=== PATIENT | female | born 1960 ===

== ENCOUNTER 2020-06-28 10:37 | Outpatient (REF) | payer MEDICARE, MEDICAID, SELFPAY | END 2020-06-28 10:38 | disposition home or self-care (01) | LOC: HO.HAP 10:37 | PROVIDERS: PCP Internal Medicine Medical Oncology; Referring Provider Internal Medicine Medical Oncology; Visit Provider Internal Medicine Medical Oncology | DX: Z46.1 Encounter for fitting and adjustment of hearing aid (principal) | CPT/HCPCS: V5266 ==

== ENCOUNTER 2020-09-15 08:00 | Outpatient (RCR) | payer MEDICARE, MEDICAID, SELFPAY ==
--- NOTE | 2020-09-17 08:46 | HO.OPPROGNO ---
Subjective Subjective Date of Service: 09/15/20 Reason For Visit: depression Interim History: Expressed much anger with the letter she received informing her of clinic closing. It is all about money . Discussed at length and explained rationale. Pt referenced her lack of trust in providers and how difficult it will be to make new alliances. Therapist at [facility] Zoha[facility] is supportive and is looking to one of his colleagues for transfer. Discussion of transfer process in attempts to ease pt's anxiety. Medication Compliance: Yes Side effects from medications: No Review of Systems Review of Systems Yes all other systems are reviewed and are negative (precautions to avoid covid) Mental Status Exam Mental Status Exam Patient Appearance: Appropriate Patient Orientation: Person, Place, Time and Situation Level of Consciousness: Alert Patient Behavior: Talkative Mood Description: Depressed and Angry Affect Description: Constricted Patient Cognition Impaired: No Ability to Follow Directions: Good Speech Pattern: Spontaneous Speech Memory Description: Intact Hallucinations: None Delusions: Not Present Thought Process: Intact Thought Content: positive for Intact Depressive Symptoms: Increased Anxiety (regarding change) Judgement: Good Discharge Plan Discharge Attending provider: Cornelia Beltran Medications: No Action fluvoxamine 100 mg tablet 100 mg PO BID Qty: 60 RF: 1 dextroamphetamine-amphetamine [Adderall] 20 mg tablet 20 mg PO BID Qty: 60 RF: 0 Assessment & Plan Assessment & Plan (1) ADHD: Status: Acute Code(s): F90.9 - Attention-deficit hyperactivity disorder, unspecified type Assessment and Plan: -Continue current regime (2) Major depressive disorder, recurrent severe without psychotic features: Status: Acute Code(s): F33.2 - Major depressive disorder, recurrent severe without psychotic features Assessment and Plan: -Continue current regime -Transfer to [facility] prescriber in process (3) PTSD (post-traumatic stress disorder): Status: Acute Code(s): F43.10 - Post-traumatic stress disorder, unspecified Assessment and Plan: Continue psychotherapy Greater than 50% of the session was spent on counseling and/or coordination of care Telehealth Telehealth Location of provider rendering services: practice address Location of patient: address on file Patient Identification confirmed using: Name, : Yes Telehealth method: voice only Patient verbally consented to treatment: Yes Patient verbally consented to billing insurance company: Yes Patient informed of any privacy concerns related to visit: Yes Time spent with patient (mins): 20
== END 2020-10-31 23:55 | disposition home or self-care (01) ==
LOC: HO.PAOS 08:00
PROVIDERS: Visit Provider Clinical Nurse Specialist Psychiatric/Mental Health, Adult
DX: F33.2 Major depressive disorder, recurrent severe without psychotic features (principal); F43.10 Post-traumatic stress disorder, unspecified; F90.9 Attention-deficit hyperactivity disorder, unspecified type
CPT/HCPCS: 99213

== ENCOUNTER 2020-09-17 11:43 | Outpatient (REF) | payer MEDICARE, MEDICAID, SELFPAY ==
[2020-09-20 08:16] LABS: SARS COV2 IgG Negative (Negative)
== END 2020-09-17 11:44 | disposition home or self-care (01) ==
LOC: HO.HMGCLDS 11:43
PROVIDERS: PCP Internal Medicine Medical Oncology; Visit Provider Internal Medicine Medical Oncology
DX: Z01.84 Encounter for antibody response examination (principal)
CPT/HCPCS: 36415; 86769

== ENCOUNTER 2020-09-17 12:27 | Outpatient (REF) | payer MEDICARE, MEDICAID, SELFPAY | END 2020-09-17 12:28 | disposition home or self-care (01) | LOC: HO.LAB 12:27 | PROVIDERS: PCP Internal Medicine Medical Oncology; Visit Provider Internal Medicine | DX: Z20.822 Contact with and (suspected) exposure to COVID-19 (principal) | CPT/HCPCS: 36415; C9803; U0003 ==

== ENCOUNTER 2021-01-03 11:53 | Outpatient (REF) | payer MEDICARE, MEDICAID, SELFPAY ==
--- NOTE | ~2021-01-03 | MM_ITS ---
EXAMINATION: MM SCREENING DIGITAL BREAST TOMOSYNTHESIS, BILATERAL CLINICAL INFORMATION: Screening. Asymptomatic. Benign left stereotactic biopsy 05/13/2014 (fibroadenoma with coarse microcalcifications). The lifetime risk of breast cancer based on the Tyrer-Cuzick Model is 3%. COMPARISON: Mammography: 04/02/2018, 03/29/2017, 01/26/2016 TECHNIQUE: Digital breast tomosynthesis is performed in both the craniocaudal and mediolateral oblique views along with computer-aided detection (CAD). Synthesized 2D images are generated from the tomosynthesis. FINDINGS: There are scattered areas of fibroglandular density (ACR BI-RADS breast composition Category b). There are no significant masses, abnormal calcifications, or other abnormalities. Parenchymal pattern is similar to prior studies. There are scattered bilateral stable asymmetries similar to prior exams. No developing density. There is a biopsy clip marker again noted mid upper outer left breast. No significant changes. MM/MM tomosynthesis screening BI IMPRESSION: No mammographic evidence of malignancy. ASSESSMENT: BI-RADS 2: Benign RECOMMENDATION: Routine annual mammography screening. This patient's information was entered into a reminder system with a target due date for their next mammogram.
[2021-01-03 13:22] LABS: Basophils Absolute Auto 0.1 X10*3/uL (0.0-0.2); Eosinophils Absolute Auto 0.1 X10*3/uL (0.0-0.4); Eosinophils Percent Auto 1.3 % (0-4); Hematocrit 40.6 % (37-47); Hemoglobin 13.2 g/dl (12.0-16.0); Imm Gran Abs Auto 0.01 X10*3/uL (0.00-0.03); Imm Gran Pct Auto 0.1 % (0.0-0.4); Lymphocytes Absolute Auto 4.2 X10*3/uL (1.2-4.9); Lymphocytes Percent Auto 51.3 % (20-40); MANUAL DIFF FLAG SCAN; Mean Corpuscular HGB Conc 32.5 g/dl (31.0-35.0); Mean Corpuscular Hemoglobin 29.2 pg (27.0-33.0); Mean Corpuscular Volume 89.8 fL (80-98); Mean Platelet Volume 9.4 fL (9.4-12.3); Monocytes Absolute Auto 0.7 X10*3/uL (0.1-1.2); Monocytes Percent Auto 8.7 % (2-11); Neutrophils Absolute Auto 3.1 X10*3/uL (2.0-8.3); Neutrophils Percent Auto 37.6 % (45-73); Platelet Count 513 X10*3/uL (160-400); Red Blood Count 4.52 X10*6/uL (4.20-5.50); Red Cell Distribution Width 14.3 % (11.0-16.0); SCAN SMEAR FLAG 1; White Blood Count 8.2 X10*3/uL (4.8-10.8)
[2021-01-03 13:56] LABS: Alanine Aminotransferase 20 U/L (0-31); Albumin Level 4.3 g/dL (3.5-5.0); Alkaline Phosphatase 88 U/L (39-117); Anion Gap 12 (12-20); Aspartate Amino Transferase 17 U/L (5-31); Bilirubin Total 0.5 mg/dL (0.0-1.0); Blood Urea Nitrogen 12 mg/dL (9-16); Carbon Dioxide 26 mmol/L (22-29); Chloride 106 mmol/L (96-108); Cholesterol 207 mg/dL; Estimated Glomerular Filt Rate > 60; Glucose Fasting 95 mg/dL (60-99); HDL Cholesterol 59 mg/dL; LDL Cholesterol Calculated 137 mg/dl; Potassium 5.2 mmol/L (3.3-5.1); Sodium 139 mmol/L (135-145); Total Protein 7.2 g/dL (6.5-8.0); Triglycerides 56 mg/dL
[2021-01-03 14:03] LABS: Calcium 11.1 mg/dL (8.4-10.2)
[2021-01-03 14:08] LABS: Vitamin D 25-OH Total 28.8 ng/mL (>30)
[2021-01-03 14:25] LABS: SLIDE REVIEW VERIFIED
== END 2021-01-03 11:54 | disposition home or self-care (01) ==
LOC: HO.MAMMO 11:53
PROVIDERS: PCP Internal Medicine Medical Oncology; Visit Provider Internal Medicine Medical Oncology
DX: E78.5 Hyperlipidemia, unspecified (principal); E83.52 Hypercalcemia; Z78.0 Asymptomatic menopausal state; Z12.31 Encounter for screening mammogram for malignant neoplasm of breast
CPT/HCPCS: 36415; 77063; 77067; 80053; 80061; 82306; 85025

== ENCOUNTER 2021-07-06 10:28 | Outpatient (REF) | payer MEDICARE, MEDICAID, SELFPAY ==
[2021-07-06 14:01] LABS: MANUAL DIFF FLAG NO
[2021-07-06 14:10] LABS: Basophils Absolute Auto 0.1 X10*3/uL (0.0-0.2); Basophils Percent Auto 0.8 % (0-2); Eosinophils Absolute Auto 0.1 X10*3/uL (0.0-0.4); Eosinophils Percent Auto 1.8 % (0-4); Hematocrit 40.1 % (37.0-47.0); Hemoglobin 13.3 g/dl (12.0-16.0); Imm Gran Abs Auto 0.02 X10*3/uL (0.00-0.03); Imm Gran Pct Auto 0.3 % (0.0-0.4); Lymphocytes Absolute Auto 2.8 X10*3/uL (1.2-4.9); Lymphocytes Percent Auto 37.5 % (20-40); Mean Corpuscular HGB Conc 33.2 g/dl (31.0-35.0); Mean Corpuscular Hemoglobin 29.7 pg (27.0-33.0); Mean Corpuscular Volume 89.5 fL (80.0-98.0); Mean Platelet Volume 10.1 fL (9.4-12.3); Monocytes Absolute Auto 0.8 X10*3/uL (0.1-1.2); Monocytes Percent Auto 10.4 % (2-11); Neutrophils Absolute Auto 3.63 x10*3/uL (2.0-8.3); Neutrophils Percent Auto 49.2 % (45-73); Platelet Count 577 X10*3/uL (160-400); Red Blood Count 4.48 X10*6/uL (4.20-5.50); Red Cell Distribution Width 14.2 % (11.0-16.0); White Blood Count 7.4 X10*3/uL (4.8-10.8)
[2021-07-06 14:39] LABS: Alanine Aminotransferase 16 U/L (0-31); Albumin Level 4.1 g/dL (3.5-5.0); Alkaline Phosphatase 90 U/L (39-117); Anion Gap 14 (12-20); Aspartate Amino Transferase 17 U/L (5-31); Bilirubin Total 0.4 mg/dL (0.0-1.0); Blood Urea Nitrogen 11 mg/dL (9-16); Calcium 10.6 mg/dL (8.4-10.2); Carbon Dioxide 24 mmol/L (22-29); Chloride 107 mmol/L (96-108); Cholesterol 175 mg/dL; Estimated Glomerular Filt Rate > 60; Glucose Fasting 89 mg/dL (60-99); HDL Cholesterol 42 mg/dL; LDL Cholesterol Calculated 119 mg/dl; Sodium 140 mmol/L (135-145); Total Protein 7.3 g/dL (6.5-8.0); Triglycerides 74 mg/dL
[2021-07-06 14:48] LABS: Erythrocyte Sedimentation Rate 28 MM/HR (0-20)
[2021-07-06 14:58] LABS: Vitamin D 25-OH Total 22.2 ng/mL (>30)
[2021-07-07 16:52] LABS: Calcium (PTHI) 10.8 mg/dL (8.6-10.4); PTHI 83 pg/mL (14-64)
== END 2021-07-06 10:29 | disposition home or self-care (01) ==
LOC: HO.HMGCLDS 10:28
PROVIDERS: Visit Provider Internal Medicine Medical Oncology
DX: E83.52 Hypercalcemia (principal); F90.9 Attention-deficit hyperactivity disorder, unspecified type; E78.5 Hyperlipidemia, unspecified; J45.909 Unspecified asthma, uncomplicated; D47.3 Essential (hemorrhagic) thrombocythemia
CPT/HCPCS: 36415; 80053; 80061; 82306; 83970; 85025; 85652

== ENCOUNTER 2021-08-02 06:39 | Outpatient (REF) | payer MEDICARE, MEDICAID, SELFPAY ==
[2021-08-02 11:19] LABS: MANUAL DIFF FLAG NO
[2021-08-02 11:26] LABS: Basophils Absolute Auto 0.1 X10*3/uL (0.0-0.2); Basophils Percent Auto 1.3 % (0-2); Eosinophils Absolute Auto 0.2 X10*3/uL (0.0-0.4); Eosinophils Percent Auto 3.3 % (0-4); Hematocrit 41.3 % (37.0-47.0); Hemoglobin 13.6 g/dl (12.0-16.0); Imm Gran Abs Auto 0.01 X10*3/uL (0.00-0.03); Imm Gran Pct Auto 0.2 % (0.0-0.4); Lymphocytes Absolute Auto 3.1 X10*3/uL (1.2-4.9); Lymphocytes Percent Auto 50.1 % (20-40); Mean Corpuscular HGB Conc 32.9 g/dl (31.0-35.0); Mean Corpuscular Hemoglobin 29.7 pg (27.0-33.0); Mean Corpuscular Volume 90.2 fL (80.0-98.0); Mean Platelet Volume 10.1 fL (9.4-12.3); Monocytes Absolute Auto 0.7 X10*3/uL (0.1-1.2); Monocytes Percent Auto 12.2 % (2-11); Neutrophils Percent Auto 32.9 % (45-73); Platelet Count 465 X10*3/uL (160-400); Red Blood Count 4.58 X10*6/uL (4.20-5.50); Red Cell Distribution Width 14.7 % (11.0-16.0); White Blood Count 6.1 X10*3/uL (4.8-10.8)
[2021-08-02 11:45] LABS: Alanine Aminotransferase 22 U/L (0-31); Alkaline Phosphatase 95 U/L (39-117); Anion Gap 12 (12-20); Aspartate Amino Transferase 22 U/L (5-31); Bilirubin Total 0.5 mg/dL (0.0-1.0); Blood Urea Nitrogen 10 mg/dL (9-16); Calcium 10.8 mg/dL (8.4-10.2); Carbon Dioxide 27 mmol/L (22-29); Chloride 108 mmol/L (96-108); Estimated Glomerular Filt Rate > 60; Glucose Random 106 mg/dL (60-115); Potassium 5.5 mmol/L (3.3-5.1); Sodium 141 mmol/L (135-145)
[2021-08-03 13:41] LABS: Calcium (PTHI) 10.3 mg/dL (8.6-10.4); PTHI 91 pg/mL (14-64)
== END 2021-08-02 06:40 | disposition home or self-care (01) ==
LOC: HO.HMGCLDS 06:39
PROVIDERS: PCP Internal Medicine Medical Oncology; Visit Provider Internal Medicine Medical Oncology
DX: E83.52 Hypercalcemia (principal); E78.5 Hyperlipidemia, unspecified
CPT/HCPCS: 36415; 80053; 83970; 85025

== ENCOUNTER 2021-12-02 11:02 | Outpatient (REF) | payer MEDICARE, MEDICAID, SELFPAY | END 2021-12-02 11:03 | disposition home or self-care (01) | LOC: HO.HAP 11:02 | PROVIDERS: Visit Provider Internal Medicine Medical Oncology | DX: Z46.1 Encounter for fitting and adjustment of hearing aid (principal); H90.6 Mixed conductive and sensorineural hearing loss, bilateral | CPT/HCPCS: V5266 ==

== ENCOUNTER 2022-01-11 12:54 | Outpatient (REF) | payer MEDICARE, MEDICAID, SELFPAY ==
--- NOTE | ~2022-01-11 | MM_ITS ---
EXAMINATION: MM SCREENING DIGITAL BREAST TOMOSYNTHESIS, BILATERAL CLINICAL INFORMATION: Screening. Asymptomatic. The lifetime risk of breast cancer based on the Tyrer-Cuzick Model is 3%. COMPARISON: Mammography: 01/03/2021, 04/02/2018, 03/29/2017 TECHNIQUE: Digital breast tomosynthesis is performed in both the craniocaudal and mediolateral oblique views along with computer-aided detection (CAD). Synthesized 2D images are generated from the tomosynthesis. FINDINGS: There are scattered areas of fibroglandular density (ACR BI-RADS breast composition Category b). There are no significant masses, abnormal calcifications, or other abnormalities. Scattered bilateral minor asymmetries are stable. No developing density. Left breast has biopsy clip marker mid upper outer quadrant. The axilla and skin contours are unremarkable. No significant changes. MM/MM tomosynthesis screening BI IMPRESSION: No mammographic evidence of malignancy. ASSESSMENT: BI-RADS 2: Benign RECOMMENDATION: Routine annual mammography screening. This patient's information was entered into a reminder system with a target due date for their next mammogram.
== END 2022-01-11 12:55 | disposition home or self-care (01) ==
LOC: HO.MAMMO 12:54
PROVIDERS: PCP Internal Medicine Medical Oncology; Visit Provider Internal Medicine Medical Oncology
DX: Z12.31 Encounter for screening mammogram for malignant neoplasm of breast (principal)
CPT/HCPCS: 77063; 77067

== ENCOUNTER 2022-04-10 06:44 | Outpatient (REF) | payer MEDICARE, MEDICAID, SELFPAY ==
[2022-04-10 11:11] LABS: MANUAL DIFF FLAG NO
[2022-04-10 11:45] LABS: Basophils Absolute Auto 0.1 X10*3/uL (0.0-0.2); Basophils Percent Auto 1.1 % (0-2); Eosinophils Absolute Auto 0.2 X10*3/uL (0.0-0.4); Eosinophils Percent Auto 2.4 % (0-4); Hematocrit 39.6 % (37.0-47.0); Imm Gran Abs Auto 0.01 X10*3/uL (0.00-0.03); Imm Gran Pct Auto 0.1 % (0.0-0.4); Lymphocytes Absolute Auto 3.1 X10*3/uL (1.2-4.9); Lymphocytes Percent Auto 39.3 % (20-40); Mean Corpuscular HGB Conc 32.8 g/dl (31.0-35.0); Mean Corpuscular Hemoglobin 29.8 pg (27.0-33.0); Mean Corpuscular Volume 90.8 fL (80.0-98.0); Mean Platelet Volume 9.2 fL (9.4-12.3); Monocytes Absolute Auto 0.9 X10*3/uL (0.1-1.2); NRBC Pct Auto 0.3 /100WBC (0.0-0.2); Neutrophils Absolute Auto 3.6 x10*3/uL (2.0-8.3); Neutrophils Percent Auto 46.1 % (45-73); Platelet Count 592 X10*3/uL (160-400); Red Blood Count 4.36 X10*6/uL (4.20-5.50); Red Cell Distribution Width 14.9 % (11.0-16.0); White Blood Count 7.9 X10*3/uL (4.8-10.8)
[2022-04-10 11:47] LABS: Alanine Aminotransferase 14 U/L (0-31); Albumin Level 3.9 g/dL (3.5-5.0); Alkaline Phosphatase 78 U/L (39-117); Anion Gap 12 (12-20); Aspartate Amino Transferase 13 U/L (5-31); Bilirubin Total 0.6 mg/dL (0.0-1.0); Blood Urea Nitrogen 12 mg/dL (9-16); Calcium 9.9 mg/dL (8.4-10.2); Carbon Dioxide 25 mmol/L (22-29); Chloride 106 mmol/L (96-108); Cholesterol 203 mg/dL; Estimated Glomerular Filt Rate > 60; Glucose Fasting 90 mg/dL (60-99); HDL Cholesterol 51 mg/dL; LDL Cholesterol Calculated 136 mg/dl; Potassium 4.3 mmol/L (3.3-5.1); Sodium 139 mmol/L (135-145); Total Protein 6.8 g/dL (6.5-8.0); Triglycerides 82 mg/dL
[2022-04-10 11:58] LABS: Vitamin D 25-OH Total 23.9 ng/mL (>30)
== END 2022-04-10 06:45 | disposition home or self-care (01) ==
LOC: HO.HMGCLDS 06:44
PROVIDERS: PCP Internal Medicine Medical Oncology; Visit Provider Internal Medicine Medical Oncology
DX: E66.3 Overweight (principal); E78.5 Hyperlipidemia, unspecified; D47.3 Essential (hemorrhagic) thrombocythemia
CPT/HCPCS: 36415; 80053; 80061; 82306; 85025

== ENCOUNTER 2022-05-24 06:57 | Outpatient (REF) | payer MEDICARE, MEDICAID, SELFPAY ==
[2022-05-24 11:13] LABS: MANUAL DIFF FLAG NO
[2022-05-24 11:25] LABS: Basophils Absolute Auto 0.1 X10*3/uL (0.0-0.2); Basophils Percent Auto 1.1 % (0-2); Eosinophils Absolute Auto 0.2 X10*3/uL (0.0-0.4); Eosinophils Percent Auto 3.1 % (0-4); Hematocrit 39.5 % (37.0-47.0); Hemoglobin 12.9 g/dl (12.0-16.0); Imm Gran Abs Auto 0.04 X10*3/uL (0.00-0.03); Imm Gran Pct Auto 0.5 % (0.0-0.4); Lymphocytes Absolute Auto 2.8 X10*3/uL (1.2-4.9); Lymphocytes Percent Auto 37.6 % (20-40); Mean Corpuscular HGB Conc 32.7 g/dl (31.0-35.0); Mean Corpuscular Hemoglobin 29.7 pg (27.0-33.0); Mean Corpuscular Volume 90.8 fL (80.0-98.0); Mean Platelet Volume 10.2 fL (9.4-12.3); Monocytes Absolute Auto 0.9 X10*3/uL (0.1-1.2); Monocytes Percent Auto 11.6 % (2-11); Neutrophils Absolute Auto 3.4 x10*3/uL (2.0-8.3); Neutrophils Percent Auto 46.1 % (45-73); Platelet Count 492 X10*3/uL (160-400); Red Blood Count 4.35 X10*6/uL (4.20-5.50); Red Cell Distribution Width 14.8 % (11.0-16.0); White Blood Count 7.4 X10*3/uL (4.8-10.8)
== END 2022-05-24 06:58 | disposition home or self-care (01) ==
LOC: HO.HMGCLDS 06:57
PROVIDERS: PCP Internal Medicine Medical Oncology; Visit Provider Internal Medicine Medical Oncology
DX: F90.9 Attention-deficit hyperactivity disorder, unspecified type (principal); D47.3 Essential (hemorrhagic) thrombocythemia; E78.5 Hyperlipidemia, unspecified
CPT/HCPCS: 36415; 85025

== ENCOUNTER 2022-08-23 08:15 | Outpatient (REF) | payer MEDICARE, MEDICAID, SELFPAY ==
[2022-08-23 11:20] LABS: MANUAL DIFF FLAG NO
[2022-08-23 11:27] LABS: Basophils Absolute Auto 0.1 X10*3/uL (0.0-0.2); Eosinophils Absolute Auto 0.2 X10*3/uL (0.0-0.4); Eosinophils Percent Auto 2.4 % (0-4); Hematocrit 42.9 % (37.0-47.0); Hemoglobin 14.1 g/dl (12.0-16.0); Imm Gran Abs Auto 0.03 X10*3/uL (0.00-0.03); Imm Gran Pct Auto 0.4 % (0.0-0.4); Lymphocytes Absolute Auto 3.3 X10*3/uL (1.2-4.9); Lymphocytes Percent Auto 40.6 % (20-40); Mean Corpuscular HGB Conc 32.9 g/dl (31.0-35.0); Mean Corpuscular Hemoglobin 29.3 pg (27.0-33.0); Mean Corpuscular Volume 89.2 fL (80.0-98.0); Mean Platelet Volume 9.7 fL (9.4-12.3); Monocytes Percent Auto 12.4 % (2-11); Neutrophils Absolute Auto 3.6 x10*3/uL (2.0-8.3); Neutrophils Percent Auto 43.2 % (45-73); Platelet Count 468 X10*3/uL (160-400); Red Blood Count 4.81 X10*6/uL (4.20-5.50); Red Cell Distribution Width 14.7 % (11.0-16.0); White Blood Count 8.2 X10*3/uL (4.8-10.8)
[2022-08-23 12:00] LABS: Alanine Aminotransferase 14 U/L (0-31); Albumin Level 4.1 g/dL (3.5-5.0); Alkaline Phosphatase 98 U/L (39-117); Anion Gap 9 (12-20); Aspartate Amino Transferase 14 U/L (5-31); Bilirubin Total 0.4 mg/dL (0.0-1.0); Blood Urea Nitrogen 17 mg/dL (9-16); Calcium 11.8 mg/dL (8.4-10.2); Carbon Dioxide 27 mmol/L (22-29); Chloride 106 mmol/L (96-108); Cholesterol 235 mg/dL; Estimated Glomerular Filt Rate 59; Glucose Fasting 95 mg/dL (60-99); HDL Cholesterol 61 mg/dL; LDL Cholesterol Calculated 158 mg/dl; Potassium 4.7 mmol/L (3.3-5.1); Sodium 137 mmol/L (135-145); Total Protein 7.1 g/dL (6.5-8.0); Triglycerides 81 mg/dL; Vitamin D 25-OH Total 31.9 ng/mL (>30)
== END 2022-08-23 08:16 | disposition home or self-care (01) ==
LOC: HO.HMGCLDS 08:15
PROVIDERS: PCP Internal Medicine Medical Oncology; Visit Provider Internal Medicine Medical Oncology
DX: E78.5 Hyperlipidemia, unspecified (principal); D47.3 Essential (hemorrhagic) thrombocythemia
CPT/HCPCS: 36415; 80053; 80061; 82306; 85025

== ENCOUNTER 2022-09-13 07:19 | Outpatient (REF) | payer MEDICARE, MEDICAID, SELFPAY ==
[2022-09-13 13:33] LABS: Alanine Aminotransferase 13 U/L (0-31); Albumin Level 4.1 g/dL (3.5-5.0); Alkaline Phosphatase 101 U/L (39-117); Anion Gap 13 (12-20); Aspartate Amino Transferase 15 U/L (5-31); Bilirubin Total 0.3 mg/dL (0.0-1.0); Blood Urea Nitrogen 22 mg/dL (9-16); Calcium 10.7 mg/dL (8.4-10.2); Carbon Dioxide 24 mmol/L (22-29); Chloride 108 mmol/L (96-108); Estimated Glomerular Filt Rate > 60; Glucose Random 113 mg/dL (60-115); Potassium 5.5 mmol/L (3.3-5.1); Sodium 139 mmol/L (135-145); Total Protein 7.4 g/dL (6.5-8.0)
[2022-09-13 13:37] LABS: Vitamin D 25-OH Total 27.6 ng/mL (>30)
== END 2022-09-13 07:20 | disposition home or self-care (01) ==
LOC: HO.HMGCLDS 07:19
PROVIDERS: PCP Internal Medicine Medical Oncology; Visit Provider Internal Medicine Medical Oncology
DX: F90.9 Attention-deficit hyperactivity disorder, unspecified type (principal); J45.909 Unspecified asthma, uncomplicated; D47.3 Essential (hemorrhagic) thrombocythemia; E83.52 Hypercalcemia; E21.3 Hyperparathyroidism, unspecified
CPT/HCPCS: 36415; 80053; 82306

== ENCOUNTER 2022-11-01 10:35 | Outpatient (REF) | payer MEDICARE, MEDICAID, SELFPAY ==
[2022-11-01 13:59] LABS: MANUAL DIFF FLAG NO
[2022-11-01 14:18] LABS: Basophils Absolute Auto 0.1 X10*3/uL (0.0-0.2); Basophils Percent Auto 1.1 % (0-2); Eosinophils Absolute Auto 0.1 X10*3/uL (0.0-0.4); Eosinophils Percent Auto 1.5 % (0-4); Hematocrit 42.8 % (37.0-47.0); Hemoglobin 13.8 g/dl (12.0-16.0); Imm Gran Abs Auto 0.02 X10*3/uL (0.00-0.03); Imm Gran Pct Auto 0.2 % (0.0-0.4); Lymphocytes Absolute Auto 3.2 X10*3/uL (1.2-4.9); Lymphocytes Percent Auto 35.5 % (20-40); Mean Corpuscular HGB Conc 32.2 g/dl (31.0-35.0); Mean Corpuscular Hemoglobin 29.2 pg (27.0-33.0); Mean Corpuscular Volume 90.7 fL (80.0-98.0); Mean Platelet Volume 9.8 fL (9.4-12.3); Monocytes Absolute Auto 0.8 X10*3/uL (0.1-1.2); Monocytes Percent Auto 9.3 % (2-11); Neutrophils Absolute Auto 4.7 x10*3/uL (2.0-8.3); Neutrophils Percent Auto 52.4 % (45-73); Platelet Count 507 X10*3/uL (160-400); Red Blood Count 4.72 X10*6/uL (4.20-5.50); Red Cell Distribution Width 14.5 % (11.0-16.0); White Blood Count 8.9 X10*3/uL (4.8-10.8)
[2022-11-01 14:51] LABS: Alanine Aminotransferase 16 U/L (0-31); Albumin Level 4.1 g/dL (3.5-5.0); Alkaline Phosphatase 96 U/L (39-117); Anion Gap 12 (12-20); Aspartate Amino Transferase 14 U/L (5-31); Bilirubin Total 0.3 mg/dL (0.0-1.0); Blood Urea Nitrogen 15 mg/dL (9-16); Calcium 10.5 mg/dL (8.4-10.2); Carbon Dioxide 27 mmol/L (22-29); Chloride 107 mmol/L (96-108); Estimated Glomerular Filt Rate > 60; Glucose Random 107 mg/dL (60-115); Potassium 5.6 mmol/L (3.3-5.1); Sodium 140 mmol/L (135-145); Total Protein 7.3 g/dL (6.5-8.0)
[2022-11-01 14:56] LABS: Vitamin D 25-OH Total 24.7 ng/mL (>30)
[2022-11-02 13:24] LABS: Calcium (PTHI) 11.2 mg/dL (8.6-10.4); PTHI 140 pg/mL (16-77)
== END 2022-11-01 10:36 | disposition home or self-care (01) ==
LOC: HO.HMGCLDS 10:35
PROVIDERS: PCP Internal Medicine Medical Oncology; Visit Provider Internal Medicine Medical Oncology
DX: E21.3 Hyperparathyroidism, unspecified (principal)
CPT/HCPCS: 36415; 80053; 82306; 83970; 85025

== ENCOUNTER 2022-11-10 06:39 | Outpatient (REF) | payer MEDICARE, MEDICAID, SELFPAY ==
--- NOTE | ~2022-11-10 | XR_ITS ---
EXAMINATION: XR CHEST CLINICAL INFORMATION: Cough COMPARISON: 05/24/2017 TECHNIQUE: 2 views of the chest were obtained. FINDINGS: The lung pattern is overall increased interstitial change. There is some increased opacities in the parahilar region on the right suprahilar region and also at the left base in the lingula. There is also some mildly increasing opacities in the anterior medial right lung which may be in the right middle lobe. There is no effusion. No failure is seen here. The cardiac silhouette is within normal limits. The hilar regions do not appear pathologically enlarged. XR/XR chest 2V IMPRESSION: Some increased markings in the left base/lingula, right medial base possibly right middle lobe and parahilar region on the right. These may be small areas of infiltrate. Follow-up films would be recommended after treatment in 4-6 weeks to assess for resolution.
--- NOTE | ~2022-11-10 | XR_ITS ---
EXAMINATION: XR HAND, RIGHT CLINICAL INFORMATION: Pain COMPARISON: None TECHNIQUE: PA, lateral, and oblique views of the right hand. FINDINGS: There is degeneration at the base of the thumb. No convincing evidence for an acute fracture or dislocation. Some scattered areas of degeneration otherwise most noted in the DIP joints. XR/XR hand RT min 3V IMPRESSION: No convincing evidence for acute bony finding. Degenerative changes most noted at the base of the thumb.
== END 2022-11-10 06:40 | disposition home or self-care (01) ==
LOC: HO.XRAY 06:39
PROVIDERS: PCP Internal Medicine Medical Oncology; Visit Provider Internal Medicine Medical Oncology
DX: M79.644 Pain in right finger(s) (principal); R05.1 Acute cough
CPT/HCPCS: 71046; 73130

== ENCOUNTER 2023-01-16 08:33 | Outpatient (REF) | payer MEDICARE, MEDICAID, SELFPAY ==
--- NOTE | ~2023-01-16 | MM_ITS ---
EXAMINATION: MM SCREENING DIGITAL BREAST TOMOSYNTHESIS, BILATERAL CLINICAL INFORMATION: Screening. Asymptomatic. The lifetime risk of breast cancer based on the Tyrer-Cuzick Model is 4%. COMPARISON: Mammography: 01/11/2022, 01/03/2021, 04/02/2018 TECHNIQUE: Digital breast tomosynthesis is performed in both the craniocaudal and mediolateral oblique views along with computer-aided detection (CAD). Synthesized 2D images are generated from the tomosynthesis. FINDINGS: There are scattered areas of fibroglandular density (ACR BI-RADS breast composition Category b). There are no significant masses, abnormal calcifications, or other abnormalities. Parenchymal pattern is similar to prior studies. There is no developing density or architectural abnormality. Biopsy clip marker again noted mid upper outer left breast. The axilla and skin contours are unremarkable. Incidental small low right axillary tail node stable. No significant changes. MM/MM tomosynthesis screening BI IMPRESSION: No mammographic evidence of malignancy. ASSESSMENT: BI-RADS 2: Benign RECOMMENDATION: Routine annual mammography screening. This patient's information was entered into a reminder system with a target due date for their next mammogram.
--- NOTE | ~2023-01-16 | MM_ITS ---
EXAMINATION: BONE DENSITOMETRY CLINICAL INDICATION: Asymptomatic menopausal state. COMPARISON: Baseline BD dated 08/30/2012, left hip; 01/16/2023, spine and left forearm radius 33%. TECHNIQUE: Using a [employer] DXA System (software version: 13.1) manufactured by [employer], dual-energy x-ray absorptiometry was performed of the lumbar spine, left hip and left forearm radius 33%. The images are of good technical quality. Summary results are attached. FINDINGS: AP SPINE L1-L4 (excluding L2 and L3): The data of L1-L4 has been changed to exclude the L2 and L3 vertebral bodies because degenerative changes at these levels may cause overestimation of the lumbar spine density. Current: BMD 1.168 g/cm2, Z-score 1.7, T-score 0.0, normal, 3.8% decrease from baseline (<5% change is not significant). Baseline: BMD 1.214 g/cm2. LEFT FEMUR, NECK: Current: BMD 0.788 g/cm2, Z-score -0.3, T-score -1.8, osteopenia. Baseline: BMD 0.922 g/cm2. LEFT FEMUR, TOTAL: Current: BMD 0.853 g/cm2, Z-score 0.0, T-score -1.2, osteopenia, 13.6% decrease from baseline (<5% change is not significant). Baseline: BMD 0.987 g/cm2. LEFT FOREARM RADIUS 33%: BMD 0.839 g/cm2, Z-score 0.8, T-score -0.4, normal. Baseline: Not previously measured. IDENTIFIED RISK FACTORS: Early menopause, secondary osteoporosis, hyperparathyroidism, low calcium intake, tobacco use (current smoker). HISTORY OF FRACTURE: None listed. MEDICATIONS: Vitamin D. MM/XR DEXA appendicular skeleton IMPRESSION: 1. DIAGNOSIS: Osteopenia based on the lowest T-score value of -1.8 in the femoral neck applying World Health Organization criteria. 2. 10-YEAR FRACTURE RISK PREDICTION, FRAX: Major osteoporotic fracture (clinical spine, forearm, hip or shoulder) 10.1%. Hip fracture 2.1%. 3. Treatment Recommendations: NOF guidelines recommend consideration for treatment in postmenopausal women and men age 50 and older presenting with the following: -A hip or vertebral (clinical or morphometric) fracture. -T-score less than or equal to -2.5 at the femoral neck or spine after appropriate evaluation to exclude secondary causes. -Low bone mass at the hip or spine and a 10-year fracture probability by FRAX of greater than or equal to 3% for hip fracture or greater than or equal to 20% for major osteoporotic fracture based on the [place] adapted WHO algorithm. 4. Other Recommendations: All treatment decisions require clinical judgment and consideration of individual patient factors, including patient preferences, comorbidities, previous drug use, risk factors not captured in the FRAX model (e.g. frailty, falls, vitamin D deficiency, increased bone turnover, interval significant decline in bone density) and possible under or overestimation of fracture risk by FRAX. Additional medical evaluation for secondary cause of low bone mineral density may be appropriate. FUTURE SCAN RECOMMENDATION: People with diagnosed cases of osteoporosis or at high risk for fracture should have regular bone mineral density tests. For patients eligible for Medicare, routine testing is allowed once every 2 years. The testing frequency can be increased to one year for patients who have rapidly progressing disease, those who are receiving or discontinuing medical therapy to restore bone mass, or have additional risk factors.
[2023-01-16 09:07] LABS: MANUAL DIFF FLAG NO
[2023-01-16 09:14] LABS: Basophils Absolute Auto 0.1 X10*3/uL (0.0-0.2); Basophils Percent Auto 1.1 % (0-2); Eosinophils Absolute Auto 0.1 X10*3/uL (0.0-0.4); Eosinophils Percent Auto 2.1 % (0-4); Hematocrit 40.1 % (37.0-47.0); Imm Gran Abs Auto 0.01 X10*3/uL (0.00-0.03); Imm Gran Pct Auto 0.2 % (0.0-0.4); Lymphocytes Absolute Auto 1.6 X10*3/uL (1.2-4.9); Lymphocytes Percent Auto 30.5 % (20-40); Mean Corpuscular HGB Conc 32.4 g/dl (31.0-35.0); Mean Corpuscular Hemoglobin 28.9 pg (27.0-33.0); Mean Corpuscular Volume 89.1 fL (80.0-98.0); Mean Platelet Volume 10.3 fL (9.4-12.3); Monocytes Absolute Auto 0.7 X10*3/uL (0.1-1.2); Neutrophils Absolute Auto 2.8 x10*3/uL (2.0-8.3); Neutrophils Percent Auto 52.1 % (45-73); Platelet Count 304 X10*3/uL (160-400); Red Cell Distribution Width 14.6 % (11.0-16.0); White Blood Count 5.3 X10*3/uL (4.8-10.8)
[2023-01-16 09:55] LABS: Alanine Aminotransferase 15 U/L (0-31); Albumin Level 3.8 g/dL (3.5-5.0); Alkaline Phosphatase 86 U/L (39-117); Anion Gap 9 (12-20); Aspartate Amino Transferase 15 U/L (5-31); Bilirubin Total 0.2 mg/dL (0.0-1.0); Blood Urea Nitrogen 19 mg/dL (9-16); Calcium 10.3 mg/dL (8.4-10.2); Carbon Dioxide 25 mmol/L (22-29); Chloride 110 mmol/L (96-108); Cholesterol 189 mg/dL; Estimated Glomerular Filt Rate 59; Glucose Fasting 111 mg/dL (60-99); HDL Cholesterol 56 mg/dL; LDL Cholesterol Calculated 120 mg/dl; Potassium 5.6 mmol/L (3.3-5.1); Sodium 138 mmol/L (135-145); Total Protein 6.7 g/dL (6.5-8.0); Triglycerides 65 mg/dL
[2023-01-24 20:38] LABS: Parathyroid Hormone Related Pr 10 pg/mL (11-20)
== END 2023-01-16 08:34 | disposition home or self-care (01) ==
LOC: HO.MAMMO 08:33
PROVIDERS: PCP Internal Medicine Medical Oncology; Visit Provider Internal Medicine Medical Oncology
DX: Z12.31 Encounter for screening mammogram for malignant neoplasm of breast (principal); Z13.820 Encounter for screening for osteoporosis; Z78.0 Asymptomatic menopausal state; E21.3 Hyperparathyroidism, unspecified; R05.1 Acute cough; E78.5 Hyperlipidemia, unspecified; J45.909 Unspecified asthma, uncomplicated; D47.3 Essential (hemorrhagic) thrombocythemia
CPT/HCPCS: 36415; 77063; 77067; 77081; 80053; 80061; 83519; 85025

== ENCOUNTER 2023-04-20 06:10 | Outpatient (REF) | payer MEDICARE, MEDICAID, SELFPAY ==
[2023-04-20 11:12] LABS: MANUAL DIFF FLAG NO
[2023-04-20 11:36] LABS: Basophils Absolute Auto 0.1 X10*3/uL (0.0-0.2); Basophils Percent Auto 1.5 % (0-2); Eosinophils Absolute Auto 0.1 X10*3/uL (0.0-0.4); Eosinophils Percent Auto 1.9 % (0-4); Hematocrit 39.2 % (37.0-47.0); Hemoglobin 12.9 g/dl (12.0-16.0); Imm Gran Abs Auto 0.01 X10*3/uL (0.00-0.03); Imm Gran Pct Auto 0.2 % (0.0-0.4); Lymphocytes Absolute Auto 2.3 X10*3/uL (1.2-4.9); Lymphocytes Percent Auto 37.6 % (20-40); Mean Corpuscular HGB Conc 32.9 g/dl (31.0-35.0); Mean Corpuscular Hemoglobin 29.3 pg (27.0-33.0); Mean Corpuscular Volume 89.1 fL (80.0-98.0); Mean Platelet Volume 10.3 fL (9.4-12.3); Monocytes Absolute Auto 0.8 X10*3/uL (0.1-1.2); Monocytes Percent Auto 13.1 % (2-11); Neutrophils Absolute Auto 2.8 x10*3/uL (2.0-8.3); Neutrophils Percent Auto 45.7 % (45-73); Platelet Count 458 X10*3/uL (160-400); Red Cell Distribution Width 15.2 % (11.0-16.0); White Blood Count 6.2 X10*3/uL (4.8-10.8)
[2023-04-20 12:02] LABS: Alanine Aminotransferase 17 U/L (0-31); Albumin Level 3.9 g/dL (3.5-5.0); Alkaline Phosphatase 76 U/L (39-117); Anion Gap 11 (12-20); Aspartate Amino Transferase 18 U/L (5-31); Bilirubin Total 0.4 mg/dL (0.0-1.0); Blood Urea Nitrogen 18 mg/dL (9-16); Calcium 10.9 mg/dL (8.4-10.2); Carbon Dioxide 24 mmol/L (22-29); Chloride 109 mmol/L (96-108); Cholesterol 206 mg/dL; Estimated Glomerular Filt Rate > 60; Glucose Fasting 100 mg/dL (60-99); HDL Cholesterol 54 mg/dL; LDL Cholesterol Calculated 135 mg/dl; Sodium 140 mmol/L (135-145); Total Protein 7.4 g/dL (6.5-8.0); Triglycerides 89 mg/dL
[2023-04-23 13:48] LABS: Calcium (PTHI) 10.6 mg/dL (8.6-10.4); PTHI 108 pg/mL (16-77)
== END 2023-04-20 06:11 | disposition home or self-care (01) ==
LOC: HO.HMGCLDS 06:10
PROVIDERS: PCP Internal Medicine Medical Oncology; Visit Provider Internal Medicine Medical Oncology
DX: Z00.00 Encounter for general adult medical examination without abnormal findings (principal); E21.3 Hyperparathyroidism, unspecified; E78.5 Hyperlipidemia, unspecified
CPT/HCPCS: 36415; 80053; 80061; 83970; 85025

== ENCOUNTER 2023-06-01 12:49 | Outpatient (AMB) | payer MEDICARE, MEDICAID, SELFPAY ==
--- NOTE | 2023-06-01 10:22 | A.OFFVIS_ITS ---
Intake Intake Visit Reasons: LDCT SD Allergies trazodone [TRAZODONE] Allergy (Unknown, Unverified 05/20/20 18:26) NIGHTMARES, FELT LIKE ELEPHANT SITTING ON CHEST, NIGHMARES HPI LDCT SD HPI Details Initial visit for this 63yo smoker with a 45PYH. Patient has been smoking since age 15 for 48 years at 1ppd. Currently down to 1/2ppd. Denies marijuana use. Denies second hand smoke exposure. Denies exposure to chemicals or substances like asbestos. . Notes family history of lung cancer. Mom at age 51 in 1990 Denies personal history of cancers. . Denies chest CT in last year. Ct chest done 09/05/16 noted centrilobular emphysema and small nodules. . Denies recent travel outside the [place]. Denies recent respiratory illness or recent hospitalization for respiratory issues. Denies testing positive for COVID. Admits receiving COVID Vaccine. x 5. . Denies fever, chills, new/worsening cough, hemoptysis, hoarseness or dysphagia. Denies significant chest pain, significant dyspnea or unintentional weight loss. Patient Lung Cancer Screening Questionnaire reviewed with patient by provider. . Shared Decision Making Completed. Patient meets criteria. Discussed in detail with patient, the risk vs benefit of LDCT screening. Patient consents to proceed with scan. Discussed smoking cessation. [facility] Medical History (Updated 06/01/23 @ 13:17 by Dianna Singh PA-C) PTSD (post-traumatic stress disorder) Major depressive disorder, recurrent severe without psychotic features ADHD Hyperparathyroidism Hyperlipidemia Nicotine dependence, cigarettes, uncomplicated Osteopenia (~2022) Postmenopausal Tubular adenoma of colon (~2018) Hearing loss, bilateral History of drug overdose Surgical History (Updated 03/20/23 @ 13:04 by Dianna Singh PA-C) History of cataract surgery History of ear surgery History of tonsillectomy History of endoscopy History of colonoscopy Social History (Updated 06/01/23 @ 13:18 by Dianna Singh PA-C) Patient Tobacco Use Status: Current everyday Tobacco user Years Smoked: onset 15yo, 1ppd x 48yrs, now 1/2ppd - 45pyh Assessment & Plan Assessment & Plan (1) Nicotine dependence, cigarettes, uncomplicated: Comment: (current smoker - onset 15yo, 1ppd x 48yrs, now 1/2ppd - 45PYH) Code(s): F17.210 - Nicotine dependence, cigarettes, uncomplicated Plan: - SDM visit completed today in office. - Patient meets criteria for LDCT for lung cancer screening purposes and is asymptomatic. - Smoking cessation counseling offered. Patients can always call [phone]. - Will arrange for a LDCT scan of the chest for screening purposes at [facility]. - Risks, benefits, and alternatives were discussed in detail and the patient agrees to proceed. - Risks discussed include but are not limited to: radiation exposure, anxiety during testing and while awaiting results, false negatives, false positives and possibility of additional intervention such as further imaging or surgical procedures for benign disease. - Benefits are obviously detection of lung cancer at an early stage which can lead to improved outcomes. - Discussed the importance of screening program compliance with adherence to yearly LDCT scan as scheduled - or sooner interval scans for personalized screening regimen. - Discussed follow up plan. Our office will send a letter discussing results and if needed set up phone call and office visit based on CT findings. - Patient educated on results categorization and the management decisions for suspicious findings potentially found on the screening LDCT scan. Any patient with a Lung RADS score of 3 or 4 will be reviewed by a multidisciplinary team at [facility] to form a plan of action in regards to scan findings. - If further work up is warranted for a suspicious lung finding this will be followed by the Lung Cancer Screening program in conjunction with the Thoracic Surgery Department at [facility]. - A copy of the office note and LDCT will be sent to the patient's PCP - as well as documentation on any associated further plans of care. - Incidental findings on LDCT are the PCP's responsibility. These findings are indicated with an S finding on the LDCT Assessment. A note discussing the findings will be sent to the PCP who is then responsible for further management. - All questions answered.? Coding Level of Care Code Lung Cancer Screening G0296 Diagnoses Nicotine dependence, cigarettes, uncomplicated F17.210
== END 2023-06-01 14:59 | disposition home or self-care (01) ==
PROVIDERS: PCP Internal Medicine Medical Oncology; Visit Provider Physician Assistant Medical
DX: F17.210 Nicotine dependence, cigarettes, uncomplicated (principal)
CPT/HCPCS: G0296

== ENCOUNTER 2023-06-01 13:28 | Outpatient (REF) | payer MEDICARE, MEDICAID, SELFPAY ==
--- NOTE | ~2023-06-01 | CT_ITS ---
EXAMINATION: CT CHEST SCREENING CLINICAL INFORMATION: Current smoker with 40 pack-year history. COMPARISON: 06/05/2017 TECHNIQUE: Multidetector volumetric CT imaging of the chest is performed without contrast using low dose technique. Additional 2D coronal and sagittal reformatted images and axial 3D maximum intensity projection (MIP) images are generated on the CT workstation. This CT examination was performed using dose optimization techniques as appropriate, variously including the following: *Automated exposure control *Adjustment of mA and/or kV according to patient size (this includes techniques or standardized protocols for targeted exams where dose is matched to indication/reason for exam; i.e. 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 Left lateral mid lung opacity likely nipple shadow. LUNGS: Trachea and bronchi are patent. Hyperinflated lungs with centrilobular emphysema. Mild mosaic attenuation. Scattered atelectasis. In the superior segment of the right lower lobe, 9 x 8 mm subpleural nodular density is seen, axial 199/445. Borders are spiculated, there is tethering to the pleura. Spiculations and possible small daughter lesions best visualized on on sagittal 73/106, coronal 69 through 71/81. 4 mm left upper lobe pulmonary nodule, 6:113. MEDIASTINUM: No thyroid nodules. Nonspecific mediastinal lymph nodes. No pathologic lymphadenopathy. Nonenlarged heart. No pericardial effusion. Atherosclerotic calcifications nonaneurysmal aorta. Nonenlarged pulmonary arteries. CORONARY ARTERY CALCIFICATION: Minimal. PLEURA: There is no pleural effusion. No pleural mass or thickening. AXILLA: No pathologic lymphadenopathy. UPPER ABDOMEN: Unremarkable OSSEOUS STRUCTURES: No suspicious osseous lesions. CT/CT lung screening IMPRESSION: Suspicious 9 mm right lower lobe pulmonary nodule. ASSESSMENT: Lung-RADS category 4X: Suspicious RECOMMENDATION: PET/CT and/or tissue sampling depending on probability of malignancy and comorbidities. For new large nodules which have developed at annual screening CT, one month LDCT may be recommended to address potentially infectious or inflammatory conditions. At the time of this dictation, PSA service being contacted to alert referring physician of findings and recommendations.
== END 2023-06-01 13:29 | disposition home or self-care (01) ==
LOC: HO.CT 13:28
PROVIDERS: Visit Provider Physician Assistant Medical
DX: Z12.2 Encounter for screening for malignant neoplasm of respiratory organs (principal); F17.210 Nicotine dependence, cigarettes, uncomplicated
CPT/HCPCS: 71271; G0296

== ENCOUNTER 2023-06-19 11:20 | Outpatient (AMB) | payer MEDICARE, MEDICAID, SELFPAY ==
[2023-06-19 11:27] VITALS: BP 183/79; PULSE 85; BMI 25.2
--- NOTE | 2023-06-19 11:27 | MHC.OFFVIS ---
Intake Vital Signs 06/19/23 11:27 Height 5 ft Weight 129 lb BMI 25.2 BP 183/79 H Blood Pressure Location Rt brachial Position Sitting Pulse 85 Intake Visit Reasons: 9mm Rt lower lobe pulmonary nodule Intake Note: Patient referred for Rt lower lobe pulmonary nodule noticed on CT scan dated 06-01-23. Denies difficulty breathing. Reports hx of chronic bronchitis since childhood. C/o constant cough. 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 I know the patient directly from her presentation at lung cancer screening conference. Patient is a longstanding smoking history starting at age 15 with a least 1+ pack a day. She denies any significant shortness of breath. She has a history of bronchitis since childhood. She patient has no symptoms of wheeze , hemoptysis or chest pain. Her weight has been stable. Her energy is good. Patient's mother from lung cancer. Chart was reviewed patient evaluated. [facility] Medical History (Updated 06/19/23 @ 11:53 by Manav Rose MD) PTSD (post-traumatic stress disorder) Major depressive disorder, recurrent severe without psychotic features ADHD Hyperparathyroidism Hyperlipidemia Nicotine dependence, cigarettes, uncomplicated Osteopenia (~2022) Postmenopausal Tubular adenoma of colon (~2019) Hearing loss, bilateral History of drug overdose Surgical History (Updated 06/19/23 @ 11:53 by Manav Rose MD) History of cataract surgery History of ear surgery History of tonsillectomy History of endoscopy History of colonoscopy Social History (Updated 06/19/23 @ 11:35 by CARLOS De Leon) Alcohol intake: current Alcohol intake frequency: holidays/special occasions only Alcohol type: beer Patient Tobacco Use Status: Current everyday Tobacco user Cigarettes Per Day: 10 Years Smoked: onset 15yo, 1ppd x 48yrs, now 1/2ppd - 45pyh Physical Exam Vital Signs: Last Vital Signs Pulse 85 06/19/23 11:27 BP 183/79 H 06/19/23 11:27 BMI result Body Mass Index 25.2 Neck Other: No cervical periclavicular or axillary adenopathy bilaterally. Chest Other: Chest breath sounds bilaterally, consistent with COPD, HS 1 in 2 GI Other: Abdomen soft, benign Extrem Other: Extremities grossly intact Assessment & Plan Assessment & Plan (1) Right lower lobe pulmonary nodule: Comment: (9x8mm spiculated subpleural nodular density in superior segment of RLL - 06/01/23 LDCT) Code(s): R91.1 - Solitary pulmonary nodule Plan: I discussed the patient the CT scan findings. Current recommendation is to arrange for complete PFTs, IR CT-guided biopsy the right lung lesion, and direct further interventions and studies based on these results. All questions were answered. Patient will see me after the above-mentioned interventions and studies. (2) Nicotine dependence, cigarettes, uncomplicated: Comment: (current smoker - onset 15yo, 1ppd x 48yrs, now 1/2ppd - 45PYH) Code(s): F17.210 - Nicotine dependence, cigarettes, uncomplicated Orders: Orders CT biopsy lung RT Today R91.1 - Solitary pulmonary nodule PFT pulmonary function test Today F17.210 - Nicotine dependence, cigarettes, uncomplicated, R91.1 - Solitary pulmonary nodule Coding Level of Care Code New Pt Level 5 (46859) Diagnoses Right lower lobe pulmonary nodule R91.1 Nicotine dependence, cigarettes, uncomplicated F17.210
== END 2023-06-19 11:51 | disposition home or self-care (01) ==
PROVIDERS: PCP Internal Medicine Medical Oncology; Referring Provider Physician Assistant Medical; Visit Provider Surgery
DX: R91.1 Solitary pulmonary nodule (principal); F17.210 Nicotine dependence, cigarettes, uncomplicated
CPT/HCPCS: 99204

== ENCOUNTER → 2023-06-19 11:20 | Outpatient (BNVA) | payer MEDICARE, MEDICAID, SELFPAY | PROVIDERS: PCP Internal Medicine Medical Oncology; Referring Provider Physician Assistant Medical; Visit Provider Surgery ==

== ENCOUNTER 2023-07-04 11:40 | Day surgery (SDC) | payer MEDICARE, MEDICAID, SELFPAY ==
[2023-07-04] VITALS (7 sets, daily range): BP systolic 152–169; BP diastolic 64–75; PULSE 71–86; RESP 12–18; TEMP 36.4–36.9; O2SAT 97–100; BMI 24.4
--- NOTE | ~2023-07-04 | XR_ITS ---
EXAMINATION: XR CHEST CLINICAL INFORMATION: Status post right lung biopsy. COMPARISON: CT of same day and 06/01/2023. TECHNIQUE: AP portable view of the chest was obtained. FINDINGS: There is a region of opacity seen in the mid right lung related to some hemorrhage at biopsy site. No pneumothorax or pleural effusion identified. Heart normal size. No evidence of pulmonary edema. XR/XR chest 1V IMPRESSION: No pneumothorax on delayed AP portable view of the chest status post right lung biopsy.
--- NOTE | ~2023-07-04 | CT_ITS ---
PROCEDURE: CT GUIDED BIOPSY, LUNG CLINICAL INFORMATION: Right lung lesion. COMPARISON: 06/01/2023 and 06/05/2017. TECHNIQUE: CT fluoroscopic-guided core biopsy right lung mass. This CT examination was performed using dose optimization techniques as appropriate, variously including the following: *Automated exposure control *Adjustment of mA and/or kV according to patient size (this includes techniques or standardized protocols for targeted exams where dose is matched to indication/reason for exam; i.e. extremities or head) *Use of iterative reconstruction technique DLP: 217 mGy-cm. FINDINGS: Informed consent was obtained from the patient prior to the procedure. During this process, the procedure and potential alternatives were explained, along with the intended outcome and benefits. The risks of the procedure, as well as the risk of not doing the procedure, were discussed. The patient was given the opportunity to ask questions regarding the procedure and appeared competent to make medical decisions. A signed consent form which documents this discussion was placed in the medical record. Preliminary scanning demonstrates a 5 mm subpleural nodule about the posterior aspect right lower lobe superior segment. Using sterile technique and CT fluoroscopic guidance a 17-gauge guiding needle was directed to the mass from a posterior approach. Three 18-gauge core biopsies were then obtained. Preliminary cytologic result was of an adequate specimen. No immediate postprocedure pneumothorax was identified with a small amount of bleeding seen at the biopsy site. The patient did not have hemoptysis. CT/CT biopsy lung RT IMPRESSION: Successful CT fluoroscopically-guided core biopsy of right lung mass. CONSCIOUS SEDATION: The patient received intravenous conscious sedation under my direct supervision. A registered nurse monitored the patient and the patient's vital signs throughout the procedure. The total sedation time was 25 minutes. A total of 0.5 mg of Versed and 50 mcg fentanyl was given for good effect.
[2023-07-04 12:38] LABS: MANUAL DIFF FLAG NO
[2023-07-04 12:40] LABS: Basophils Absolute Auto 0.1 X10*3/uL (0.0-0.2); Eosinophils Absolute Auto 0.2 X10*3/uL (0.0-0.4); Eosinophils Percent Auto 1.9 % (0-4); Hematocrit 39.4 % (37.0-47.0); Hemoglobin 13.1 g/dl (12.0-16.0); Imm Gran Abs Auto 0.02 X10*3/uL (0.00-0.03); Imm Gran Pct Auto 0.2 % (0.0-0.4); Lymphocytes Percent Auto 34.5 % (20-40); Mean Corpuscular HGB Conc 33.2 g/dl (31.0-35.0); Mean Corpuscular Hemoglobin 29.6 pg (27.0-33.0); Mean Corpuscular Volume 88.9 fL (80.0-98.0); Mean Platelet Volume 9.1 fL (9.4-12.3); Monocytes Absolute Auto 0.8 X10*3/uL (0.1-1.2); Monocytes Percent Auto 8.9 % (2-11); Neutrophils Absolute Auto 4.7 x10*3/uL (2.0-8.3); Neutrophils Percent Auto 53.5 % (45-73); Platelet Count 429 X10*3/uL (160-400); Red Blood Count 4.43 X10*6/uL (4.20-5.50); Red Cell Distribution Width 14.3 % (11.0-16.0); White Blood Count 8.7 X10*3/uL (4.8-10.8)
[2023-07-04 12:46] LABS: INTERNATIONAL NORM RATIO 0.9 (0.9-1.1); Prothrombin Time 10.5 SEC (11.1-13.3)
[2023-07-04 12:49] LABS: Partial Thromboplastin Time 29.4 SEC (26.0-36.4)
== END 2023-07-04 17:24 | disposition home or self-care (01) ==
PROVIDERS: Physician Assistant Surgical; PCP Internal Medicine Medical Oncology; Visit Provider Radiology Diagnostic Radiology
DX: D14.31 Benign neoplasm of right bronchus and lung (principal); R91.1 Solitary pulmonary nodule; E78.5 Hyperlipidemia, unspecified; E21.3 Hyperparathyroidism, unspecified; J42 Unspecified chronic bronchitis; F17.210 Nicotine dependence, cigarettes, uncomplicated; Z88.8 Allergy status to other drugs, medicaments and biological substances; Z80.1 Family history of malignant neoplasm of trachea, bronchus and lung; F43.10 Post-traumatic stress disorder, unspecified
CPT/HCPCS: 32408; 36415; 71045; 85025; 85610; 85730; 88305; 88333; 99152; J2250; J3010

== ENCOUNTER → 2023-07-04 14:12 | Outpatient (BNV) | payer MEDICARE, MEDICAID, SELFPAY | PROVIDERS: PCP Internal Medicine Medical Oncology; Visit Provider Radiology Diagnostic Radiology | DX: R91.1 Solitary pulmonary nodule (principal) | CPT/HCPCS: 32408 ==

== ENCOUNTER 2023-07-16 11:04 | Outpatient (AMB) | payer MEDICARE, MEDICAID, SELFPAY ==
[2023-07-16 11:10] VITALS: BP 177/83; PULSE 94
--- NOTE | 2023-07-16 11:10 | A.OFFVIS_ITS ---
Intake Vital Signs 07/16/23 11:10 Weight 128 lb BP 177/83 H Blood Pressure Location Rt brachial Position Sitting Pulse 94 Intake Visit Reasons: Right lower lobe pulmonary nodule, CT bx results Intake Note: Patient here to discuss CT guided bx on Rt lower lung lobe for nodule. Ct guided bx performed on 07-04-23. Nuclear Control Room Operator Required: No Accompanied by: Self / Same As Patient Allergies Sulfa (Sulfonamide Antibiotics) Allergy (Severe, Verified 07/16/23 11:11) Rash trazodone [TRAZODONE] Allergy (Unknown, Unverified 07/16/23 11:11) NIGHTMARES, FELT LIKE ELEPHANT SITTING ON CHEST, NIGHMARES HPI HPI Comments History of Present Illness Details Patient presents for follow-up. Her pathology from transthoracic needle biopsy was negative. However in reviewing the actual IR biopsy, the consensus of opinion at the lung screening cancer multi disciplinary conference is at the lesion was missed by the biopsy needle. Patient has high suspicious spiculated superior segment right lower lobe lung lesion. She has a very appreciable smoking history. She does not wish to undergo repeat biopsy of this process. Instead, she wished to have this excised. [facility] Medical History PTSD (post-traumatic stress disorder) Major depressive disorder, recurrent severe without psychotic features ADHD Hyperparathyroidism Hyperlipidemia Nicotine dependence, cigarettes, uncomplicated Osteopenia (~2022) Postmenopausal Tubular adenoma of colon (~2018) Hearing loss, bilateral History of drug overdose Surgical History History of cataract surgery History of ear surgery History of tonsillectomy History of endoscopy History of colonoscopy Social History Alcohol intake: current Alcohol intake frequency: holidays/special occasions only Alcohol type: beer Patient Tobacco Use Status: Current everyday Tobacco user Cigarettes Per Day: 10 Years Smoked: onset 15yo, 1ppd x 48yrs, now 1/2ppd - 45pyh Physical Exam Vital Signs: Last Vital Signs Pulse 94 07/16/23 11:10 BP 177/83 H 07/16/23 11:10 Neck Other: No cervical, periclavicular, or axillary adenopathy bilaterally. Chest Other: Chest breath sounds bilaterally, consistent with COPD, HS 1 in 2 GI Other: Abdomen soft, benign Assessment & Plan Assessment & Plan (1) Right lower lobe pulmonary nodule: Comment: (9x8mm spiculated subpleural nodular density in superior segment of RLL - 06/01/23 LDCT) Code(s): R91.1 - Solitary pulmonary nodule (2) Nicotine dependence, cigarettes, uncomplicated: Comment: (current smoker - onset 15yo, 1ppd x 48yrs, now 1/2ppd - 45PYH) Code(s): F17.210 - Nicotine dependence, cigarettes, uncomplicated Plan As noted above, therapeutic options include repeat biopsy, PET scan, continue surveillance but my recommendation based on the radiographic appearance of this lesion is to approach this with a VATS wedge resection, and do on-table frozen section. If this proves to be a malignant process, then proceed with a VATS right lower lobectomy. Patient would like to proceed with this course of action . Risks, benefits, alternatives of thorascopic wedge resection and possible lobectomy and possible thoracotomy were reviewed with the patient and included but not limited to bleeding, infection, recurrence, numbness, pain, scarring the patient was to proceed. All questions were answered. Patient scheduled for pulmonary function test. Arrangements will be made for the thinner procedure on the day which is convenient for her. Coding Level of Care Code Est Pt Level 5 (08444) Diagnoses Right lower lobe pulmonary nodule R91.1 Nicotine dependence, cigarettes, uncomplicated F17.210
== END 2023-07-16 11:25 | disposition home or self-care (01) ==
PROVIDERS: PCP Internal Medicine Medical Oncology; Visit Provider Surgery
DX: R91.1 Solitary pulmonary nodule (principal); F17.210 Nicotine dependence, cigarettes, uncomplicated
CPT/HCPCS: 99215

== ENCOUNTER → 2023-07-16 11:04 | Outpatient (BNVA) | payer MEDICARE, MEDICAID, SELFPAY | PROVIDERS: PCP Internal Medicine Medical Oncology; Visit Provider Surgery | DX: R91.1 Solitary pulmonary nodule (principal); F17.210 Nicotine dependence, cigarettes, uncomplicated | CPT/HCPCS: 99212 ==

== ENCOUNTER 2023-07-24 09:06 | Outpatient (REF) | payer MEDICARE, MEDICAID, SELFPAY ==
[2023-07-24 09:42] LABS: MANUAL DIFF FLAG NO
[2023-07-24 09:54] LABS: Basophils Absolute Auto 0.1 X10*3/uL (0.0-0.2); Basophils Percent Auto 0.8 % (0-2); Eosinophils Absolute Auto 0.1 X10*3/uL (0.0-0.4); Eosinophils Percent Auto 1.4 % (0-4); Hematocrit 40.7 % (37.0-47.0); Hemoglobin 13.5 g/dl (12.0-16.0); Imm Gran Abs Auto 0.01 X10*3/uL (0.00-0.03); Imm Gran Pct Auto 0.1 % (0.0-0.4); Lymphocytes Absolute Auto 3.4 X10*3/uL (1.2-4.9); Lymphocytes Percent Auto 40.7 % (20-40); Mean Corpuscular HGB Conc 33.2 g/dl (31.0-35.0); Mean Corpuscular Hemoglobin 29.6 pg (27.0-33.0); Mean Corpuscular Volume 89.3 fL (80.0-98.0); Mean Platelet Volume 9.4 fL (9.4-12.3); Monocytes Absolute Auto 0.7 X10*3/uL (0.1-1.2); Monocytes Percent Auto 8.1 % (2-11); Neutrophils Percent Auto 48.9 % (45-73); Platelet Count 457 X10*3/uL (160-400); Red Blood Count 4.56 X10*6/uL (4.20-5.50); Red Cell Distribution Width 13.8 % (11.0-16.0); White Blood Count 8.3 X10*3/uL (4.8-10.8)
[2023-07-24 10:28] LABS: Alanine Aminotransferase 21 U/L (0-31); Albumin Level 4.1 g/dL (3.5-5.0); Alkaline Phosphatase 96 U/L (39-117); Anion Gap 10 (12-20); Aspartate Amino Transferase 18 U/L (5-31); Bilirubin Total 0.3 mg/dL (0.0-1.0); Blood Urea Nitrogen 14 mg/dL (9-16); Calcium 10.9 mg/dL (8.4-10.2); Carbon Dioxide 28 mmol/L (22-29); Chloride 104 mmol/L (96-108); Cholesterol 224 mg/dL (<200); Estimated Glomerular Filt Rate > 60; Glucose Fasting 96 mg/dL (60-99); HDL Cholesterol 63 mg/dL (>40); LDL Cholesterol Calculated 147 mg/dL (<100); Potassium 4.9 mmol/L (3.3-5.1); Sodium 137 mmol/L (135-145); Total Protein 7.8 g/dL (6.5-8.0); Triglycerides 71 mg/dL (<150)
--- NOTE | 2023-07-24 11:21 | PFT_ITS ---
FLOWS: 1. FEV1 77% of predicted at 1.34 L. 2. FVC 96% of predicted at 2.53 L. 3. FEV1 to FVC ratio of 0.63. 4. No bronchodilator response. LUNG VOLUMES: 1. Total lung capacity 91% of predicted at 3.99 L. 2. Residual volume 93% of predicted at 1.56 L. 3. Slow vital capacity 89% of predicted at 2.53 L. 4. Expiratory reserve volume 71% of predicted at 0.47 L. 5. Diffusion capacity is moderately decreased, diffusion capacity just being mildly decreased after correction for alveolar ventilation. IMPRESSION: Moderate obstructive ventilatory defect. There is no bronchodilator response. Decreased diffusion capacity suggests emphysema Brendan Hyde MD AP/MODL / [id number]
[2023-08-01 16:34] LABS: Parathyroid Hormone Related Pr 14 pg/mL (11-20)
== END 2023-07-24 09:07 | disposition home or self-care (01) ==
LOC: HO.RESP 09:06
PROVIDERS: Absent Provider Physician Assistant Medical; PCP Internal Medicine Medical Oncology; Referring Provider Internal Medicine Medical Oncology; Visit Provider Surgery
DX: F17.210 Nicotine dependence, cigarettes, uncomplicated (principal); E78.5 Hyperlipidemia, unspecified; E21.3 Hyperparathyroidism, unspecified; E66.3 Overweight
CPT/HCPCS: 36415; 80053; 80061; 83519; 85025; 94010; 94727; 94729

== ENCOUNTER → 2023-07-24 11:21 | Outpatient (BNV) | payer MEDICARE, MEDICAID, SELFPAY | PROVIDERS: Absent Provider Physician Assistant Medical; PCP Internal Medicine Medical Oncology; Referring Provider Internal Medicine Medical Oncology; Visit Provider Internal Medicine Pulmonary Disease | DX: R91.1 Solitary pulmonary nodule (principal); F17.210 Nicotine dependence, cigarettes, uncomplicated | CPT/HCPCS: 94060; 94727; 94729 ==

== ENCOUNTER 2023-08-06 12:25 | Inpatient (IN) | payer MEDICARE, MEDICAID, SELFPAY ==
--- NOTE | 2023-07-31 | ECG_ITS ---
Test Reason : PREOP Blood Pressure : / mmHG Vent. Rate : 083 BPM Atrial Rate : 083 BPM P-R Int : 176 ms QRS Dur : 076 ms QT Int : 352 ms P-R-T Axes : 075 016 051 degrees QTc Int : 413 ms Normal sinus rhythm Normal ECG When compared with ECG of 25-SEP-2019 10:04, No significant change was found Referred By: Ada Palencia Electronically Signed By:NATHALIA CALERO MD
[2023-07-31 12:01] VITALS: BP 154/72; PULSE 89; RESP 16; O2SAT 98; BMI 25.8
--- NOTE | 2023-07-31 12:39 | HO.ANESPROP2 ---
Documented by User: Ada Palencia NP 08/03/23 08:54 HPI - Anesthesia Eval Consult details Narrative: 63yo F for Right Thoracoscopy w/Video Assist, wedge resection, poss lobectomy, poss thoracotomy No recent illness. Chronic cough. Productive in the morning. No CP/SOB with >4 mets GERD. Controlled with ppi Large hole in nasal septum. Hx mastoidectomy with bilat hearing aids Albuterol rare use. Less than weekly Thrombocytosis with anegralide. No hx of clots. PMFSH Active Problems Active Problems: All Active Problems (Updated 07/31/23 @ 12:20 by Kayli Lindo, CONSTANTINE) Right lower lobe pulmonary nodule (Acute) Thrombocytosis (Acute) Nicotine dependence, cigarettes, uncomplicated (Acute) Hyperparathyroidism (Acute) Hyperlipidemia (Acute) PTSD (post-traumatic stress disorder) (Acute) Major depressive disorder, recurrent severe without psychotic features (Acute) ADHD (Acute) Past Medical History Medical History Nasal deformity Hx of nausea Chronic bronchitis Hx of ectopic Nicotine dependence, cigarettes, uncomplicated Hyperparathyroidism Hyperlipidemia Postmenopausal Tubular adenoma of colon (~2018) Osteopenia (~2022) History of drug overdose Hearing loss, bilateral PTSD (post-traumatic stress disorder) Major depressive disorder, recurrent severe without psychotic features ADHD Family History Family History Mother Lupus (systemic lupus erythematosus) Family history of problems with anesthesia: No Surgical History Surgical History Hx of adenoidectomy History of cataract surgery History of ear surgery History of tonsillectomy History of endoscopy History of colonoscopy History of Problems with Anesthesia: No Social History Social History Household Members: None Housing: House Are you a primary neonatal intensive care nurse to a significant other at home: No Do you presently have visiting nurse or other home services: No (cousin to help post-op) Alcohol intake: current Alcohol intake frequency: holidays/special occasions only Alcohol type: beer Comment: aware of trip hazard Patient Tobacco Use Status: Current everyday Tobacco user Tobacco use type: Cigarette Cigarettes Per Day: 2 Years Smoked: onset 15yo, 1ppd x 48yrs, quit for 5 days, now 2/day - 45pyh Smoked in Last 30 Days: Yes Second Hand Smoke Exposure: No Use of substances other than those prescribed or required for medical reasons: No Have you been hit, kicked, punched, or otherwise hurt by someone within the past year? If so, by whom?: No Meds Allergies Allergy/AdvReac Type Severity Reaction Status Date / Time Sulfa (Sulfonamide Allergy Severe Rash Verified 08/06/23 07:19 Antibiotics) trazodone [TRAZODONE] Allergy Severe FELT LIKE Verified 08/06/23 07:19 ELEPHANT SITTING ON MY CHEST , NIGHTMARES Home Medications Medication Instructions Recorded Confirmed Last Taken Type albuterol sulfate 90 mcg/actuation 1 inh inhalation Q4-6H PRN 06/19/23 07/30/23 Unknown History breath activated powder inhaler Shortness Of Breath anagrelide 1 mg capsule 1 mg PO .DAILY@199906/19/23 07/31/23 Unknown History docusate sodium 100 mg capsule 100 mg PO .DAILY@199906/19/23 07/31/23 Unknown History multivitamin 1 tab PO .DAILY@0600 06/19/23 07/31/23 Unknown History pantoprazole 20 mg tablet,delayed 20 mg PO .DAILY@199906/19/23 07/31/23 Unknown History release simvastatin 20 mg tablet 20 mg PO .DAILY@199906/19/23 07/31/23 Unknown History dextroamphetamine-amphetamine 20 20 mg PO .@0600+1100 07/31/23 07/31/23 Unknown History mg tablet (Adderall) fluvoxamine 100 mg tablet 100 mg PO .DAILY@199907/31/23 07/31/23 Unknown History Exam Height,Weight and Vital Signs: Height 5 ft Weight 59.874 kg Last Vital Signs Pulse 89 07/31/23 12:01 Resp 16 07/31/23 12:01 BP 154/72 H 07/31/23 12:01 Pulse Ox 98 07/31/23 12:01 O2 Del Method Room Air 07/31/23 12:01 Pertinent Lab Results Pertinent Lab Results: Laboratory Tests 07/24/23 09:32 Blood Type A Positive Antibody Screen NEGATIVE Laboratory Tests 07/24/23 09:41 WBC 8.3 Hgb 13.5 Hct 40.7 Plt Count 457 H Sodium 137 Potassium 4.9 D Chloride 104 Carbon Dioxide 28 BUN 14 Creatinine 0.88 Narrative Narrative: EKG 07/2023 Vent. Rate : 083 BPM Atrial Rate : 083 BPM P-R Int : 176 ms QRS Dur : 076 ms QT Int : 352 ms P-R-T Axes : 075 016 051 degrees QTc Int : 413 ms Normal sinus rhythm Normal ECG When compared with ECG of 25-SEP-2019 10:04, No significant change was found Airway Mallampati Class: I TM Dist: >3cm Neck ROM: Full Denture: Upper Loose/Missing/Broken Teeth: Yes (Missing lower, none loose or broken) Heart: RRR Lungs: Expiratory wheeze RUL. Coarse bilat lower lobes Assessment and Plan Assessment Anesthesia Assessment: Anesthesia Plan Discussed, Smoking Cess. Discussed and PAT Visit Final Anesthetic Review Family History of Problems with Anesthesia: No History of Problems with Anesthesia: No Documented by User: Jewel Alcaraz MD 08/06/23 07:19 PMFSH Past Medical History Medical History Nasal deformity Hx of nausea Chronic bronchitis Hx of ectopic Nicotine dependence, cigarettes, uncomplicated Hyperparathyroidism Hyperlipidemia Postmenopausal Tubular adenoma of colon (~2018) Osteopenia (~2022) History of drug overdose Hearing loss, bilateral PTSD (post-traumatic stress disorder) Major depressive disorder, recurrent severe without psychotic features ADHD Family History Family History Mother Lupus (systemic lupus erythematosus) Surgical History Surgical History Hx of adenoidectomy History of cataract surgery History of ear surgery History of tonsillectomy History of endoscopy History of colonoscopy Social History Social History Household Members: None Housing: House Are you a primary neonatal intensive care nurse to a significant other at home: No Do you presently have visiting nurse or other home services: No (cousin to help post-op) Alcohol intake: current Alcohol intake frequency: holidays/special occasions only Alcohol type: beer Comment: aware of trip hazard Patient Tobacco Use Status: Current everyday Tobacco user Tobacco use type: Cigarette Cigarettes Per Day: 2 Years Smoked: onset 15yo, 1ppd x 48yrs, quit for 5 days, now 2/day - 45pyh Smoked in Last 30 Days: Yes Second Hand Smoke Exposure: No Use of substances other than those prescribed or required for medical reasons: No Have you been hit, kicked, punched, or otherwise hurt by someone within the past year? If so, by whom?: No Meds Allergies Allergy/AdvReac Type Severity Reaction Status Date / Time Sulfa (Sulfonamide Allergy Severe Rash Verified 08/06/23 07:19 Antibiotics) trazodone [TRAZODONE] Allergy Severe FELT LIKE Verified 08/06/23 07:19 ELEPHANT SITTING ON MY CHEST , NIGHTMARES Home Medications Medication Instructions Recorded Confirmed Last Taken Type albuterol sulfate 90 mcg/actuation 1 inh inhalation Q4-6H PRN 06/19/23 07/30/23 Unknown History breath activated powder inhaler Shortness Of Breath anagrelide 1 mg capsule 1 mg PO .DAILY@199906/19/23 07/31/23 Unknown History docusate sodium 100 mg capsule 100 mg PO .DAILY@199906/19/23 07/31/23 Unknown History multivitamin 1 tab PO .DAILY@0600 06/19/23 07/31/23 Unknown History pantoprazole 20 mg tablet,delayed 20 mg PO .DAILY@199906/19/23 07/31/23 Unknown History release simvastatin 20 mg tablet 20 mg PO .DAILY@199906/19/23 07/31/23 Unknown History dextroamphetamine-amphetamine 20 20 mg PO .@0600+1100 07/31/23 07/31/23 Unknown History mg tablet (Adderall) fluvoxamine 100 mg tablet 100 mg PO .DAILY@199907/31/23 07/31/23 Unknown History Assessment and Plan Final Anesthetic Review NPO: Yes ASA Class: III Final Preanesthetic Review: No Changes in Pt Med Stat, Meds/Allgs Chart Reviewed, Consent Obtained/Reviewed and Anes Risks/Benef Reviewed Patient Risk: Intermediate Procedure Risk: High Assessment/Block/Sedation in SS: Assess/Block/Sedation-SS Anesthetic Plan Anesthetic Plan: GA (double lumen) and Agree w/ Assess. and Plan Disposition: Standard PACU
--- NOTE | 2023-08-03 12:18 | MHC.SHP ---
Pre-Procedural Eval Section A Date of Service: 08/03/23 The patient is an INPATIENT: No Changes since office visit: No Cold of Flu in the past 2 weeks, No New Medical Problems, No Changes in Medication and No Patient answered all questions The History & Physical has been completed within 30 days and I have reviewed it.: Yes Section B Chief Complaint: Solitary pulmonary nodule Allergies: Allergies Allergy/AdvReac Type Severity Reaction Status Date / Time Sulfa (Sulfonamide Allergy Severe Rash Verified 07/30/23 11:23 Antibiotics) trazodone [TRAZODONE] Allergy Severe FELT LIKE Unverified 07/30/23 11:23 ELEPHANT SITTING ON MY CHEST , NIGHTMARES Plan I have reviewed the history and physical and performed a pertinent physical examination on my patient. No changes have occurred unless specified. Time Spent With Patient Time: Total time managing care of this patient today ____ minutes.
[2023-08-06] VITALS (23 sets, daily range): BP systolic 141–207; BP diastolic 72–100; PULSE 67–78; RESP 8–24; TEMP 35.9–36.8; O2SAT 91–100
--- NOTE | ~2023-08-06 | XR_ITS ---
EXAMINATION: XR CHEST CLINICAL INFORMATION: Follow-up right pneumothorax COMPARISON: None available. TECHNIQUE: Frontal view of the chest was obtained. FINDINGS: Redemonstration right apical pneumothorax and large amount of right thoracoabdominal/supraclavicular subcutaneous emphysema. Pneumothorax is slightly improved, apex now at the mid aspect of the third posterior rib. Mild tracheal deviation to the right is less pronounced. Increased markings right base with obscuration of the right costophrenic angle again identified. Heart and mediastinum are unremarkable. Other than mild left base atelectasis, left lung is clear. XR/XR chest 1V IMPRESSION: Slight improvement right pneumothorax. Stable right sided subcutaneous emphysema.
--- NOTE | ~2023-08-06 | XR_ITS ---
EXAMINATION: XR CHEST CLINICAL INFORMATION: Status post right lower lobectomy COMPARISON: None available. TECHNIQUE: Frontal view of the chest was obtained. FINDINGS: There are postsurgical changes right lung with a large bore chest catheter. The tip of the catheter is in the right lung apex there is no visible pneumothorax. There is subcutaneous emphysema from postsurgical changes. The right lung is slightly hyperexpanded. The left lung is expanded with patchy opacity left lung base question atelectasis or infiltrate. Heart size and perivascular is normal. No gross bony abnormality seen. XR/XR chest 1V IMPRESSION: 1. Postsurgical changes right lung with a large bore chest catheter in the right lung apex. There is no visible pneumothorax. There is right subcutaneous emphysema from postsurgical changes. 2. Patchy opacity left lung base question atelectasis or infiltrate.
--- NOTE | ~2023-08-06 | XR_ITS ---
EXAMINATION: XR CHEST CLINICAL INFORMATION: Status post right lower lobectomy COMPARISON: Chest x-ray August 06, 2023 TECHNIQUE: Frontal view of the chest was obtained. FINDINGS: Cardiac silhouette is normal in size. A vertically oriented right-sided chest tube is similar in orientation. Small right apical pneumothorax present. Extensive subcutaneous emphysema again noted. There is good aeration of the left lung base with less prominent patchy opacity of the left costophrenic angle, suspect atelectasis. XR/XR chest 1V IMPRESSION: Small right apical pneumothorax with chest tube in place.
--- NOTE | ~2023-08-06 | XR_ITS ---
EXAMINATION: XR CHEST CLINICAL INFORMATION: Status post right lower lobectomy, post chest tube removal evaluation COMPARISON: Portable chest x-ray on 08/07/2023 at 500 hours TECHNIQUE: AP upright portable x-ray of the chest was obtained. FINDINGS: vascularity. LUNGS: Lungs are hypoinflated. There is effacement of bilateral costophrenic angles. Asymmetric hazy alveolar density is seen in lateral right lung base. There is right lung volume loss. There is soft tissue density filling the medial border of right lung. 10% right apical pneumothorax is seen. BONES: Bony skeleton is intact. Extensive surgical emphysema is seen in right lower neck, right lateral chest and right lateral abdomen XR/XR chest 1V IMPRESSION: 1. Unchanged right lung volume loss, increased soft tissue density filling the medial border of right lung. 2. Unchanged patchy right lung base alveolar densities, interval development of lateral left lung base atelectasis or small left pleural effusion. 3. Interval removal of right thoracostomy tube. 4. Interval slight increase in size of right apical pneumothorax. 5. Persistent extensive lateral right chest and right lateral abdominal surgical emphysema.
[2023-08-06] MEDS: Lactated Ringers 1,000 ML 100 ML IVCONT (07:30)
--- NOTE | 2023-08-06 12:24 | P.OP_ITS ---
Operative Note Operative Note Date of Service: 08/06/23 Narrative: Preoperative diagnosis: [] Superior segment right lower lobe lung lesion Postop diagnosis: [] Superior segment right lower lobe lung cancer Procedure [] vats right lower lobe wedge, vats right lobectomy, mediastinal ly mph node sampling, bronchoscopy, intercostal nerve block,pneumonolysis Surgeon: [] Milton Process Automation Engineer: [] Navid Rust Type of Anesthesia: [] Double-lumen general Indication for surgery: [] Bronchoscopy demonstrated no gross endoluminal pathology. It was Also used to assist anesthesia in the placement of a double- lumen tube. Patient underwent uneventful VATS right lower lobe superior segment wedge resection which on frozen pathology was consistent with adenocarcinoma. Patient then underwent VATS right lower lobectomy. Dense adhesions of right upper lobe and middle lobe to the mediastinal surface necessitating pneumonolysis, to free the lung to allow for full atelectasis for the procedure and expansion at its completion. Seven mediastinal lymph node stations were sampled including; 7, 9R, 10R. Findings: [] Patient brought to the operating room, placed on operative table supine position, after adequate level of double-lumen general anesthesia was induced, patient underwent bronchoscopy with findings as noted above. Patient was then placed in left lateral decubitus position, and right chest was prepped and draped in usual sterile fashion. Using anterior and posterior ports in the anterior and posterior axillary line 7th intercostal space, and an access incision in the 4th intercostal space with a wound protector, intraoperative findings were as noted above. Wedge resection of superior segment right upper lobe lesion was uneventfully performed was wedged out stapler. using sequential SANJAY staplers, specimen placed in an Endo-Catch bag, and sent to pathology for frozen section which was consistent with an adenocarcinoma. Inferior pulmonary ligament was then taken down, using Bovie, and inferior pulmonary vein was transected using SANJAY vascular stapler. Next hilum was approached and the anterior and posterior fissures the middle lobe and upper lobe from the lower lobe respectively and were uneventfully transected using SANJAY staplers. Hilum had the pulmonary main arterial branch to the lower lobe encircled and transected using SANJAY vascular stapler. Next the bronchus to the right lower lobe was again encircled, and a heavy wire stapler placed across this. Remaining lung was inflated with full expansion of the right middle lobe and lower lobe. Stapler uneventfully fired. Specimen was placed in an Endo- Catch bag, a retrieved through the access incision. Mediastinal lymph node sampling was performed at the above-mentioned stations and sent as separate specimens to pathology. At completion the procedure, chest cavity was filled with saline and remaining lung re-expanded with bronchial stump pneumostatic. Through the anterior port incision, 28 chest tube was directed toward the apex and secured to the skin using 0 silk suture. Port sites were closed using deep 2-0 Vicryl and dermal 3-0 Vicryl sutures respectively. Access incision had its muscular layer closed using running 0 Vicryl suture. Interrupted inverted deep dermal 3-0 Vicryl sutures followed by running subcuticular 4-0 Vicryl suture placed. Steri-Strips and sterile dressings applied. Intercostal nerve block using 0.5 % Marcaine was performed a completion the procedure. Chest tube was connected to Pleur-evac and lung re-expanded with no air leak appreciated. Sponge, needle, instrument counts reported correct. Patient tolerated the procedure well and emerged anesthesia stable condition. EBL minimal
--- OUTSIDE RECORDS SUMMARY | 2023-08-06 12:29 | XMS_ITS | Continuity of Care Document ---
Author Name Unknown Organization [facility] [place] Address [address] [place] [address]- Care Team Providers Care Public Health Technician Name Role Phone Horace Lima MD Primary Care Physician Encounter [facility] Date(s): 04/13/22 - 05/13/22 [facility] [place] [address], [place] [address] Attending Physician: Donta London Admitting Physician: AdmtrDonta Referring Physician: Admtr, Ar8 Allergies, Adverse Reactions, Alerts Substance Reaction Severity Status trazodone-like drugs Active Medications Adderall 20 mg oral tablet 1 tablet = 20 mg, By Mouth, 2 times a day, 0 Refills, Maintenance, 10/17/21 11:03:00 EST, Tablet, Partial fill upon patient request if the prescription is for a schedule II opioid drug. Start Date: 10/17/21 Status: Ordered Albuterol (Eqv-ProAir HFA) See Instructions, Inhalation prn, 0 Refills, Maintenance, 10/17/21 11:05:00 EST, Partial fill upon patient request if the prescription is for a schedule II opioid drug. Start Date: 10/17/21 Status: Ordered docusate sodium 100 mg oral capsule 1 capsule = 100 mg, By Mouth, 2 times a day, 0 Refills, Maintenance, 10/17/21 11:04:00 EST, Partialfill upon patient request if the prescription is for a schedule II opioid drug. Start Date: 10/17/21 Status: Ordered fluvoxaMINE 100 mg oral capsule, extended release 1 capsule = 100 mg, By Mouth, Daily at bedtime, 0 Refills, Maintenance, 10/17/21 11:05:00 EST, Partial fill upon patient request if the prescription is for a schedule II opioid drug. Start Date: 10/17/21 Status: Ordered pantoprazole 20 mg oral delayed release tablet 1 tablet = 20 mg, By Mouth, Daily, # 30 tablet, 0 Refills, Maintenance, 10/17/21 11:04:00 EST, CR Tablet Start Date: 10/17/21 Status: Ordered simvastatin 20 mg oral tablet 20 mg, 1, tablet, By Mouth, Daily at bedtime, # 30 tablet, Refills 0, Maintenance, 10/17/21 11:05:00 EST, Partial fill upon patient request if the prescription is for a schedule II opioid drug. Start Date: 10/17/21 Status: Ordered Vitamin D3 1000 intl units oral tablet 1 tablet = 25 mcg, By Mouth, Daily, # 30 tablet, 0 Refills, Maintenance, 10/17/21 11:05:00 EST, Tablet, Partial fill upon patient request if the prescription is for a schedule II opioid drug. Start Date: 10/17/21 Status: Ordered Care Team Personnel Name: Horace Lima MD Address: [address] [place] [address] [address] Horace Arriaga, [place] [id number]
--- OUTSIDE RECORDS SUMMARY | 2023-08-06 12:29 | XMS_ITS | Patient Health Record ---
Author Name Unknown Organization [facility] Address [address] [place] [address] Care Team Providers Care Program Development Specialist Name Role Phone Nicole RAYA, Arnoldo Primary Care Provider Dakota Blanchard Jr Unavailable REASON FOR REFERRAL No Information MEDICATIONS Medication SIG (Take, Route, Frequency, Duration) Notes Start Date End Date Status Simvastatin 20mg 09/03/2022 09/03/2022 A ctive Colyte with Flavor Packs 227.1 GM as directed Orally According to instructions for 1 day(s) 09/26/2012 09/03/2022 Active SOCIAL HISTORY Sex Assigned At : Social History Observation Description Sex Assigned At Unknown PROBLEMS Problem Type ICD Code Onset Dates Problem Status W/U Status Risk SNOMED Code Notes Problem Colon cancer screening (V76.51) Active confirmed Colon cancer screening ([id number]) PLAN OF TREATMENT Future Test Test Name Order Date COLONOSCOPY 09/26/2012 Insurance Providers Payer Name Payer Address Payer Phone Subscriber Number Group Number Insured Name Patient Relationship to Insured Coverage Start Date Coverage End Date MEDICARE OF [place] [address] [place] [id number] UMAIR BARNARD Self - patient is the insured MEDICAID OF [employer] [address] [place] [phone] [id number] UMAIR BARNARD Self - patient is the insured MEDICAL (GENERAL) HISTORY Medical History History ICD Code Denies [place],DM,CVA,Lung disease,renal dise ase elevated cholesterol Surgical History Surgery Date(Month/Year) tubal mastoidectomy tympanostomy tubes
--- OUTSIDE RECORDS SUMMARY | 2023-08-06 12:29 | XMS_ITS | Patient Health Record ---
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 Name Role Phone Horace Lima Primary Care Provider [phone] ALLERGIES Allergen (clinical drug ingredient) Drug/Non Drug Allergy documented on EMR Reaction Allergy Type Onset Date Status Substance with sulfonamide structure and antibacterial mechanism of action (substance) Sulfa Antibiotics Unknown Drug Allergy Active trazodone Trazodone HCl Unknown Drug Allergy Act naheed RESULTS Component Value Reference Range Notes Complete Blood Count Auto Di ff Reviewed date:08/24/2022 05:18:54 AM Interpretation: Performing Lab:[facility], [address] [place] [phone] Notes/Report: White Blood Count 8.2 4.8-10.8 X10*3/uL Red Blood Count 4.81 4.20-5.50 X10*6/uL Hemoglobin 14.1 12.0-16.0 g/dl Hematocrit 42.9 37.0-47.0 % Mean Corpuscular Volume 89.2 80.0-98.0 fL Mean Corpuscular Hemoglobin 29.3 27.0-33.0 pg Mean Corpuscular HGB Conc 32.9 31.0-35.0 g/dl Red Cell Distribution Width 14.7 11.0-16.0 % Platelet Count 468 160-400 X10*3/uL Mean Platelet Volume 9.7 9.4-12.3 fL Neutrophils Percent Auto 43.2 45-73 % Imm Gran Pct Auto 0.4 0.0-0.4 % Lymphocytes Percent Auto 40.6 20-40 % Monocytes Percent Auto 12.4 2-11 % Eosinophils Percent Auto 2.4 0-4 % Basophils Percent Auto 1.0 0-2 % NRBC Pct Auto 0.0 0.0-0.2 /100WBC Neutrophils Absolute Auto 3.6 2.0-8.3 x10*3/u L Imm Gran Abs Auto 0.03 0.00-0.03 X10*3/uL Lymphocytes Absolute Auto 3.3 1.2-4.9 X10*3/u L Monocytes Absolute Auto 1.0 0.1-1.2 X10*3/uL Eosinophils Absolute Auto 0.2 0.0-0.4 X10*3/u L Basophils Absolute Auto 0.1 0.0-0.2 X10*3/uL NRBC Abs Auto 0.000 0.0-0.012 X10*3/uL Comprehensive [place]. Panel Fa st Reviewed date:08/24/2022 05:18:54 AM Interpretation: Performing Lab:[facility], [address] [place] [phone] Notes/Report: Sodium 137 135-145 mmol/L Potassium 4.7 3.3-5.1 mmol/L Chloride 106 96-108 mmol/L Carbon Dioxide 27 22-29 mmol/L Anion Gap 9 12-20 Blood Urea Nitrogen 17 9-16 mg/dL Creatinine 0.95 0.5-1.4 mg/dL Estimated Glomerular Filt Rate 59 NOTE: For -[place] individuals, multiply the result by 1.210. Chronic Kidney Disease: Estimated GFR < 60 mL/min/1.73m2 Severe Kidney Disease: Estimated GFR < 15 mL/min/1.73m2 Glucose Fasting 95 60-99 mg/dL Calcium 11.8 8.4-10.2 mg/dL Bilirubin Total 0.4 0.0-1.0 mg/dL Aspartate Amino Transferase 14 5-31 U/L Alanine Aminotransferase 14 0-31 U/L Total Protein 7.1 6.5-8.0 g/dL Albumin Level 4.1 3.5-5.0 g/dL Alkaline Phosphatase 98 39-117 U/L Lipid Panel Reviewed date:08/24/2022 05:18:54 AM Interpretation: Performing Lab:[facility], [address] [place] [phone] Notes/Report: Triglycerides 81 Desirable Triglyceride: less than 150 mg/dL Borderline High Triglyceride 150-199 mg/dL High Triglyceride: 200-499 mg/dL Very High Triglyceride: greater than or equal to 5OO mg/dL Cholesterol 235 Desirable Cholesterol: less than 200 mg/dL Borderline High Cholesterol: 200-239 mg/dL High Cholesterol: greater than 239 mg/dL LDL Cholesterol Calculated 158 Desirable LDL: less than 100 mg/dL Near Optimal/Above Optimal LDL: 110-129 mg/dL Borderline High LDL: 130-159 mg/dL High LDL: 160-189 mg/dL Very High LDL: greater than or equal to 190 mg/dL HDL Cholesterol 61 Desirable HDL: greater than 40 mg/dL Note: This HDL assay may give artificially low results in patients with liver disease. Vitamin D 25-OH Total Reviewed date:08/24/2022 05:18:54 AM Interpretation: Performing Lab:[facility], [address] [place] [phone] Notes/Report: Vitamin D 25-OH Total 31.9 >30 ng/mL Health Based Reference Values* < 20 ng/mL Deficient 20-30 ng/mL Insufficient > 30 ng/mL Sufficient *Lanie MCCRAY. N Engl J Med. 2007;357:266-280 Care must be taken in interpreting Vitamin D results from different laboratories and methodologies. Published data demonstrated that results from patients undergoing hemodialysis may show a negative bias when tested with various automated 25-OH vitamin D assays when compared to LC-MS/MS. When testing samples from patients whose predominant form of Vitamin D is Vitamin D2, such as patients receiving Vitamin D2 supplementation, results that are subtherapeutic should be confirmed with another method such as LC-MS/MS. Comprehensive Met. Panel Reviewed date:09/23/2022 06:09:55 AM Interpretation: Performing Lab:[facility], [address] [place] [phone] Notes/Report: Sodium 139 135-145 mmol/L Potassium 5.5 3.3-5.1 mmol/L Chloride 108 96-108 mmol/L Carbon Dioxide 24 22-29 mmol/L Anion Gap 13 12-20 Blood Urea Nitrogen 22 9-16 mg/dL Creatinine 0.93 0.5-1.4 mg/dL Estimated Glomerular Filt Rate > 60 NOTE: For -[place] individuals, multiply the result by 1.210. Chronic Kidney Disease: Estimated GFR < 60 mL/min/1.73m2 Severe Kidney Disease: Estimated GFR < 15 mL/min/1.73m2 Glucose Random 113 60-115 mg/dL Calcium 10.7 8.4-10.2 mg/dL Bilirubin Total 0.3 0.0-1.0 mg/dL Aspartate Amino Transferase 15 5-31 U/L Alanine Aminotransferase 13 0-31 U/L Total Protein 7.4 6.5-8.0 g/dL Albumin Level 4.1 3.5-5.0 g/dL Alkaline Phosphatase 101 39-117 U/L Vitamin D 25-OH Total Reviewed date:09/23/2022 06:09:56 AM Interpretation: Performing Lab:[facility], [address] [place] [phone] Notes/Report: Vitamin D 25-OH Total 27.6 >30 ng/mL Health Based Reference Values* < 20 ng/mL Deficient 20-30 ng/mL Insufficient > 30 ng/mL Sufficient *Lanie MCCRAY. N Engl J Med. 2007;357:266-280 Care must be taken in interpreting Vitamin D results from different laboratories and methodologies. Published data demonstrated that results from patients undergoing hemodialysis may show a negative bias when tested with various automated 25-OH vitamin D assays when compared to LC-MS/MS. When testing samples from patients whose predominant form of Vitamin D is Vitamin D2, such as patients receiving Vitamin D2 supplementation, results that are subtherapeutic should be confirmed with another method such as LC-MS/MS. Complete Blood Count Auto Di ff Reviewed date:11/07/2022 04:27:15 PM Interpretation: Performing Lab:[facility], [address] [place] [phone] Notes/Report: White Blood Count 8.9 4.8-10.8 X10*3/uL Red Blood Count 4.72 4.20-5.50 X10*6/uL Hemoglobin 13.8 12.0-16.0 g/dl Hematocrit 42.8 37.0-47.0 % Mean Corpuscular Volume 90.7 80.0-98.0 fL Mean Corpuscular Hemoglobin 29.2 27.0-33.0 pg Mean Corpuscular HGB Conc 32.2 31.0-35.0 g/dl Red Cell Distribution Width 14.5 11.0-16.0 % Platelet Count 507 160-400 X10*3/uL Mean Platelet Volume 9.8 9.4-12.3 fL Neutrophils Percent Auto 52.4 45-73 % Imm Gran Pct Auto 0.2 0.0-0.4 % Lymphocytes Percent Auto 35.5 20-40 % Monocytes Percent Auto 9.3 2-11 % Eosinophils Percent Auto 1.5 0-4 % Basophils Percent Auto 1.1 0-2 % NRBC Pct Auto 0.0 0.0-0.2 /100WBC Neutrophils Absolute Auto 4.7 2.0-8.3 x10*3/u L Imm Gran Abs Auto 0.02 0.00-0.03 X10*3/uL Lymphocytes Absolute Auto 3.2 1.2-4.9 X10*3/u L Monocytes Absolute Auto 0.8 0.1-1.2 X10*3/uL Eosinophils Absolute Auto 0.1 0.0-0.4 X10*3/u L Basophils Absolute Auto 0.1 0.0-0.2 X10*3/uL NRBC Abs Auto 0.000 0.0-0.012 X10*3/uL Comprehensive Met. Panel Reviewed date:11/07/2022 04:27:15 PM Interpretation: Performing Lab:[facility], [address] [place] [phone] Notes/Report: Sodium 140 135-145 mmol/L Potassium 5.6 3.3-5.1 mmol/L Chloride 107 96-108 mmol/L Carbon Dioxide 27 22-29 mmol/L Anion Gap 12 12-20 Blood Urea Nitrogen 15 9-16 mg/dL Creatinine 0.86 0.5-1.4 mg/dL Estimated Glomerular Filt Rate > 60 NOTE: For -[place] individuals, multiply the result by 1.210. Chronic Kidney Disease: Estimated GFR < 60 mL/min/1.73m2 Severe Kidney Disease: Estimated GFR < 15 mL/min/1.73m2 Glucose Random 107 60-115 mg/dL Calcium 10.5 8.4-10.2 mg/dL Bilirubin Total 0.3 0.0-1.0 mg/dL Aspartate Amino Transferase 14 5-31 U/L Alanine Aminotransferase 16 0-31 U/L Total Protein 7.3 6.5-8.0 g/dL Albumin Level 4.1 3.5-5.0 g/dL Alkaline Phosphatase 96 39-117 U/L Vitamin D 25-OH Total Reviewed date:11/07/2022 04:27:15 PM Interpretation: Performing Lab:[address] [phone] Notes/Report: Vitamin D 25-OH Total 24.7 >30 ng/mL Health Based Reference Values* < 20 ng/mL Deficient 20-30 ng/mL Insufficient > 30 ng/mL Sufficient *Lanie MCCRAY. N Engl J Med. 2007;357:266-280 Care must be taken in interpreting Vitamin D results from different laboratories and methodologies. Published data demonstrated that results from patients undergoing hemodialysis may show a negative bias when tested with various automated 25-OH vitamin D assays when compared to LC-MS/MS. When testing samples from patients whose predominant form of Vitamin D is Vitamin D2, such as patients receiving Vitamin D2 supplementation, results that are subtherapeutic should be confirmed with another method such as LC-MS/MS. PTHI Reviewed date:11/07/2022 04:27:15 PM Interpretation: Performing Lab:[facility], [address] [place] [phone] Notes/Report: PTHI 140 16-77 pg/mL Interpretive Guide Intact PTH Calcium ------- Normal Parathyroid Normal Normal Hypoparathyroidism Low or Low Normal Low Hyperparathyroidism Primary Normal or High High Secondary High Normal or Low Tertiary High High Non-Parathyroid Hypercalcemia Low or Low Normal High Calcium (PTHI) 11.2 8.6-10.4 mg/dL THIS TEST WAS PERFORMED AT: [facility] [address] [place] [phone] VAZQUEZ WEBER MD XR chest 2V Reviewed date:11/14/2022 03:00:43 PM Interpretation: Performing Lab: Notes/Report: [address] [address] XRay Report Signed Patient: Lily Jacques MR#: [id number] 99 : 1960 Acct:[id number] Age/Sex: 62 / F ADM Date: 11/10/22 Loc: HO.XRAY Attending Dr: Horace Lima MD Ordering Physician: Horace Lima MD Date of Service: 11/10/22 Procedure(s): XR chest 2V Accession Number(s): [id number] cc: Horace Lima MD EXAMINATION: XR CHEST CLINICAL INFORMATION: Cough COMPARISON: 05/24/2017 TECHNIQUE: 2 views of the chest were obtained. FINDINGS: The lung pattern is overall increased interstitial change. There is some increased opacities in the parahilar region on the right suprahilar region and also at the left base in the lingula. There is also some mildly increasing opacities in the anterior medial right lung which may be in the right middle lobe. There is no effusion. No failure is seen here. The cardiac silhouette is within normal limits. The hilar regions do not appear pathologically enlarged. XR/XR chest 2V IMPRESSION: Some increased markings in the left base/lingula, right medial base possibly right middle lobe and parahilar region on the right. These may be small areas of infiltrate. Follow-up films would be recommended after treatment in 4-6 weeks to assess for resolution. Dictated By: Darrell Sanford MD Signed By: <Electronically signed by Darrell Sanford MD in OV> 11/10/22 0709 DD/ 0657 TD/TT: Chief Dispatcher Service: GT XR hand RT min 3V Reviewed date:11/14/2022 03:00:43 PM Interpretation: Performing Lab: Notes/Report: [address] [address] XRay Report Signed Patient: Lily Jacques MR#: [id number] 99 : 1960 Acct:[id number] Age/Sex: 62 / F ADM Date: 11/10/22 Loc: HO.XRAY Attending Dr: Horace Lima MD Ordering Physician: Horace Lima MD Date of Service: 11/10/22 Procedure(s): XR hand RT min 3V Accession Number(s): [id number] cc: Horace Lima MD EXAMINATION: XR HAND, RIGHT CLINICAL INFORMATION: Pain COMPARISON: None TECHNIQUE: PA, lateral, and oblique views of the right hand. FINDINGS: There is degeneration at the base of the thumb. No convincing evidence for an acute fracture or dislocation. Some scattered areas of degeneration otherwise most noted in the DIP joints. XR/XR hand RT min 3V IMPRESSION: No convincing evidence for acute bony finding. Degenerative changes most noted at the base of the thumb. Dictated By: Darrell Sanford MD Signed By: <Electronically signed by Darrell Sanford MD in OV> 11/10/2210 DD/ 6 TD/TT: Chief Dispatcher Service: GT Complete Blood Count Auto Di ff Reviewed date:01/21/2023 07:55:18 AM Interpretation: Performing Lab:[facility], [address] [place] [phone] Notes/Report: White Blood Count 5.3 4.8-10.8 X10*3/uL Red Blood Count 4.50 4.20-5.50 X10*6/uL Hemoglobin 13.0 12.0-16.0 g/dl Hematocrit 40.1 37.0-47.0 % Mean Corpuscular Volume 89.1 80.0-98.0 fL Mean Corpuscular Hemoglobin 28.9 27.0-33.0 pg Mean Corpuscular HGB Conc 32.4 31.0-35.0 g/dl Red Cell Distribution Width 14.6 11.0-16.0 % Platelet Count 304 160-400 X10*3/uL Mean Platelet Volume 10.3 9.4-12.3 fL Neutrophils Percent Auto 52.1 45-73 % Imm Gran Pct Auto 0.2 0.0-0.4 % Lymphocytes Percent Auto 30.5 20-40 % Monocytes Percent Auto 14.0 2-11 % Eosinophils Percent Auto 2.1 0-4 % Basophils Percent Auto 1.1 0-2 % NRBC Pct Auto 0.0 0.0-0.2 /100WBC Neutrophils Absolute Auto 2.8 2.0-8.3 x10*3/u L Imm Gran Abs Auto 0.01 0.00-0.03 X10*3/uL Lymphocytes Absolute Auto 1.6 1.2-4.9 X10*3/u L Monocytes Absolute Auto 0.7 0.1-1.2 X10*3/uL Eosinophils Absolute Auto 0.1 0.0-0.4 X10*3/u L Basophils Absolute Auto 0.1 0.0-0.2 X10*3/uL NRBC Abs Auto 0.000 0.0-0.012 X10*3/uL Comprehensive [place]. Panel Fa st Reviewed date:01/21/2023 07:55:19 AM Interpretation: Performing Lab:[facility], [address] [place] [phone] Notes/Report: Sodium 138 135-145 mmol/L Potassium 5.6 3.3-5.1 mmol/L Chloride 110 96-108 mmol/L Carbon Dioxide 25 22-29 mmol/L Anion Gap 9 12-20 Blood Urea Nitrogen 19 9-16 mg/dL Creatinine 0.95 0.5-1.4 mg/dL Estimated Glomerular Filt Rate 59 NOTE: For -T[place] individuals, multiply the result by 1.210. Chronic Kidney Disease: Estimated GFR < 60 mL/min/1.73m2 Severe Kidney Disease: Estimated GFR < 15 mL/min/1.73m2 Glucose Fasting 111 60-99 mg/dL A fasting glucose from 100-125 mg/dl is considered impaired (pre-diabetes). Calcium 10.3 8.4-10.2 mg/dL Bilirubin Total 0.2 0.0-1.0 mg/dL Aspartate Amino Transferase 15 5-31 U/L Alanine Aminotransferase 15 0-31 U/L Total Protein 6.7 6.5-8.0 g/dL Albumin Level 3.8 3.5-5.0 g/dL Alkaline Phosphatase 86 39-117 U/L Lipid Panel Reviewed date:01/21/2023 07:55:19 AM Interpretation: Performing Lab:[facility], [address] [place] [phone] Notes/Report: Triglycerides 65 Desirable Triglyceride: less than 150 mg/dL Borderline High Triglyceride 150-199 mg/dL High Triglyceride: 200-499 mg/dL Very High Triglyceride: greater than or equal to 5OO mg/dL Cholesterol 189 Desirable Cholesterol: less than 200 mg/dL Borderline High Cholesterol: 200-239 mg/dL High Cholesterol: greater than 239 mg/dL LDL Cholesterol Calculated 120 Desirable LDL: less than 100 mg/dL Near Optimal/Above Optimal LDL: 110-129 mg/dL Borderline High LDL: 130-159 mg/dL High LDL: 160-189 mg/dL Very High LDL: greater than or equal to 190 mg/dL HDL Cholesterol 56 Desirable HDL: greater than 40 mg/dL Note: This HDL assay may give artificially low results in patients with liver disease. Parathyroid Hormone Related Pr Reviewed date:01/26/2023 05:08:23 PM Interpretation: Performing Lab:[facility], [address] [place] [phone] Notes/Report: Parathyroid Hormone Related Pr 10 11-20 pg/m L This is a C-terminal PTH-RP assay. PTH-RP is useful in the differential diagnosis of hypercalcemia and levels may be elevated in patients with tumor-associated hypercalcemia. Elevated results may also be observed in patients with renal disease. This test was developed and its analytical performance characteristics have been determined by [facility]. It has not been cleared or approved by FDA. This assay has been validated pursuant to the CLIA regulations and is used for clinical purposes. THIS TEST WAS PERFORMED AT: [facility] [address] [place] [address] EDUARDO LUGO MD,PHD,DAMEON MM tomosynthesis screening B I Reviewed date:01/21/2023 07:55:18 AM Interpretation: Performing Lab: Notes/Report: [facility] [address] [place] [address] Mammography Report Signed Patient: Lily Jacques MR#: [id number] 99 : 1960 Acct:[id number] Age/Sex: 62 / F ADM Date: 01/16/23 Loc: RICKEY Attending Dr: Horace Lima MD Ordering Physician: Horace Lima MD Results: 2Benign Findings Date of Service: 01/16/23 Follow Up: 1 Year From Orig inal Mammogram Procedure(s): MM tomosynthesis screening BI Accession Number(s): [id number] cc: Horace Lima MD EXAMINATION: MM SCREENING DIGITAL BREAST TOMOSYNTHESIS, BILATERAL CLINICAL INFORMATION: Screening. Asymptomatic. The lifetime risk of breast cancer based on the Tyrer-Cuzick Model is 4%. COMPARISON: Mammography: 01/11/2022, 01/03/2021, 04/02/2018 TECHNIQUE: Digital breast tomosynthesis is performed in both the craniocaudal and mediolateral oblique views along with computer-aided detection (CAD). Synthesized 2D images are generated from the tomosynthesis. FINDINGS: There are scattered areas of fibroglandular density (ACR BI-RADS breast composition Category b). There are no significant masses, abnormal calcifications, or other abnormalities. Parenchymal pattern is similar to prior studies. There is no developing density or architectural abnormality. Biopsy clip marker again noted mid upper outer left breast. The axilla and skin contours are unremarkable. Incidental small low right axillary tail node stable. No significant changes. MM/MM tomosynthesis screening BI IMPRESSION: No mammographic evidence of malignancy. ASSESSMENT: BI-RADS 2: Benign RECOMMENDATION: Routine annual mammography screening. This patient's information was entered into a reminder system with a target due date for their next mammogram. Dictated By: Be Wilson MD Signed By: <Electronically signed by Be Wilson MD in OV> 01/17/23 1003 DD/ 1050 TD/TT: Chief Dispatcher Service: KATERINA XR DEXA appendicular skeleto n Reviewed date:01/21/2023 07:55:18 AM Interpretation: Performing Lab: Notes/Report: [facility] [address] [place] [address] Mammography Report Signed Patient: Lily Jacques MR#: [id number] 99 : 1960 Acct:[id number] Age/Sex: 62 / F ADM Date: 01/16/23 Loc: HO.MAMMO Attending Dr: Horace Lima MD Ordering Physician: Horace Lima MD Results: Date of Service: 01/16/23 Follow Up: Procedure(s): XR DEXA appendicular skeleton Accession Number(s): [id number] cc: Horace Lima MD EXAMINATION: BONE DENSITOMETRY CLINICAL INDICATION: Asymptomatic menopausal state. COMPARISON: Baseline BD dated 08/30/2012, left hip; 01/16/2023, spine and left forearm radius 33%. TECHNIQUE: Using a [employer] DXA System (software version: 13.1) manufactured by [employer] dual-energy x-ray absorptiometry was performed of the lumbar spine, left hip and left forearm radius 33%. The images are of good technical quality. Summary results are attached. FINDINGS: AP SPINE L1-L4 (excluding L2 and L3): The data of L1-L4 has been changed to exclude the L2 and L3 vertebral bodies because degenerative changes at these levels may cause overestimation of the lumbar spine density. Current: BMD 1.168 g/cm2, Z-score 1.7, T-score 0.0, normal, 3.8% decrease from baseline (<5% change is not significant). Baseline: BMD 1.214 g/cm2. LEFT FEMUR, NECK: Current: BMD 0.788 g/cm2, Z-score -0.3, T-score -1.8, osteopenia. Baseline: BMD 0.922 g/cm2. LEFT FEMUR, TOTAL: Current: BMD 0.853 g/cm2, Z-score 0.0, T-score -1.2, osteopenia, 13.6% decrease from baseline (<5% change is not significant). Baseline: BMD 0.987 g/cm2. LEFT FOREARM RADIUS 33%: BMD 0.839 g/cm2, Z-score 0.8, T-score -0.4, normal. Baseline: Not previously measured. IDENTIFIED RISK FACTORS: Early menopause, secondary osteoporosis, hyperparathyroidism, low calcium intake, tobacco use (current smoker). HISTORY OF FRACTURE: None listed. MEDICATIONS: Vitamin D. MM/XR DEXA appendicular skeleton IMPRESSION: 1. DIAGNOSIS: Osteopenia based on the lowest T-score value of -1.8 in the femoral neck applying World Health Organization criteria. 2. 10-YEAR FRACTURE RISK PREDICTION, FRAX: Major osteoporotic fracture (clinical spine, forearm, hip or shoulder) 10.1%. Hip fracture 2.1%. 3. Treatment Recommendations: NOF guidelines recommend consideration for treatment in postmenopausal women and men age 50 and older presenting with the following: -A hip or vertebral (clinical or morphometric) fracture. -T-score less than or equal to -2.5 at the femoral neck or spine after appropriate evaluation to exclude secondary causes. -Low bone mass at the hip or spine and a 10-year fracture probability by FRAX of greater than or equal to 3% for hip fracture or greater than or equal to 20% for major osteoporotic fracture based on the [place] adapted WHO algorithm. 4. Other Recommendations: All treatment decisions require clinical judgment and consideration of individual patient factors, including patient preferences, comorbidities, previous drug use, risk factors not captured in the FRAX model (e.g. frailty, falls, vitamin D deficiency, increased bone turnover, interval significant decline in bone density) and possible under or overestimation of fracture risk by FRAX. Additional medical evaluation for secondary cause of low bone mineral density may be appropriate. FUTURE SCAN RECOMMENDATION: People with diagnosed cases of osteoporosis or at high risk for fracture should have regular bone mineral density tests. For patients eligible for Medicare, routine testing is allowed once every 2 years. The testing frequency can be increased to one year for patients who have rapidly progressing disease, those who are receiving or discontinuing medical therapy to restore bone mass, or have additional risk factors. Dictated By: Be Wilson MD Signed By: <Electronically signed by Be Wilson MD in OV> 01/18/23 1125 DD/ 1115 TD/TT: Chief Dispatcher Service: KATERINA URINE DIP STICK Reviewed date:01/23/2023 10:22:01 AM Interpretation: Performing Lab: Notes/Report: SG 1.010 1.005 - 1.025 pH 5.0 5.0 - 9.0 SHAREE Neg Negative - NIT Neg Negative - PRO 15 Negative - Trace GLU Neg Negative - KET Neg Negative - UBG 0.2 0.1 - 1.8 BOBY Neg 0.2 - 1.3 BLD Neg Negative - Menstrating N/A Complete Blood Count Auto Di ff Reviewed date:2023 09:10:20 PM Interpretation: Performing Lab:[facility], [address] [place] [phone] Notes/Report: White Blood Count 6.2 4.8-10.8 X10*3/uL Red Blood Count 4.40 4.20-5.50 X10*6/uL Hemoglobin 12.9 12.0-16.0 g/dl Hematocrit 39.2 37.0-47.0 % Mean Corpuscular Volume 89.1 80.0-98.0 fL Mean Corpuscular Hemoglobin 29.3 27.0-33.0 pg Mean Corpuscular HGB Conc 32.9 31.0-35.0 g/dl Red Cell Distribution Width 15.2 11.0-16.0 % Platelet Count 458 160-400 X10*3/uL Mean Platelet Volume 10.3 9.4-12.3 fL Neutrophils Percent Auto 45.7 45-73 % Imm Gran Pct Auto 0.2 0.0-0.4 % Lymphocytes Percent Auto 37.6 20-40 % Monocytes Percent Auto 13.1 2-11 % Eosinophils Percent Auto 1.9 0-4 % Basophils Percent Auto 1.5 0-2 % NRBC Pct Auto 0.0 0.0-0.2 /100WBC Neutrophils Absolute Auto 2.8 2.0-8.3 x10*3/u L Imm Gran Abs Auto 0.01 0.00-0.03 X10*3/uL Lymphocytes Absolute Auto 2.3 1.2-4.9 X10*3/u L Monocytes Absolute Auto 0.8 0.1-1.2 X10*3/uL Eosinophils Absolute Auto 0.1 0.0-0.4 X10*3/u L Basophils Absolute Auto 0.1 0.0-0.2 X10*3/uL NRBC Abs Auto 0.000 0.0-0.012 X10*3/uL Comprehensive [place]. Panel Fa st Reviewed date:2023 09:10:20 PM Interpretation: Performing Lab:[facility], [address] [place] [phone] Notes/Report: Sodium 140 135-145 mmol/L Potassium 4.0 3.3-5.1 mmol/L Chloride 109 96-108 mmol/L Carbon Dioxide 24 22-29 mmol/L Anion Gap 11 12-20 Blood Urea Nitrogen 18 9-16 mg/dL Creatinine 0.86 0.5-1.4 mg/dL Estimated Glomerular Filt Rate > 60 NOTE: For -[place] individuals, multiply the result by 1.210. Chronic Kidney Disease: Estimated GFR < 60 mL/min/1.73m2 Severe Kidney Disease: Estimated GFR < 15 mL/min/1.73m2 Glucose Fasting 100 60-99 mg/dL A fasting glucose from 100-125 mg/dl is considered impaired (pre-diabetes). Calcium 10.9 8.4-10.2 mg/dL Bilirubin Total 0.4 0.0-1.0 mg/dL Aspartate Amino Transferase 18 5-31 U/L Alanine Aminotransferase 17 0-31 U/L Total Protein 7.4 6.5-8.0 g/dL Albumin Level 3.9 3.5-5.0 g/dL Alkaline Phosphatase 76 39-117 U/L Lipid Panel Reviewed date:2023 09:10:20 PM Interpretation: Performing Lab:[address] [address] Notes/Report: Triglycerides 89 Desirable Triglyceride: less than 150 mg/dL Borderline High Triglyceride 150-199 mg/dL High Triglyceride: 200-499 mg/dL Very High Triglyceride: greater than or equal to 5OO mg/dL Cholesterol 206 Desirable Cholesterol: less than 200 mg/dL Borderline High Cholesterol: 200-239 mg/dL High Cholesterol: greater than 239 mg/dL LDL Cholesterol Calculated 135 Desirable LDL: less than 100 mg/dL Near Optimal/Above Optimal LDL: 110-129 mg/dL Borderline High LDL: 130-159 mg/dL High LDL: 160-189 mg/dL Very High LDL: greater than or equal to 190 mg/dL HDL Cholesterol 54 Desirable HDL: greater than 40 mg/dL Note: This HDL assay may give artificially low results in patients with liver disease. PTHI Reviewed date:04/24/2023 02:53:08 PM Interpretation: Performing Lab:[facility], [address] [place] [phone] Notes/Report: PTHI 108 16-77 pg/mL Interpretive Guide Intact PTH Calcium ------- Normal Parathyroid Normal Normal Hypoparathyroidism Low or Low Normal Low Hyperparathyroidism Primary Normal or High High Secondary High Normal or Low Tertiary High High Non-Parathyroid Hypercalcemia Low or Low Normal High Calcium (PTHI) 10.6 8.6-10.4 mg/dL THIS TEST WAS PERFORMED AT: [facility] [address] [place] [phone] VAZQUEZ WEBER MD Complete Blood Count Auto Di ff Reviewed date:07/11/2023 11:39:15 AM Interpretation: Performing Lab:[facility], [address] [place] [phone] Notes/Report: White Blood Count 8.7 4.8-10.8 X10*3/uL Red Blood Count 4.43 4.20-5.50 X10*6/uL Hemoglobin 13.1 12.0-16.0 g/dl Hematocrit 39.4 37.0-47.0 % Mean Corpuscular Volume 88.9 80.0-98.0 fL Mean Corpuscular Hemoglobin 29.6 27.0-33.0 pg Mean Corpuscular HGB Conc 33.2 31.0-35.0 g/dl Red Cell Distribution Width 14.3 11.0-16.0 % Platelet Count 429 160-400 X10*3/uL Mean Platelet Volume 9.1 9.4-12.3 fL Neutrophils Percent Auto 53.5 45-73 % Imm Gran Pct Auto 0.2 0.0-0.4 % Lymphocytes Percent Auto 34.5 20-40 % Monocytes Percent Auto 8.9 2-11 % Eosinophils Percent Auto 1.9 0-4 % Basophils Percent Auto 1.0 0-2 % NRBC Pct Auto 0.0 0.0-0.2 /100WBC Neutrophils Absolute Auto 4.7 2.0-8.3 x10*3/u L Imm Gran Abs Auto 0.02 0.00-0.03 X10*3/uL Lymphocytes Absolute Auto 3.0 1.2-4.9 X10*3/u L Monocytes Absolute Auto 0.8 0.1-1.2 X10*3/uL Eosinophils Absolute Auto 0.2 0.0-0.4 X10*3/u L Basophils Absolute Auto 0.1 0.0-0.2 X10*3/uL NRBC Abs Auto 0.000 0.0-0.012 X10*3/uL Prothrombin Time INR Reviewed date:07/11/2023 11:39:15 AM Interpretation: Performing Lab:[facility], [address] [place] [phone] Notes/Report: Prothrombin Time 10.5 11.1-13.3 SEC INTERNATIONAL NORM RATIO 0.9 0.9-1.1 INTERNATIONAL NORMALIZED RATIO (INR) REFERENCE RANGES Reference Range For patients not on anticoagulant therapy: 0.9 - 1.1 INR ranges for oral anticoagulant therapy: For prevention and treatment of venous thrombosis and pulmonary embolism: 2.0 - 3.0 For acute myocardial infarction with aspirin therapy: 2.0 - 3.0 For acute myocardial infarction without aspirin therapy: 3.0 - 4.0 For patients with mechanical prosthetic heart valves: 2.5 - 3.5 Partial Thromboplastin Time Reviewed date:07/11/2023 11:39:15 AM Interpretation: Performing Lab:[facility], [address] [place] [phone] Notes/Report: Partial Thromboplastin Time 29.4 26.0-36.4 SEC Pathology Reviewed date:07/11/2023 11:39:15 AM Interpretation: Performing Lab:[facility], [address] [place] [phone] Notes/Report: CT biopsy lung RT Reviewed date:07/11/2023 11:39:15 AM Interpretation: Performing Lab: Notes/Report: [address] [place] [address] CT Scan Report Signed Patient: Lily Jacques MR#: [id number] 99 : 1960 Acct:[id number] Age/Sex: 63 / F ADM Date: 07/04/23 Loc: [facility] Attending Dr: Diogenes Be MD Ordering Physician: Manav Rose MD Date of Service: 07/04/23 Procedure(s): CT biopsy lung RT Accession Number(s): [id number] cc: Horace Lima MD; Manav Rose MD PROCEDURE: CT GUIDED BIOPSY, LUNG CLINICAL INFORMATION: Right lung lesion. COMPARISON: 06/01/2023 and 06/05/2017. TECHNIQUE: CT fluoroscopic-guided core biopsy right lung mass. This CT examination was performed using dose optimization techniques as appropriate, variously including the following: *Automated exposure control *Adjustment of mA and/or kV according to patient size (this includes techniques or standardized protocols for targeted exams where dose is matched to indication/reason for exam; i.e. extremities or head) *Use of iterative reconstruction technique DLP: 217 mGy-cm. FINDINGS: Informed consent was obtained from the patient prior to the procedure. During this process, the procedure and potential alternatives were explained, along with the intended outcome and benefits. The risks of the procedure, as well as the risk of not doing the procedure, were discussed. The patient was given the opportunity to ask questions regarding the procedure and appeared competent to make medical decisions. A signed consent form which documents this discussion was placed in the medical record. Preliminary scanning demonstrates a 5 mm subpleural nodule about the posterior aspect right lower lobe superior segment. Using sterile technique and CT fluoroscopic guidance a 17-gauge guiding needle was directed to the mass from a posterior approach. Three 18-gauge core biopsies were then obtained. Preliminary cytologic result was of an adequate specimen. No immediate postprocedure pneumothorax was identified with a small amount of bleeding seen at the biopsy site. The patient did not have hemoptysis. CT/CT biopsy lung RT IMPRESSION: Successful CT fluoroscopically-guided core biopsy of right lung mass. CONSCIOUS SEDATION: The patient received intravenous conscious sedation under my direct supervision. A registered nurse monitored the patient and the patient's vital signs throughout the procedure. The total sedation time was 25 minutes. A total of 0.5 mg of Versed and 50 mcg fentanyl was given for good effect. Dictated By: Diogenes Be MD Signed By: <Electronically signed by Diogenes Be MD in OV> 07/04/23 1701 DD/ 1558 TD/TT: Chief Dispatcher Service: ABBI XR chest 1V Reviewed date:07/11/2023 11:39:15 AM Interpretation: Performing Lab: Notes/Report: [address] [address] XRay Report Signed Patient: Lily Jacques MR#: [id number] [birth year] : 1960 Acct:[id number] Age/Sex: 63 / F ADM Date: 07/04/23 Loc: [facility] Attending Dr: Diogenes Be MD Ordering Physician: Diogenes Be MD Date of Service: 07/04/23 Procedure(s): XR chest 1V Accession Number(s): [id number] cc: Horace Lima MD; Diogenes Be MD EXAMINATION: XR CHEST CLINICAL INFORMATION: Status post right lung biopsy. COMPARISON: CT of same day and 06/01/2023. TECHNIQUE: AP portable view of the chest was obtained. FINDINGS: There is a region of opacity seen in the mid right lung related to some hemorrhage at biopsy site. No pneumothorax or pleural effusion identified. Heart normal size. No evidence of pulmonary edema. XR/XR chest 1V IMPRESSION: No pneumothorax on delayed AP portable view of the chest status post right lung biopsy. Dictated By: Diogenes Be MD Signed By: <Electronically signed by Diogenes Be MD in OV> 07/04/231707 DD/ 56 TD/TT: Chief Dispatcher Service: ABBI Complete Blood Count Auto Di ff Reviewed date:07/27/2023 06:21:01 PM Interpretation: Performing Lab:[facility], [address] [place] [phone] Notes/Report: White Blood Count 8.3 4.8-10.8 X10*3/uL Red Blood Count 4.56 4.20-5.50 X10*6/uL Hemoglobin 13.5 12.0-16.0 g/dl Hematocrit 40.7 37.0-47.0 % Mean Corpuscular Volume 89.3 80.0-98.0 fL Mean Corpuscular Hemoglobin 29.6 27.0-33.0 pg Mean Corpuscular HGB Conc 33.2 31.0-35.0 g/dl Red Cell Distribution Width 13.8 11.0-16.0 % Platelet Count 457 160-400 X10*3/uL Mean Platelet Volume 9.4 9.4-12.3 fL Neutrophils Percent Auto 48.9 45-73 % Imm Gran Pct Auto 0.1 0.0-0.4 % Lymphocytes Percent Auto 40.7 20-40 % Monocytes Percent Auto 8.1 2-11 % Eosinophils Percent Auto 1.4 0-4 % Basophils Percent Auto 0.8 0-2 % NRBC Pct Auto 0.0 0.0-0.2 /100WBC Neutrophils Absolute Auto 4.0 2.0-8.3 x10*3/u L Imm Gran Abs Auto 0.01 0.00-0.03 X10*3/uL Lymphocytes Absolute Auto 3.4 1.2-4.9 X10*3/u L Monocytes Absolute Auto 0.7 0.1-1.2 X10*3/uL Eosinophils Absolute Auto 0.1 0.0-0.4 X10*3/u L Basophils Absolute Auto 0.1 0.0-0.2 X10*3/uL NRBC Abs Auto 0.000 0.0-0.012 X10*3/uL Comprehensive [place]. Panel Fa st Reviewed date:07/27/2023 06:21:01 PM Interpretation: Performing Lab:[facility], [address] [place] [phone] Notes/Report: Sodium 137 135-145 mmol/L Potassium 4.9 3.3-5.1 mmol/L Chloride 104 96-108 mmol/L Carbon Dioxide 28 22-29 mmol/L Anion Gap 10 12-20 Blood Urea Nitrogen 14 9-16 mg/dL Creatinine 0.88 0.5-1.4 mg/dL Estimated Glomerular Filt Rate > 60 NOTE: For -[place] individuals, multiply the result by 1.210. Chronic Kidney Disease: Estimated GFR < 60 mL/min/1.73m2 Severe Kidney Disease: Estimated GFR < 15 mL/min/1.73m2 Glucose Fasting 96 60-99 mg/dL Calcium 10.9 8.4-10.2 mg/dL Bilirubin Total 0.3 0.0-1.0 mg/dL Aspartate Amino Transferase 18 5-31 U/L Alanine Aminotransferase 21 0-31 U/L Total Protein 7.8 6.5-8.0 g/dL Albumin Level 4.1 3.5-5.0 g/dL Alkaline Phosphatase 96 39-117 U/L Lipid Panel Reviewed date:07/27/2023 06:21:01 PM Interpretation: Performing Lab:[facility], [address] [place] [phone] Notes/Report: Triglycerides 71 <150 mg/dL Desirable Triglyceride: less than 150 mg/dL Borderline High Triglyceride 150-199 mg/dL High Triglyceride: 200-499 mg/dL Very High Triglyceride: greater than or equal to 5OO mg/dL Cholesterol 224 <200 mg/dL Desirable Cholesterol: less than 200 mg/dL Borderline High Cholesterol: 200-239 mg/dL High Cholesterol: greater than 239 mg/dL LDL Cholesterol Calculated 147 <100 mg/dL Desirable LDL: less than 100 mg/dL Near Optimal/Above Optimal LDL: 110-129 mg/dL Borderline High LDL: 130-159 mg/dL High LDL: 160-189 mg/dL Very High LDL: greater than or equal to 190 mg/dL HDL Cholesterol 63 >40 mg/dL Desirable HDL: greater than 40 mg/dL Note: This HDL assay may give artificially low results in patients with liver disease. Parathyroid Hormone Related Pr Reviewed date:08/03/2023 08:23:35 PM Interpretation: Performing Lab:[facility], [address] [place] [phone] Notes/Report: Parathyroid Hormone Related Pr 14 11-20 pg/m L This is a C-terminal PTH-RP assay. PTH-RP is useful in the differential diagnosis of hypercalcemia and levels may be elevated in patients with tumor-associated hypercalcemia. Elevated results may also be observed in patients with renal disease. This test was developed and its analytical performance characteristics have been determined by [employer]. It has not been cleared or approved by FDA. This assay has been validated pursuant to the CLIA regulations and is used for clinical purposes. THIS TEST WAS PERFORMED AT: [facility] [address] [place] [address] EDUARDO LUGO MD,PHD,DAMEON Type and Screen Reviewed date:07/27/2023 06:21:01 PM Interpretation: Performing Lab:[facility], [address] [place] [phone] Notes/Report: WITNESSED BY [facility] NURSING: Call Blood Bank (ext. [phone]) to band patient on admission. Type and Screen in effect until 2300 on 08-06-2023 Spec expiration changed by KELECHI on 07/24/23 Reason: PAT SPEC Blood Type AP Antibody Screen NEGATIVE REASON FOR REFERRAL Reason right thumb pain Diagnosis 1 Pain of right thumb (M79.644) Referral Organization Horace Lima III, MD Referring Provider First Name Horace Referring Provider Last Name Janie Referring Provider Speciality Internal M edicine Referred Provider [facility], Rheumatology Referred Provider Specialty Rheumatology General Notes Linda Salinas CMA 11/01 02:15:29 PM EST > ref/demo/progress note/labs/x rays faxed to [facility] , Linda Salinas CMA 11/21/2022 03:26:36 PM EDT > Called patient to be seen on 01/15/2023 at 11:00am by Carlotta Berry [employer]GER [employer] Referral Priority Routine Referral Appointment Date 01/15/2023 Reason Lung Screening Diagnosis 1 Tobacco dependence ( F17.200) Referral Organization Horace Lima III, MD Referring Provider First Name Horace Referring Provider Last Name Janie Referring Provider Speciality Internal M edicine Referred Organization [facility] Referred Provider Denisse Paul [facility] Referred Address [address] [place] [address],[place], [id number], Referred Provider Specialty Surgery General Notes Tara Mercado 2022 04:31:31 PM EDT > faxed referral with progress note, referral and patient demographics., Tara Mercado 02/15/2023 03:07:45 PM EDT > PT is scheduled for 04/06/2023 @ 2pm. Appointment was made directly with PT Referral Priority Routine Referral Appointment Date 04/06/2023 MEDICATIONS Medication SIG (Take, Route, Frequency, Duration) Notes Start Date End Date Status Anagrelide HCl 1 MG 1 capsule Orally onc e a day 07/15/2021 Active fluvoxaMINE Maleate 100 MG TAKE 1 TABLET BY MOUTH TWICE DAILY AT BEDTIME Active Simvastatin 20 MG TAKE 1 TABLET BY LEONILA TH ONCE A DAY IN THE EVENING Active Pantoprazole Sodium 20 MG TAKE 1 TABLET BY MOUTH ONCE A DAY Active Amphetamine-Dextroamphetami ne 20 MG 1 tablet Orally Twice a day 01/11/2021 Active ProAir HFA 108 (90 Base) MCG/ACT 2 puff as needed Inhalation every 4 hrs Active IMMUNIZATIONS Vaccine Route Administration Date Status Comme nts Influenza IM Intramuscular 07/18/2013 Administered Influenza Unknown 07/01/2014 Administered Influenza IM Intramuscular 05/25/2015 Administered Pneumococcal IM Intramuscular 05/25/2015 Administered tetanus and diphtheria toxoids adsorbed IM Intramuscular 11/05/2015 Administered PCV13 Unknown 06/20/2016 Administered Influenza Unknown 06/20/2016 Administered SHINGRIX Unknown 04/30/2019 Administered COVID 19 Pfizer Unknown 05/17/2022 Administered Influenza, quad Unknown 05/15/2019 Administered COVID 19 Moderna Unknown 12/03/2021 Administered COVID 19 Moderna Unknown 11/25/2020 Administered Influenza no Preserv 3 and > Unknown 06/19/2016 Administered COVID 19 Moderna Unknown 06/28/2021 Administered PCV13 Unknown 06/19/2016 Administered Influenza, quad Unknown 06/29/2022 Administered Influenza, quad Unknown 05/21/2020 Administered Influenza, quad Unknown 05/29/2018 Administered Influenza, quad Unknown 05/28/2023 Administered COVID PFIZER Unknown 05/28/2023 Administered SHINGRIX Unknown 08/15/2019 Administered PPV 23 Unknown 06/07/2021 Administered COVID 19 Moderna Unknown 10/28/2020 Administered Influenza, quad Unknown 05/30/2021 Administered Influenza, quad Unknown 05/28/2023 Administered COMIRNATY Pfizer-BioNTech Unknown 05/28/2023 Administer ed SOCIAL HISTORY Tobacco Use: Social History Observation Description Date Details (start date - stop date) Current Smoker NA - NA Sex Assigned At : Social History Observation Description Sex Assigned At Female Tobacco Use/Smoking Question Answer Notes Patient is a current smoker How often do you smoke cigarettes? every day How many cigarettes a day do you smoke? 5 or les s How soon after you wake up d o you smoke your first cigarette? after 60 minutes Are you interested in quitting? Not ready to amanda t Additional Findings: Tobacco User Light cigarett e smoker ((1-9 cigs/day) Additional Findings: Tobacco Non-User Ex-cigaret te smoker Alcohol Screen Question Answer Notes Did you have a drink containing alcohol in the p ast year? No Points 0 Interpretation Negative PROBLEMS Problem Type ICD Code Onset Dates Problem Status W/U Status Risk SNOMED Code Notes Problem Overweight (BMI 25.0-29.9) (E66.3) Active confirmed 049098406 Her BMI is 24 and she is no longer overweight. Problem Hyperlipidemia (E78.5) Active confirmed 48830812 Her lipids are controlled and no changes were needed. Problem Asthma (J45.909) Active confirmed 842494538 Her lungs were clear today without wheezes. Problem Thrombocytosis (D47.3) Active confirmed 7825544 Her current platelet count is 457,000, which is slightly high. She was coontinued on her current dose of anagrelide. 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 I have been informed that surgery wishes to stop this medicine for 3 days prior to surgery to prevent a low platelet count. This is permittedBut it does unlikely that this will occur. Attention should be paid to her platelet count after surgery in the medication resume to prevent thrombosis. Problem Allergy to sulfa drugs (Z88.2) Active confirmed 35113316 She has developed a typical drug allergy rash. Weak after taking Bactrim. Her allergy portion of the medical record has been updated. Problem Solitary pulmonary nodule (R91.1) Active confirmed 485500237 She is eyad eduled for resection of the right lower lobe pulmonary nodule in the near future. She is medically cleared for this procedure with a average risk of a patient her age. She has been seen and examined and carefully reviewed. There is no contraindication to surgery at this time. Problem Breast calcification, left (R92.1) Active confirmed 803631332 No abnormali ties were palpated today. Problem Postmenopause (Z78.0) Active confirmed 04767526 She is no long er having periods and will have a bone density at appropriate intervals. Problem Attention deficit hyperactivity disorder (ADHD), unspecified ADHD type (F90.9) Active confirmed 847744833 She was continued on her current medication. No change was made. She has been conducting the activities of daily life and in normal fashion. Problem Bilateral hearing loss (H91.93) Active confirmed 30853510 Her hearing lo ss is quite advanced and she benefit significantly from hearing aids. There was no difficulty conversing today. The recent episode of otitis has completely resolved. Problem Tobacco dependence (F17.200) Active confirmed 90693363 I have summer camp counselor ed her about smoking cessation at length today. I have made her aware of the smoking cessation program at [facility]. She is smoking only 5 cigarettes a day now. Problem Major depression (F32.9) Active confirmed 528671726 Her depression is well-controlled and she is living her life without significant impairment. Problem Hyperparathyroi dism (E21.3) Active confirmed Hyperparathyroi di sm (54770781) Her PTH is 108 and previously was 140. The calcium is 10.6 and previously was 11.2 VITAL SIGNS Heart Rate 95 /min 07/31/2023 Temperature 98.2 degrees Fahrenheit 07/31/2023 Oximetry 97 % 07/31/2023 Blood pressure diastolic 80 mm Hg 07/31/2023 Height 60 in 07/31/2023 Blood pressure systolic 144 mm Hg 07/31/2023 Weight 130 lbs 07/31/2023 BMI 25.39 kg/m2 07/31/2023 Encounters Encounter Location Date Provider Diagnosis Horace Lima III, MD [address] [place] [address] [place] [address] 01/23/2023 Horace Lima Annual physical exam Z00.00 ; Hyperlipidemia E78.5 ; Hyperparathyroidism E21.3 ; Attention deficit hyperactivity disorder (ADHD), unspecified ADHD type F90.9 ; Bilateral hearing loss H91.93 ; Major depression F32.9 ; Asthma J45.909 ; Thrombocytosis D47.3 and Tobacco dependence F17.200 Horace Lima III, MD [address] [place] [address] [place] [address] 08/31/2022 Horace Lima Attention deficit hyperactivity disorder (ADHD), unspecified ADHD type F90.9 ; Asthma J45.909 ; Thrombocytosis D47.3 ; Hypercalcemia E83.52 ; Hyperparathyroidism E21.3 and Former smoker Z87.891 Horace Lima III, MD [address] [place] [address] [place] [address] 11/09/2022 Horace Lima Hyperparathyroidism E21.3 ; Encounter for screening mammogram for malignant neoplasm of breast Z12.31 ; Pain of right thumb M79.644 ; Hyperlipidemia E78.5 ; Asthma J45.909 ; Thrombocytosis D47.3 and Tobacco dependence F17.200 Horace Lima III, MD [address] [place] [address] [place] [address] 04/27/2023 Horace Lima Attention deficit hyperactivity disorder (ADHD), unspecified ADHD type F90.9 ; Hyperlipidemia E78.5 ; Hyperparathyroidism E21.3 ; Overweight (BMI 25.0-29.9) E66.3 ; Major depression F32.9 and Asthma J45.909 Horace Lima III, MD [address] [place] [address] [place] [address] 07/31/2023 Horace Lima Attention deficit hyperactivity disorder (ADHD), unspecified ADHD type F90.9 ; Solitary pulmonary nodule R91.1 ; Bilateral hearing loss H91.93 ; Asthma J45.909 ; Major depression F32.9 ; Hyperlipidemia E78.5 ; Former smoker Z87.891 ; Thrombocytosis D47.3 ; Tobacco dependence F17.200 and Overweight E66.3 Horace Lima III, MD [address] [place] [address] [place] [address] 09/25/2022 Horace Lima III, MD [address] [place] [address] [place] [address] 05/01/2023 Horace Lima Attention deficit hyperactivity disorder (ADHD), unspecified ADHD type F90.9 Horace Lima III, MD [address] [place] [address] [place] [address] 06/28/2023 Horace Lima III, MD [address] [place] [address] [place] [address] 07/16/2023 Horace Lima Preop testing Z01.81 8 Horace Lima III, MD [address] [place] [address] [place] [address] 09/20/2022 Horace Lima Hyperparathyroidism E21.3 ; Thrombocytosis D47.3 ; Former smoker Z87.891 ; Hypercalcemia E83.52 ; Asthma J45.909 ; Hyperlipidemia E78.5 ; Major depression F32.9 ; Bilateral hearing loss H91.93 ; Attention deficit hyperactivity disorder (ADHD), unspecified ADHD type F90.9 and Overweight E66.3 Horace Lima III, MD [address] [place] [address] [place] [address] 02/16/2023 Horace Lima Attention deficit hyperactivity disorder (ADHD), unspecified ADHD type F90.9 ; Bilateral hearing loss H91.93 ; Major depression F32.9 ; Hyperlipidemia E78.5 ; Asthma J45.909 ; Thrombocytosis D47.3 ; Tobacco dependence F17.200 ; Hyperparathyroidism E21.3 ; Overweight (BMI 25.0-29.9) E66.3 and Allergy to sulfa drugs Z88.2 Horace Lima III, MD [address] [place] [address] [place] [address] 06/10/2023 Horace Lima III, MD [address] [place] [address] [place] [address] 07/10/2023 Horace Lima ASSESSMENTS Encounter Date Diagnosis Assessment Notes Treatment Notes Treatment Clinical Notes 01/23/2023 Hyperlipidemia (ICD- 10 - E78.5) Her lipids are stable on the current fasting lipid profile. No change in her medication was made today. The profile will be obtained periodically. 01/23/2023 Annual physical exam (ICD-10 - Z00.00) She seems healthy and well and compliant with her therapies. 08/31/2022 Asthma (ICD-10 - J45.909) She was breathing normally today and no wheezing was audible. No change in her regimen was necessary. 08/31/2022 Attention deficit hyperactivity disorder (ADHD), unspecified ADHD type (ICD-10 - F90.9) She was continued on her current medication. No change was made. She has been conducting the activities of daily life and in normal fashion. 11/09/2022 Encounter for screen ing mammogram for malignant neoplasm of breast (ICD-10 - Z12.31) Her annual screening mammogram has been scheduled. 11/09/2022 Hyperparathyroidism (ICD-10 - E21.3) Her calcium level remains slightly elevated as is her PTH. I have ordered a bone density to help decide if she needs treatment. 04/27/2023 Hyperlipidemia (ICD- 10 - E78.5) Her lipids are controlled and no changes were needed. 04/27/2023 Attention deficit hyperactivity disorder (ADHD), unspecified ADHD type (ICD-10 - F90.9) She was continued on her current medication. No change was made. She has been conducting the activities of daily life and in normal fashion. 07/31/2023 Solitary pulmonary nodule (ICD-10 - R91.1) She is scheduled for resection of the right lower lobe pulmonary nodule in the near future. She is medically cleared for this procedure with a average risk of a patient her age. She has been seen and examined and carefully reviewed. There is no contraindication to surgery at this time. 07/31/2023 Attention deficit hyperactivity disorder (ADHD), unspecified ADHD type (ICD-10 - F90.9) She was continued on her current medication. No change was made. She has been conducting the activities of daily life and in normal fashion. 05/01/2023 Attention deficit hyperactivity disorder (ADHD), unspecified ADHD type (ICD-10 - F90.9) She was continued on her current medication. No change was made. She has been conducting the activities of daily life and in normal fashion. 09/20/2022 Thrombocytosis (ICD- 10 - D47.3) Her platelet count has fallen from 592 down to 492 and is now 468,000. Current therapy was continued and the value will be repeated and followed. 09/20/2022 Hyperparathyroidism (ICD-10 - E21.3) She is not taking oral calcium or vitamin D. Her calcium level has declined from 11.8-10.7. It will be followed at this time. A parathyroid hormone level is pending. 02/16/2023 Attention deficit hyperactivity disorder (ADHD), unspecified ADHD type (ICD-10 - F90.9) She was continued on her current medication. No change was made. She has been conducting the activities of daily life and in normal fashion. 02/16/2023 Bilateral hearing lo ss (ICD-10 - H91.93) Her hearing loss is quite advanced and she benefit significantly from hearing aids. There was no difficulty conversing today. The recent episode of otitis has completely resolved. 01/23/2023 Hyperparathyroidism (ICD-10 - E21.3) Her calcium level today is 10.3. She will be observed at this time on current therapy. 08/31/2022 Thrombocytosis (ICD- 10 - D47.3) Her platelet count was 468,000. She was continued on the anagrelide without a change in dose. This value will be repeated frequently. 11/09/2022 Pain of right thumb (ICD-10 - M79.644) The pain seems to come from the first MCP joint, rather than the ganglion cyst. She was referred to rheumatology for evaluation and treatment. 04/27/2023 Hyperparathyroidism (ICD-10 - E21.3) Her PTH is 108 and previously was 140. The calcium is 10.6 and previously was 11.2 07/31/2023 Bilateral hearing lo ss (ICD-10 - H91.93) Her hearing loss is quite advanced and she benefit significantly from hearing aids. There was no difficulty conversing today. The recent episode of otitis has completely resolved. 07/16/2023 Preop testing (ICD-1 0 - Z01.818) 09/20/2022 Former smoker (ICD-1 0 - Z87.891) She has recently stopped smoking and is using electronic cigarette. I congratulated her and we discussed a strategy for relapsed prevention in times of illness and stress 02/16/2023 Major depression (IC D-10 - F32.9) Her depression is well-controlled and she is living her life without significant impairment. 01/23/2023 Attention deficit hyperactivity disorder (ADHD), unspecified ADHD type (ICD-10 - F90.9) She was continued on her current medication. No change was made. She has been conducting the activities of daily life and in normal fashion. 08/31/2022 Hypercalcemia (ICD-1 0 - E83.52) Her calcium has risen from normal to 11.8. This will be repeated and treated if it remains at this level. 11/09/2022 Hyperlipidemia (ICD- 10 - E78.5) Her lipids have been well controlled. 04/27/2023 Overweight (BMI 25.0-29.9) (ICD-10 - E66.3) Her BMI is 24 and she is no longer overweight. 07/31/2023 Asthma (ICD-10 - J45.909) Her lungs were clear today without wheezes. 09/20/2022 Hypercalcemia (ICD-1 0 - E83.52) Her current calcium level is 10.7. A PTH level is pending. She is not taking oral calcium or vitamin D. 02/16/2023 Hyperlipidemia (ICD- 10 - E78.5) Her lipids are stable on the current fasting lipid profile. No change in her medication was made today. The profile will be obtained periodically. 01/23/2023 Bilateral hearing lo ss (ICD-10 - H91.93) Her hearing loss is quite advanced and she benefit significantly from hearing aids. There was no difficulty conversing today. The recent episode of otitis has completely resolved. 08/31/2022 Hyperparathyroidism (ICD-10 - E21.3) The elevated calcium suggests hyperparathyroidism. A workup is in progress. 11/09/2022 Asthma (ICD-10 - J45.909) Her lungs were clear today without wheezes. 04/27/2023 Major depression (IC D-10 - F32.9) Her depression is well-controlled and she is living her life without significant impairment. 07/31/2023 Major depression (IC D-10 - F32.9) Her depression is well-controlled and she is living her life without significant impairment. 09/20/2022 Asthma (ICD-10 - J45.909) She was breathing normally today and no wheezing was audible. No change in her regimen was necessary. 02/16/2023 Asthma (ICD-10 - J45.909) Her lungs were clear today without wheezes. 01/23/2023 Major depression (IC D-10 - F32.9) Her depression is well-controlled and she is living her life without significant impairment. 08/31/2022 Former smoker (ICD-1 0 - Z87.891) She has recently stopped smoking and is using electronic cigarette. I congratulated her and we discussed a strategy for relapsed prevention in times of illness and stress 11/09/2022 Thrombocytosis (ICD- 10 - D47.3) Her platelets are slightly elevated at 507. She says she occasionally forgets to take anagrelide. She was instructed with the medication, a place where she cannot forget it. She will take it faithfully and her platelets will be repeated. If necessary, the dose will be increased. 04/27/2023 Asthma (ICD-10 - J45.909) Her lungs were clear today without wheezes. 07/31/2023 Hyperlipidemia (ICD- 10 - E78.5) Her lipids are controlled and no changes were needed. 09/20/2022 Hyperlipidemia (ICD- 10 - E78.5) The total cholesterol level is now 235 with an LDL of 158. She reports that she was not fasting. Her current therapy was continued in a fasting profile was ordered prior to her next visit. 02/16/2023 Thrombocytosis (ICD- 10 - D47.3) Her platelet count is now in the normal range and the current dose of anagrelide was discontinued. She has had no sign of arterial or venous thromboembolism. 01/23/2023 Asthma (ICD-10 - J45.909) Her lungs were clear today without wheezes. 11/09/2022 Tobacco dependence (ICD-10 - F17.200) I have counseled her about smoking cessation at length today. I have made her aware of the smoking cessation program at [facility]. She is smoking only 5 cigarettes a day now. 07/31/2023 Former smoker (ICD-1 0 - Z87.891) She has recently stopped smoking and is using electronic cigarette. I congratulated her and we discussed a strategy for relapsed prevention in times of illness and stress 09/20/2022 Major depression ( D-10 - F32.9) Her depression is well-controlled and she is living her life without significant impairment. 02/16/2023 Tobacco dependence (ICD-10 - F17.200) I have counseled her about smoking cessation at length today. I have made her aware of the smoking cessation program at [facility]. She is smoking only 5 cigarettes a day now. 01/23/2023 Thrombocytosis (ICD- 10 - D47.3) Her platelet count is now in the normal range and the current dose of anagrelide was discontinued. She has had no sign of arterial or venous thromboembolism. 07/31/2023 Thrombocytosis (ICD- 10 - D47.3) Her current platelet count is 457,000, which is slightly high. She was coontinued on her current dose of anagrelide. 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 I have been informed that surgery wishes to stop this medicine for 3 days prior to surgery to prevent a low platelet count. This is permittedBut it does unlikely that this will occur. Attention should be paid to her platelet count after surgery in the medication resume to prevent thrombosis. 09/20/2022 Bilateral hearing lo ss (ICD-10 - H91.93) Her hearing loss is quite advanced and she benefit significantly from hearing aids. There was no difficulty conversing today. The recent episode of otitis has completely resolved. 02/16/2023 Hyperparathyroidism (ICD-10 - E21.3) Her calcium level today is 10.3. She will be observed at this time on current therapy. 01/23/2023 Tobacco dependence (ICD-10 - F17.200) I have counseled her about smoking cessation at length today. I have made her aware of the smoking cessation program at [facility]. She is smoking only 5 cigarettes a day now. 07/31/2023 Tobacco dependence (ICD-10 - F17.200) I have counseled her about smoking cessation at length today. I have made her aware of the smoking cessation program at [facility]. She is smoking only 5 cigarettes a day now. 09/20/2022 Attention deficit hyperactivity disorder (ADHD), unspecified ADHD type (ICD-10 - F90.9) She was continued on her current medication. No change was made. She has been conducting the activities of daily life and in normal fashion. 02/16/2023 Overweight (BMI 25.0-29.9) (ICD-10 - E66.3) Her body mass index is slightly over 25. I recommended weight loss at a rate of one half of a pound per week until her body mass index is in the normal range. 07/31/2023 Overweight (ICD-10 - E66.3) She is slightly overweight. I recommended stabilizing her weight at this level and gradually reducing until the body mass index is in the normal range through a diet restricted in calories, fat and sodium. 09/20/2022 Overweight (ICD-10 - E66.3) She is slightly overweight. I recommended stabilizing her weight at this level and gradually reducing until the body mass index is in the normal range through a diet restricted in calories, fat and sodium. 02/16/2023 Allergy to sulfa zahraa gs (ICD-10 - Z88.2) She has developed a typical drug allergy rash. Weak after taking Bactrim. Her allergy portion of the medical record has been updated. PLAN OF TREATMENT Pending Test Test Name Order Date PROFILE, FASTING (COMPREHENSIVE METABOLI C) 10/29/2017 PROFILE, FASTING (COMPREHENSIVE METABOLI C) 07/25/2017 PROFILE, FASTING (COMPREHENSIVE METABOLI C) 04/27/2023 PROFILE, FASTING (COMPREHENSIVE METABOLI C) 05/31/2022 PROFILE, FASTING (COMPREHENSIVE METABOLI C) 01/16/2022 PROFILE, FASTING (COMPREHENSIVE METABOLI C) 09/27/2018 PROFILE, FASTING (COMPREHENSIVE METABOLI C) 01/23/2023 PROFILE, FASTING (COMPREHENSIVE METABOLI C) 02/18/2018 PROFILE, FASTING (COMPREHENSIVE METABOLI C) 07/05/2021 PROFILE, FASTING (COMPREHENSIVE METABOLI C) 10/08/2019 PROFILE, FASTING (COMPREHENSIVE METABOLI C) 11/09/2022 PROFILE, RANDOM (COMPREHENSIVE METABOLIC ) 08/31/2022 PROFILE, RANDOM (COMPREHENSIVE METABOLIC ) 08/20/2017 PROFILE, RANDOM (COMPREHENSIVE METABOLIC ) 07/15/2021 CALCIUM 08/31/2022 LIPID PANEL 10/08/2019 LIPID PANEL 11/09/2022 LIPID PANEL 10/29/2017 LIPID PANEL 07/25/2017 LIPID PANEL 04/27/2023 LIPID PANEL 05/31/2022 LIPID PANEL 08/20/2017 LIPID PANEL 01/16/2022 LIPID PANEL 09/27/2018 LIPID PANEL 01/23/2023 LIPID PANEL 02/18/2018 LIPID PANEL 07/05/2021 FREE T4 (FT4) 07/25/2017 TSH (THYROID STIMULATING HORMONE) 2016 CBC w DIFF 07/05/2021 CBC w DIFF 04/17/2022 CBC w DIFF 10/08/2019 CBC w DIFF 11/09/2022 CBC w DIFF 08/31/2022 CBC w DIFF 10/29/2017 CBC w DIFF 04/27/2023 CBC w DIFF 05/31/2022 CBC w DIFF 08/20/2017 CBC w DIFF 01/16/2022 CBC w DIFF 09/27/2018 CBC w DIFF 01/23/2023 CBC w DIFF 07/25/2017 CBC w DIFF 02/18/2018 CBC w DIFF 07/15/2021 SED RATE (ESR) 07/25/2017 SED RATE (ESR) 07/05/2021 HEPATITIS C ANTIBODY 08/20/2017 XR CHEST 2 VIEW PA & LAT 11/09/2022 XR HAND RT 11/09/2022 BONE DENSITY DEXA 11/09/2022 MAMMOGRAM DIGITAL BILATERAL SCREEN 02/18 MAMMOGRAM DIGITAL BILATERAL SCREEN 11/09 MAMMOGRAM DIGITAL BILATERAL SCREEN 10/06 VITAMIN D 25-OH TOTAL 07/05/2021 VITAMIN D 25-OH TOTAL 08/31/2022 VITAMIN D 25-OH TOTAL 05/31/2022 VITAMIN D 25-OH TOTAL 01/16/2022 PARATHYROID HORMONE INTACT 01/23/2023 PARATHYROID HORMONE INTACT 11/09/2022 PARATHYROID HORMONE INTACT 07/05/2021 PARATHYROID HORMONE INTACT 09/20/2022 PARATHYROID HORMONE INTACT 04/27/2023 PTHI 07/15/2021 Next Appt Details Provider Name:Horace Lima, 08/21/2023 11:30:00 AM, [address] [place] [address] [place], [address], Provider Name:Horace Lima, 01/29/2024 10:00:00 AM, [address] [place] [address] [place] [place], [address], Insurance Providers Payer Name Payer Address Payer Phone Subscriber Number Group Number Insured Name Patient Relationship to Insured Coverage Start Date Coverage End Date MEDICARE NGS [address] [place] [address] [id number] Lily Jacques Self - patient is the insured MEDICAID [address] [place] [id number] [phone] [id number] Lily Jacques Self - patient is the insured MEDICAL (GENERAL) HISTORY Medical History History ICD Code ADHD, combined type ear infections left breast calcifications colonoscopy December 2012 tobacco dependence hyperlipidemia menopause age 42 alcohol abuse overweight Thrombocytosis Hearing loss July 2023. Suspicious mass right low er lobe superior segment Surgical History Surgery Date(Month/Year) Core needle biopsy right lower lobe supe rior segment mass 07/2023 left eye cataract 10/2020 right eye cataract 10/2020 biopsy left breast fibroadenoma 05/13/14 tubal age 18 T&A, adenoids left myringotomy 1985 right mastoidectomy 1985
[2023-08-06] MEDS: fentaNYL citrate/PF 100 MCG/2 ML VIAL 50 MCG IVPUSH ×2 (12:49→13:00)
--- NOTE | 2023-08-06 13:18 | PHA.MEDREC ---
Pharmacy Consult ? Medication Reconciliation Pharmacy has completed the medication reconciliation.PHARMACY HAS REVIEWED MED REC DONE BY NURSING
[2023-08-06] MEDS: HYDROmorphone HCl 0.5 MG/0.5 ML SYRINGE IVPUSH ×2 (13:58→14:03)
[2023-08-06] MEDS: Lactated Ringers 1,000 ML 80 ML IVCONT (14:33)
[2023-08-06] MEDS: Ketorolac Tromethamine 30 MG/ML VIAL IVPUSH (14:51)
--- NOTE | 2023-08-06 17:15 | HO.PM.IMCN ---
History of Present Illness Data of Consult Service Date: 08/06/23 Requesting physician: Manav Rose Primary Care Provider: Horace Lima MD HPI Reason for consult: medical management 63-year-old female with history of hyperparathyroidism, hyperlipidemia, depression anxiety, PTSD, COPD, osteopenia, history tubular adenoma of the colon, who is a current 2 cigarette per day smoker admitted to thoracic surgery for management of right lower lobe pulmonary nodule s/p VATS RLL wedge resection with frozen path consistent with adenocarcinoma followed by right lower lobectomy with consult placed hospitalist service for medical management. She reports 8/10 pain, around the site of chest tube as well as pleuritic chest pain. No sob, respiratory distress, or retrosternal chest pressure. Chest tube is hooked up to Pleur-evac with some minimal sanguinous drainage. She has no other complaints at this time. Patient has been hypertensive since arrival, currenlty 181/80, no prior diagnosis of hypertension and not on any antihypertensive agents. Review of Systems Review of Systems: General: No fevers, malaise, unintentional weight loss Cardiovascular: No chest pain, palpitations, or leg edema Respiratory: No shortness of breath, wheezing, cough GI: No abdominal pain, nausea, vomiting, diarrhea : No dysuria, hematuria MSK: No myalgia, back pain. +pleuritic cp, +right chest wall pain Neuro: No headaches, weakness, paresthesias Skin: No rashes or lesions PMFSH Medical History Nasal deformity Hx of nausea Chronic bronchitis Hx of ectopic Nicotine dependence, cigarettes, uncomplicated Hyperparathyroidism Hyperlipidemia Postmenopausal Tubular adenoma of colon (~2018) Osteopenia (~2022) History of drug overdose Hearing loss, bilateral PTSD (post-traumatic stress disorder) Major depressive disorder, recurrent severe without psychotic features ADHD Family History Mother Lupus (systemic lupus erythematosus) Surgical History Hx of adenoidectomy History of cataract surgery History of ear surgery History of tonsillectomy History of endoscopy History of colonoscopy Social History Household Members: None Housing: House Are you a primary pediatric critical care nurse to a significant other at home: No Do you presently have visiting nurse or other home services: No (cousin to help post-op) Alcohol intake: current Alcohol intake frequency: holidays/special occasions only Alcohol type: beer Comment: COUNTS CORRECT Patient Tobacco Use Status: Current everyday Tobacco user Tobacco use type: Cigarette Cigarettes Per Day: 2 Years Smoked: onset 15yo, 1ppd x 48yrs, quit for 5 days, now 2/day - 45pyh Smoked in Last 30 Days: Yes Patient Interested in Nicotine Replacement: Yes Second Hand Smoke Exposure: No Use of substances other than those prescribed or required for medical reasons: No Have you been hit, kicked, punched, or otherwise hurt by someone within the past year? If so, by whom?: No Spiritual Healthcare Practices: none Muslim Healthcare Practices: none Cultural Healthcare Practices: none Are you DNR?: No Advance Directives: No Advance Directives Information Provided: Yes Advance Directives on File: No Recently lost weight without trying: No Nutrition Risks: No Nutritional Risk Meds Allergies Allergy/AdvReac Type Severity Reaction Status Date / Time Sulfa (Sulfonamide Allergy Severe Rash Verified 08/06/23 07:19 Antibiotics) trazodone [TRAZODONE] Allergy Severe FELT LIKE Verified 08/06/23 07:19 ELEPHANT SITTING ON MY CHEST , [place]IGHTMARES Active Medications: Current Medications Al Hydroxide/Mg Hydroxide (Magnesium Hydrox/Alum Hydrox 30 Ml Oral.Susp) 30 ml PO Q4H PRN PRN Reason: Heartburn/Nausea Albuterol Sulfate (Albuterol Sulfate 90 Mcg 8 Gm Inhaler) 1 puff INHALE Q4H PRN PRN Reason: Shortness Of Breath Amphetamine/Dextroamphetamine (Amphetamine Mixed Salts 20 Mg Tablet) 20 mg PO DAILY@0600,1100 [facility] Atorvastatin Calcium (Atorvastatin Calcium 10 Mg Tablet) 20 mg PO DAILY@1999 [facility] Docusate Sodium (Docusate Sodium 100 Mg Capsule) 100 mg PO BID [facility] Fluvoxamine Maleate (Fluvoxamine Maleate 50 Mg Tablet) 100 mg PO DAILY@1999 [facility] Lactated Ringer's (Lr) 1,000 mls @ 80 mls/hr IVCONT .[id number] [facility] Last Admin: 08/06/23 14:33 Dose: 80 mls/hr Acetaminophen (Ofirmev) 1,000 mg in 100 mls @ 400 mls/hr IV Q6H [facility] Last Admin: 08/06/23 15:54 Dose: Not Given Melatonin (Melatonin 3 Mg Tablet) 6 mg PO BEDTIME PRN PRN Reason: Insomnia Morphine Sulfate (Morphine Sulfate 4 Mg/Ml Cartridge) 4 mg IVPUSH Q4H PRN; Protocol PRN Reason: Pain, Severe (Pain Scale 7-10) Omeprazole (Omeprazole 20 Mg Capsule.Dr) 20 mg PO DAILY@1999 [facility] Ondansetron HCl (Ondansetron Hcl 4 Mg/2 Ml Vial) 4 mg IVPUSH Q8H PRN PRN Reason: Nausea and Vomiting Oxycodone HCl (Oxycodone Hcl Immed Release 5 Mg Tablet) 5 mg PO Q4H PRN PRN Reason: Pain, Moderate(Pain Scale 4-6) Oxycodone HCl (Oxycodone Hcl Immed Release 5 Mg Tablet) 10 mg PO Q4H PRN PRN Reason: Pain, Severe (Pain Scale 7-10) Home Medications Medication Instructions Recorded Confirmed Last Taken Type albuterol sulfate 90 mcg/actuation 1 inh inhalation Q4-6H PRN 06/19/23 08/06/23 08/05/23 09:00 History breath activated powder inhaler Shortness Of Breath anagrelide 1 mg capsule 1 mg PO .DAILY@199906/19/23 08/06/23 08/02/23 History docusate sodium 100 mg capsule 100 mg PO .DAILY@199906/19/23 08/06/23 08/05/23 History multivitamin 1 tab PO .DAILY@59906/19/23 08/06/23 08/05/23 History pantoprazole 20 mg tablet,delayed 20 mg PO .DAILY@199906/19/23 08/06/23 08/05/23 History release simvastatin 20 mg tablet 20 mg PO .DAILY@199906/19/23 08/06/23 08/05/23 History dextroamphetamine-amphetamine 20 20 mg PO .@0600+1100 07/31/23 08/06/23 08/05/23 History mg tablet (Adderall) fluvoxamine 100 mg tablet 100 mg PO .DAILY@199907/31/23 08/06/23 08/05/23 History Physical Exam Vital Signs and Narrative: Vital Signs: Last Vital Signs Temp 98.2 F 08/06/23 16:00 Pulse 75 08/06/23 16:00 Resp 20 08/06/23 16:00 BP 181/80 H 08/06/23 16:00 Pulse Ox 100 08/06/23 16:00 O2 Del Method Nasal Cannula 08/06/23 16:00 O2 Flow Rate 3 08/06/23 16:00 BMI result Body Mass Index 25.8 Constitutional - Awake and Alert, No apparent distress Eyes - PERRLA, EOMI Cardiovascular - S1S2, RRR, No edema Respiratory - Normal lung expansion, Normal respiratory effort, No respiratory distress on 3L supplemental O2, diffuse rhonchi bilaterally, no rales or wheezing. Right sided chest tube in place connected to pleur-evac with scant sanguinous drainage Gastrointestinal - NT / ND; +BS; No rebound or guarding Extremities - no calf tenderness bilaterally, no swelling Skin - Warm/Dry Neurological - Alert & oriented x3 Psychological - Appropriate affect Results Imaging Radiologist's Impressions: Impressions Chest X-Ray 08/06/23 12:50 IMPRESSION: 1. Postsurgical changes right lung with a large bore chest catheter in the right lung apex. There is no visible pneumothorax. There is right subcutaneous emphysema from postsurgical changes. 2. Patchy opacity left lung base question atelectasis or infiltrate. Assessment and Plan (1) Right lower lobe pulmonary nodule: Status: Acute Plan 63-year-old female with history of hyperparathyroidism, hyperlipidemia, depression anxiety, PTSD, COPD, osteopenia, history tubular adenoma of the colon, who is a current 2 cigarette per day smoker admitted to thoracic surgery for management of right lower lobe pulmonary nodule s/p VATS RLL wedge resection with frozen path consistent with adenocarcinoma followed by right lower lobectomy with consult placed hospitalist service for medical management. #Adenocarcinoma Right Lung -s/p wedge resection with frozen path consistent with a dental carcinoma followed by right lower lobectomy POD 0 -plan per thoracic surgery # acute postoperative hypoxia -s/p lobectomy as above -wean oxygen as tolerated -encourage IS # hypertension -newly diagnosed. Significantly elevated blood pressures since arrival up to 207/82. Currently 181/80 -Give amlodipine 5mg now. Adjust as needed -Monitor Bp closely #COPD -no acute exacerbation -continue albuterol p.r.n. #Thrombocythemia -resume anagrelide at the discretion of surgeon #Mood disorder -continue home meds #HLD -continue statin #GERD -continue ppi DVT prophylaxis- per thoracic surgery Full code
[2023-08-06] MEDS: Morphine Sulfate 4 MG/ML CARTRIDGE IVPUSH ×2 (18:16→23:49)
[2023-08-06] MEDS: amLODIPine Besylate 5 MG TABLET PO (19:19)
[2023-08-06] MEDS: Acetaminophen 1,000 MG/100 ML PIGGYBACK 400 MG IV (19:20)
[2023-08-06] MEDS: oxyCODONE HCl Immed Release 5 MG TABLET 10 MG PO (20:17)
[2023-08-06] MEDS: Omeprazole 20 MG CAPSULE.DR PO (20:18)
[2023-08-06] MEDS: Docusate Sodium 100 MG CAPSULE PO (20:18)
[2023-08-06] MEDS: fluvoxaMINE Maleate 50 MG TABLET 100 MG PO (20:18)
[2023-08-06] MEDS: Atorvastatin Calcium 10 MG TABLET 20 MG PO (20:18)
[2023-08-07] VITALS (9 sets, daily range): BP systolic 123–160; BP diastolic 58–78; PULSE 71–83; RESP 16–20; TEMP 36.4–36.9; O2SAT 92–99
[2023-08-07] MEDS: Acetaminophen 1,000 MG/100 ML PIGGYBACK 400 MG IV ×4 (00:43→18:31)
[2023-08-07] MEDS: Lactated Ringers 1,000 ML 80 ML IVCONT ×2 (01:13→12:41)
[2023-08-07] MEDS: oxyCODONE HCl Immed Release 5 MG TABLET 10 MG PO ×5 (01:41→17:47)
[2023-08-07] MEDS: Morphine Sulfate 4 MG/ML CARTRIDGE IVPUSH ×5 (03:47→21:56)
[2023-08-07] MEDS: Amphetamine Mixed Salts 20 MG TABLET PO ×2 (06:13→11:49)
[2023-08-07 06:30] LABS: MANUAL DIFF FLAG NO
[2023-08-07 06:41] LABS: Eosinophils Percent Auto 0.1 % (0-4); Hematocrit 37.7 % (37.0-47.0); Hemoglobin 12.3 g/dl (12.0-16.0); Imm Gran Abs Auto 0.03 X10*3/uL (0.00-0.03); Imm Gran Pct Auto 0.4 % (0.0-0.4); Mean Corpuscular HGB Conc 32.6 g/dl (31.0-35.0); Mean Corpuscular Hemoglobin 29.8 pg (27.0-33.0); Mean Corpuscular Volume 91.3 fL (80.0-98.0); Mean Platelet Volume 9.4 fL (9.4-12.3); Monocytes Absolute Auto 1.4 X10*3/uL (0.1-1.2); Monocytes Percent Auto 17.3 % (2-11); Neutrophils Absolute Auto 4.6 x10*3/uL (2.0-8.3); Neutrophils Percent Auto 57.2 % (45-73); Platelet Count 478 X10*3/uL (160-400); Red Blood Count 4.13 X10*6/uL (4.20-5.50); White Blood Count 8.1 X10*3/uL (4.8-10.8)
--- NOTE | 2023-08-07 06:50 | HO.POSTANES ---
Post Anesthesia Evaluation Post Anesthesia Evaluation Date of Service: 08/07/23 Vital Signs: Vital Signs Temp Pulse Resp BP Pulse Ox O2 Del Method O2 Flow Rate 08/07/23 06:27 97.6 F 72 16 146/70 H 99 Nasal Cannula 5 08/07/23 01:17 17 160/78 H 08/06/23 23:27 97.5 F 70 17 181/81 H 100 Nasal Cannula 3 08/06/23 20:00 97.5 F 67 17 187/86 H 100 Nasal Cannula 3 Anesthesia: General Endotracheal-GETA (double lumen tube) Mental Status: Awake Pain Control: Satisfactory (difficulty controlling pain throughout the night) Nausea/Vomiting: None Hydration: Adequate Anesthesia-Related Issues: No Anes. Related Issues
[2023-08-07 07:03] LABS: Anion Gap 10 (12-20); Blood Urea Nitrogen 15 mg/dL (9-16); Calcium 9.7 mg/dL (8.4-10.2); Carbon Dioxide 24 mmol/L (22-29); Chloride 106 mmol/L (96-108); Creatinine Clr Calc Pharmacy 54.7; Estimated Glomerular Filt Rate > 60; Glucose Random 137 mg/dL (60-115); Potassium 4.7 mmol/L (3.3-5.1); Sodium 135 mmol/L (135-145)
[2023-08-07] MEDS: amLODIPine Besylate 5 MG TABLET PO (08:46)
[2023-08-07] MEDS: Docusate Sodium 100 MG CAPSULE PO ×2 (08:46→20:57)
--- NOTE | 2023-08-07 09:02 | PM.PNTS ---
Subjective Subjective Date of Service: 08/07/23 Interval history: Uneventful evening. Patient complaining of incisional pain. No respiratory issues. Minimal chest tube output. No air leak. Chest x-ray postop changes Physical Exam Vital Signs: Vital Signs: Last Vital Signs Temp 98.4 F 08/07/23 07:31 Pulse 71 08/07/23 07:31 Resp 20 08/07/23 07:31 BP 155/72 H 08/07/23 07:31 Pulse Ox 99 08/07/23 07:31 O2 Del Method Nasal Cannula 08/07/23 07:31 O2 Flow Rate 3 08/07/23 07:31 BMI result Body Mass Index 25.8 Chest: Other: Incisions clean dry and intact. Procedures Date of Service Date of Service: 08/07/23 Progress Note: A&P Assessment and plan (1) Lung cancer, lower lobe: Status: Acute Plan Out of bed/ambulate, incentive spirometry, DC S[place], diet as tolerated. Anticipate chest tube removal tomorrow. Time Spent With Patient Time: Total time managing care of this patient today ____ minutes. Quality Stroke Does the patient have a stroke diagnosis?: No VTE Prior VTE?: No VTE Risk Level:: Surgical - moderate VTE Device Contraindication: N/A - Device Ordered VTE Drug Contraindication: N/A - Med Ordered
--- NOTE | 2023-08-07 11:40 | MHC.CM.PN ---
CM met with Patient and her Sister at bedside and addressed the IMM with her (original was given to Patient and a copy has been placed on the chart). Home/self care is the goal(Patient does not want VNA)and CM has initiated and will follow for dc planning.. Patient lives in a house (second floor) and she required no services nor DME [employer]. Patient declines a HCP and her PCP is Dr. Horace Lima.
--- NOTE | 2023-08-07 14:37 | P.PNIM_ITS ---
Subjective Subjective Date of Service: 08/07/23 Interval History: No acute issues overnight. Complains of pain at chest tube site otherwise no complaints Review of Systems Admits to chest pain around chest tube site Denies shortness of breath Denies nausea vomiting diarrhea Denies fever chills Physical Exam 2 Vital Signs: Vital Signs: Last Vital Signs Temp 98.5 F 08/07/23 11:08 Pulse 78 08/07/23 11:08 Resp 18 08/07/23 11:08 BP 127/58 L 08/07/23 11:08 Pulse Ox 95 08/07/23 11:08 O2 Del Method Room Air 08/07/23 11:08 O2 Flow Rate 3 08/07/23 07:31 BMI result Body Mass Index 25.8 Const: Other: Awake alert no acute distress Resp: Other: Clear but diminished no rales rhonchi or wheezes Cardio: Other: No S4; positive S1-S2; no S3 murmurs rubs or gallops GI: Other: Soft nontender nondistended normoactive bowel sounds Extrem: Other: No edema bilat Objective Data Active Medications Al Hydroxide/Mg Hydroxide (Magnesium Hydrox/Alum Hydrox 30 Ml Oral.Susp) 30 ml PO Q4H PRN PRN Reason: Heartburn/Nausea Albuterol Sulfate (Albuterol Sulfate 90 Mcg 8 Gm Inhaler) 1 puff INHALE Q4H PRN PRN Reason: Shortness Of Breath Amlodipine Besylate (Amlodipine Besylate 5 Mg Tablet) 5 mg PO DAILY [facility]; Protocol Last Admin: 08/07/23 08:46 Dose: 5 mg Documented By: CHANTELLE Amphetamine/Dextroamphetamine (Amphetamine Mixed Salts 20 Mg Tablet) 20 mg PO DAILY@0600,1100 [facility] Last Admin: 08/07/23 11:49 Dose: 20 mg Documented By: CHANTELLE Atorvastatin Calcium (Atorvastatin Calcium 10 Mg Tablet) 20 mg PO DAILY@1999 [facility] Last Admin: 08/06/23 20:18 Dose: 20 mg Documented By: FREDDIE Docusate Sodium (Docusate Sodium 100 Mg Capsule) 100 mg PO BID [facility] Last Admin: 08/07/23 08:46 Dose: 100 mg Documented By: CHANTELLE Fluvoxamine Maleate (Fluvoxamine Maleate 50 Mg Tablet) 100 mg PO DAILY@1999 [facility] Last Admin: 08/06/23 20:18 Dose: 100 mg Documented By: FREDDIE Acetaminophen (Ofirmev) 1,000 mg in 100 mls @ 400 mls/hr IV Q6H [facility] Last Infusion: 08/07/23 12:36 Dose: Infused Documented By: CHANTELLE Melatonin (Melatonin 3 Mg Tablet) 6 mg PO BEDTIME PRN PRN Reason: Insomnia Morphine Sulfate (Morphine Sulfate 4 Mg/Ml Cartridge) 4 mg IVPUSH Q4H PRN; Protocol PRN Reason: Pain, Severe (Pain Scale 7-10) Last Admin: 08/07/23 12:37 Dose: 4 mg Documented By: CHANTELLE Omeprazole (Omeprazole 20 Mg Capsule.Dr) 20 mg PO DAILY@1999 [facility] Last Admin: 08/06/23 20:18 Dose: 20 mg Documented By: FREDDIE Ondansetron HCl (Ondansetron Hcl 4 Mg/2 Ml Vial) 4 mg IVPUSH Q8H PRN PRN Reason: Nausea and Vomiting Oxycodone HCl (Oxycodone Hcl Immed Release 5 Mg Tablet) 5 mg PO Q4H PRN PRN Reason: Pain, Moderate(Pain Scale 4-6) Oxycodone HCl (Oxycodone Hcl Immed Release 5 Mg Tablet) 10 mg PO Q4H PRN PRN Reason: Pain, Severe (Pain Scale 7-10) Last Admin: 08/07/23 12:37 Dose: 10 mg Documented By: CHANTELLE Labs 08/07/23 06:04 08/07/23 06:04 Labs: Laboratory Results - last 24 hr 08/07/23 06:04 MCV 91.3 MCH 29.8 MCHC 32.6 RDW 14.0 Plt Count 478 H MPV 9.4 Immature Gran % (Auto) 0.4 Neut % (Auto) 57.2 Lymph % (Auto) 25.0 [place] % (Auto) 17.3 H Eos % (Auto) 0.1 Baso % (Auto) 0.0 Lymph # (Auto) 2.0 [place] # (Auto) 1.4 H Eos # (Auto) 0.0 Baso # (Auto) 0.0 Abs Immat Gran (auto) 0.03 Absolute Neuts (auto) 4.6 Absolute Nucleated RBC 0.000 Nucleated RBC % (auto) 0.0 Anion Gap 10 L Estim Creat Clear Calc 54.7 Estimated GFR > 60 Random Glucose 137 H Calcium 9.7 D Assessment and Plan (1) Hypertension: Status: Acute Plan 63-year-old female with history of hyperparathyroidism, hyperlipidemia, depression anxiety, PTSD, COPD, osteopenia, history tubular adenoma of the colon, who is a current 2 cigarette per day smoker admitted to thoracic surgery for management of right lower lobe pulmonary nodule s/p VATS RLL wedge resection with frozen path consistent with adenocarcinoma followed by right lower lobectomy with consult placed hospitalist service for medical management. 1.Adenocarcinoma Right Lung ...S/P VATS -s/p wedge resection with frozen path consistent with a dental carcinoma followed by right lower lobectomy POD 1 -plan per thoracic surgery 2.Hypertension -acceptable control on current therapies -adjust as indicated 3.COPD -no acute exacerbation -continue albuterol p.r.n. 4.Thrombocythemia -resume anagrelide at the discretion of surgeon # DVT prophylaxis- per thoracic surgery Full code Quality Stroke Does the patient have a stroke diagnosis?: No VTE Prior VTE?: No VTE Risk Level:: Surgical - moderate VTE Device Contraindication: N/A - Device Ordered VTE Drug Contraindication: N/A - Med Ordered
[2023-08-07] MEDS: Atorvastatin Calcium 10 MG TABLET 20 MG PO (20:57)
[2023-08-07] MEDS: Omeprazole 20 MG CAPSULE.DR PO (20:57)
[2023-08-07] MEDS: fluvoxaMINE Maleate 50 MG TABLET 100 MG PO (20:57)
[2023-08-08] MEDS: Acetaminophen 1,000 MG/100 ML PIGGYBACK 400 MG IV ×4 (01:02→18:14)
[2023-08-08] MEDS: Melatonin 3 MG TABLET 6 MG PO (01:10)
[2023-08-08 03:17] VITALS: BP 133/60; PULSE 87; RESP 20; TEMP 36.6; O2SAT 95
[2023-08-08] MEDS: oxyCODONE HCl Immed Release 5 MG TABLET 10 MG PO ×4 (03:23→20:52)
[2023-08-08] MEDS: Amphetamine Mixed Salts 20 MG TABLET PO ×2 (06:03→12:30)
[2023-08-08 07:14] VITALS: BP 141/67; PULSE 84; RESP 17; TEMP 36.9; O2SAT 92
[2023-08-08] MEDS: Docusate Sodium 100 MG CAPSULE PO ×2 (07:52→20:47)
[2023-08-08] MEDS: amLODIPine Besylate 5 MG TABLET PO (07:52)
[2023-08-08] MEDS: oxyCODONE HCl Immed Release 5 MG TABLET PO (07:52)
[2023-08-08 10:53] VITALS: BP 130/63; PULSE 88; RESP 17; TEMP 36.7; O2SAT 92
--- NOTE | 2023-08-08 12:20 | PM.PNTS ---
Subjective Subjective Date of Service: 08/08/23 Interval history: Patient has had uneventful postoperative course. She has no respiratory issues. She is tolerating her diet. She has been Out of bed/ambulating. She is doing incentive spirometry. Physical Exam Vital Signs: Vital Signs: Last Vital Signs Temp 98.0 F 08/08/23 10:53 Pulse 88 08/08/23 10:53 Resp 17 08/08/23 10:53 BP 130/63 08/08/23 10:53 Pulse Ox 92 08/08/23 10:53 O2 Del Method Room Air 08/08/23 10:53 O2 Flow Rate 3 08/07/23 07:31 BMI result Body Mass Index 25.8 Chest: Other: chest breath sounds bilaterally, chest tube minimal output. No air leak. All wounds clean dry and intact. Procedures Date of Service Date of Service: 08/08/23 Progress Note: A&P Assessment and plan (1) Lung cancer, lower lobe: Status: Acute Plan Tentative plan is to removed chest tube tomorrow, get postprocedure x-ray, if all goes well, discharged home. VNA services. In the meantime, continue incentive spirometry, out of bed, diet as tolerated. Time Spent With Patient Time: Total time managing care of this patient today ____ minutes. Quality Stroke Does the patient have a stroke diagnosis?: No VTE Prior VTE?: No VTE Risk Level:: Surgical - moderate VTE Device Contraindication: N/A - Device Ordered VTE Drug Contraindication: N/A - Med Ordered
--- NOTE | 2023-08-08 12:37 | HO.PM.IMPN ---
Subjective Subjective Date of Service: 08/08/23 Interval History: pain at chest tube insertion site no dyspnea Review of Systems Review of Systems: Yes all other systems are reviewed and are negative Physical Exam Vital Signs: Vital Signs: .phy Last Vital Signs Temp 98.0 F 08/08/23 10:53 Pulse 88 08/08/23 10:53 Resp 17 08/08/23 10:53 BP 130/63 08/08/23 10:53 Pulse Ox 92 08/08/23 10:53 O2 Del Method Room Air 08/08/23 10:53 O2 Flow Rate 3 08/07/23 07:31 BMI result Body Mass Index 25.8 Gen: in no acute distress HEENT: sclera anicteric, moist mucus membranes Neck: supple Lungs: clear to auscultation bilaterally, R chest tube with minimal serosanguinous output Heart: regular rate and rhythm, no murmurs Abd: soft, non-tender, non-distended Ext: no edema Skin: warm/well-perfused Neuro: alert and oriented x3, no focal findings Psych: appropriate affect Objective Data Active Medications Al Hydroxide/Mg Hydroxide (Magnesium Hydrox/Alum Hydrox 30 Ml Oral.Susp) 30 ml PO Q4H PRN PRN Reason: Heartburn/Nausea Albuterol Sulfate (Albuterol Sulfate 90 Mcg 8 Gm Inhaler) 1 puff INHALE Q4H PRN PRN Reason: Shortness Of Breath Amlodipine Besylate (Amlodipine Besylate 5 Mg Tablet) 5 mg PO DAILY [facility]; Protocol Last Admin: 08/08/23 07:52 Dose: 5 mg Documented By: RAYMOND Amphetamine/Dextroamphetamine (Amphetamine Mixed Salts 20 Mg Tablet) 20 mg PO DAILY@0600,1100 [facility] Last Admin: 08/08/23 12:30 Dose: 20 mg Documented By: RAYMOND Atorvastatin Calcium (Atorvastatin Calcium 10 Mg Tablet) 20 mg PO DAILY@1999 [facility] Last Admin: 08/07/23 20:57 Dose: 20 mg Documented By: CLAUDY Docusate Sodium (Docusate Sodium 100 Mg Capsule) 100 mg PO BID [facility] Last Admin: 08/08/23 07:52 Dose: 100 mg Documented By: RAYMOND Fluvoxamine Maleate (Fluvoxamine Maleate 50 Mg Tablet) 100 mg PO DAILY@1999 [facility] Last Admin: 08/07/23 20:57 Dose: 100 mg Documented By: CLAUDY Acetaminophen (Ofirmev) 1,000 mg in 100 mls @ 400 mls/hr IV Q6H [facility] Last Admin: 08/08/23 12:31 Dose: 400 mls/hr Documented By: RAYMOND Melatonin (Melatonin 3 Mg Tablet) 6 mg PO BEDTIME PRN PRN Reason: Insomnia Last Admin: 08/08/23 01:10 Dose: 6 mg Documented By: RAJ Morphine Sulfate (Morphine Sulfate 4 Mg/Ml Cartridge) 4 mg IVPUSH Q4H PRN; Protocol PRN Reason: Pain, Severe (Pain Scale 7-10) Last Admin: 08/07/23 21:56 Dose: 4 mg Documented By: CLAUDY Omeprazole (Omeprazole 20 Mg Capsule.Dr) 20 mg PO DAILY@1999 [facility] Last Admin: 08/07/23 20:57 Dose: 20 mg Documented By: CLAUDY Ondansetron HCl (Ondansetron Hcl 4 Mg/2 Ml Vial) 4 mg IVPUSH Q8H PRN PRN Reason: Nausea and Vomiting Oxycodone HCl (Oxycodone Hcl Immed Release 5 Mg Tablet) 5 mg PO Q4H PRN PRN Reason: Pain, Moderate(Pain Scale 4-6) Last Admin: 08/08/23 07:52 Dose: 5 mg Documented By: RAYMOND Oxycodone HCl (Oxycodone Hcl Immed Release 5 Mg Tablet) 10 mg PO Q4H PRN PRN Reason: Pain, Severe (Pain Scale 7-10) Last Admin: 08/08/23 12:31 Dose: 10 mg Documented By: RAYMOND Labs 08/07/23 06:04 08/07/23 06:04 Assessment and Plan (1) Hypertension: Status: Acute Plan d3 63yo F with hyperparathyroidism, HLD, mood disorder, COPD, osteompenia, hx tubular adenoma of colon, tobacco abuse [2 cig/d], thrombocytosis admitted to Thoracic Surgery for RLL wedge resction, frozen pathology consistent witn adenoCA, RLL lobectomy done hospitalist consultation done for management of comorbid medical conditions adenoCA right lung s/p lobectomy - final pathology pending, follow up with Thoracic Surgeyr - chest tube management per Thoracic Surgery thrombocytosis - resume anagrelide on discharge HTN - amlodipine HLD - statin mood disorder ADHD - continue fluvoxamine, Adderalll COPD without acute exac - prn albuterol VTE ppx - SCDs Thank you for this consultation. We are signing off the case at this time. Please communicate with us if any new medical questions arise. Total time managing care of this patient today: 35 minutes. Quality Stroke Does the patient have a stroke diagnosis?: No VTE Prior VTE?: No VTE Risk Level:: Surgical - moderate VTE Device Contraindication: N/A - Device Ordered VTE Drug Contraindication: N/A - Med Ordered
[2023-08-08 16:00] VITALS: BP 126/61; PULSE 86; RESP 16; TEMP 36.2; O2SAT 90
[2023-08-08] MEDS: Morphine Sulfate 4 MG/ML CARTRIDGE IVPUSH (18:16)
[2023-08-08 18:46] VITALS: BP 120/61; PULSE 65; RESP 16; TEMP 36.3; O2SAT 91
[2023-08-08] MEDS: Atorvastatin Calcium 10 MG TABLET 20 MG PO (20:47)
[2023-08-08] MEDS: Omeprazole 20 MG CAPSULE.DR PO (20:47)
[2023-08-08] MEDS: fluvoxaMINE Maleate 50 MG TABLET 100 MG PO (20:47)
[2023-08-09] VITALS (7 sets, daily range): BP systolic 122–156; BP diastolic 65–72; PULSE 67–85; RESP 16–18; TEMP 36.3–36.8; O2SAT 93–98
[2023-08-09] MEDS: Morphine Sulfate 4 MG/ML CARTRIDGE IVPUSH ×2 (00:07→09:17)
[2023-08-09] MEDS: oxyCODONE HCl Immed Release 5 MG TABLET 10 MG PO ×2 (02:39→07:48)
[2023-08-09] MEDS: Amphetamine Mixed Salts 20 MG TABLET PO ×2 (06:34→14:28)
[2023-08-09] MEDS: Acetaminophen 1,000 MG/100 ML PIGGYBACK 400 MG IV ×2 (06:44→18:13)
[2023-08-09] MEDS: Docusate Sodium 100 MG CAPSULE PO ×2 (07:48→19:59)
[2023-08-09] MEDS: amLODIPine Besylate 5 MG TABLET PO (07:48)
--- NOTE | 2023-08-09 14:17 | MHC.CM.PN ---
Addendum entered by Aparna Wesley 08/09/23 14:55: [facility] does not have availability to start services tomorrow. Dr Rose has been notified. He has been asked to confirm that it is, ok to start home services Sunday. Original Note: Met with patient and her sister. Sister will stay with the patient at discharge. She will perform wound care. [facility] is pts preference, referred. Sister will provide transport home.
[2023-08-09] MEDS: oxyCODONE HCl Immed Release 5 MG TABLET PO ×2 (14:26→18:18)
--- NOTE | 2023-08-09 15:38 | MHC.CM.PN ---
PER SURGEON, OK FOR [facility] TO SEE PT SATURDAY 08/11. [facility] UPDATED.
[2023-08-09] MEDS: Atorvastatin Calcium 10 MG TABLET 20 MG PO (19:59)
[2023-08-09] MEDS: fluvoxaMINE Maleate 50 MG TABLET 100 MG PO (19:59)
[2023-08-09] MEDS: Omeprazole 20 MG CAPSULE.DR PO (19:59)
[2023-08-10] MEDS: oxyCODONE HCl Immed Release 5 MG TABLET 10 MG PO ×3 (00:01→11:50)
[2023-08-10] MEDS: Acetaminophen 1,000 MG/100 ML PIGGYBACK 400 MG IV ×2 (00:02→06:16)
[2023-08-10 04:00] VITALS: BP 136/64; PULSE 80; RESP 18; TEMP 36.2; O2SAT 94
[2023-08-10] MEDS: Amphetamine Mixed Salts 20 MG TABLET PO ×2 (06:15→11:50)
[2023-08-10 07:31] VITALS: BP 135/60; PULSE 78; RESP 16; TEMP 36.1; O2SAT 94
[2023-08-10] MEDS: amLODIPine Besylate 5 MG TABLET PO (08:56)
[2023-08-10] MEDS: Docusate Sodium 100 MG CAPSULE PO (08:56)
--- NOTE | 2023-08-10 10:22 | PM.PNTS ---
Subjective Subjective Date of Service: 08/09/23 Interval history: uneventful evening. Patient is with her sister. No respiratory issues. Minimal chest tube output. No air leak. Physical Exam Vital Signs: Vital Signs: Last Vital Signs Temp 96.9 F 08/10/23 07:31 Pulse 78 08/10/23 07:31 Resp 16 08/10/23 07:31 BP 135/60 08/10/23 07:31 Pulse Ox 94 08/10/23 07:31 O2 Del Method Room Air 08/10/23 07:31 O2 Flow Rate 3 08/07/23 07:31 BMI result Body Mass Index 25.8 Chest: Other: All wounds clean dry and intact. Procedures Date of Service Date of Service: 08/10/23 Progress Note: A&P Assessment and plan (1) Lung cancer, lower lobe: Status: Acute Plan patient underwent uneventful chest tube removal with occlusive dressing. Well tolerated. Postprocedure x-ray is pending. Consider discharge home later today or tomorrow based on x-ray findings. Addendum; small apical pneumothorax. Current plan is to keep the patient and repeat x-ray early tomorrow morning. Time Spent With Patient Time: Total time managing care of this patient today ____ minutes. Quality Stroke Does the patient have a stroke diagnosis?: No VTE Prior VTE?: No VTE Risk Level:: Surgical - moderate VTE Device Contraindication: N/A - Device Ordered VTE Drug Contraindication: N/A - Med Ordered
--- NOTE | 2023-08-10 11:40 | MHC.CM.PN ---
Addendum entered by Aparna Wesley 08/10/23 12:54: Patient discharged to home with [facility]. A face 2 Face document has been requested. NA has been notified of discharge. Sister will provide transportation home. She will assist the patient at home. Original Note: Patient did not discharge as planned yesterday. A repeat CXR this morning indicates small pneumo- thorax improved since 08/09 CXR. DP Home with [facility]. Patients sister will provide transportation. Discharge date is not determined.
--- NOTE | 2023-08-10 12:09 | PM.DS ---
DS: Providers Provider Date of Service: 08/10/23 Date of admission: 08/06/23 12:25 Primary care physician: Horace Lima MD Consults: 08/06/23 12:21 Consult to Hospitalist Routine Comment: Consulting Provider: Hospitalist Reason For Exam: s/p VATS, RLL lobectomy DS: Diagnosis Discharge Diagnosis (1) Lung cancer, lower lobe: Status: Acute DS: Summary Hospital Course Hospital Course: Patient is 63-year-old female who was admitted on 08/06/2023 for VATS lung biopsy followed by a right lower lobectomy. Patient's postoperative course has been example area. She has been afebrile with stable vital signs. She has had good analgesia control for her incisional discomfort. She is out of bed/ambulating with assistance. She has no respiratory issues. Patient had uneventful chest tube removal with small apical pneumothorax which was watched and has actually decreased in size. Current plan is discharge patient home with follow-up as directed. Please see discharge instructions for for details. Time Attestation Discharge coordination time: Less than 30 minutes Quality: Safe Use of Opioids Does Pt have an Active Cancer Diagnosis on the Problem List?: Yes Opioid Measure Date for [facility] Report: 07/11/23 Opioid Measure Time for [facility] Report: 12:11 Quality: Stroke Does the patient have a stroke diagnosis?: No Physical Exam Vital Signs: Vital Signs: Last Vital Signs Temp 96.9 F 08/10/23 07:31 Pulse 78 08/10/23 07:31 Resp 16 08/10/23 07:31 BP 135/60 08/10/23 07:31 Pulse Ox 94 08/10/23 07:31 O2 Del Method Room Air 08/10/23 07:31 O2 Flow Rate 3 08/07/23 07:31 BMI result Body Mass Index 25.8 Chest: Other: Chest breath sounds bilaterally, wound site is clean dry and intact healing uneventfully GI: Other: Abdomen soft, benign DS: Data Data Completed and Pending Pending studies at discharge: Pending at discharge 08/06/23 10:17 Surgical [PTH] Stat 08/06/23 12:18 Surgical [PTH] Routine Discharge Plan Discharge Anticipated Discharge Date/Time: 08/09/23 12:32 Patient Disposition: Home Health Service Discharge Diagnosis: RLL lung CA, s/p RLL lobectomy Referrals: Bart [facility] [Outside] - 1 Week Horace Lima MD [Primary Care Provider] - 1 Week Manav Rose MD [Physician] - 1 Week [facility] [Physician] - 1 Week Discharge Medications: New hydrocodone-acetaminophen 5-325 mg tablet 1 tab PO Q4-6H PRN (Reason: pain) Qty: 30 0RF Rx Instructions: Partial Fill upon patient request. Continued ondansetron 4 mg tablet,disintegrating 4 mg PO Q8H PRN (Reason: nausea and vomiting) Qty: 30 0RF dextroamphetamine-amphetamine [Adderall] 20 mg tablet 20 mg PO .@0600+1100 Rx Instructions: administer doses at least 4-6 hours apart fluvoxamine 100 mg tablet 100 mg PO .DAILY@1999 simvastatin 20 mg tablet 20 mg PO .DAILY@1999 anagrelide 1 mg capsule 1 mg PO .DAILY@1999 pantoprazole 20 mg tablet,delayed release (DR/EC) 20 mg PO .DAILY@1999 docusate sodium 100 mg capsule 100 mg PO .DAILY@1999 multivitamin Tablet 1 tab PO .DAILY@0600 albuterol sulfate 90 mcg/actuation aerosol powdr breath activated 1 inh inhalation Q4-6H PRN (Reason: Shortness Of Breath) Discharge Orders: Discharge Order (Routine); Ordered 08/09/23 Ordered By: Manav Rose Diet: Advance to usual diet Activity on Discharge: No heavy lifting Stand Alone Forms: Patient Portal Discharge page Activity Restrictions/Additional Instructions: Apply an ice pack for short intervals (20 minutes on, followed by at least 20 minutes off). Do not apply heat. Do not use creams, lotions, or topical antibiotics. These can cause infection or allergic reaction. Ok to shower 48 hours after your surgery. You have steri strips (small white cloth strips) covering your incision- these will fall off ~1 week. Follow up in office with Dr. Rose in 1 week. ([phone]) No heavy lifting (>10lbs) or strenuous activity! Call Your Doctor If: -Your temperature exceeds 101.5? F -You experience excessive pain or swelling -You have an unexpected reaction to medication -You have excessive bleeding -You experience continued vomiting/nausea -Your incision begins to separate -Your incision shows signs of infection such as increased redness, swelling, excessive pain, drainage (light blood or clear fluid is normal) or heat Care Plan Goals: Return to baseline health and resume normal activities following recovery period. Health Concerns: RLL lung CA Plan of Treatment: s/p VATS, RLL lobectomy Assessment: Stable
--- NOTE | 2023-08-10 12:13 | PM.PNTS ---
Subjective Subjective Date of Service: 08/10/23 Interval history: See discharge summary Physical Exam Vital Signs: Vital Signs: Last Vital Signs Temp 96.9 F 08/10/23 07:31 Pulse 78 08/10/23 07:31 Resp 16 08/10/23 07:31 BP 135/60 08/10/23 07:31 Pulse Ox 94 08/10/23 07:31 O2 Del Method Room Air 08/10/23 07:31 O2 Flow Rate 3 08/07/23 07:31 BMI result Body Mass Index 25.8 Procedures Date of Service Date of Service: 08/10/23 Progress Note: A&P Assessment and plan (1) Lung cancer, lower lobe: Status: Acute Plan See discharge summary Time Spent With Patient Time: Total time managing care of this patient today ____ minutes. Quality Stroke Does the patient have a stroke diagnosis?: No VTE Prior VTE?: No VTE Risk Level:: Surgical - moderate VTE Device Contraindication: N/A - Device Ordered VTE Drug Contraindication: N/A - Med Ordered
--- NOTE | 2023-08-10 15:40 | P.F2F_ITS ---
Service Date Service Date: 08/10/23 Encounter Date of encounter: 08/10/23 Reasons for Services Signs and symptoms assessed: Chest tube site dressing change. Vaseline gauze with 4 by 4s occlusive dressing q.o.d. Reason for penitentiary: wound care MD Overseeing Care: Manav Rose Homebound: Leaving the home is medically contraindicated at this time without the asist of a device and/or another person due th the listed conditions above and below. Reason homebound: weakness related to hospital stay Certification: Based on the above findings, I certify that this patient is confined to the home and needs intermittent penitentiary care, physical therapy and/or speech therapy, or continues to need occupational therapy. The patient is under my care, and I have initiated the establishment of the plan of care. The patient will be followed by a physician who will periodically review the plan of care. Time Spent With Patient Time: Total time managing care of this patient today ____ minutes.
== END 2023-08-10 12:30 | disposition home health service (06) | DRG 165 ==
LOC: HO.SSSA 12:32 → HO.S3 12:47 → HO.IMC 13:36 → HO.S3 08-09 01:33
PROVIDERS: Physician Assistant Surgical; Admitting Provider Surgery; PCP Internal Medicine Medical Oncology; Visit Provider Surgery
PROC: 0BBF4ZZ Excision of Right Lower Lung Lobe, Percutaneous Endoscopic Approach (ICD-10-PCS; principal; 2023-08-06 08:40)
DX: C34.31 Malignant neoplasm of lower lobe, right bronchus or lung (principal); F43.10 Post-traumatic stress disorder, unspecified; R09.02 Hypoxemia; F17.210 Nicotine dependence, cigarettes, uncomplicated; F90.9 Attention-deficit hyperactivity disorder, unspecified type; E78.5 Hyperlipidemia, unspecified; D69.6 Thrombocytopenia, unspecified; Z71.6 Tobacco abuse counseling; Z86.010 Personal history of colon polyps; Z79.899 Other long term (current) drug therapy
CPT/HCPCS: 36415; 71045; 80048; 85025; 86850; 86900; 86901; 88305; 88307; 88309; 88313; 88331; 88341; 88342; 93005; 99024; A4649; C1758; J0131; J0690; J1100; J1170; J1885; J2250; J2270; J2405; J2704; J2795; J3010; J7120

== ENCOUNTER → 2023-08-06 12:25 | Outpatient (BNV) | payer MEDICARE, MEDICAID, SELFPAY | PROVIDERS: Admitting Provider Surgery; PCP Internal Medicine Medical Oncology; Visit Provider Physician Assistant | DX: I10 Essential (primary) hypertension (principal) | CPT/HCPCS: 99222; 99232 ==

== ENCOUNTER → 2023-08-06 12:25 | Outpatient (BNV) | payer MEDICARE, MEDICAID, SELFPAY | PROVIDERS: Admitting Provider Surgery; PCP Internal Medicine Medical Oncology; Visit Provider Surgery | DX: C34.30 Malignant neoplasm of lower lobe, unspecified bronchus or lung (principal) | CPT/HCPCS: 32652; 32663; 32666; 32674; 99024; G0180 ==

== ENCOUNTER 2023-08-21 13:12 | Outpatient (AMB) | payer MEDICARE, MEDICAID, SELFPAY ==
[2023-08-21 13:18] VITALS: BP 156/71; PULSE 101
--- NOTE | 2023-08-21 13:18 | A.OFFVIS_ITS ---
Intake Vital Signs 08/21/23 13:18 Weight 126 lb BP 156/71 H Blood Pressure Location Rt brachial Position Sitting Pulse 101 H Intake Visit Reasons: S/P RLL wedge resection Intake Note: Patient here s/p RLL edge resection. VNA 3x wk. Patient reports healing well. Taking rx pain med as needed and only taking half pill as needed. State Tested Nursing Assistant Required: No Accompanied by: friend Allergies Sulfa (Sulfonamide Antibiotics) Allergy (Severe, Verified 08/21/23 13:20) Rash trazodone [TRAZODONE] Allergy (Severe, Verified 08/21/23 13:20) FELT LIKE ELEPHANT SITTING ON MY CHEST , NIGHTMARES HPI HPI Comments History of Present Illness Details Patient presents with her friend for postop visit. She is doing quite well. No respiratory issues. Minimal incisional discomfort. She is quite active. Pathology was reviewed. Immunohistochemical studies are somewhat confusing to me as well as to the patient. [facility] Medical History Nasal deformity Hx of nausea Chronic bronchitis Hx of ectopic Nicotine dependence, cigarettes, uncomplicated Hyperparathyroidism Hyperlipidemia Postmenopausal Tubular adenoma of colon (~2018) Osteopenia (~2022) History of drug overdose Hearing loss, bilateral PTSD (post-traumatic stress disorder) Major depressive disorder, recurrent severe without psychotic features ADHD Surgical History Hx of adenoidectomy History of cataract surgery History of ear surgery History of tonsillectomy History of endoscopy History of colonoscopy Family History Mother Lupus (systemic lupus erythematosus) Social History Household Members: None and Other Housing: Apartment Are you a primary home care provider to a significant other at home: No Do you presently have visiting nurse or other home services: No Alcohol intake: current Alcohol intake frequency: holidays/special occasions only Alcohol type: beer Comment: COUNTS CORRECT Patient Tobacco Use Status: Current everyday Tobacco user Tobacco use type: Cigarette Cigarette Packs Per Day: 0.1 Cigarettes Per Day: 2.0 Years Smoked: 48 yrs e-Cigarette/Vaping Use: Never Used Second Hand Smoke Exposure: No service: No Physical Exam Vital Signs: Last Vital Signs Pulse 101 H 08/21/23 13:18 BP 156/71 H 08/21/23 13:18 Chest Other: Chest breath sounds bilaterally, incisions clean dry and intact healing well. Assessment & Plan Assessment & Plan (1) Lung cancer, lower lobe: Code(s): C34.30 - Malignant neoplasm of lower lobe, unspecified bronchus or lung (2) Status post lobectomy of lung: Code(s): Z90.2 - Acquired absence of lung [part of] Plan From a surgical perspective, patient is doing quite well. She has been given local instructions and encouraged to continue her cessation of smoking as well as user incentive spirometry. Because of the addendum pathology immunohistochemical studies, the current plan is to arrange for oncology consult for further input. Patient otherwise follow-up p.r.n.. All questions answered Coding Level of Care Code Global (61878) Diagnoses Lung cancer, lower lobe C34.30 Status post lobectomy of lung Z90.2
== END 2023-08-21 13:33 | disposition home or self-care (01) ==
PROVIDERS: PCP Internal Medicine Medical Oncology; Visit Provider Surgery
DX: C34.30 Malignant neoplasm of lower lobe, unspecified bronchus or lung (principal); Z90.2 Acquired absence of lung [part of]
CPT/HCPCS: 99024

== ENCOUNTER → 2023-08-21 13:12 | Outpatient (BNVA) | payer MEDICARE, MEDICAID, SELFPAY | PROVIDERS: PCP Internal Medicine Medical Oncology; Visit Provider Surgery | DX: C34.30 Malignant neoplasm of lower lobe, unspecified bronchus or lung (principal); Z90.2 Acquired absence of lung [part of] | CPT/HCPCS: 99212 ==

== ENCOUNTER → 2023-08-31 12:53 | Outpatient (BNV) | payer MEDICARE, MEDICAID, SELFPAY | PROVIDERS: PCP Internal Medicine Medical Oncology; Visit Provider Internal Medicine | DX: C34.30 Malignant neoplasm of lower lobe, unspecified bronchus or lung (principal); D75.839 Thrombocytosis, unspecified | CPT/HCPCS: 99205; 99214; G2211 ==

== ENCOUNTER 2023-09-05 13:04 | Outpatient (REF) | payer MEDICARE, MEDICAID, SELFPAY | END 2023-09-05 13:05 | disposition home or self-care (01) | LOC: HO.MRI 13:04 | PROVIDERS: PCP Internal Medicine Medical Oncology; Visit Provider Internal Medicine | DX: C34.30 Malignant neoplasm of lower lobe, unspecified bronchus or lung (principal) | CPT/HCPCS: 70553; A9585 ==

== ENCOUNTER 2023-09-18 08:32 | Outpatient (REF) | payer MEDICARE, MEDICAID, SELFPAY ==
--- NOTE | ~2023-09-18 | PE_ITS ---
EXAMINATION: Fluorine-18 FDG PET/CT Scan CLINICAL INDICATION: Subsequent treatment management. Malignant neoplasm right lower lobe status post right lower lobectomy 08/06/2023. PROCEDURE: 60 minutes following the intravenous administration of 14.5 mCi of fluorine 18 FDG, images from the base of the skull to the mid thighs were obtained using a combined PET/CT scanner with CT scan based attenuation correction. No oral contrast was administered. No intravenous contrast was administered. Transverse, coronal, sagittal, and volume reconstruction projections were obtained. The patient's blood glucose as determined by a finger stick, was 97 mg/dl immediately prior to injection. Total CT exam dose-length product 394.24 mGy-cm * These CT images were obtained using dose optimization techniques as appropriate, variously including the following: Automated exposure control * Adjustment of mA and/or kV according to patient size (this includes techniques or standardized protocols for targeted exams where dose is matched to indication/reason for exam; i.e. extremities or head) * Use of iterative reconstruction technique COMPARISON: No previous PET/CT scan is available for comparison. CT scan of the chest dated 06/01/2023 is available for comparison. CT scan of the abdomen dated 04/11/2019 is also available for comparison. FINDINGS: (Slice numbers described in this report are numbered superiorly to inferiorly with slice #1 in the head) NECK AND VISUALIZED HEAD: No foci of abnormal FDG activity are noted. The distribution of FDG activity is physiological. There is no cervical lymphadenopathy. THORAX: There are no discrete foci of abnormal FDG activity in the chest. The patient is status post right lower lobectomy and the pulmonary nodule visualized on the diagnostic CT scan in the superior segment of the right lower lobe has been resected. No pulmonary nodules are visualized. There is no pleural or pericardial fluid, or pneumothorax. There is no mediastinal, supraclavicular, or axillary lymphadenopathy. A small amount of right-sided pleural fluid is present with weak diffuse FDG activity, SUVmax 2.3, slice 93/223.z there is also weak FDG activity in the right lateral chest wall with no corresponding CT abnormality showing SUVmax 2.1, slice 78/223. ABDOMEN AND PELVIS: There are no foci of abnormal FDG activity in the abdomen or pelvis. There is weak FDG activity throughout the gastrointestinal tract without a suspicious focal component. There is diverticulosis without evidence of diverticulitis. The hollow viscera are otherwise unremarkable. The liver, gallbladder kidneys, adrenal glands, and pancreas are unremarkable. The spleen is not visualized, and a soft tissue density measuring 1.8 x 1.0 cm under the left hemidiaphragm, slice 104/223 is not significantly changed in appearance from the 04/11/[address] scan and may represent some residual splenic tissue at this site. This does not have any associated abnormal FDG activity. The pelvic organs are unremarkable. There is no retroperitoneal, mesenteric, pelvic or inguinal lymphadenopathy. MUSCULOSKELETAL: There are no foci of abnormal FDG activity in the osseous structures. There is a subcentimeter sclerotic focus in the left posterior aspect of the inferior endplate of T11 unchanged in appearance from 04/11/2019 and likely a benign bone island. No suspicious sclerotic or lytic lesions are visualized. VASCULAR: Diffuse vascular calcifications including coronary are noted. Reference SUVmax Levels: Mediastinal Blood Pool: 1.8, Slice 75/123 Liver: 3.0, Slice 107/223 PET/PET CT fusion skull to thigh IMPRESSION: 1. There are no abnormalities present suspicious for recurrent or metastatic malignancy. The patient is status post right lower lobectomy and the right lower lobe pulmonary nodule previously present has been resected. 2. A small amount of weakly FDG avid right-sided pleural fluid is present. 3. Vascular calcifications including coronary are noted. 4. Absent or atrophic spleen.
== END 2023-09-18 08:33 | disposition home or self-care (01) ==
LOC: HO.PET 08:32
PROVIDERS: PCP Internal Medicine Medical Oncology; Visit Provider Internal Medicine
DX: Z13.89 Encounter for screening for other disorder (principal)

== ENCOUNTER 2023-10-04 11:25 | Day surgery (SDC) | payer MEDICARE, MEDICAID, SELFPAY ==
--- NOTE | ~2023-10-04 | IR_ITS ---
PROCEDURE: IR INSERTION OF SUBCUTANEOUS PORT WITH ULTRASOUND AND FLUOROSCOPIC GUIDANCE CLINICAL INFORMATION: Need for IV access for chemotherapy COMPARISON: None available. TECHNIQUE: All elements of maximal sterile barrier technique followed including use of cap, mask, sterile gown, sterile gloves, a sterile full body drape and hand hygiene. Also followed skin preparation with 2% chlorhexidine for cutaneous antisepsis, and sterile ultrasound preparation with sterile gel and probe cover when applicable. ENGINEERING TECHNOLOGY INSTRUCTOR: Courtney Rosales MD FSIR ANESTHESIA: IV moderate sedation with intravenous fentanyl and Versed was administered under my direct supervision with continuous physiologic monitoring for a total of 30 minutes. Procedure in detail: Informed and written consent was obtained. The patient was positioned supine on the angiography table. Sterile preparation of the right neck and chest was performed. Ultrasound of the right neck showed a patent internal jugular vein. 1% lidocaine was injected subcutaneously and extended to the edge of the jugular vein under ultrasound guidance. A small incision was made in the skin with a #11 blade. Through the incision and under ultrasound guidance with permanent recordings and direct visualization of needle entry into the vein, the right internal jugular vein was catheterized in an antegrade fashion. Over a wire, the tract was dilated and the peel-away sheath was left in place. At the planned location for the port located below the right clavicle, 1% lidocaine with epinephrine was administered subcutaneously and the local anesthesia was extended along the planned subcutaneous tract for the catheter. A small incision was made in the skin with a #15 blade. Blunt dissection was performed to create a pocket for the port. Next, we tunneled the port catheter from the port site to the neck incision site. The catheter was inserted into the peel-away sheath. It terminates at the right atrium. We cut the catheter to length and connected it to the port, which was inserted into the pocket. The pocket was irrigated with antibiotic solution. The pocket was closed with interrupted 2-0 Vicryl suture. Topical Dermabond was applied. An overlying sterile dressing was placed. The port was tested and flushes and aspirates appropriately. It was locked with heparin. A saved fluoroscopic image shows that the catheter terminates in the right atrium. Summary: Successful placement of a subcutaneous port via the right internal jugular vein under fluoroscopic and ultrasound guidance.
[2023-10-04 12:19] VITALS: BP 162/72; PULSE 79; RESP 16; TEMP 36.6; O2SAT 99
[2023-10-04 12:21] VITALS: BMI 25.4
[2023-10-04 14:10] VITALS: BP 173/92; PULSE 81; RESP 16; TEMP 37.4; O2SAT 99
[2023-10-04 14:25] VITALS: BP 160/68; PULSE 82; RESP 16; O2SAT 99
[2023-10-04 14:40] VITALS: BP 167/74; PULSE 85; RESP 16; O2SAT 99
[2023-10-04 14:51] VITALS: BP 164/79; PULSE 79; RESP 16; TEMP 37.2; O2SAT 99
== END 2023-10-04 14:59 | disposition home or self-care (01) ==
PROVIDERS: Student in an Organized Health Care Education/Training Program; PCP Internal Medicine Medical Oncology; Visit Provider Internal Medicine
DX: Z45.2 Encounter for adjustment and management of vascular access device (principal); C34.91 Malignant neoplasm of unspecified part of right bronchus or lung; Z79.899 Other long term (current) drug therapy; Z87.891 Personal history of nicotine dependence
CPT/HCPCS: 36561; 76937; 99152; C1769; C1788; J0690; J1642; J1644; J2250; J2310; J3010

== ENCOUNTER → 2023-10-04 12:47 | Outpatient (BNV) | payer MEDICARE, MEDICAID, SELFPAY | PROVIDERS: PCP Internal Medicine Medical Oncology; Visit Provider Radiology Vascular & Interventional Radiology | DX: C34.91 Malignant neoplasm of unspecified part of right bronchus or lung (principal) | CPT/HCPCS: 36561; 76937; 77001 ==

== ENCOUNTER 2023-10-30 12:42 | Outpatient (REF) | payer MEDICARE, MEDICAID, SELFPAY ==
--- NOTE | ~2023-10-30 | US_ITS ---
EXAMINATION: US SOFT TISSUE HEAD/NECK CLINICAL INFORMATION: Bilateral neck pain. COMPARISON: CT soft tissue neck with contrast dated 06/05/2017. TECHNIQUE: Linear transducer chan-scale and color Doppler examination of the soft tissues of the neck. FINDINGS: The cutaneous, subcutaneous, muscular and fascial planes are unremarkable. No mass or fluid collection is seen. There is no lymphadenopathy. No foreign body is noted. US/US soft tiss head and/or neck IMPRESSION: Unremarkable examination.
== END 2023-10-30 12:43 | disposition home or self-care (01) ==
LOC: HO.US 12:42
PROVIDERS: PCP Internal Medicine Medical Oncology; Visit Provider Internal Medicine Medical Oncology
DX: M54.2 Cervicalgia (principal)
CPT/HCPCS: 76536

== ENCOUNTER 2023-11-16 11:33 | Emergency (ER) | payer MEDICARE, MEDICAID, SELFPAY ==
[2023-11-16 11:44] VITALS: BP 151/82; PULSE 109; RESP 16; TEMP 37.1; O2SAT 100; BMI 25.3
--- NOTE | 2023-11-16 11:46 | ED.GENADULT ---
HPI - General Adult General Chief complaint: Recheck/Abnormal Lab/Rx Stated complaint: sent from Dr Junior Time Seen by Provider: 11/16/23 13:06 Source: patient Mode of arrival: ambulatory Limitations: no limitations History of Present Illness HPI narrative: Patient is a 63 year old female pmhx of non-small cell lung cancer with right lower lobe lobectomy and lymph node dissection who presents emergency department by advisement of Oncology, Dr. Junior due to hyperkalemia found on routine lab work. 6.3 today, compared to 5.5 4 days ago. Denies any physical complaints. Related Data Home Medications Medication Instructions Recorded Confirmed albuterol sulfate 90 mcg/actuation 1 inh inhalation Q4-6H PRN 06/19/23 10/08/23 breath activated powder inhaler Shortness Of Breath docusate sodium 100 mg capsule 100 mg PO .DAILY@199906/19/23 10/08/23 multivitamin 1 tab PO .DAILY@0606/19/23 10/08/23 simvastatin 20 mg tablet 20 mg PO .DAILY@199906/19/23 10/08/23 dextroamphetamine-amphetamine 20 20 mg PO .@0600+1100 07/31/23 10/08/23 mg tablet (Adderall) fluvoxamine 100 mg tablet 100 mg PO .DAILY@199907/31/23 10/08/23 Previous Rx's Medication Instructions Recorded ondansetron 4 mg disintegrating 4 mg PO Q8H PRN nausea and 10/20/20 tablet vomiting #30 tabs cyanocobalamin (vitamin B-12) 1,000 mcg PO DAILY #90 tabs 10/01/23 1,000 mcg tablet (Vitamin B-12) folic acid 1 mg tablet 1 mg PO DAILY #90 tabs 10/01/23 dexamethasone 4 mg tablet 4 mg PO BID #30 tabs 10/02/23 ondansetron 8 mg disintegrating 8 mg PO Q8H PRN Nausea And 10/02/23 tablet Vomiting #60 tabs azithromycin 250 mg tablet See Rx Instructions .Route 10/23/23 (Zithromax Z-Logan) .COMPLEX #6 tabs anagrelide 1 mg capsule 1 mg PO Q12H #60 caps 10/29/23 Allergies Allergy/AdvReac Type Severity Reaction Status Date / Time Sulfa (Sulfonamide Allergy Severe Rash Verified 11/16/23 11:48 Antibiotics) trazodone [TRAZODONE] Allergy Severe FELT LIKE Verified 11/16/23 11:48 ELEPHANT SITTING ON MY CHEST , [place]IGHTMARES Review of Systems Review of Systems: Yes all other systems are reviewed and are negative PMFSH Past Medical History Attestation statement: The following information was validated with the patient. Source: old records reviewed Medical History Nasal deformity Hx of nausea Chronic bronchitis Hx of ectopic Nicotine dependence, cigarettes, uncomplicated Hyperparathyroidism Hyperlipidemia Postmenopausal Tubular adenoma of colon (~2018) Osteopenia (~2022) History of drug overdose Hearing loss, bilateral PTSD (post-traumatic stress disorder) Major depressive disorder, recurrent severe without psychotic features ADHD Surgical History Hx of adenoidectomy History of cataract surgery History of ear surgery History of tonsillectomy History of endoscopy History of colonoscopy Family History Family History Mother Lupus (systemic lupus erythematosus) Lung cancer Social History Social History (Updated 10/01/23 @ 09:08 by Jessie Correia MA) Household Members: None and Other Housing: Apartment Are you a primary patient care director to a significant other at home: No Do you presently have visiting nurse or other home services: No Alcohol intake: current Alcohol intake frequency: holidays/special occasions only Alcohol type: beer Comment: COUNTS CORRECT Patient Tobacco Use Status: Former Tobacco user Quit Date: 07/2023 Tobacco use type: Cigarette Cigarette Packs Per Day: 0.1 Cigarettes Per Day: 2.0 Years Smoked: 48 yrs e-Cigarette/Vaping Use: Never Used Second Hand Smoke Exposure: No Advance Directives: No Advance Directives Information Provided: No service: No Current occupational status: retired and disabled Physical Exam ED Vital Signs: Vital Signs - 24 hr 11/16/23 11:44 Temperature 98.8 F Pulse Rate 109 H Respiratory Rate 16 Blood Pressure 151/82 H Pulse Oximetry 100 Oxygen Delivery Method Room Air BMI result Body Mass Index 25.3 Appearance: Alert.?Oriented to person, place and time. No acute distress.?Normal affect. Eyes: Pupils equal, round and reactive to light.? ENT: Pharynx normal.?? Neck: Normal inspection.? Neck supple.?? CVS: Heart sounds normal. Normal heart rate and rhythm.? Pulses normal.?? Respiratory: No respiratory distress.? Lung sounds clear to auscultation bilaterally?? Abdomen: Soft and non-tender. Normoactive bowel sounds. Skin: Skin warm and dry.? Normal skin color.? Extremities: No lower extremity edema.? Neuro: Moves all extremities spontaneously. Sensation intact bilaterally. Ambulates with normal steady gait. Medical Decision Making Medical Decision Making [facility] Narrative: Patient is a 63-year-old female presenting to emergency department for evaluation of hyperkalemia from outpatient oncology labs as per HPI. No physical complaints and her physical examination is benign. She is mildly tachycardic at the time of initial examination but she does report that she is feeling quite upset and frustrated that she had to drive all the way back here after return home. EKG is without acute hyperkalemic changes, reveals sinus tachycardia with ventricular rate of 103, QTC 419, no ST elevation, no ST depression, no T-wave inversion or peaked Ts. Repeat BMP reveals normal potassium of 4.9, did discuss this with Oncology, Dr. Junior, who came down to speak with patient directly. Suspect that this is likely a falsely elevated potassium, discussed with patient hemolysis of labs providing false elevated readings. Patient was provided reassurance and advised to have close outpatient follow-up with PCP/Oncology. On re-evaluation pulse rate was 90. At this time feel that she is stable for discharge home. Differential Diagnosis Differential Diagnoses: The differential diagnosis associated with the presentation includes (See narrative above) Admission/Observation Consideration of admission/observation: Escalation of care including admission/observation considered (See narrative above) Consult Healthcare Provider Management of the patient was discussed with: Decorating Instructor (See narrative above) Lab Data [facility] Lab Attestation statement: I reviewed the patient's lab results. (See narrative above) 11/16/23 12:37 Labs: Lab Results 11/16/23 Range/Units 12:37 Sodium 138 (135-145) mmol/L Potassium 4.9 D (3.3-5.1) mmol/L Chloride 102 (96-108) mmol/L Carbon Dioxide 26 (22-29) mmol/L Anion Gap 15 (12-20) BUN 14 (9-16) mg/dL Creatinine 0.91 (0.5-1.4) mg/dL Estim Creat Clear Calc 50.1 Estimated GFR > 60 Random Glucose 129 H (60-115) mg/dL Calcium 11.4 H (8.4-10.2) mg/dL Independent Interpretation I performed an independent interpretation of an: EKG (See narrative above) External Record Review External record reviewed: Prior outpatient labs (See narrative above) Discharge Plan Discharge Clinical Impression: Non-small cell cancer of right lung Patient Disposition: Home, Self-Care Additional Instructions: As discussed, your potassium level when repeated today was normal and your EKG was normal this is very reassuring. Please follow-up closely with your primary care provider/Oncology. Return back to emergency department any new or worsening symptoms or concerns. Prescriptions: No Action ondansetron 4 mg tablet,disintegrating 4 mg PO Q8H PRN (Reason: nausea and vomiting) Qty: 30 0RF dextroamphetamine-amphetamine [Adderall] 20 mg tablet 20 mg PO .@0600+1100 Rx Instructions: administer doses at least 4-6 hours apart fluvoxamine 100 mg tablet 100 mg PO .DAILY@1999 cyanocobalamin (vitamin B-12) [Vitamin B-12] 1,000 mcg Tablet 1,000 mcg PO DAILY Qty: 90 1RF folic acid 1 mg Tablet 1 mg PO DAILY Qty: 90 1RF ondansetron 8 mg Tablet,Disintegrating 8 mg PO Q8H PRN (Reason: Nausea And Vomiting) Qty: 60 0RF dexamethasone 4 mg Tablet 4 mg PO BID Qty: 30 1RF Rx Instructions: For 2 days after chemotherapy azithromycin [Zithromax Z-Logan] 250 mg Tablet See Rx Instructions .ROUTE .COMPLEX Qty: 6 1RF Rx Instructions: For 250 mg dose pack: take 500 mg today (day 1), then 250 mg for 4 days (days 2-5) anagrelide 1 mg Capsule 1 mg PO Q12H Qty: 60 3RF simvastatin 20 mg tablet 20 mg PO .DAILY@1999 docusate sodium 100 mg capsule 100 mg PO .DAILY@1999 multivitamin Tablet 1 tab PO .DAILY@0600 albuterol sulfate 90 mcg/actuation aerosol powdr breath activated 1 inh inhalation Q4-6H PRN (Reason: Shortness Of Breath) Referrals: Jordana Junior MD [Physician] -
--- NOTE | 2023-11-16 11:50 | ECG_ITS ---
Test Reason : HYPERKALEMIA Blood Pressure : / mmHG Vent. Rate : 103 BPM Atrial Rate : 103 BPM P-R Int : 158 ms QRS Dur : 068 ms QT Int : 320 ms P-R-T Axes : 064 000 038 degrees QTc Int : 419 ms Sinus tachycardia Otherwise normal ECG When compared with ECG of 31-JUL-2023 13:13, No significant change was found Referred By: Mone Harmon Electronically Signed By:AMEYA ALEJO MD
[2023-11-16 12:54] LABS: Anion Gap 15 (12-20); Blood Urea Nitrogen 14 mg/dL (9-16); Calcium 11.4 mg/dL (8.4-10.2); Carbon Dioxide 26 mmol/L (22-29); Chloride 102 mmol/L (96-108); Creatinine Clr Calc Pharmacy 50.1; Estimated Glomerular Filt Rate > 60; Glucose Random 129 mg/dL (60-115); Potassium 4.9 mmol/L (3.3-5.1); Sodium 138 mmol/L (135-145)
== END 2023-11-16 13:48 | disposition home or self-care (01) ==
LOC: HO.ED 13:16
PROVIDERS: Nurse Practitioner Family; Emergency Provider Emergency Medicine Emergency Medical Services; PCP Internal Medicine Medical Oncology
DX: Z03.89 Encounter for observation for other suspected diseases and conditions ruled out (principal); C34.91 Malignant neoplasm of unspecified part of right bronchus or lung; Z87.891 Personal history of nicotine dependence
CPT/HCPCS: 36415; 80048; 93005; 99283

== ENCOUNTER → 2023-11-16 11:50 | Outpatient (BNV) | payer MEDICARE, MEDICAID, SELFPAY | PROVIDERS: Emergency Provider Emergency Medicine Emergency Medical Services; PCP Internal Medicine Medical Oncology; Visit Provider Internal Medicine Cardiovascular Disease | DX: R00.0 Tachycardia, unspecified (principal) | CPT/HCPCS: 93010 ==

== ENCOUNTER 2024-01-29 12:00 | Outpatient (REF) | payer MEDICARE, MEDICAID, SELFPAY ==
--- NOTE | ~2024-01-29 | MM_ITS ---
EXAMINATION: MM SCREENING DIGITAL BREAST TOMOSYNTHESIS, BILATERAL CLINICAL INFORMATION: Screening. Asymptomatic. COMPARISON: Mammography: This study is compared with prior exams dating back to 2018. TECHNIQUE: Digital breast tomosynthesis is performed in both the craniocaudal and mediolateral oblique views along with computer-aided detection (CAD). Synthesized 2D images are generated from the tomosynthesis. FINDINGS: There are scattered areas of fibroglandular density (ACR BI-RADS breast composition Category b). There are no significant masses, abnormal calcifications, or other abnormalities. There is a central venous access port within the superiormost aspect of the right breast. There is a tissue marker present in the left breast from prior benign percutaneous biopsy. MM/MM tomosynthesis screening BI IMPRESSION: No mammographic evidence of malignancy. ASSESSMENT: BI-RADS BI-RADS 2 - Benign Findings RECOMMENDATION: Routine annual mammography screening. 1 year F/U This examination should not preclude the clinical evaluation of a suspicious palpable abnormality. This patient's information was entered into a reminder system with a target due date for their next mammogram.
== END 2024-01-29 12:01 | disposition home or self-care (01) ==
LOC: HO.MAMMO 12:00
PROVIDERS: Visit Provider Internal Medicine Medical Oncology
DX: Z12.31 Encounter for screening mammogram for malignant neoplasm of breast (principal)
CPT/HCPCS: 77063; 77067

== ENCOUNTER → 2024-01-29 12:15 | Outpatient (BNV) | payer MEDICARE, MEDICAID, SELFPAY | PROVIDERS: Visit Provider Radiology Diagnostic Radiology | DX: Z12.31 Encounter for screening mammogram for malignant neoplasm of breast (principal) | CPT/HCPCS: 77063; 77067 ==

== ENCOUNTER 2024-03-19 10:05 | Outpatient (REF) | payer MEDICARE, MEDICAID, SELFPAY ==
--- NOTE | ~2024-03-19 | CT_ITS ---
EXAMINATION: CT CHEST WITH CONTRAST CLINICAL INFORMATION: Restaging lung cancer status-post right lower lobectomy on 08/06/2023. COMPARISON: CT chest dated 06/01/2023 and 06/05/2017; CT right lung biopsy dated 07/04/2023; PET/CT dated 09/19/2023.. TECHNIQUE: Multidetector volumetric CT imaging of the chest was obtained after the administration of 50 mL of Omnipaque 350 intravenous contrast without immediate adverse reactions. Axial MIP volume rendering provided. Sagittal and coronal reformatted images were obtained. This CT examination was performed using dose optimization techniques as appropriate, variously including the following: *Automated exposure control *Adjustment of mA and/or kV according to patient size (this includes techniques or standardized protocols for targeted exams where dose is matched to indication/reason for exam; i.e. extremities or head) *Use of iterative reconstruction technique DLP: 73 mGy-cm FINDINGS: MATERIAL CHECKER: The lungs are grossly clear. There is moderate elevation of the right hemidiaphragm. A right internal jugular Port-A-Cath device is seen. LUNGS: There has been a prior right lower lobectomy. No residual or recurrent neoplasm is seen at the resection margin. Centrally within the right upper lobe (5:46), a 6 mm groundglass nodule is seen. This appears stable from 06/01/2023 (5:122), and it was not seen with certainty on 06/05/2017. There are diffuse centrilobular emphysematous changes. No mass, infiltrate or groundglass opacity is seen. Mild linear scar/subsegmental atelectasis is seen at the anterior bases, without associated focal airway obstruction. No generalized small airway thickening is seen. The central airways are patent. MEDIASTINUM: The thyroid is unremarkable. There is no thoracic aortic aneurysm or dissection. There are mild atherosclerotic calcifications of the great vessel origins and thoracic aorta. A few shotty, nonpathologically enlarged mediastinal lymph nodes are seen. No mediastinal or hilar lymphadenopathy is seen. PLEURA: There is no pleural effusion. No pleural mass or thickening. AXILLA: There are multiple shotty, nonpathologically enlarged bilateral axillary lymph nodes. There is no sizable lymphadenopathy. UPPER ABDOMEN: Unremarkable OSSEOUS STRUCTURES: There is multi-level mild thoracic spondylosis. There is an old, healed left seventh rib fracture. No acute or aggressive osseous finding is noted. CT/CT chest w IV con IMPRESSION: 1. There has been a prior right lower lobectomy. No residual or recurrent lesion is seen at the resection margin. 2. There is a stable 6 mm groundglass nodule noted centrally within the right upper lobe, stable from 06/01/2023 and new from 06/05/2017. Recommend continued attention on imaging follow-up. 3. There are diffuse centrilobular emphysematous changes. 4. No thoracic lymphadenopathy or pleural effusion is seen. 5. There are very mild degenerative changes of the spine. No acute or aggressive osseous finding is noted. Fleischner guidelines were followed.
[2024-03-19 10:55] LABS: MANUAL DIFF FLAG NO
[2024-03-19 10:58] LABS: Basophils Absolute Auto 0.1 X10*3/uL (0.0-0.2); Eosinophils Absolute Auto 0.1 X10*3/uL (0.0-0.4); Eosinophils Percent Auto 1.4 % (0-4); Hematocrit 38.8 % (37.0-47.0); Hemoglobin 12.5 g/dl (12.0-16.0); Imm Gran Abs Auto 0.04 X10*3/uL (0.00-0.03); Imm Gran Pct Auto 0.6 % (0.0-0.4); Lymphocytes Absolute Auto 2.9 X10*3/uL (1.2-4.9); Lymphocytes Percent Auto 39.3 % (20-40); Mean Corpuscular HGB Conc 32.2 g/dl (31.0-35.0); Mean Corpuscular Hemoglobin 28.3 pg (27.0-33.0); Mean Corpuscular Volume 87.8 fL (80.0-98.0); Mean Platelet Volume 9.3 fL (9.4-12.3); Monocytes Absolute Auto 0.7 X10*3/uL (0.1-1.2); Monocytes Percent Auto 10.2 % (2-11); Neutrophils Absolute Auto 3.5 x10*3/uL (2.0-8.3); Neutrophils Percent Auto 47.5 % (45-73); Platelet Count 382 X10*3/uL (160-400); Red Blood Count 4.42 X10*6/uL (4.20-5.50); Red Cell Distribution Width 14.8 % (11.0-16.0); White Blood Count 7.3 X10*3/uL (4.8-10.8)
[2024-03-19 11:21] LABS: Alanine Aminotransferase 13 U/L (0-31); Alkaline Phosphatase 106 U/L (39-117); Anion Gap 12 (12-20); Aspartate Amino Transferase 18 U/L (5-31); Bilirubin Total 0.2 mg/dL (0.0-1.0); Blood Urea Nitrogen 19 mg/dL (9-16); Calcium 10.4 mg/dL (8.4-10.2); Carbon Dioxide 24 mmol/L (22-29); Chloride 106 mmol/L (96-108); Estimated Glomerular Filt Rate > 60; Glucose Random 95 mg/dL (60-115); Potassium 4.2 mmol/L (3.3-5.1); Sodium 138 mmol/L (135-145); Total Protein 7.5 g/dL (6.5-8.0)
[2024-03-19] MEDS: iohexoL 350 MG/ML 75 ML INFUS..BTL 65 ML IV (12:37)
== END 2024-03-19 10:06 | disposition home or self-care (01) ==
LOC: HO.CT 10:05
PROVIDERS: Visit Provider Internal Medicine
DX: C34.30 Malignant neoplasm of lower lobe, unspecified bronchus or lung (principal)
CPT/HCPCS: 36415; 71260; 80053; 85025; Q9967

== ENCOUNTER 2024-06-23 09:27 | Outpatient (REF) | payer MEDICARE, MEDICAID, SELFPAY ==
[2024-06-23 09:58] LABS: MANUAL DIFF FLAG NO
[2024-06-23 10:05] LABS: Basophils Absolute Auto 0.1 X10*3/uL (0.0-0.2); Basophils Percent Auto 1.2 % (0-2); Eosinophils Absolute Auto 0.1 X10*3/uL (0.0-0.4); Eosinophils Percent Auto 1.3 % (0-4); Hematocrit 38.4 % (37.0-47.0); Hemoglobin 12.6 g/dl (12.0-16.0); Imm Gran Abs Auto 0.01 X10*3/uL (0.00-0.03); Imm Gran Pct Auto 0.1 % (0.0-0.4); Lymphocytes Absolute Auto 3.3 X10*3/uL (1.2-4.9); Lymphocytes Percent Auto 42.7 % (20-40); Mean Corpuscular HGB Conc 32.8 g/dl (31.0-35.0); Mean Corpuscular Hemoglobin 29.1 pg (27.0-33.0); Mean Corpuscular Volume 88.7 fL (80.0-98.0); Mean Platelet Volume 9.4 fL (9.4-12.3); Monocytes Absolute Auto 0.8 X10*3/uL (0.1-1.2); Monocytes Percent Auto 10.4 % (2-11); Neutrophils Absolute Auto 3.5 x10*3/uL (2.0-8.3); Neutrophils Percent Auto 44.3 % (45-73); Platelet Count 431 X10*3/uL (160-400); Red Blood Count 4.33 X10*6/uL (4.20-5.50); Red Cell Distribution Width 15.6 % (11.0-16.0); White Blood Count 7.8 X10*3/uL (4.8-10.8)
[2024-06-23 10:57] LABS: Alkaline Phosphatase 123 U/L (39-117); Anion Gap 11 (12-20); Bilirubin Total 0.3 mg/dL (0.0-1.0); Blood Urea Nitrogen 16 mg/dL (9-16); Calcium 11.8 mg/dL (8.4-10.2); Carbon Dioxide 27 mmol/L (22-29); Chloride 108 mmol/L (96-108); Cholesterol 197 mg/dL (<200); Estimated Glomerular Filt Rate 49; Glucose Fasting 102 mg/dL (60-99); HDL Cholesterol 53 mg/dL (>40); LDL Cholesterol Calculated 125 mg/dL (<100); Potassium 5.2 mmol/L (3.3-5.1); Sodium 141 mmol/L (135-145); Total Protein 7.4 g/dL (6.5-8.0); Triglycerides 96 mg/dL (<150)
[2024-06-23 12:40] LABS: Alanine Aminotransferase 17 U/L (0-31); Aspartate Amino Transferase 22 U/L (5-31)
== END 2024-06-23 09:28 | disposition home or self-care (01) ==
LOC: HO.LAB 09:27
PROVIDERS: PCP Internal Medicine Medical Oncology; Visit Provider Internal Medicine Medical Oncology
DX: F90.9 Attention-deficit hyperactivity disorder, unspecified type (principal); E78.5 Hyperlipidemia, unspecified; J45.909 Unspecified asthma, uncomplicated; D47.3 Essential (hemorrhagic) thrombocythemia
CPT/HCPCS: 36415; 80053; 80061; 85025

== ENCOUNTER 2024-07-28 12:36 | Outpatient (AMB) | payer MEDICARE, MEDICAID, SELFPAY ==
[2024-07-28 12:44] VITALS: BP 178/72; PULSE 107; BMI 25.8
--- NOTE | 2024-07-28 12:44 | A.OFFVIS_ITS ---
Vital Signs 07/28/24 12:44 07/28/24 13:30 07/28/24 13:31 Height 5 ft Weight 132 lb BMI 25.8 BP 178/72 H 145/75 H Blood Pressure Location Lt brachial Rt brachial Position Sitting Pulse 107 H 120 H Pulse Source Pulse Oximeter Palpation Intake Visit Reasons: Hyperparathyroidism-confirmed Intake Note: New patient present today for Hyperparathyroidism office visit. [employer] Required: No Accompanied by: Self / Same As Patient Allergies Sulfa (Sulfonamide Antibiotics) Allergy (Severe, Verified 07/28/24 12:48) Rash trazodone [TRAZODONE] Allergy (Severe, Verified 07/28/24 12:48) FELT LIKE ELEPHANT SITTING ON MY CHEST , N[place]MAR[place] Medication List - Last Reconciled 07/28/24 by Mariama Ventura MD albuterol sulfate 90 mcg/actuation 1 inh inhalation Q4-6H PRN anagrelide 1 mg PO Q12H cyanocobalamin (vitamin B-12) (Vitamin B-12) 1,000 mcg PO DAILY dexamethasone 4 mg PO BID dextroamphetamine-amphetamine 20 mg (Adderall) 20 mg PO .@0600+1100 docusate sodium 100 mg PO .DAILY@1999 fluvoxamine 100 mg PO .DAILY@1999 multivitamin 100 tabs PO DAILY pantoprazole 20 mg PO DAILY simvastatin 20 mg PO .DAILY@1999 HPI Comments Details: 64-year-old female here today for initial evaluation of hypercalcemia/ hyperparathyroidism. Chart review shows patient has had an elevated calcium level at least dating back since 2019. Total calcium has been in the range of 10.4-11.8, with most recent labs from 06/23/2024 with total calcium of 11.8, albumin of 4, GFR of 49, with creatinine of 1.11. Previously in March 2024 kidney function was showing creatinine of 0.88 with GFR greater than 60. She thinks she saw endocrinology in [place] maybe some 5 years ago. something about my glands in the neck PTH noted to be elevated on repeated labs done in 2020 and 2022, last PTH done in 04/22/2023 was elevated at 108. Vitamin-D level also done in 2022 noted to be in the 20s. DEXA scan done 01/20/2023, showed osteopenia of the hip with T-score of-1.2 at the total femur and-1.8 at the left femoral neck, forearm bone density normal with T-score of-0.4, L1-L4 (excluding L2 and L3 due to degenerative changes), normal bone density with T-score of 0.0. Patient also notably has a history of right non-small cell lung cancer diagnosed in 08/22/2023. She underwent chemotherapy in the adjuvant setting. She is currently following with the Oncology, Dr. Junior No kidney stones No fractures Limited activit since lung surgery in 2022 but before that she says she was quite active No milk. Milk shake once in a week , cheese every day , no yogurt, green leafy vegetables everyday No vitamin D supplements One a day multivitamin one daily which has about 200 mg of calcium No family history of calcium problems or kidney stones Reports polyuria , nocturia, no abd pain , no muscle aches but hands hurt No memory issues or brain fog Physical exam General: sitting comfortably in no acute distress HEENT: normocephalic/atraumatic,moist oral mucosa Neck: supple, symmetrical, no thyromegaly , no dorsocervical or supraclavicular fat pads Cardiac: normal heart sounds Pulm: normal breath sounds B/L, no added breath sounds Abd: not distended, no tenderness Extremities: no edema, no signs of myxedema Neuro: AAO x3, Speech: normal, no facial droop, moving all 4 extremities Laboratory Tests 09/20/18 01/21/19 04/07/19 08:25 06:40 12:00 Creatinine Estim Creat Clear Calc Estimated GFR Calcium 10.6 H 10.5 H Magnesium Albumin 4.0 25-OH Vitamin D Total PTH Intact 03/24/20 01/03/21 07/06/21 09:50 12:49 10:40 Creatinine Estim Creat Clear Calc Estimated GFR Calcium 11.1 H Magnesium 2.1 Albumin 4.4 4.3 25-OH Vitamin D Total 15.4 28.8 22.2 PTH Intact 83 H 08/02/21 04/10/22 08/23/22 06:50 06:55 08:23 Creatinine Estim Creat Clear Calc Estimated GFR Calcium 11.8 H D Magnesium Albumin 4.0 3.9 25-OH Vitamin D Total 23.9 31.9 PTH Intact 91 H 09/13/22 11/01/22 04/20/23 07:25 10:45 06:30 Creatinine Estim Creat Clear Calc Estimated GFR Calcium 10.5 H Magnesium Albumin 4.1 3.9 25-OH Vitamin D Total 27.6 24.7 PTH Intact 140 H 108 H 10/03/23 10/08/23 10/15/23 14:36 09:11 10:14 Creatinine Estim Creat Clear Calc Estimated GFR Calcium Magnesium 2.3 Albumin 4.1 3.7 3.9 25-OH Vitamin D Total PTH Intact 10/23/23 10/29/23 10/31/23 08:43 09:25 10:31 Creatinine Estim Creat Clear Calc Estimated GFR Calcium 11.4 H Magnesium 2.2 2.0 Albumin 3.9 4.0 25-OH Vitamin D Total PTH Intact 11/02/23 11/05/23 11/09/23 09:06 10:01 09:48 Creatinine Estim Creat Clear Calc Estimated GFR Calcium 10.8 H 10.6 H Magnesium Albumin 3.8 3.7 25-OH Vitamin D Total PTH Intact 11/12/23 11/16/23 11/16/23 10:47 09:52 12:37 Creatinine Estim Creat Clear Calc Estimated GFR Calcium 11.4 H D 11.5 H 11.4 H Magnesium Albumin 4.0 3.9 25-OH Vitamin D Total PTH Intact 11/19/23 11/22/23 11/26/23 08:57 10:20 10:02 Creatinine Estim Creat Clear Calc Estimated GFR Calcium 10.8 H 11.0 H 10.8 H Magnesium 1.8 1.9 Albumin 3.8 4.0 3.8 25-OH Vitamin D Total PTH Intact 11/29/23 12/03/23 12/07/23 08:58 10:18 10:40 Creatinine Estim Creat Clear Calc Estimated GFR Calcium 10.3 H 11.1 H D 11.3 H Magnesium 2.1 2.2 Albumin 3.7 4.0 3.8 25-OH Vitamin D Total PTH Intact 12/10/23 12/14/23 12/20/23 09:00 09:04 09:27 Creatinine Estim Creat Clear Calc Estimated GFR Calcium 11.0 H 11.0 H 10.6 H Magnesium 2.2 2.1 2.1 Albumin 3.8 4.1 4.0 25-OH Vitamin D Total PTH Intact 12/27/23 01/15/24 03/07/24 09:41 13:50 10:14 Creatinine 0.92 1.10 Estim Creat Clear Calc 50.1 41.9 Estimated GFR > 60 50 Calcium 11.1 H 10.1 D 10.7 H Magnesium Albumin 4.2 4.0 4.2 25-OH Vitamin D Total PTH Intact 03/19/24 06/23/24 10:51 09:56 Creatinine 0.88 1.11 Estim Creat Clear Calc Estimated GFR > 60 49 Calcium 10.4 H 11.8 H D Magnesium Albumin 4.0 4.0 25-OH Vitamin D Total PTH Intact BONE DENSITOMETRY 01/16/23 CLINICAL INDICATION: Asymptomatic menopausal state. COMPARISON: Baseline BD dated 08/30/2012, left hip; 01/16/2023, spine and left forearm radius 33%. TECHNIQUE: Using a [employer] DXA System (software version: 13.1) manufactured by [employer], dual-energy x-ray absorptiometry was performed of the lumbar spine, left hip and left forearm radius 33%. The images are of good technical quality. Summary results are attached. FINDINGS: AP SPINE L1-L4 (excluding L2 and L3): The data of L1-L4 has been changed to exclude the L2 and L3 vertebral bodies because degenerative changes at these levels may cause overestimation of the lumbar spine density. Current: BMD 1.168 g/cm2, Z-score 1.7, T-score 0.0, normal, 3.8% decrease from baseline (<5% change is not significant). Baseline: BMD 1.214 g/cm2. LEFT FEMUR, NECK: Current: BMD 0.788 g/cm2, Z-score -0.3, T-score -1.8, osteopenia. Baseline: BMD 0.922 g/cm2. LEFT FEMUR, TOTAL: Current: BMD 0.853 g/cm2, Z-score 0.0, T-score -1.2, osteopenia, 13.6% decrease from baseline (<5% change is not significant). Baseline: BMD 0.987 g/cm2. LEFT FOREARM RADIUS 33%: BMD 0.839 g/cm2, Z-score 0.8, T-score -0.4, normal. Baseline: Not previously measured. IDENTIFIED RISK FACTORS: Early menopause, secondary osteoporosis, hyperparathyroidism, low calcium intake, tobacco use (current smoker). HISTORY OF FRACTURE: None listed. MEDICATIONS: Vitamin D. MM/XR DEXA appendicular skeleton IMPRESSION: 1. DIAGNOSIS: Osteopenia based on the lowest T-score value of -1.8 in the femoral neck applying World Health Organization criteria. 2. 10-YEAR FRACTURE RISK PREDICTION, FRAX: Major osteoporotic fracture (clinical spine, forearm, hip or shoulder) 10.1%. Hip fracture 2.1%. [facility] Medical History Nasal deformity Hx of nausea Chronic bronchitis Hx of ectopic Nicotine dependence, cigarettes, uncomplicated Hyperparathyroidism Hyperlipidemia Postmenopausal Tubular adenoma of colon (~2018) Osteopenia (~2022) History of drug overdose Hearing loss, bilateral PTSD (post-traumatic stress disorder) Major depressive disorder, recurrent severe without psychotic features ADHD Surgical History Hx of adenoidectomy History of cataract surgery History of ear surgery History of tonsillectomy History of endoscopy History of colonoscopy Family History Mother Lupus (systemic lupus erythematosus) Lung cancer Social History Household Members: None and Other Housing: Apartment Are you a primary certified social workers in health care to a significant other at home: No Do you presently have visiting nurse or other home services: No Alcohol intake: current Alcohol intake frequency: holidays/special occasions only Alcohol type: beer Comment: COUNTS CORRECT Patient Tobacco Use Status: Former Tobacco user Tobacco use type: Cigarette Cigarette Packs Per Day: 0.1 Cigarettes Per Day: 2.0 Years Smoked: 48 yrs e-Cigarette/Vaping Use: Never Used Second Hand Smoke Exposure: No service: No Current occupational status: retired and disabled Physical Exam Vital Signs: Last Vital Signs Pulse 107 H 07/28/24 12:44 BP 178/72 H 07/28/24 12:44 BMI result Body Mass Index 25.8 Assessment & Plan Assessment & Plan (1) Hyperparathyroidism: Code(s): E21.3 - Hyperparathyroidism, unspecified Category: Medical Plan: 64-year-old female with past medical history significant for right non-small cell lung cancer diagnosed 08/22/2023, who is coming in today for initial evaluation of hypercalcemia/hyperparathyroidism. Chart review shows patient has had an elevated calcium level at least dating back since 2019. Actually do not see any normal calcium levels in the chart. Total calcium has been in the range of 10.4-11.8, with most recent labs from 06/23/2024 with total calcium of 11.8, albumin of 4, GFR of 49, with creatinine of 1.11. Previously in March 2024 kidney function was showing creatinine of 0.88 with GFR greater than 60.PTH noted to be elevated on repeated labs done in 2020 and 2022, last PTH done in 04/22/2023 was elevated at 108. Vitamin-D level also done in 2022 noted to be in the 20s. She is not currently on any vitamin-D or calcium supplements. She does take a multivitamin daily. No history of kidney stones or fractures. Bone density showed osteopenia in 2022. Not meeting treatment criteria for osteopenia per FRAX score. Most likely the differential is primary hyperparathyroidism. However given I do not see any prior normal calcium levels in the chart, could also have FHH. I will check her 24 hour urine calcium levels. Given her level of calcium elevation, she does meet criteria for surgery as calcium is greater than 1 mg/dL above the upper limit of normal most recently. I will obtain a sestamibi scan. She does have history of n [id number] lung cancer, however unlikely hypercalcemia of malignancy as PTH levels in the past has noted to be elevated for her +degree of hypercalcemia is not severe. Plan: -ordered 24 hour urine calcium, creatinine as well as blood work -ordered parathyroid sestamibi scan -follow up in 10 weeks to discuss results (2) Tachycardia: Code(s): R00.0 - Tachycardia, unspecified Category: Medical Plan: Patient's heart rate today noted to be elevated, on recheck. I will check her thyroid function is well. I have let her know to inform her primary care physician her elevated heart rate. Patient verbalized understanding. Ordered TSH, free T4. Plan I spent 45 minutes in reviewing the record, seeing the patient and documenting in the medical record. Orders: Orders Albumin Level 1 Week E21.3 - Hyperparathyroidism, unspecified Calcium, Ionized 1 Week E21.3 - Hyperparathyroidism, unspecified Parathyroid Hormone Intact 1 Week E21.3 - Hyperparathyroidism, unspecified Vitamin D 1,25 dihydroxy 1 Week E21.3 - Hyperparathyroidism, unspecified Vitamin D 25-OH Total 1 Week E21.3 - Hyperparathyroidism, unspecified Sodium, 24Hr Urine Group 1 Week E21.3 - Hyperparathyroidism, unspecified Magnesium 1 Week E21.3 - Hyperparathyroidism, unspecified NM parathyroid SPECT w CT Today E21.3 - Hyperparathyroidism, unspecified Calcium 1 Week E21.3 - Hyperparathyroidism, unspecified Phosphorus 1 Week E21.3 - Hyperparathyroidism, unspecified Calcium, 24 Hr Ur 1 Week E21.3 - Hyperparathyroidism, unspecified Creatinine, 24 Hr Group 1 Week E21.3 - Hyperparathyroidism, unspecified Parathyroid Hormone Related Pr 1 Week E21.3 - Hyperparathyroidism, unspecified Thyroid Stimulating Hormone Today E21.3 - Hyperparathyroidism, unspecified, R00.0 - Tachycardia, unspecified Free T4 (Free Thyroxine) Today E21.3 - Hyperparathyroidism, unspecified, R00.0 - Tachycardia, unspecified Patient Instructions: Do parathyroid scan Do 24 hr urine collection and same day as you give urine in do blood work 24 hr urine collection instructions You have been asked to collect your urine for 24 hours to assess for calcium excretion. You must choose a 24 hour period of time when you will be home. The morning of the first day, DISCARD the FIRST morning void and then note the time. You will collect every single void from then on for 24 hours. For example, if you wake up at 6am and urinate, flush down that void. You will then collect every drop of urine all day and all night through 6am the following day. You will urinate one last time at 6am for the collection. The jug of urine must be kept in the refrigerator until you bring it to the lab.You have been asked to collect your urine for 24 hours to assess for calcium excretion. You must choose a 24 hour period of time when you will be home. The morning of the first day, DISCARD the FIRST morning void and then note the time. You will collect every single void from then on for 24 hours. For example, if you wake up at 6am and urinate, flush down that void. You will then collect every drop of urine all day and all night through 6am the following day. You will urinate one last time at 6am for the collection. The jug of urine must be kept in the refrigerator until you bring it to the lab. Just do thyroid blood work today Coding Level of Care Code New Pt Level 4 (74778) Diagnoses Hyperparathyroidism E21.3 Tachycardia R00.0 Time Spent (min) 45
[2024-07-28 13:30] VITALS: BP 145/75
[2024-07-28 13:31] VITALS: PULSE 120
== END 2024-07-28 13:33 | disposition home or self-care (01) ==
PROVIDERS: PCP Internal Medicine Medical Oncology; Visit Provider Student in an Organized Health Care Education/Training Program
DX: E21.3 Hyperparathyroidism, unspecified (principal); R00.0 Tachycardia, unspecified
CPT/HCPCS: 99204

== ENCOUNTER 2024-07-28 12:36 | Outpatient (REF) | payer MEDICARE, MEDICAID, SELFPAY ==
[2024-07-28 15:48] LABS: Free T4 (Free Thyroxine) 1.05 ng/dL (0.71-1.85); Thyroid Stimulating Hormone 1.58 uIU/mL (0.32-4.0)
== END 2024-07-28 12:37 | disposition home or self-care (01) ==
LOC: HO.LAB 12:36
PROVIDERS: PCP Internal Medicine Medical Oncology; Visit Provider Student in an Organized Health Care Education/Training Program
DX: E21.3 Hyperparathyroidism, unspecified (principal); R00.0 Tachycardia, unspecified
CPT/HCPCS: 36415; 84439; 84443; 99202

== ENCOUNTER 2024-09-09 08:14 | Outpatient (REF) | payer MEDICARE, MEDICAID, SELFPAY ==
--- OUTSIDE RECORDS SUMMARY | 2024-09-09 08:24 | XMS_ITS ---
Author Organization Horace Lima III, MD Address [address] [place] [address] Care Team Providers Care Policy Cancellation Clerk Name Role Phone Horace Lima Primary Care Provider [phone] REASON FOR VISIT Rx Refill Medications Medication SIG (Take, Route, Fr equency, Duration) Notes Start Date End Date Status Anagrelide HCl 1 MG 1 capsule Orally Twi ce a day for 90 days 07/16/2024 07/11/2025 Active Social History Sex Assigned At : Social History Observation Description Sex Assigned At Female Encounters Encounter Location Date Provider Diagnosis Horace Lima III, MD [address] [place] [address] [place] [address] 07/16/2024 Horace Lima Plan Of Treatment Medication Medication Name Sig Start Date Stop Date Notes Anagrelide HCl 1 MG 1 capsule Orally Twi ce a day for 90 days 07/16/2024 07/11/2025 Next Appt Details Provider Name:Horace Lima, 09/16/2024 10:45:00 AM, [address] [facility] [place], [address], Provider Name:Horace Lima, 01/29/2025 10:00:00 AM, [address] [facility] [place], [address], Progress Notes * Emilee BARNARDOB: (64 yo F)Acc No.[id number]:07/16/2024 Patient:Lily BELLA :1960???Age:64 Y???Sex:Female Address:[address] [place] [address], [id number] * Refills? Start Anagrelide HCl Capsule, 1 MG, Orally, 180 Capsule, 1 capsule, Twice a day, 90 days, Refills=3 * true * Date:? Generated for Felice horton/Kirby/eTransmitting on:?09/09/2024 08:24 AM EST
--- OUTSIDE RECORDS SUMMARY | 2024-09-09 08:24 | XMS_ITS ---
Author Organization Horace Lima III, MD Address [address] [place] [address] [place] [address] Care Team Providers Care Bottom Buffer Name Role Phone Horace Lima Primary Care Provider [phone] REASON FOR VISIT Message Social History Sex Assigned At : Social History Observation Description Sex Assigned At Female Encounters Encounter Location Date Provider Diagnosis Horace Lima III, MD [address] [place] [address] [place] [address] 07/02/2024 Horace Lima Plan Of Treatment Next Appt Details Provider Name:Horace Lima, 09/16/2024 10:45:00 AM, [address] [place] [address] [address] [place], [address], Provider Name:Horace Lima, 01/29/2025 10:00:00 AM, [address] [place] [address] [address] [place], [address], Progress Notes * Mello BARNARDeDOB: (64 yo F)Acc No.[id number]:07/02/2024 Patient:Lily BELLA :1960???Age:64 Y???Sex:Female Address:[address] [place], [address] * true * Date:? Generated for Printi sol/Faspg/eTransmitting on:?09/09/2024 08:24 AM EST
--- OUTSIDE RECORDS SUMMARY | 2024-09-09 08:24 | XMS_ITS ---
Author Organization Horace Lima III, MD Address [address] [place] [address] [address] [place] [address] Care Team Providers [facility] Paralegal Name Role Phone Horace Lima Primary Care Provider Allergies Allergen (clinical drug ingredient) Drug/Non Drug Allergy documented on EMR Reaction Allergy Type Onset Date Status Substance with sulfonamide structure and antibacterial mechanism of action (substance) Sulfa Antibiotics Unknown Drug Allergy Active trazodone Trazodone HCl Unknown Drug Allergy Act naheed Reason For Referral Reason Consult and Treat Untreated Hyperparathyroidism CA= 11.8 Diagnosis 1 Hyperparathyroidism (E21.3) Referral Organization Horace Lima III, MD Referring Provider First Name Horace Referring Provider Last Name Janie Referring Provider Speciality Internal M edicine Referred Provider [facility] Referred Provider Specialty Endocrinolog y General Notes Tara Vasquez 07/07/2024 04:31:34 PM > referral faxed with progress note Referral Priority Routine Referral Appointment Date 07/28/2024 REASON FOR VISIT Hearing loss, Depression, Lipidemia, Hypercalcemia, Central thrombocytosis, Lung cancer, Recent chemotherapy Medications Medication SIG (Take, Route, Frequency, Duration) Notes Start Date End Date Status Multi Vitamin Active B12 Active Docusate Sodium Acti ve Anagrelide HCl 1 MG 1 capsule Orally onc e a day 07/15/2021 Active Vitamin B-12 1000 MCG 1 tablet Orally On ce a day 04/02/2024 Active fluvoxaMINE Maleate 100 MG TAKE 1 TABLET BY MOUTH TWICE DAILY AT BEDTIME Active Amphetamine-Dextroamphetami ne 20 MG 1 tablet Orally Twice a day 01/11/2021 Active ProAir HFA 108 (90 Base) MCG/ACT 2 puff as needed Inhalation every 4 hrs Active Pantoprazole Sodium 20 MG TAKE ONE TABLE T BY MOUTH EVERY DAY Active Simvastatin 20 MG TAKE ONE TABLET BY M OUTH EVERY EVENING Active Social History Tobacco Use: Social History Observation Description Date Details (start date - stop date) Former Smoker NA - NA Sex Assigned At : Social History Observation Description Sex Assigned At Female Tobacco Use/Smoking Question Answer Notes Patient is a former smoker How long has it been since you last smoked? 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 No change was made. She has been conducting the activities of daily life and in normal fashion. 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 She remains in remission at this time. 07/02/2024 Bilateral hearing lo ss (ICD-10 - H91.93) Her hearing loss is quite advanced and she benefit significantly from hearing aids. There was no difficulty conversing today. The recent episode of otitis has completely resolved. 07/02/2024 Major depression (IC D-10 - F32.9) Her depression is well-controlled and she is living her life without significant impairment. 07/02/2024 Hyperlipidemia (ICD- 10 - E78.5) Her lipids have been stable. Comprehensive blood work will be done. 07/02/2024 Asthma (ICD-10 - J45.909) She denies any recent episodes of asthma. No wheezing was heard today. She is compliant with her medication. 07/02/2024 Hyperparathyroidism (ICD-10 - E21.3) The current ccalcium level is 9.7. No change inn her regimen was made. 07/02/2024 Overweight (ICD-10 - E66.3) She has become slightly overweight with her treatment. We discussed diet and nutrition today. We made a plan to lose weight gradually. 07/02/2024 Former smoker (ICD-1 0 - Z87.891) Her abstinence from tobacco continues. 07/02/2024 Vitamin B 12 deficie ncy (ICD-10 - E53.8) Plan Of Treatment Medication Medication Name Sig Start Date Stop Date Notes Multi Vitamin B12 Docusate Sodium Anagrelide HCl 1 MG 1 capsule Orally once a day 07/15/2021 Vitamin B-12 1000 MCG 1 tablet Orally Once a day 4 fluvoxaMINE Maleate 100 MG TAKE 1 TABLET BY MOUTH TWICE DAILY AT BEDTIME Amphetamine-Dextroamphetamin e 20 MG 1 tablet Orally Twice a day 01/11/2021 ProAir HFA 108 (90 Base) MCG/ACT 2 puff as needed Inhalation every 4 hrs Pantoprazole Sodium 20 MG TAKE ONE TABLE T BY MOUTH EVERY DAY Simvastatin 20 MG TAKE ONE TABLET BY M OUTH EVERY EVENING Pending Test Test Name Order Date PROFILE, RANDOM (COMPREHENSIVE METABOLIC ) 07/02/2024 CBC WITH AUTO DIFF 07/02/2024 Vitamin B12 07/02/2024 Parathyroid Hormone Intact 07/02/2024 Referrals Referral Date Details 07/02/2024 07/02/2024, Consult and Treat Untreated Hyperparathyroidism CA= 11.8, [facility] Next Appt Details Follow Up: 3 Months, Reason: OV Provider Name:Horace Lima, 09/16/2024 10:45:00 AM, [address] [facility] [address] [address], [place], [address], Provider Name:Horace Lima, 01/29/2025 10:00:00 AM, [address] [facility] [address], [place], [address], Progress Notes * Mello BARNARDeDOB: (64 yo F)Acc No.[id number]:07/02/2024 Progress Notes Patient:?Lily BARNARD Provider:?Horace Lima MD :1960???Age:64 Y???Sex:Female D ate:07/02/2024 Address:[address] [place], [place] [id number] Subjective: * Chief Complaints: * ???Hearing lossDepressionLip idemiaHypercalcemiaCentral thrombocytosisLung cancerRecent chemotherapy * HPI: ???COVID-19 Screening:?Questions?Have you experienced fever, chills, cough, sore throat, shortness of breath, difficulty breathing, muscle aches, loss of taste or smell??No ?Have you been exposed to the virus within the last 10 days??No ?Have you travelled internationally in the last 10 days??No ?Have you been exposed to COVID-19 in the past??No ???:?The patient, a 64-year-old female, reported experiencing significant distress when her medical coverage was switched to Medicare upon turning 64. She had to reapply and go through a lengthy process to regain her coverage. The patient has a history of lung cancer and completed chemotherapy in November or December. She has been feeling relatively well since then, but she has been experiencing worsening cramps in her hand since the summer. She also mentioned a persistent cough, which she attributes to bronchitis. She has not had any asthma recently.? Her depression is stable.? Her hearing loss is stable. * ROS:?General/Constitutional:?pain?only normal aches and pains.?Chills?denies.?Fatigue?admits.?Fever?denies.?ENT:?Decreased hearing?in both ears.?Respiratory:?Cough?non-productive.?Cardiovascular:?Chest pain with exertion?denies.?Dyspnea on exertion?denies.?Shortness of breath?denies.?Gastrointestinal:?Constipation?occasional.?Decreased appetite?denies.?Diarrhea?denies.?Heartburn?occasional.?Nausea?denies.?Rectal bleeding?denies.?Vomiting?denies.?Hematology:?bruising?denies.?petechiae?denies.?Swollen glands?none have been noted.?Genitourinary:?Frequent urination?denies.?Musculoskeletal:?Muscle aches?denies.?Painful joints?hands.?Sciatica?denies.?Weakness?denies.?Skin:?Itching?denies.?Rash?denies.?Skin lesion(s)?denies.?Neurologic:?Difficulty speaking?denies.?Dizziness?denies.?Headache?denies.?Low back pain?denies.?Psychiatric:?Depressed mood?which is moderate.? * Medical History:? * Surgical History:?right mast oidectomy 1986left myringotomy 1986T&A, adenoids tubal age 18 biopsy left breast fibroadenoma 05/13/14right eye cataract eft eye cataract ore needle biopsy right lower lobe superior segment mass 07/2023No history * Hospitalization/Major Diagno stic Procedure:?No history * Family History:?Father: unkn own.?Mother: 52 yrs, Lupus/lung cancer, diagnosed with Cancer.?Children: .?Son(s): 22 yrs, overdose.?Daughter(s): 29 yrs, car accident.?Siblings: alive.?Paternal Grand Mother: diagnosed with DM.?1 brother(s) , 1 sister(s) - healthy. 1 son(s) , 1 daughter(s) - healthy. .? A daughter at the age of 29 in an automobile accident. A son at the age of 22 of the drug overdose. A sister is healthy. Her brother Isacc Clark has ischemic heart disease. This patient has a history of attention deficit disorder and major depressive disorder. A son of a drug overdose. The patient is not aware of any other family history of mental illness or substance use disorder, or addictions. 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 She moved here 2 years ago. She is . She had two children. A daughter at 29 in auto accident. Her son had a fatal drug overdose aged 22. She is not working and is not disabled. She stopped smoking in 2022. * Medications:?TakingSimvastat in 20 MG Tablet TAKE ONE TABLET BY MOUTH EVERY EVENING Pantoprazole Sodium 20 MG Tablet Delayed Release TAKE ONE TABLET BY MOUTH EVERY DAY ProAir HFA 108 (90 Base) MCG/ACT Aerosol Solution 2 puff as needed Inhalation every 4 hrs Amphetamine-Dextroamphetamine 20 MG Tablet 1 tablet Orally Twice a day fluvoxaMINE Maleate 100 MG Tablet TAKE 1 TABLET BY MOUTH TWICE DAILY AT BEDTIME Anagrelide HCl 1 MG Capsule 1 capsule Orally once a day Docusate Sodium B12 Multi Vitamin Vitamin B-12 1000 MCG Tablet 1 tablet Orally Once a day , stop date 03/28/2025Medication List reviewed and reconciled with the patientTaking Simvastatin 20 MG Tablet TAKE ONE TABLET BY MOUTH EVERY EVENING Taking Pantoprazole Sodium 20 MG Tablet Delayed Release TAKE ONE TABLET BY MOUTH EVERY DAY Taking ProAir HFA 108 (90 Base) MCG/ACT Aerosol Solution 2 puff as needed Inhalation every 4 hrs Taking Amphetamine-Dextroamphetamine 20 MG Tablet 1 tablet Orally Twice a day Taking fluvoxaMINE Maleate 100 MG Tablet TAKE 1 TABLET BY MOUTH TWICE DAILY AT BEDTIME Taking Anagrelide HCl 1 MG Capsule 1 capsule Orally once a day Taking Docusate Sodium Taking B12 Taking Multi Vitamin Taking Vitamin B-12 1000 MCG Tablet 1 tablet Orally Once a day , stop date 03/28/2025Medication List reviewed and reconciled with the patient * Allergies:?Trazodone HClSulf a Antibioticsno[Allergies Verified] Objective: * Vitals:?Ht: 60, Wt:128, BMI: 25, BP:136/81, HR:80, Temp:97.7, Wt-k.06. * ???Past Orders: Lab:Complete Blood Count Aut o Diff * Collection Date 06/23/2024 03/07/2024 12/20/2023 Collection Time 09:56 AM 10:14 AM 09:27 AM Order Date 06/23/2024 03/07/2024 12/20/2023 White Blood Count 7.8 (Ref Range: 4.8-10.8 X10*3/uL) 6.4 (Ref Range: 4.8-10.8 X10*3/uL) 9.8 (Ref Range: 4.8-10.8 X10*3/uL) Red Blood Count 4.33 (Ref Range: 4.20-5.50 X10*6/uL) 4.10?L (Ref Range: 4.20-5.50 X10*6/uL) 3.41?L (Ref Range: 4.20-5.50 X10*6/uL) Hemoglobin 12.6 (Ref Range: 12.0-16.0 g/dl) 11.7?L (Ref Range: 12.0-16.0 g/dl) 9.9?L (Ref Range: 12.0-16.0 g/dl) Hematocrit 38.4 (Ref Range: 37.0-47.0 %) 36.4?L (Ref Range: 37.0-47.0 %) 31.1?L (Ref Range: 37.0-47.0 %) Mean Corpuscular Volume 88.7 (Ref Range: 80.0-98.0 fL) 88.8 (Ref Range: 80.0-98.0 fL) 91.2 (Ref Range: 80.0-98.0 fL) Mean Corpuscular Hemoglobin 29.1 (Ref Range: 27.0-33.0 pg) 28.5 (Ref Range: 27.0-33.0 pg) 29.0 (Ref Range: 27.0-33.0 pg) Mean Corpuscular HGB Conc 32.8 (Ref Range: 31.0-35.0 g/dl) 32.1 (Ref Range: 31.0-35.0 g/dl) 31.8 (Ref Range: 31.0-35.0 g/dl) Red Cell Distribution Width 15.6 (Ref Range: 11.0-16.0 %) 14.1 (Ref Range: 11.0-16.0 %) 16.8?H (Ref Range: 11.0-16.0 %) Platelet Count 431?H (Ref Range: 160-400 X10*3/uL) 400 (Ref Range: 160-400 X10*3/uL) 475?H (Ref Range: 160-400 X10*3/uL) Mean Platelet Volume 9.4 (Ref Range: 9.4-12.3 fL) 9.1?L (Ref Range: 9.4-12.3 fL) 8.7?L (Ref Range: 9.4-12.3 fL) Neutrophils Percent Auto 44.3?L (Ref Range: 45-73 %) 35.4?L (Ref Range: 45-73 %) 57.2 (Ref Range: 45-73 %) Imm Gran Pct Auto 0.1 (Ref Range: 0.0-0.4 %) 0.2 (Ref Range: 0.0-0.4 %) 0.3 (Ref Range: 0.0-0.4 %) Lymphocytes Percent Auto 42.7?H (Ref Range: 20-40 %) 48.7?H (Ref Range: 20-40 %) 25.8 (Ref Range: 20-40 %) Monocytes Percent Auto 10.4 (Ref Range: 2-11 %) 12.4?H (Ref Range: 2-11 %) 13.5?H (Ref Range: 2-11 %) Eosinophils Percent Auto 1.3 (Ref Range: 0-4 %) 1.9 (Ref Range: 0-4 %) 1.9 (Ref Range: 0-4 %) Basophils Percent Auto 1.2 (Ref Range: 0-2 %) 1.4 (Ref Range: 0-2 %) 1.3 (Ref Range: 0-2 %) NRBC Pct Auto 0.0 (Ref Range: 0.0-0.2 /100WBC) 0.0 (Ref Range: 0.0-0.2 /100WBC) 0.0 (Ref Range: 0.0-0.2 /100WBC) Neutrophils Absolute Auto 3.5 (Ref Range: 2.0-8.3 x10*3/uL) 2.3 (Ref Range: 2.0-8.3 x10*3/uL) 5.6 (Ref Range: 2.0-8.3 x10*3/uL) Imm Gran Abs Auto 0.01 (Ref Range: 0.00-0.03 X10*3/uL) 0.01 (Ref Range: 0.00-0.03 X10*3/uL) 0.03 (Ref Range: 0.00-0.03 X10*3/uL) Lymphocytes Absolute Auto 3.3 (Ref Range: 1.2-4.9 X10*3/uL) 3.1 (Ref Range: 1.2-4.9 X10*3/uL) 2.5 (Ref Range: 1.2-4.9 X10*3/uL) Monocytes Absolute Auto 0.8 (Ref Range: 0.1-1.2 X10*3/uL) 0.8 (Ref Range: 0.1-1.2 X10*3/uL) 1.3?H (Ref Range: 0.1-1.2 X10*3/uL) Eosinophils Absolute Auto 0.1 (Ref Range: 0.0-0.4 X10*3/uL) 0.1 (Ref Range: 0.0-0.4 X10*3/uL) 0.2 (Ref Range: 0.0-0.4 X10*3/uL) Basophils Absolute Auto 0.1 (Ref Range: 0.0-0.2 X10*3/uL) 0.1 (Ref Range: 0.0-0.2 X10*3/uL) 0.1 (Ref Range: 0.0-0.2 X10*3/uL) NRBC Abs Auto 0.000 (Ref Range: 0.0-0.012 X10*3/uL) 0.000 (Ref Range: 0.0-0.012 X10*3/uL) 0.000 (Ref Range: 0.0-0.012 X10*3/uL) * Lab:[facility] * Collection Date 06/23/2024 07/24/2023 04/20/2023 Collection Time 09:56 AM 09:41 AM 06:30 AM Order Date 06/23/2024 07/24/2023 04/20/2023 Sodium 141 (Ref Range: 135-145 mmol/L) 137 (Ref Range: 135-145 mmol/L) 140 (Ref Range: 135-145 mmol/L) Bilirubin Total 0.3 (Ref Range: 0.0-1.0 mg/dL) 0.3 (Ref Range: 0.0-1.0 mg/dL) 0.4 (Ref Range: 0.0-1.0 mg/dL) Aspartate Amino Transferase 22 (Ref Range: 5-31 U/L) 18 (Ref Range: 5-31 U/L) 18 (Ref Range: 5-31 U/L) Alanine Aminotransferase 17 (Ref Range: 0-31 U/L) 21 (Ref Range: 0-31 U/L) 17 (Ref Range: 0-31 U/L) Total Protein 7.4 (Ref Range: 6.5-8.0 g/dL) 7.8 (Ref Range: 6.5-8.0 g/dL) 7.4 (Ref Range: 6.5-8.0 g/dL) Albumin Level 4.0 (Ref Range: 3.5-5.0 g/dL) 4.1 (Ref Range: 3.5-5.0 g/dL) 3.9 (Ref Range: 3.5-5.0 g/dL) Alkaline Phosphatase 123?H (Ref Range: 39-117 U/L) 96 (Ref Range: 39-117 U/L) 76 (Ref Range: 39-117 U/L) Potassium 5.2?H (Ref Range: 3.3-5.1 mmol/L) 4.9 (Ref Range: 3.3-5.1 mmol/L) 4.0 (Ref Range: 3.3-5.1 mmol/L) Chloride 108 (Ref Range: 96-108 mmol/L) 104 (Ref Range: 96-108 mmol/L) 109?H (Ref Range: 96-108 mmol/L) Carbon Dioxide 27 (Ref Range: 22-29 mmol/L) 28 (Ref Range: 22-29 mmol/L) 24 (Ref Range: 22-29 mmol/L) Anion Gap 11?L (Ref Range: 12-20) 10?L (Ref Range: 12-20) 11?L (Ref Range: 12-20) Blood Urea Nitrogen 16 (Ref Range: 9-16 mg/dL) 14 (Ref Range: 9-16 mg/dL) 18?H (Ref Range: 9-16 mg/dL) Creatinine 1.11 (Ref Range: 0.5-1.4 mg/dL) 0.88 (Ref Range: 0.5-1.4 mg/dL) 0.86 (Ref Range: 0.5-1.4 mg/dL) Estimated Glomerular Filt Rate 49 > 60 > 60 Glucose Fasting 102?H (Ref Range: 60-99 mg/dL) 96 (Ref Range: 60-99 mg/dL) 100?H (Ref Range: 60-99 mg/dL) Calcium 11.8?H (Ref Range: 8.4-10.2 mg/dL) 10.9?H (Ref Range: 8.4-10.2 mg/dL) 10.9?H (Ref Range: 8.4-10.2 mg/dL) * Lab:Lipid Panel * Collection Date 06/23/2024 07/24/2023 04/20/2023 Collection Time 09:56 AM 09:41 AM 06:30 AM Order Date 06/23/2024 07/24/2023 04/20/2023 Triglycerides 96 (Ref Range: <150 mg/dL) 71 (Ref Range: <150 mg/dL) 89 (Ref Range: mg/dL) Cholesterol 197 (Ref Range: <200 mg/dL) 224?H (Ref Range: <200 mg/dL) 206 (Ref Range: mg/dL) LDL Cholesterol Calculated 125?H (Ref Range: <100 mg/dL) 147?H (Ref Range: <100 mg/dL) 135 (Ref Range: mg/dl) HDL Cholesterol 53 (Ref Range: >40 mg/dL) 63 (Ref Range: >40 mg/dL) 54 (Ref Range: mg/dL) * Examination: ???General Examination: ?GENERAL APPEARANCE:?pleasant, well nourished, well developed, in no acute distress, calm and relaxed, woman.?HEAD:?atraumatic, normocephalic, Alopecia has resolved.?EYES:?eomi, perrla, anicteric, conjugate.?EARS:?Surgical changes both canals, hearing aids in place, marked hearing loss bilateral.?NOSE:?septum intact.?ORAL CAVITY:?normal, unremarkable.?NECK/THYROID:?no jugular venous distention, no carotid bruit, thyroid normal.?LYMPH NODES:?no enlarged lymph nodes,spleen normal.?SKIN:?no suspicious lesions, anicteric.?HEART:?no clicks, gallops, murmurs, or rubs, regular rhythm, S1, S2 normal, no s3, or vascular bruits.?LUNGS:?clear to auscultation .?BREASTS:?Not examined.?ABDOMEN:?bowel sounds normal, no ascites, no organomegaly, no mass.?RECTAL EXAM:?not examined.?MUSCULOSKELETAL:?extremities unremarkable, no clubbing, cyanosis or edema, Thoracic incisions well-healed.?PERIPHERAL PULSES:?normal.?NEUROLOGIC:?alert and oriented, cranial nerves 2-12 grossly intact, deep tendon reflexes 2+ symmetrical, motor strength normal upper and lower extremities, sensory exam intact.?PSYCH:?alert, oriented.? Assessment: * Assessment: 1.?Bronchogenic cancer of ri t lung - C34.91 (Primary)???Notes :There is no sign of relapse today or new primary. She remains in remission at this time.???2.?Attention deficit hyperactivity disorder (ADHD), unspecified ADHD type - F90.9???Notes :She was continued on her current medication. No change was made. She has been conducting the activities of daily life and in normal fashion.???3.?Bilateral hearing loss - H91.93???Notes :Her hearing loss is quite advanced and she benefit significantly from hearing aids. There was no difficulty conversing today. The recent episode of otitis has completely resolved.???4.?Major depression - F32.9???Notes :Her depression is well-controlled and she is living her life without significant impairment.???5.?Hyperlipidemia - E78.5???Notes :Her lipids have been stable. Comprehensive blood work will be done.???6.?Asthma - J45.909???Notes :She denies any recent episodes of asthma. No wheezing was heard today. She is compliant with her medication.???7.?Hyperparathyroidism - E21.3???Notes :The current ccalcium level is 9.7. No change inn her regimen was made.???8.?Overweight - E66.3???Notes :She has become slightly overweight with her treatment. We discussed diet and nutrition today. We made a plan to lose weight gradually.???9.?Former smoker - Z87.891???Notes :Her abstinence from tobacco continues.???10.?Vitamin B 12 deficiency - E53.8??? Plan: * Treatment: 2.?Hyperlipidemia?LAB: PROFILE, RANDOM (COMPREHENSIVE METABOLIC) ?LAB: CBC WITH AUTO DIFF ?LAB: Vitamin B12 ?LAB: Parathyroid Hormone Intact 3.?Hyperparathyroidism?LAB: PROFILE, RANDOM (COMPREHENSIVE METABOLIC) ?LAB: CBC WITH AUTO DIFF ?LAB: Vitamin B12 ?LAB: Parathyroid Hormone Intact? Referral To:[facility]??Endocrinology ?Reason:Consult and Treat Untreated Hyperparathyroidism CA= 11.8 4.?Overweight?LAB: PROFILE, RANDOM (COMPREHENSIVE METABOLIC) ?LAB: CBC WITH AUTO DIFF ?LAB: Vitamin B12 ?LAB: Parathyroid Hormone Intact 5.?Vitamin B 12 deficiency?LAB: PROFILE, RANDOM (COMPREHENSIVE METABOLIC) ?LAB: CBC WITH AUTO DIFF ?LAB: Vitamin B12 ?LAB: Parathyroid Hormone Intact 6.?Others? Continue Simvastatin Tablet, 20 MG, TAKE ONE TABLET BY MOUTH EVERY EVENING;?Continue Pantoprazole Sodium Tablet Delayed Release, 20 MG, TAKE ONE TABLET BY MOUTH EVERY DAY.?? * Procedure Codes:? * Preventive Medicine:? ??Counseling:?Smoking/Tobacco Use?Patient counseled on the dangers of tobacco use and urged to quit.?07/02/2024 * Follow Up:?3 Months (Reason: OV) * Images: * Sign off status: Completed true * Provider:?Horace Lima MD Date:?06/05 Generated for Felice horton/Kirby/Sruthi on:?09/09/2024 08:24 AM EST History and Physical Notes * HPI (History of Present Illness) Category Sub-Category Detail Notes COVID-19 Screening Questions Have you had any new onset fever, chills, cough, congestion, sore throat, shortness of breath, muscle aches?: No Have you been exposed to the virus withi n the last 10 days?: No Have you travelled internationally in [facility] last 10 days?: No Have you been exposed to COVID-19 in the past?: No Examination Category Sub-Category Detail Notes General Examination GENERAL APPEARANCE: pleasant , well nourished, well developed, in no acute distress, calm and relaxed, woman HEAD: atraumatic, normocep halic, Alopecia has resolved EYES: eomi, perrla, anicte parris, conjugate EARS: Surgical changes bot h canals, hearing aids in place, marked hearing loss bilateral NOSE: septum intact NECK/THYROID: no jugular venous di stention, no carotid bruit, thyroid normal HEART: no clicks, gallops, murmurs, or rubs, regular rhythm, S1, S2 normal, no s3, or vascular bruits LUNGS: clear to auscultatio n ABDOMEN: bowel sounds normal, no ascites, no organomegaly, no mass NEUROLOGIC: alert and oriented, cranial nerves 2-12 grossly intact, deep tendon reflexes 2+ symmetrical, motor strength normal upper and lower extremities, sensory exam intact SKIN: no suspicious lesion s, anicteric PERIPHERAL PULSES: normal BREASTS: Not examined MUSCULOSKELETAL: extremities unremark able, no clubbing, cyanosis or edema, Thoracic incisions well-healed LYMPH NODES: no enlarged lymph no kathy,spleen normal RECTAL EXAM: not examined PSYCH: alert, oriented ORAL CAVITY: normal, unremarkable Consultation Request Notes Referral Date Referring Provider Referred Provider Not es 07/02/2024 Janie [facility] Consult and Treat Untreated Hyperparathyroidism CA= 11.8
--- OUTSIDE RECORDS SUMMARY | 2024-09-09 08:25 | XMS_ITS | Patient Health Record ---
Author Organization Horace Lima III, MD Address [address] [place] [address] DR RANDOLPH Eden [place] [id number] Care Team Providers Care Feller Buncher Operator Name Role Phone Horace Lima Primary Care Provider Allergies Allergen (clinical drug ingredient) Drug/Non Drug Allergy documented on EMR Reaction Allergy Type Onset Date Status Substance with sulfonamide structure and antibacterial mechanism of action (substance) Sulfa Antibiotics Unknown Drug Allergy Active trazodone Trazodone HCl Unknown Drug Allergy Act naheed Results Component Value Reference Range Notes URINE DIP STICK Reviewed date:01/29/2024 10:26:17 AM Interpretation: Performing Lab: Notes/Report: SG 1.005 1.005 - 1.025 pH 5.0 5.0 - 9.0 SHAREE Negatie Negative - NIT Negative Negative - PRO Negative Negative - Trace GLU Negative Negative - KET Negative Negative - UBG 0.2 0.1 - 1.8 BOBY Negative 0.2 - 1.3 BLD Negative Negative - PET CT fusion skull to thigh Reviewed date:09/23/2023 08:47:40 AM Interpretation: Performing Lab: Notes/Report: [address] [address] PET Report Signed Patient: Lily Jacques MR#: [id number] 99 : 1960 Acct:[id number] Age/Sex: 63 / F ADM Date: 09/18/23 Loc: HO.PET Attending Dr: Jordana Junior MD Ordering Physician: Jordana Junior MD Date of Service: 09/18/23 Procedure(s): PET CT fusion skull to thigh Accession Number(s): [id number] cc: Horace Lima MD; Jordana Junior MD EXAMINATION: Fluorine-18 FDG PET/CT Scan CLINICAL INDICATION: Subsequent treatment management. Malignant neoplasm right lower lobe status post right lower lobectomy 08/06/2023. PROCEDURE: 60 minutes following the intravenous administration of 14.5 mCi of fluorine 18 FDG, images from the base of the skull to the mid thighs were obtained using a combined PET/CT scanner with CT scan based attenuation correction. No oral contrast was administered. No intravenous contrast was administered. Transverse, coronal, sagittal, and volume reconstruction projections were obtained. The patient's blood glucose as determined by a finger stick, was 97 mg/dl immediately prior to injection. Total CT exam dose-length product 394.24 mGy-cm * These CT images were obtained using dose optimization techniques as appropriate, variously including the following: Automated exposure control * Adjustment of mA and/or kV according to patient size (this includes techniques or standardized protocols for targeted exams where dose is matched to indication/reason for exam; i.e. extremities or head) * Use of iterative reconstruction technique COMPARISON: No previous PET/CT scan is available for comparison. CT scan of the chest dated 06/01/2023 is available for comparison. CT scan of the abdomen dated 04/11/2019 is also available for comparison. FINDINGS: (Slice numbers described in this report are numbered superiorly to inferiorly with slice #1 in the head) NECK AND VISUALIZED HEAD: No foci of abnormal FDG activity are noted. The distribution of FDG activity is physiological. There is no cervical lymphadenopathy. THORAX: There are no discrete foci of abnormal FDG activity in the chest. The patient is status post right lower lobectomy and the pulmonary nodule visualized on the diagnostic CT scan in the superior segment of the right lower lobe has been resected. No pulmonary nodules are visualized. There is no pleural or pericardial fluid, or pneumothorax. There is no mediastinal, supraclavicular, or axillary lymphadenopathy. A small amount of right-sided pleural fluid is present with weak diffuse FDG activity, SUVmax 2.3, slice 93/223.z there is also weak FDG activity in the right lateral chest wall with no corresponding CT abnormality showing SUVmax 2.1, slice 78/223. ABDOMEN AND PELVIS: There are no foci of abnormal FDG activity in the abdomen or pelvis. There is weak FDG activity throughout the gastrointestinal tract without a suspicious focal component. There is diverticulosis without evidence of diverticulitis. The hollow viscera are otherwise unremarkable. The liver, gallbladder kidneys, adrenal glands, and pancreas are unremarkable. The spleen is not visualized, and a soft tissue density measuring 1.8 x 1.0 cm under the left hemidiaphragm, slice 104/223 is not significantly changed in appearance from the 04/11/[address] scan and may represent some residual splenic tissue at this site. This does not have any associated abnormal FDG activity. The pelvic organs are unremarkable. There is no retroperitoneal, mesenteric, pelvic or inguinal lymphadenopathy. MUSCULOSKELETAL: There are no foci of abnormal FDG activity in the osseous structures. There is a subcentimeter sclerotic focus in the left posterior aspect of the inferior endplate of T11 unchanged in appearance from 04/11/2019 and likely a benign bone island. No suspicious sclerotic or lytic lesions are visualized. VASCULAR: Diffuse vascular calcifications including coronary are noted. Reference SUVmax Levels: Mediastinal Blood Pool: 1.8, Slice 75/123 Liver: 3.0, Slice 107/223 PET/PET CT fusion skull to thigh IMPRESSION: 1. There are no abnormalities present suspicious for recurrent or metastatic malignancy. The patient is status post right lower lobectomy and the right lower lobe pulmonary nodule previously present has been resected. 2. A small amount of weakly FDG avid right-sided pleural fluid is present. 3. Vascular calcifications including coronary are noted. 4. Absent or atrophic spleen. Dictated By: Declan Dickson MD Signed By: <Electronically signed by Declan Dickson MD in [place]> 09/19/23 1435 DD/ 1115 TD/TT: Parenting Skills Instructor: [address] [address] PET Report Signed Patient: Arnoldo Jacques MR#: [id number] 99 : 1960 Acct:[id number] Age/Sex: 63 / F ADM Date: 09/18/23 Loc: HO.PET Attending Dr: Jordana Junior MD Ordering Physician: Jordana Junior MD Date of Service: 09/18/23 Procedure(s): PET CT fusion skull to thigh Accession Number(s): [id number] cc: Horace Lima MD; Jordana Junior MD EXAMINATION: Fluorin e-18 FDG PET/CT Scan CLINICAL INDICATION: Subsequent treatment management. Malignant neoplasm right lower lobe status post right lower lobectomy 08/06/2023. PROCEDURE: 60 minute s following the intravenous administration of 14.5 mCi of fluorine 18 F DG, images from the base of the skull to the mid thighs were obtained using a combined PET/CT scanner with CT scan based attenuation correcti on. No oral contrast was administered. No intravenous contrast was administered. Transverse, coronal, sagittal, and volume reconstruction projections were obtained. The patient's blood glucose as determined by a finger stick, was 97 mg/dl immediately prior to injection. Total CT exam dose-length product 394.24 mGy-cm * These CT images we re obtained using dose optimization techniques as appropriate, various ly including the following: Automated exposure control * Adjustment of mA and/or kV according to patient size (this includes techniques or standardized protocols for targeted exams where dose is matched to indication/reason for exam; i.e. extremities or head) * Use of iterative reconstruction technique COMPARISON: No previ ous PET/CT scan is available for comparison. CT scan of the chest da patrick 06/01/2023 is available for comparison. CT scan of the abdomen dated 04/11/2019 is also available for comparison. FINDINGS: (Slice num bers described in this report are numbered superiorly to inferi alessandra with slice #1 in the head) NECK AND VISUALIZED HEAD: No foci of abnormal FDG activity are noted. The distribution of FDG activity is physiological. There is no cervical lymphadenopathy. THORAX: There are no discrete foci of abnormal FDG activity in the chest. The patient i s status post right lower lobectomy and the pulmonary nodule visualized on the diagnostic CT scan in the superior segment of the right lower lobe has been resected. No pulmonary nodules are visualized. Ther e is no pleural or pericardial fluid, or pneumothorax. There is no mediastinal, supraclavicular, or axillary lymphadenopathy. A s mall amount of right-sided pleural fluid is present with weak diffuse FD G activity, SUVmax 2.3, slice 93/223.z there is also weak FDG activi ty in the right lateral chest wall with no corresponding CT abnormality showing SUVmax 2.1, slice 78/223. ABDOMEN AND PELVIS: There are no foci of abnormal FDG activity in the abdomen or pelvis. T here is weak FDG activity throughout the gastrointestinal tra ct without a suspicious focal component. There is diverticulosis witho ut evidence of diverticulitis. The hollow viscera are otherwise unremarkable. The liver, gallbladder kidneys, adrenal glands, and pancreas are unremarkable. The spleen is not visualized, and a soft tissue density measuring 1.8 x 1.0 cm under the left hemidiaphragm, slice 104/223 is not significantly changed in appearance from the 04/11/[address] scan and may represent some residual splenic tissue at th is site. This does not have any associated abnormal FDG activity. The pe lvic organs are unremarkable. There is no retroperitoneal, mesenteric, pelvic or inguinal lymphadenopathy. MUSCULOSKELETAL: The re are no foci of abnormal FDG activity in the osseous structures. There is a subcentimeter sclerotic focus in the left posterior aspec t of the inferior endplate of T11 unchanged in appearance from 2018 and likely a benign bone island. No suspicious sclerotic or lytic lesions are visualized. VASCULAR: Diffuse vascular calcifications including coronary are noted. Reference SUVmax Levels: Mediastinal Blood Po ol: 1.8, Slice 75/123 Liver: 3.0, Slice 107/223 PET/PET CT fusion skull to thigh IMPRESSION: 1. There are no abnormalities present suspicious for recurrent or metastatic malignanc y. The patient is status post right lower lobectomy and the right lower lobe pulmonary nodule previously present has been resected. 2. A small amount of weakly FDG avid right-sided pleural fluid is present. 3. Vascular calcifications including coronary are noted. 4. Absent or atrophi c spleen. Dictated By: Declan Dickson MD Signed By: <Electronically signed by Declan Dickson MD in [place]> 09/19/23 1435 DD/ 1115 TD/TT: Economic Development Manager ist: RR Complete Blood Count Auto Di ff Reviewed date:10/04/2023 06:01:43 AM Interpretation: Performing Lab:[facility], [address] [place] [phone] Notes/Report: White Blood Count 8.0 4.8-10.8 X10*3/uL Red Blood Count 3.98 4.20-5.50 X10*6/uL Hemoglobin 11.4 12.0-16.0 g/dl Hematocrit 35.0 37.0-47.0 % Mean Corpuscular Volume 87.9 80.0-98.0 fL Mean Corpuscular Hemoglobin 28.6 27.0-33.0 pg Mean Corpuscular HGB Conc 32.6 31.0-35.0 g/dl Red Cell Distribution Width 15.0 11.0-16.0 % Platelet Count 437 160-400 X10*3/uL Mean Platelet Volume 9.7 9.4-12.3 fL Neutrophils Percent Auto 39.7 45-73 % Imm Gran Pct Auto 0.1 0.0-0.4 % Lymphocytes Percent Auto 46.1 20-40 % Monocytes Percent Auto 10.8 2-11 % Eosinophils Percent Auto 2.0 0-4 % Basophils Percent Auto 1.3 0-2 % NRBC Pct Auto 0.0 0.0-0.2 /100WBC Neutrophils Absolute Auto 3.2 2.0-8.3 x10*3/uL Imm Gran Abs Auto 0.01 0.00-0.03 X10*3/uL Lymphocytes Absolute Auto 3.7 1.2-4.9 X10*3/uL Monocytes Absolute Auto 0.9 0.1-1.2 X10*3/uL Eosinophils Absolute Auto 0.2 0.0-0.4 X10*3/uL Basophils Absolute Auto 0.1 0.0-0.2 X10*3/uL NRBC Abs Auto 0.000 0.0-0.012 X10*3/uL Comprehensive Met. Panel Reviewed date:10/04/2023 06:01:43 AM Interpretation: Performing Lab:[facility], [address] [place] [phone] Notes/Report: Sodium 139 135-145 mmol/L Potassium 4.8 3.3-5.1 mmol/L Chloride 107 96-108 mmol/L Carbon Dioxide 27 22-29 mmol/L Anion Gap 10 12-20 Blood Urea Nitrogen 18 9-16 mg/dL Creatinine 0.82 0.5-1.4 mg/dL Creatinine Clr Calc Pharmacy 54.5 Provided height and weight: 152.4 cm, 56.4 kg. eGFR (calculated from the MDRD study equation) and eCrCl (calculated from the Cockcroft-Gault equation) are based on different parameters and may not yield comparable results. If eCrCl result is absurd, please check patient's height/weight. Estimated Glomerular Filt Rate > 60 NOTE: For -Maced[place] individuals, multiply the result by 1.210. Chronic Kidney Disease: Estimated GFR < 60 mL/min/1.73m2 Severe Kidney Disease: Estimated GFR < 15 mL/min/1.73m2 Glucose Random 98 60-115 mg/dL Calcium 11.2 8.4-10.2 mg/dL Bilirubin Total 0.2 0.0-1.0 mg/dL Aspartate Amino Transferase 19 5-31 U/L Alanine Aminotransferase 21 0-31 U/L Total Protein 7.4 6.5-8.0 g/dL Albumin Level 4.1 3.5-5.0 g/dL Alkaline Phosphatase 89 39-117 U/L Magnesium Reviewed date:10/04/2023 06:01:43 AM Interpretation: Performing Lab:[facility], [address] [place] [phone] Notes/Report: Magnesium 2.3 1.6-2.6 mg/dL Hepatitis B Profile Reviewed date:10/04/2023 06:01:43 AM Interpretation: Performing Lab:[facility], [address] [place] [phone] Notes/Report: Hepatitis B Surface Antibody NONREACTIVE Nonreactive Nonreactive: < 8.00 mIU/mL Hepatitis B Core Antibody Nonreactive Nonreactive Hepatitis B Surface Antigen Negative Negative IR cvc insert tunnel w prt/p mp Reviewed date:10/05/2023 10:01:09 AM Interpretation: Performing Lab: Notes/Report: [address] [address] Interventional Radiology Rpt Signed Patient: Lily Jacques MR#: [id number] 99 : 1960 Acct:[id number] Age/Sex: 63 / F ADM Date: 10/04/23 Loc: HO.SSS Attending Dr: Jordana Junior MD Ordering Physician: Jordana Junior MD Date of Service: 10/04/23 Procedure(s): IR cvc insert tunnel w prt/mortgage loan coordinator Accession Number(s): [id number] cc: Horace Lima MD; Jordana Junior MD PROCEDURE: IR INSERTION OF SUBCUTANEOUS PORT WITH ULTRASOUND AND FLUOROSCOPIC GUIDANCE CLINICAL INFORMATION: Need for IV access for chemotherapy COMPARISON: None available. TECHNIQUE: All elements of maximal sterile barrier technique followed including use of cap, mask, sterile gown, sterile gloves, a sterile full body drape and hand hygiene. Also followed skin preparation with 2% chlorhexidine for cutaneous antisepsis, and sterile ultrasound preparation with sterile gel and probe cover when applicable. TWISTHAND: Courtney Rosales MD FSIR ANESTHESIA: IV moderate sedation with intravenous fentanyl and Versed was administered under my direct supervision with continuous physiologic monitoring for a total of 30 minutes. Procedure in detail: Informed and written consent was obtained. The patient was positioned supine on the angiography table. Sterile preparation of the right neck and chest was performed. Ultrasound of the right neck showed a patent internal jugular vein. 1% lidocaine was injected subcutaneously and extended to the edge of the jugular vein under ultrasound guidance. A small incision was made in the skin with a #11 blade. Through the incision and under ultrasound guidance with permanent recordings and direct visualization of needle entry into the vein, the right internal jugular vein was catheterized in an antegrade fashion. Over a wire, the tract was dilated and the peel-away sheath was left in place. At the planned location for the port located below the right clavicle, 1% lidocaine with epinephrine was administered subcutaneously and the local anesthesia was extended along the planned subcutaneous tract for the catheter. A small incision was made in the skin with a #15 blade. Blunt dissection was performed to create a pocket for the port. Next, we tunneled the port catheter from the port site to the neck incision site. The catheter was inserted into the peel-away sheath. It terminates at the right atrium. We cut the catheter to length and connected it to the port, which was inserted into the pocket. The pocket was irrigated with antibiotic solution. The pocket was closed with interrupted 2-0 Vicryl suture. Topical Dermabond was applied. An overlying sterile dressing was placed. The port was tested and flushes and aspirates appropriately. It was locked with heparin. A saved fluoroscopic image shows that the catheter terminates in the right atrium. Summary: Successful placement of a subcutaneous port via the right internal jugular vein under fluoroscopic and ultrasound guidance. Dictated By: Ajith Rosales MD Signed By: <Electronically signed by Ajith Rosales MD in [place]> 10/04/23 1418 DD/ 1350 TD/TT: Parenting Skills Instructor: [place] [id number] Interventional Radio logy Rpt Signed Patient: Arnoldo Jacques MR#: [id number] 99 : 1960 Acct:[id number] Age/Sex: 63 / F ADM Date: 10/04/23 Loc: HO.[facility] Attending Dr: Jordana Junior MD Ordering Physician: Jordana Junior MD Date of Service: 10/04/23 Procedure(s): IR cvc insert tunnel w prt/mortgage loan coordinator Accession Number(s): [id number] cc: Horace Lima MD; Jordana Junior MD PROCEDURE: IR INSERTION OF SUBCUTANEOUS PORT WITH ULTRASOUND AND FLUOROSCOPIC GUIDANCE CLINICAL INFORMATION: Need for IV access f or chemotherapy COMPARISON: None available. TECHNIQUE: All elements of maxi mal sterile barrier technique followed including use of cap , mask, sterile gown, sterile gloves, a sterile full body drape and hand hygiene. Also followed skin preparation with 2% chlorhexidine for cutaneous antisepsis, and sterile ultrasound preparation with la rile gel and probe cover when applicable. TWISTHAND: Courtney Rosales MD FSIR ANESTHESIA: IV moder ate sedation with intravenous fentanyl and Versed was administered und er my direct supervision with continuous physiologic monitori ng for a total of 30 minutes. Procedure in detail: Informed and written consent was obtained. The patient was position ed supine on the angiography table. Sterile preparation of the r ight neck and chest was performed. Ultrasound of the right neck showe d a patent internal jugular vein. 1% lidocaine was injected subcutaneou sly and extended to the edge of the jugular vein under ultrasound guidance. A small incision was made in the skin with a #11 blade. Through t he incision and under ultrasound guidance with permanent recordings and direct visualization of needle entry into the vein, the right inte rnal jugular vein was catheterized in an antegrade fashion. Over a wire , the tract was dilated and the peel-away sheath was left in place. At the planned locat ion for the port located below the right clavicle, 1% lidocaine with epinephrine was administered subcutaneously and the local anesthesia was extended along the planned subcutaneous tract for the catheter. A smal l incision was made in the skin with a #15 blade. Blunt dissection was performed to create a pocket for the port. Next, we tunneled the port catheter from the port site to the neck incision site. The catheter w as inserted into the peel-away sheath. It terminates at the ri ght atrium. We cut the catheter to length and connected it to the port, which was inserted into the pocket. The pocket was irrigated with antibiotic solution. The pocket was closed with interrupted 2-0 Vicryl suture. Topical Dermabond was applied. An overlying sterile dressing was placed. The port was tested and flushes and aspirates appropriately. It was locked with heparin. A saved fluoroscopic image shows that the catheter terminates in the ri ght atrium. Summary: Successful placement of a subcutaneous port via the right internal jugular vei n under fluoroscopic and ultrasound guidance. Dictated By: Truong Rosales MD Signed By: <Electronically signed by Ajith Rosales MD in [place]> 10/04/23 1418 DD/ 1350 TD/TT: Parenting Skills Instructor: IR us guide venous access Reviewed date:10/05/2023 10:01:09 AM Interpretation: Performing Lab: Notes/Report: [place] [id number] Interventional Radiology Rpt Signed Patient: Lily Jacques MR#: [id number] 99 : 1960 Acct:[id number] Age/Sex: 63 / F ADM Date: 10/04/23 Loc: HO.[facility] Attending Dr: Jordana Junior MD Ordering Physician: Jordana Junior MD Date of Service: 10/04/23 Procedure(s): IR us guide venous access Accession Number(s): [id number] cc: Horace Lima MD; Jordana Junior MD PROCEDURE: IR INSERTION OF SUBCUTANEOUS PORT WITH ULTRASOUND AND FLUOROSCOPIC GUIDANCE CLINICAL INFORMATION: Need for IV access for chemotherapy COMPARISON: None available. TECHNIQUE: All elements of maximal sterile barrier technique followed including use of cap, mask, sterile gown, sterile gloves, a sterile full body drape and hand hygiene. Also followed skin preparation with 2% chlorhexidine for cutaneous antisepsis, and sterile ultrasound preparation with sterile gel and probe cover when applicable. TWISTHAND: Courtney Rosales MD FSIR ANESTHESIA: IV moderate sedation with intravenous fentanyl and Versed was administered under my direct supervision with continuous physiologic monitoring for a total of 30 minutes. Procedure in detail: Informed and written consent was obtained. The patient was positioned supine on the angiography table. Sterile preparation of the right neck and chest was performed. Ultrasound of the right neck showed a patent internal jugular vein. 1% lidocaine was injected subcutaneously and extended to the edge of the jugular vein under ultrasound guidance. A small incision was made in the skin with a #11 blade. Through the incision and under ultrasound guidance with permanent recordings and direct visualization of needle entry into the vein, the right internal jugular vein was catheterized in an antegrade fashion. Over a wire, the tract was dilated and the peel-away sheath was left in place. At the planned location for the port located below the right clavicle, 1% lidocaine with epinephrine was administered subcutaneously and the local anesthesia was extended along the planned subcutaneous tract for the catheter. A small incision was made in the skin with a #15 blade. Blunt dissection was performed to create a pocket for the port. Next, we tunneled the port catheter from the port site to the neck incision site. The catheter was inserted into the peel-away sheath. It terminates at the right atrium. We cut the catheter to length and connected it to the port, which was inserted into the pocket. The pocket was irrigated with antibiotic solution. The pocket was closed with interrupted 2-0 Vicryl suture. Topical Dermabond was applied. An overlying sterile dressing was placed. The port was tested and flushes and aspirates appropriately. It was locked with heparin. A saved fluoroscopic image shows that the catheter terminates in the right atrium. Summary: Successful placement of a subcutaneous port via the right internal jugular vein under fluoroscopic and ultrasound guidance. Dictated By: Ajith Rosales MD Signed By: <Electronically signed by Ajith Rosales MD in [place]> 10/04/23 1418 DD/ 1350 TD/TT: Parenting Skills Instructor: [place] [id number] Interventional Radio logy Rpt Signed Patient: Arnoldo Jacques MR#: [id number] 99 : 1960 Acct:[id number] Age/Sex: 63 / F ADM Date: 10/04/23 Loc: HO.SSS Attending Dr: Jordana Junior MD Ordering Physician: Jordana Junior MD Date of Service: 10/04/23 Procedure(s): IR us guide venous access Accession Number(s): [id number] cc: Horace Lima MD; Jordana Junior MD PROCEDURE: IR INSERTION OF SUBCUTANEOUS PORT WITH ULTRASOUND AND FLUOROSCOPIC GUIDANCE CLINICAL INFORMATION: Need for IV access f or chemotherapy COMPARISON: None available. TECHNIQUE: All elements of maxi mal sterile barrier technique followed including use of cap , mask, sterile gown, sterile gloves, a sterile full body drape and hand hygiene. Also followed skin preparation with 2% chlorhexidine for cutaneous antisepsis, and sterile ultrasound preparation with la rile gel and probe cover when applicable. TWISTHAND: Courtney Rosales MD FSIR ANESTHESIA: IV moder ate sedation with intravenous fentanyl and Versed was administered und er my direct supervision with continuous physiologic monitori ng for a total of 30 minutes. Procedure in detail: Informed and written consent was obtained. The patient was position ed supine on the angiography table. Sterile preparation of the [facility] and chest was performed. Ultrasound of the right neck showe d a patent internal jugular vein. 1% lidocaine was injected subcutaneou sly and extended to the edge of the jugular vein under ultrasound guidance. A small incision was made in the skin with a #11 blade. Through t he incision and under ultrasound guidance with permanent recordings and direct visualization of needle entry into the vein, the right inte rnal jugular vein was catheterized in an antegrade fashion. Over a wire , the tract was dilated and the peel-away sheath was left in place. At the planned locat ion for the port located below the right clavicle, 1% lidocaine with epinephrine was administered subcutaneously and the local anesthesia was extended along the planned subcutaneous tract for the catheter. A smal l incision was made in the skin with a #15 blade. Blunt dissection was performed to create a pocket for the port. Next, we tunneled the port catheter from the port site to the neck incision site. The catheter w as inserted into the peel-away sheath. It terminates at the [facility]. We cut the catheter to length and connected it to the port, which was inserted into the pocket. The pocket was irrigated with antibiotic solution. The pocket was closed with interrupted 2-0 Vicryl suture. Topical Dermabond was applied. An overlying sterile dressing was placed. The port was tested and flushes and aspirates appropriately. It was locked with heparin. A saved fluoroscopic image shows that the catheter terminates in the ri ght atrium. Summary: Successful placement of a subcutaneous port via the right internal jugular vei n under fluoroscopic and ultrasound guidance. Dictated By: Truong Rosales MD Signed By: <Electronically signed by Ajith Rosales MD in OV> 10/04/23 1418 DD/ 1350 TD/TT: Parenting Skills Instructor: Alessio Price. Panel Reviewed date:10/16/2023 04:01:28 PM Interpretation: Performing Lab:[facility], [address] [place] [phone] Notes/Report: Sodium 137 135-145 mmol/L Potassium 4.2 3.3-5.1 mmol/L Chloride 107 96-108 mmol/L Carbon Dioxide 24 22-29 mmol/L Anion Gap 10 12-20 Blood Urea Nitrogen 21 9-16 mg/dL Creatinine 0.93 0.5-1.4 mg/dL Creatinine Clr Calc Pharmacy 48.5 Provided height and weight: 152.4 cm, 57.3 kg. eGFR (calculated from the MDRD study equation) and eCrCl (calculated from the Cockcroft-Gault equation) are based on different parameters and may not yield comparable results. If eCrCl result is absurd, please check patient's height/weight. Estimated Glomerular Filt Rate > 60 NOTE: For -Macedonian individuals, multiply the result by 1.210. Chronic Kidney Disease: Estimated GFR < 60 mL/min/1.73m2 Severe Kidney Disease: Estimated GFR < 15 mL/min/1.73m2 Glucose Random 113 60-115 mg/dL Calcium 10.2 8.4-10.2 mg/dL Bilirubin Total 0.2 0.0-1.0 mg/dL Aspartate Amino Transferase 20 5-31 U/L Alanine Aminotransferase 20 0-31 U/L Total Protein 7.1 6.5-8.0 g/dL Albumin Level 3.7 3.5-5.0 g/dL Alkaline Phosphatase 86 39-117 U/L Complete Blood Count Auto Di ff Reviewed date:10/16/2023 04:01:28 PM Interpretation: Performing Lab:[facility], [address] [place] [phone] Notes/Report: White Blood Count 24.0 4.8-10.8 X10*3/uL Red Blood Count 4.08 4.20-5.50 X10*6/uL Hemoglobin 12.0 12.0-16.0 g/dl Hematocrit 35.7 37.0-47.0 % Mean Corpuscular Volume 87.5 80.0-98.0 fL Mean Corpuscular Hemoglobin 29.4 27.0-33.0 pg Mean Corpuscular HGB Conc 33.6 31.0-35.0 g/dl Red Cell Distribution Width 15.0 11.0-16.0 % Platelet Count 183 160-400 X10*3/uL Mean Platelet Volume 10.3 9.4-12.3 fL Neutrophils Percent Auto 68.5 45-73 % Imm Gran Pct Auto 1.5 0.0-0.4 % Lymphocytes Percent Auto 16.4 20-40 % Monocytes Percent Auto 13.0 2-11 % Eosinophils Percent Auto 0.4 0-4 % Basophils Percent Auto 0.2 0-2 % NRBC Pct Auto 0.1 0.0-0.2 /100WBC Neutrophils Absolute Auto 16.5 2.0-8.3 x10*3/uL Imm Gran Abs Auto 0.35 0.00-0.03 X10*3/uL Lymphocytes Absolute Auto 4.0 1.2-4.9 X10*3/uL Monocytes Absolute Auto 3.1 0.1-1.2 X10*3/uL Eosinophils Absolute Auto 0.1 0.0-0.4 X10*3/uL Basophils Absolute Auto 0.1 0.0-0.2 X10*3/uL NRBC Abs Auto 0.020 0.0-0.012 X10*3/uL CO RRECTED REPORT Complete Blood Count Man Dif Reviewed date:10/16/2023 04:01:28 PM Interpretation: Performing Lab:[facility], [address] [place] [phone] Notes/Report: White Blood Count 24.0 4.8-10.8 X10*3/uL Red Blood Count 4.08 4.20-5.50 X10*6/uL Hemoglobin 12.0 12.0-16.0 g/dl Hematocrit 35.7 37.0-47.0 % Mean Corpuscular Volume 87.5 80.0-98.0 fL Mean Corpuscular Hemoglobin 29.4 27.0-33.0 pg Mean Corpuscular HGB Conc 33.6 31.0-35.0 g/dl Red Cell Distribution Width 15.0 11.0-16.0 % Platelet Count 183 160-400 X10*3/uL Mean Platelet Volume 10.3 9.4-12.3 fL NRBC Pct Auto 0.1 0.0-0.2 /100WBC NRBC Abs Auto 0.020 0.0-0.012 X10*3/uL Neutrophils Percent Manual 53 45-73 % Band Neutrophils Percent 9 3-5 % Lymphocytes Percent Manual 26 20-40 % Atypical Lymphs Percent Manual 2 0-6 % Monocytes Percent Manual 10 2-11 % Neutrophils Absolute Manual 14.9 2.0-8.3 X10*3/uL Lymphocytes Absolute Manual 6.2 1.2-4.9 X10*3/uL Atypical Lymph Absolute Manual 0.5 Monocytes Absolute Manual 2.4 0.1-1.2 X10*3/uL Sm[place] Cells PRESENT Platelet Estimate SLIGHTLY DECREASED NORMAL Giant Platelet PRESENT Platelet Morphology Comment NOTED RBC Morphology NOTED Spherocytes 1+ (0-2) Target Cells 1+ (5-14) Tear Drop Cells 1+ (0-2) [place] Bodies PRESENT Toxic Granulation PRESENT Dohle Bodies PRESENT Moses Cells 1+ (0-2) Comprehensive Met. Panel Reviewed date:10/16/2023 04:01:28 PM Interpretation: Performing Lab:[facility], [address] [place] [phone] Notes/Report: Sodium 139 135-145 mmol/L Potassium 5.8 3.3-5.1 mmol/L Chloride 105 96-108 mmol/L Carbon Dioxide 29 22-29 mmol/L Anion Gap 11 12-20 Blood Urea Nitrogen 15 9-16 mg/dL Creatinine 0.87 0.5-1.4 mg/dL Creatinine Clr Calc Pharmacy 51.8 Provided height and weight: 152.4 cm, 57.3 kg. eGFR (calculated from the MDRD study equation) and eCrCl (calculated from the Cockcroft-Gault equation) are based on different parameters and may not yield comparable results. If eCrCl result is absurd, please check patient's height/weight. Estimated Glomerular Filt Rate > 60 NOTE: For -Macedonian individuals, multiply the result by 1.210. Chronic Kidney Disease: Estimated GFR < 60 mL/min/1.73m2 Severe Kidney Disease: Estimated GFR < 15 mL/min/1.73m2 Glucose Random 95 60-115 mg/dL Calcium 11.3 8.4-10.2 mg/dL Bilirubin Total 0.2 0.0-1.0 mg/dL Aspartate Amino Transferase 18 5-31 U/L Alanine Aminotransferase 50 0-31 U/L Total Protein 7.1 6.5-8.0 g/dL Albumin Level 3.9 3.5-5.0 g/dL Alkaline Phosphatase 215 39-117 U/L Complete Blood Count Auto Di ff Reviewed date:11/01/2023 10:10:14 AM Interpretation: Performing Lab:[facility], [address] [place] [phone] Notes/Report: White Blood Count 14.8 4.8-10.8 X10*3/uL Red Blood Count 4.00 4.20-5.50 X10*6/uL Hemoglobin 11.5 12.0-16.0 g/dl Hematocrit 35.9 37.0-47.0 % Mean Corpuscular Volume 89.8 80.0-98.0 fL Mean Corpuscular Hemoglobin 28.8 27.0-33.0 pg Mean Corpuscular HGB Conc 32.0 31.0-35.0 g/dl Red Cell Distribution Width 15.8 11.0-16.0 % Platelet Count 646 160-400 X10*3/uL Mean Platelet Volume 8.6 9.4-12.3 fL Neutrophils Percent Auto 61.3 45-73 % Imm Gran Pct Auto 1.8 0.0-0.4 % Lymphocytes Percent Auto 26.1 20-40 % Monocytes Percent Auto 8.9 2-11 % Eosinophils Percent Auto 1.2 0-4 % Basophils Percent Auto 0.7 0-2 % NRBC Pct Auto 0.2 0.0-0.2 /100WBC Neutrophils Absolute Auto 9.0 2.0-8.3 x10*3/uL Imm Gran Abs Auto 0.27 0.00-0.03 X10*3/uL Lymphocytes Absolute Auto 3.9 1.2-4.9 X10*3/uL Monocytes Absolute Auto 1.3 0.1-1.2 X10*3/uL Eosinophils Absolute Auto 0.2 0.0-0.4 X10*3/uL Basophils Absolute Auto 0.1 0.0-0.2 X10*3/uL NRBC Abs Auto 0.030 0.0-0.012 X10*3/uL Comprehensive Met. Panel Reviewed date:11/01/2023 10:10:14 AM Interpretation: Performing Lab:[facility], [address] [place] [phone] Notes/Report: Sodium 141 135-145 mmol/L Potassium 5.2 3.3-5.1 mmol/L Chloride 108 96-108 mmol/L Carbon Dioxide 25 22-29 mmol/L Anion Gap 13 12-20 Blood Urea Nitrogen 13 9-16 mg/dL Creatinine 0.87 0.5-1.4 mg/dL Creatinine Clr Calc Pharmacy 51.8 Provided height and weight: 152.4 cm, 57.3 kg. eGFR (calculated from the MDRD study equation) and eCrCl (calculated from the Cockcroft-Gault equation) are based on different parameters and may not yield comparable results. If eCrCl result is absurd, please check patient's height/weight. Estimated Glomerular Filt Rate > 60 NOTE: For -Maced[place] individuals, multiply the result by 1.210. Chronic Kidney Disease: Estimated GFR < 60 mL/min/1.73m2 Severe Kidney Disease: Estimated GFR < 15 mL/min/1.73m2 Glucose Random 123 60-115 mg/dL Calcium 11.2 8.4-10.2 mg/dL Bilirubin Total 0.1 0.0-1.0 mg/dL Aspartate Amino Transferase 59 5-31 U/L Alanine Aminotransferase 81 0-31 U/L Total Protein 7.5 6.5-8.0 g/dL Albumin Level 3.9 3.5-5.0 g/dL Alkaline Phosphatase 177 39-117 U/L Magnesium Reviewed date:11/01/2023 10:10:14 AM Interpretation: Performing Lab:[facility], [address] [place] [phone] Notes/Report: Magnesium 2.2 1.6-2.6 mg/dL Complete Blood Count Auto Di ff Reviewed date:11/01/2023 10:10:14 AM Interpretation: Performing Lab:[facility], [address] [place] [phone] Notes/Report: White Blood Count 11.3 4.8-10.8 X10*3/uL Red Blood Count 3.88 4.20-5.50 X10*6/uL Hemoglobin 11.1 12.0-16.0 g/dl Hematocrit 33.4 37.0-47.0 % Mean Corpuscular Volume 86.1 80.0-98.0 fL Mean Corpuscular Hemoglobin 28.6 27.0-33.0 pg Mean Corpuscular HGB Conc 33.2 31.0-35.0 g/dl Red Cell Distribution Width 15.4 11.0-16.0 % Platelet Count 903 160-400 X10*3/uL Mean Platelet Volume 8.1 9.4-12.3 fL Neutrophils Percent Auto 57.3 45-73 % Imm Gran Pct Auto 0.4 0.0-0.4 % Lymphocytes Percent Auto 27.5 20-40 % Monocytes Percent Auto 12.5 2-11 % Eosinophils Percent Auto 1.1 0-4 % Basophils Percent Auto 1.2 0-2 % NRBC Pct Auto 0.0 0.0-0.2 /100WBC Neutrophils Absolute Auto 6.5 2.0-8.3 x10*3/uL Imm Gran Abs Auto 0.05 0.00-0.03 X10*3/uL Lymphocytes Absolute Auto 3.1 1.2-4.9 X10*3/uL Monocytes Absolute Auto 1.4 0.1-1.2 X10*3/uL Eosinophils Absolute Auto 0.1 0.0-0.4 X10*3/uL Basophils Absolute Auto 0.1 0.0-0.2 X10*3/uL NRBC Abs Auto 0.000 0.0-0.012 X10*3/uL Comprehensive Met. Panel Reviewed date:11/01/2023 10:10:14 AM Interpretation: Performing Lab:[facility], [address] [place] [phone] Notes/Report: Sodium 138 135-145 mmol/L Potassium 3.9 3.3-5.1 mmol/L Chloride 103 96-108 mmol/L Carbon Dioxide 24 22-29 mmol/L Anion Gap 15 12-20 Blood Urea Nitrogen 13 9-16 mg/dL Creatinine 0.84 0.5-1.4 mg/dL Creatinine Clr Calc Pharmacy 53.7 Provided height and weight: 152.4 cm, 57.6 kg. eGFR (calculated from the MDRD study equation) and eCrCl (calculated from the Cockcroft-Gault equation) are based on different parameters and may not yield comparable results. If eCrCl result is absurd, please check patient's height/weight. Estimated Glomerular Filt Rate > 60 NOTE: For -Maced[place] individuals, multiply the result by 1.210. Chronic Kidney Disease: Estimated GFR < 60 mL/min/1.73m2 Severe Kidney Disease: Estimated GFR < 15 mL/min/1.73m2 Glucose Random 117 60-115 mg/dL Calcium 10.9 8.4-10.2 mg/dL Bilirubin Total 0.4 0.0-1.0 mg/dL Aspartate Amino Transferase 16 5-31 U/L Alanine Aminotransferase 30 0-31 U/L Total Protein 7.6 6.5-8.0 g/dL Albumin Level 3.9 3.5-5.0 g/dL Alkaline Phosphatase 149 39-117 U/L Magnesium Reviewed date:11/01/2023 10:10:14 AM Interpretation: Performing Lab:[facility], [address] [place] [phone] Notes/Report: Magnesium 2.0 1.6-2.6 mg/dL US soft tiss head and/or nec k Reviewed date:11/08/2023 10:10:51 AM Interpretation: Performing Lab: Notes/Report: [address] [address] Ultrasound Report Signed Patient: Lily Jacques MR#: [id number] [birth year] : 1960 Acct:[id number] Age/Sex: 63 / F ADM Date: 10/30/23 Loc: HO.US Attending Dr: Rafael Hall MD Ordering Physician: Rafael Hall MD Date of Service: 10/30/23 Procedure(s): US soft tiss head and/or neck Accession Number(s): [id number] cc: Horace Lima MD; Rafael Hall MD EXAMINATION: US SOFT TISSUE HEAD/NECK CLINICAL INFORMATION: Bilateral neck pain. COMPARISON: CT soft tissue neck with contrast dated 06/05/2017. TECHNIQUE: Linear transducer chan-scale and color Doppler examination of the soft tissues of the neck. FINDINGS: The cutaneous, subcutaneous, muscular and fascial planes are unremarkable. No mass or fluid collection is seen. There is no lymphadenopathy. No foreign body is noted. US/US soft tiss head and/or neck IMPRESSION: Unremarkable examination. Dictated By: Rod Schumacher MD Signed By: <Electronically signed by Rod Schumacher MD in OV> 11/01/23 2246 DD/ 1315 TD/TT: Parenting Skills Instructor: [address] [address] Ultrasound Report Signed Patient: Arnoldo Jacques MR#: [id number] [birth year] : 1960 Acct:[id number] Age/Sex: 63 / F ADM Date: 10/30/23 Loc: HO.US Attending Dr: Sofia Hall MD Ordering Physician: Rafael Hall MD Date of Service: 10/30/23 Procedure(s): US sof t tiss head and/or neck Accession Number(s): [id number] cc: Horace Lima MD; Rafael Hall MD EXAMINATION: US SOFT TISSUE HEAD/NECK CLINICAL INFORMATION: Bilateral neck pain. COMPARISON: CT soft tissue neck with contrast dated 06/05/2017. TECHNIQUE: Linear transducer chan-scale and color Doppler examination of the soft tissues of the neck. FINDINGS: The cutaneous, subcutaneous, muscular and fascial planes are unremarkable. No mass or fluid collection is seen. There is no lymphadenopathy. No foreign body is noted. U S/US soft tiss head and/or neck IMPRESSION: Unremarkable examination. Dictated By: Andrzej Schumacher MD Signed By: <Electronically signed by Rod Schumacher MD in OV> 11/01/23 2246 DD/ 1315 TD/TT: Economic Development Manager ist: BRITNEY Complete Blood Count Auto Di ff Reviewed date:11/01/2023 10:10:14 AM Interpretation: Performing Lab:[facility], [address] [place] [phone] Notes/Report: White Blood Count 89.5 4.8-10.8 X10*3/uL Critical WBC called to and read back by ACER on 10/31/23 at 1046 by MISSAEL. CBC REPEATED Red Blood Count 3.55 4.20-5.50 X10*6/uL Hemoglobin 10.3 12.0-16.0 g/dl Hematocrit 30.4 37.0-47.0 % Mean Corpuscular Volume 85.6 80.0-98.0 fL Mean Corpuscular Hemoglobin 29.0 27.0-33.0 pg Mean Corpuscular HGB Conc 33.9 31.0-35.0 g/dl Red Cell Distribution Width 15.7 11.0-16.0 % Platelet Count 711 160-400 X10*3/uL Mean Platelet Volume 8.6 9.4-12.3 fL Neutrophils Percent Auto 88.2 45-73 % Imm Gran Pct Auto 6.8 0.0-0.4 % Lymphocytes Percent Auto 1.0 20-40 % Monocytes Percent Auto 4.0 2-11 % Eosinophils Percent Auto 0.0 0-4 % Basophils Percent Auto 0.0 0-2 % NRBC Pct Auto 0.0 0.0-0.2 /100WBC Neutrophils Absolute Auto 78.9 2.0-8.3 x10*3/uL Imm Gran Abs Auto 6.11 0.00-0.03 X10*3/uL Lymphocytes Absolute Auto 0.9 1.2-4.9 X10*3/uL Monocytes Absolute Auto 3.6 0.1-1.2 X10*3/uL Eosinophils Absolute Auto 0.0 0.0-0.4 X10*3/uL Basophils Absolute Auto 0.0 0.0-0.2 X10*3/uL NRBC Abs Auto 0.020 0.0-0.012 X10*3/uL CO RRECTED REPORT Complete Blood Count Man Dif Reviewed date:11/01/2023 10:10:14 AM Interpretation: Performing Lab:[facility], [address] [place] [phone] Notes/Report: White Blood Count 89.5 4.8-10.8 X10*3/uL Critical WBC called to and read back by SILVIA on 10/31/23 at 1046 by MISSAEL. CBC REPEATED Red Blood Count 3.55 4.20-5.50 X10*6/uL Hemoglobin 10.3 12.0-16.0 g/dl Hematocrit 30.4 37.0-47.0 % Mean Corpuscular Volume 85.6 80.0-98.0 fL Mean Corpuscular Hemoglobin 29.0 27.0-33.0 pg Mean Corpuscular HGB Conc 33.9 31.0-35.0 g/dl Red Cell Distribution Width 15.7 11.0-16.0 % Platelet Count 711 160-400 X10*3/uL Mean Platelet Volume 8.6 9.4-12.3 fL NRBC Pct Auto 0.0 0.0-0.2 /100WBC NRBC Abs Auto 0.020 0.0-0.012 X10*3/uL Neutrophils Percent Manual 82 45-73 % Band Neutrophils Percent 13 3-5 % Lymphocytes Percent Manual 3 20-40 % Monocytes Percent Manual 2 2-11 % Neutrophils Absolute Manual 85.0 2.0-8.3 X10*3/uL Lymphocytes Absolute Manual 2.7 1.2-4.9 X10*3/uL Monocytes Absolute Manual 1.8 0.1-1.2 X10*3/uL Platelet Estimate INCREASED NORMAL Large Platelet PRESENT Giant Platelet PRESENT Platelet Morphology Comment NOTED RBC Morphology NORMAL Schistocytes 1+ (0-2) Comprehensive Met. Panel Reviewed date:11/01/2023 10:10:14 AM Interpretation: Performing Lab:[facility], [address] [place] [phone] Notes/Report: Sodium 137 135-145 mmol/L Potassium 4.9 3.3-5.1 mmol/L Chloride 104 96-108 mmol/L Carbon Dioxide 22 22-29 mmol/L Anion Gap 16 12-20 Blood Urea Nitrogen 26 9-16 mg/dL Creatinine 0.99 0.5-1.4 mg/dL Creatinine Clr Calc Pharmacy 45.6 Provided height and weight: 152.4 cm, 57.6 kg. eGFR (calculated from the MDRD study equation) and eCrCl (calculated from the Cockcroft-Gault equation) are based on different parameters and may not yield comparable results. If eCrCl result is absurd, please check patient's height/weight. Estimated Glomerular Filt Rate 56 NOTE: For -Macedonian individuals, multiply the result by 1.210. Chronic Kidney Disease: Estimated GFR < 60 mL/min/1.73m2 Severe Kidney Disease: Estimated GFR < 15 mL/min/1.73m2 Glucose Random 110 60-115 mg/dL Calcium 11.4 8.4-10.2 mg/dL Bilirubin Total 0.3 0.0-1.0 mg/dL Aspartate Amino Transferase 38 5-31 U/L Alanine Aminotransferase 112 0-31 U/L Total Protein 7.6 6.5-8.0 g/dL Albumin Level 4.0 3.5-5.0 g/dL Alkaline Phosphatase 155 39-117 U/L Complete Blood Count Man Dif Reviewed date:11/08/2023 10:10:51 AM Interpretation: Performing Lab:[facility], [address] [place] [phone] Notes/Report: White Blood Count 21.1 4.8-10.8 X10*3/uL Red Blood Count 3.81 4.20-5.50 X10*6/uL Hemoglobin 10.9 12.0-16.0 g/dl Hematocrit 32.3 37.0-47.0 % Mean Corpuscular Volume 84.8 80.0-98.0 fL Mean Corpuscular Hemoglobin 28.6 27.0-33.0 pg Mean Corpuscular HGB Conc 33.7 31.0-35.0 g/dl Red Cell Distribution Width 15.7 11.0-16.0 % Platelet Count 285 160-400 X10*3/uL Mean Platelet Volume 9.2 9.4-12.3 fL NRBC Pct Auto 0.4 0.0-0.2 /100WBC NRBC Abs Auto 0.080 0.0-0.012 X10*3/uL Neutrophils Percent Manual 67 45-73 % Band Neutrophils Percent 2 3-5 % Lymphocytes Percent Manual 26 20-40 % Monocytes Percent Manual 1 2-11 % Eosinophils Percent Manual 4 0-4 % Neutrophils Absolute Manual 14.6 2.0-8.3 X10*3/uL Lymphocytes Absolute Manual 5.5 1.2-4.9 X10*3/uL Monocytes Absolute Manual 0.2 0.1-1.2 X10*3/uL Eosinophils Absolute Manual 0.8 0.0-0.4 X10*3/uL Nucleated Red Blood Cells 1 0-0 /100WBC Platelet Estimate NORMAL NORMAL Platelet Morphology Comment NORM RBC Morphology NOTED Hypochromasia 1+ (5-14) Target Cells 1+ (5-14) [place] Bodies PRESENT Dohle Bodies PRESENT [place] Cells 1+ (0-2) Comprehensive Met. Panel Reviewed date:11/08/2023 10:10:50 AM Interpretation: Performing Lab:[facility], [address] [place] [phone] Notes/Report: Sodium 139 135-145 mmol/L Potassium 4.5 3.3-5.1 mmol/L Chloride 105 96-108 mmol/L Carbon Dioxide 25 22-29 mmol/L Anion Gap 14 12-20 Blood Urea Nitrogen 22 9-16 mg/dL Creatinine 0.89 0.5-1.4 mg/dL Creatinine Clr Calc Pharmacy 50.7 Provided height and weight: 152.4 cm, 57.6 kg. eGFR (calculated from the MDRD study equation) and eCrCl (calculated from the Cockcroft-Gault equation) are based on different parameters and may not yield comparable results. If eCrCl result is absurd, please check patient's height/weight. Estimated Glomerular Filt Rate > 60 NOTE: For -Macedonian individuals, multiply the result by 1.210. Chronic Kidney Disease: Estimated GFR < 60 mL/min/1.73m2 Severe Kidney Disease: Estimated GFR < 15 mL/min/1.73m2 Glucose Random 79 60-115 mg/dL Calcium 10.8 8.4-10.2 mg/dL Bilirubin Total 0.3 0.0-1.0 mg/dL Aspartate Amino Transferase 24 5-31 U/L Alanine Aminotransferase 57 0-31 U/L Total Protein 6.8 6.5-8.0 g/dL Albumin Level 3.8 3.5-5.0 g/dL Alkaline Phosphatase 278 39-117 U/L Complete Blood Count Man Dif Reviewed date:11/08/2023 10:10:50 AM Interpretation: Performing Lab:[facility], [address] [place] [phone] Notes/Report: White Blood Count 44.7 4.8-10.8 X10*3/uL Test was verified by repeat analysis. Results of WBC called to and read back by MARTÍN on 11/05/23 at 1020 by DEX. Red Blood Count 3.69 4.20-5.50 X10*6/uL Hemoglobin 10.5 12.0-16.0 g/dl Hematocrit 32.4 37.0-47.0 % Mean Corpuscular Volume 87.8 80.0-98.0 fL Mean Corpuscular Hemoglobin 28.5 27.0-33.0 pg Mean Corpuscular HGB Conc 32.4 31.0-35.0 g/dl Red Cell Distribution Width 16.0 11.0-16.0 % Platelet Count 134 160-400 X10*3/uL Mean Platelet Volume 11.6 9.4-12.3 fL NRBC Pct Auto 0.3 0.0-0.2 /100WBC NRBC Abs Auto 0.120 0.0-0.012 X10*3/uL Neutrophils Percent Manual 64 45-73 % Band Neutrophils Percent 9 3-5 % Lymphocytes Percent Manual 19 20-40 % Monocytes Percent Manual 6 2-11 % Metamyelocytes Percent 2 Neutrophils Absolute Manual 32.6 2.0-8.3 X10*3/uL Lymphocytes Absolute Manual 8.5 1.2-4.9 X10*3/uL Monocytes Absolute Manual 2.7 0.1-1.2 X10*3/uL Metamyelocytes Absolute 0.9 Nucleated Red Blood Cells 1 0-0 /100WBC Platelet Estimate SLIGHTLY DECREASED NORMAL Large Platelet PRESENT Platelet Morphology Comment NOTED RBC Morphology NOTED Polychromasia 1+ (0-2) Hypochromasia 1+ (5-14) Target Cells 1+ (5-14) [place] Bodies PRESENT Dohle Bodies PRESENT [place] Cells 1+ (0-2) Comprehensive Met. Panel Reviewed date:11/08/2023 10:10:50 AM Interpretation: Performing Lab:[facility], [address] [place] [phone] Notes/Report: Sodium 140 135-145 mmol/L Potassium 5.3 3.3-5.1 mmol/L Chloride 107 96-108 mmol/L Carbon Dioxide 29 22-29 mmol/L Anion Gap 9 12-20 Blood Urea Nitrogen 13 9-16 mg/dL Creatinine 0.90 0.5-1.4 mg/dL Creatinine Clr Calc Pharmacy 50.2 Provided height and weight: 152.4 cm, 57.6 kg. eGFR (calculated from the MDRD study equation) and eCrCl (calculated from the Cockcroft-Gault equation) are based on different parameters and may not yield comparable results. If eCrCl result is absurd, please check patient's height/weight. Estimated Glomerular Filt Rate > 60 NOTE: For -[place] individuals, multiply the result by 1.210. Chronic Kidney Disease: Estimated GFR < 60 mL/min/1.73m2 Severe Kidney Disease: Estimated GFR < 15 mL/min/1.73m2 Glucose Random 99 60-115 mg/dL Calcium 10.6 8.4-10.2 mg/dL Bilirubin Total 0.1 0.0-1.0 mg/dL Aspartate Amino Transferase 15 5-31 U/L Alanine Aminotransferase 27 0-31 U/L Total Protein 7.1 6.5-8.0 g/dL Albumin Level 3.8 3.5-5.0 g/dL Alkaline Phosphatase 402 39-117 U/L Complete Blood Count Auto Di ff Reviewed date:11/11/2023 01:31:30 PM Interpretation: Performing Lab:[facility], [address] [place] [phone] Notes/Report: White Blood Count 28.4 4.8-10.8 X10*3/uL Red Blood Count 3.44 4.20-5.50 X10*6/uL Hemoglobin 9.9 12.0-16.0 g/dl Hematocrit 30.6 37.0-47.0 % Mean Corpuscular Volume 89.0 80.0-98.0 fL Mean Corpuscular Hemoglobin 28.8 27.0-33.0 pg Mean Corpuscular HGB Conc 32.4 31.0-35.0 g/dl Red Cell Distribution Width 17.1 11.0-16.0 % Platelet Count 299 160-400 X10*3/uL Mean Platelet Volume 10.6 9.4-12.3 fL Neutrophils Percent Auto 69.2 45-73 % Imm Gran Pct Auto 3.9 0.0-0.4 % Lymphocytes Percent Auto 17.0 20-40 % Monocytes Percent Auto 9.1 2-11 % Eosinophils Percent Auto 0.4 0-4 % Basophils Percent Auto 0.4 0-2 % NRBC Pct Auto 0.4 0.0-0.2 /100WBC Neutrophils Absolute Auto 19.7 2.0-8.3 x10*3/uL Imm Gran Abs Auto 1.11 0.00-0.03 X10*3/uL Lymphocytes Absolute Auto 4.8 1.2-4.9 X10*3/uL Monocytes Absolute Auto 2.6 0.1-1.2 X10*3/uL Eosinophils Absolute Auto 0.1 0.0-0.4 X10*3/uL Basophils Absolute Auto 0.1 0.0-0.2 X10*3/uL NRBC Abs Auto 0.110 0.0-0.012 X10*3/uL White Blood Count 28.4 4.8-10.8 X10*3/uL Red Blood Count 3.44 4.20-5.50 X10*6/uL Hemoglobin 9.9 12.0-16.0 g/dl Hematocrit 30.6 37.0-47.0 % Mean Corpuscular Volume 89.0 80.0-98.0 fL Mean Corpuscular Hemoglobin 28.8 27.0-33.0 pg Mean Corpuscular HGB Conc 32.4 31.0-35.0 g/dl Red Cell Distribution Width 17.1 11.0-16.0 % Platelet Count 299 160-400 X10*3/uL Mean Platelet Volume 10.6 9.4-12.3 fL Neutrophils Percent Auto 69.2 45-73 % Imm Gran Pct Auto 3.9 0.0-0.4 % Lymphocytes Percent Auto 17.0 20-40 % Monocytes Percent Auto 9.1 2-11 % Eosinophils Percent Auto 0.4 0-4 % Basophils Percent Auto 0.4 0-2 % NRBC Pct Auto 0.4 0.0-0.2 /100WBC Neutrophils Absolute Auto 19.7 2.0-8.3 x10*3/uL Imm Gran Abs Auto 1.11 0.00-0.03 X10*3/uL Lymphocytes Absolute Auto 4.8 1.2-4.9 X10*3/uL Monocytes Absolute Auto 2.6 0.1-1.2 X10*3/uL Eosinophils Absolute Auto 0.1 0.0-0.4 X10*3/uL Basophils Absolute Auto 0.1 0.0-0.2 X10*3/uL NRBC Abs Auto 0.110 0.0-0.012 X10*3/uL CO RRECTED REPORT CO RRECTED REPORT Comprehensive Met. Panel Reviewed date:11/11/2023 01:31:30 PM Interpretation: Performing Lab:[facility], [address] [place] [phone] Notes/Report: Sodium 145 135-145 mmol/L Potassium 4.9 3.3-5.1 mmol/L Chloride 110 96-108 mmol/L Carbon Dioxide 26 22-29 mmol/L Anion Gap 14 12-20 Blood Urea Nitrogen 14 9-16 mg/dL Creatinine 0.87 0.5-1.4 mg/dL Creatinine Clr Calc Pharmacy 51.9 Provided height and weight: 152.4 cm, 57.6 kg. eGFR (calculated from the MDRD study equation) and eCrCl (calculated from the Cockcroft-Gault equation) are based on different parameters and may not yield comparable results. If eCrCl result is absurd, please check patient's height/weight. Estimated Glomerular Filt Rate > 60 NOTE: For -[place]aced[place] individuals, multiply the result by 1.210. Chronic Kidney Disease: Estimated GFR < 60 mL/min/1.73m2 Severe Kidney Disease: Estimated GFR < 15 mL/min/1.73m2 Glucose Random 113 60-115 mg/dL Calcium 10.6 8.4-10.2 mg/dL Bilirubin Total 0.1 0.0-1.0 mg/dL Aspartate Amino Transferase 15 5-31 U/L Alanine Aminotransferase 20 0-31 U/L Total Protein 6.9 6.5-8.0 g/dL Albumin Level 3.7 3.5-5.0 g/dL Alkaline Phosphatase 181 39-117 U/L SLIDE REVIEW Reviewed date:11/11/2023 01:31:30 PM Interpretation: Performing Lab:[facility], [address] [place] [phone] Notes/Report: SLIDE REVIEW VERIFIED Complete Blood Count Auto Di ff Reviewed date:11/14/2023 04:17:55 PM Interpretation: Performing Lab:[facility], [address] [place] [phone] Notes/Report: White Blood Count 19.8 4.8-10.8 X10*3/uL Red Blood Count 3.93 4.20-5.50 X10*6/uL Hemoglobin 11.4 12.0-16.0 g/dl Hematocrit 34.9 37.0-47.0 % Mean Corpuscular Volume 88.8 80.0-98.0 fL Mean Corpuscular Hemoglobin 29.0 27.0-33.0 pg Mean Corpuscular HGB Conc 32.7 31.0-35.0 g/dl Red Cell Distribution Width 17.2 11.0-16.0 % Platelet Count 459 160-400 X10*3/uL Mean Platelet Volume 10.0 9.4-12.3 fL Neutrophils Percent Auto 70.2 45-73 % Imm Gran Pct Auto 2.4 0.0-0.4 % Lymphocytes Percent Auto 15.9 20-40 % Monocytes Percent Auto 10.3 2-11 % Eosinophils Percent Auto 0.5 0-4 % Basophils Percent Auto 0.7 0-2 % NRBC Pct Auto 0.1 0.0-0.2 /100WBC Neutrophils Absolute Auto 13.9 2.0-8.3 x10*3/uL Imm Gran Abs Auto 0.48 0.00-0.03 X10*3/uL Lymphocytes Absolute Auto 3.1 1.2-4.9 X10*3/uL Monocytes Absolute Auto 2.0 0.1-1.2 X10*3/uL Eosinophils Absolute Auto 0.1 0.0-0.4 X10*3/uL Basophils Absolute Auto 0.1 0.0-0.2 X10*3/uL NRBC Abs Auto 0.020 0.0-0.012 X10*3/uL White Blood Count 19.8 4.8-10.8 X10*3/uL Red Blood Count 3.93 4.20-5.50 X10*6/uL Hemoglobin 11.4 12.0-16.0 g/dl Hematocrit 34.9 37.0-47.0 % Mean Corpuscular Volume 88.8 80.0-98.0 fL Mean Corpuscular Hemoglobin 29.0 27.0-33.0 pg Mean Corpuscular HGB Conc 32.7 31.0-35.0 g/dl Red Cell Distribution Width 17.2 11.0-16.0 % Platelet Count 459 160-400 X10*3/uL Mean Platelet Volume 10.0 9.4-12.3 fL Neutrophils Percent Auto 70.2 45-73 % Imm Gran Pct Auto 2.4 0.0-0.4 % Lymphocytes Percent Auto 15.9 20-40 % Monocytes Percent Auto 10.3 2-11 % Eosinophils Percent Auto 0.5 0-4 % Basophils Percent Auto 0.7 0-2 % NRBC Pct Auto 0.1 0.0-0.2 /100WBC Neutrophils Absolute Auto 13.9 2.0-8.3 x10*3/uL Imm Gran Abs Auto 0.48 0.00-0.03 X10*3/uL Lymphocytes Absolute Auto 3.1 1.2-4.9 X10*3/uL Monocytes Absolute Auto 2.0 0.1-1.2 X10*3/uL Eosinophils Absolute Auto 0.1 0.0-0.4 X10*3/uL Basophils Absolute Auto 0.1 0.0-0.2 X10*3/uL NRBC Abs Auto 0.020 0.0-0.012 X10*3/uL White Blood Count 19.8 4.8-10.8 X10*3/uL Red Blood Count 3.93 4.20-5.50 X10*6/uL Hemoglobin 11.4 12.0-16.0 g/dl Hematocrit 34.9 37.0-47.0 % Mean Corpuscular Volume 88.8 80.0-98.0 fL Mean Corpuscular Hemoglobin 29.0 27.0-33.0 pg Mean Corpuscular HGB Conc 32.7 31.0-35.0 g/dl Red Cell Distribution Width 17.2 11.0-16.0 % Platelet Count 459 160-400 X10*3/uL Mean Platelet Volume 10.0 9.4-12.3 fL Neutrophils Percent Auto 70.2 45-73 % Imm Gran Pct Auto 2.4 0.0-0.4 % Lymphocytes Percent Auto 15.9 20-40 % Monocytes Percent Auto 10.3 2-11 % Eosinophils Percent Auto 0.5 0-4 % Basophils Percent Auto 0.7 0-2 % NRBC Pct Auto 0.1 0.0-0.2 /100WBC Neutrophils Absolute Auto 13.9 2.0-8.3 x10*3/uL Imm Gran Abs Auto 0.48 0.00-0.03 X10*3/uL Lymphocytes Absolute Auto 3.1 1.2-4.9 X10*3/uL Monocytes Absolute Auto 2.0 0.1-1.2 X10*3/uL Eosinophils Absolute Auto 0.1 0.0-0.4 X10*3/uL Basophils Absolute Auto 0.1 0.0-0.2 X10*3/uL NRBC Abs Auto 0.020 0.0-0.012 X10*3/uL CO RRECTED REPORT CO RRECTED REPORT Comprehensive Met. Panel Reviewed date:11/14/2023 04:17:55 PM Interpretation: Performing Lab:[facility], [address] [place] [phone] Notes/Report: Sodium 139 135-145 mmol/L Potassium 5.5 3.3-5.1 mmol/L Chloride 104 96-108 mmol/L Carbon Dioxide 26 22-29 mmol/L Anion Gap 15 12-20 Blood Urea Nitrogen 17 9-16 mg/dL Creatinine 1.10 0.5-1.4 mg/dL Creatinine Clr Calc Pharmacy 41.1 Provided height and weight: 152.4 cm, 57.6 kg. eGFR (calculated from the MDRD study equation) and eCrCl (calculated from the Cockcroft-Gault equation) are based on different parameters and may not yield comparable results. If eCrCl result is absurd, please check patient's height/weight. Estimated Glomerular Filt Rate 50 NOTE: For -[place]aced[place] individuals, multiply the result by 1.210. Chronic Kidney Disease: Estimated GFR < 60 mL/min/1.73m2 Severe Kidney Disease: Estimated GFR < 15 mL/min/1.73m2 Glucose Random 111 60-115 mg/dL Calcium 11.4 8.4-10.2 mg/dL Bilirubin Total 0.2 0.0-1.0 mg/dL Aspartate Amino Transferase 10 5-31 U/L Alanine Aminotransferase 14 0-31 U/L Total Protein 7.9 6.5-8.0 g/dL Albumin Level 4.0 3.5-5.0 g/dL Alkaline Phosphatase 173 39-117 U/L SLIDE REVIEW Reviewed date:11/14/2023 04:17:55 PM Interpretation: Performing Lab:[facility], [address] [place] [phone] Notes/Report: SLIDE REVIEW VERIFIED Complete Blood Count Auto Di ff Reviewed date:11/14/2023 04:17:55 PM Interpretation: Performing Lab:[facility], [address] [place] [phone] Notes/Report: White Blood Count 14.4 4.8-10.8 X10*3/uL Red Blood Count 4.10 4.20-5.50 X10*6/uL Hemoglobin 11.6 12.0-16.0 g/dl Hematocrit 35.8 37.0-47.0 % Mean Corpuscular Volume 87.3 80.0-98.0 fL Mean Corpuscular Hemoglobin 28.3 27.0-33.0 pg Mean Corpuscular HGB Conc 32.4 31.0-35.0 g/dl Red Cell Distribution Width 16.5 11.0-16.0 % Platelet Count 557 160-400 X10*3/uL Mean Platelet Volume 9.4 9.4-12.3 fL Neutrophils Percent Auto 62.9 45-73 % Imm Gran Pct Auto 0.8 0.0-0.4 % Lymphocytes Percent Auto 22.1 20-40 % Monocytes Percent Auto 12.6 2-11 % Eosinophils Percent Auto 0.8 0-4 % Basophils Percent Auto 0.8 0-2 % NRBC Pct Auto 0.1 0.0-0.2 /100WBC Neutrophils Absolute Auto 9.1 2.0-8.3 x10*3/uL Imm Gran Abs Auto 0.12 0.00-0.03 X10*3/uL Lymphocytes Absolute Auto 3.2 1.2-4.9 X10*3/uL Monocytes Absolute Auto 1.8 0.1-1.2 X10*3/uL Eosinophils Absolute Auto 0.1 0.0-0.4 X10*3/uL Basophils Absolute Auto 0.1 0.0-0.2 X10*3/uL NRBC Abs Auto 0.020 0.0-0.012 X10*3/uL White Blood Count 14.4 4.8-10.8 X10*3/uL Red Blood Count 4.10 4.20-5.50 X10*6/uL Hemoglobin 11.6 12.0-16.0 g/dl Hematocrit 35.8 37.0-47.0 % Mean Corpuscular Volume 87.3 80.0-98.0 fL Mean Corpuscular Hemoglobin 28.3 27.0-33.0 pg Mean Corpuscular HGB Conc 32.4 31.0-35.0 g/dl Red Cell Distribution Width 16.5 11.0-16.0 % Platelet Count 557 160-400 X10*3/uL Mean Platelet Volume 9.4 9.4-12.3 fL Neutrophils Percent Auto 62.9 45-73 % Imm Gran Pct Auto 0.8 0.0-0.4 % Lymphocytes Percent Auto 22.1 20-40 % Monocytes Percent Auto 12.6 2-11 % Eosinophils Percent Auto 0.8 0-4 % Basophils Percent Auto 0.8 0-2 % NRBC Pct Auto 0.1 0.0-0.2 /100WBC Neutrophils Absolute Auto 9.1 2.0-8.3 x10*3/uL Imm Gran Abs Auto 0.12 0.00-0.03 X10*3/uL Lymphocytes Absolute Auto 3.2 1.2-4.9 X10*3/uL Monocytes Absolute Auto 1.8 0.1-1.2 X10*3/uL Eosinophils Absolute Auto 0.1 0.0-0.4 X10*3/uL Basophils Absolute Auto 0.1 0.0-0.2 X10*3/uL NRBC Abs Auto 0.020 0.0-0.012 X10*3/uL CO RRECTED REPORT CO RRECTED REPORT SLIDE REVIEW Reviewed date:11/14/2023 04:17:55 PM Interpretation: Performing Lab:[facility], [address] [place] [phone] Notes/Report: SLIDE REVIEW VERIFIED Complete Blood Count Auto Di ff Reviewed date:12/02/2023 07:03:10 AM Interpretation: Performing Lab:[facility], [address] [place] [phone] Notes/Report: White Blood Count 10.5 4.8-10.8 X10*3/uL Red Blood Count 3.69 4.20-5.50 X10*6/uL Hemoglobin 10.6 12.0-16.0 g/dl Hematocrit 32.7 37.0-47.0 % Mean Corpuscular Volume 88.6 80.0-98.0 fL Mean Corpuscular Hemoglobin 28.7 27.0-33.0 pg Mean Corpuscular HGB Conc 32.4 31.0-35.0 g/dl Red Cell Distribution Width 16.2 11.0-16.0 % Platelet Count 458 160-400 X10*3/uL Mean Platelet Volume 9.2 9.4-12.3 fL Neutrophils Percent Auto 49.5 45-73 % Imm Gran Pct Auto 0.4 0.0-0.4 % Lymphocytes Percent Auto 32.9 20-40 % Monocytes Percent Auto 15.0 2-11 % Eosinophils Percent Auto 1.0 0-4 % Basophils Percent Auto 1.2 0-2 % NRBC Pct Auto 0.0 0.0-0.2 /100WBC Neutrophils Absolute Auto 5.2 2.0-8.3 x10*3/uL Imm Gran Abs Auto 0.04 0.00-0.03 X10*3/uL Lymphocytes Absolute Auto 3.5 1.2-4.9 X10*3/uL Monocytes Absolute Auto 1.6 0.1-1.2 X10*3/uL Eosinophils Absolute Auto 0.1 0.0-0.4 X10*3/uL Basophils Absolute Auto 0.1 0.0-0.2 X10*3/uL NRBC Abs Auto 0.000 0.0-0.012 X10*3/uL White Blood Count 10.5 4.8-10.8 X10*3/uL Red Blood Count 3.69 4.20-5.50 X10*6/uL Hemoglobin 10.6 12.0-16.0 g/dl Hematocrit 32.7 37.0-47.0 % Mean Corpuscular Volume 88.6 80.0-98.0 fL Mean Corpuscular Hemoglobin 28.7 27.0-33.0 pg Mean Corpuscular HGB Conc 32.4 31.0-35.0 g/dl Red Cell Distribution Width 16.2 11.0-16.0 % Platelet Count 458 160-400 X10*3/uL Mean Platelet Volume 9.2 9.4-12.3 fL Neutrophils Percent Auto 49.5 45-73 % Imm Gran Pct Auto 0.4 0.0-0.4 % Lymphocytes Percent Auto 32.9 20-40 % Monocytes Percent Auto 15.0 2-11 % Eosinophils Percent Auto 1.0 0-4 % Basophils Percent Auto 1.2 0-2 % NRBC Pct Auto 0.0 0.0-0.2 /100WBC Neutrophils Absolute Auto 5.2 2.0-8.3 x10*3/uL Imm Gran Abs Auto 0.04 0.00-0.03 X10*3/uL Lymphocytes Absolute Auto 3.5 1.2-4.9 X10*3/uL Monocytes Absolute Auto 1.6 0.1-1.2 X10*3/uL Eosinophils Absolute Auto 0.1 0.0-0.4 X10*3/uL Basophils Absolute Auto 0.1 0.0-0.2 X10*3/uL NRBC Abs Auto 0.000 0.0-0.012 X10*3/uL CO RRECTED REPORT CO RRECTED REPORT Comprehensive Met. Panel Reviewed date:12/02/2023 07:03:10 AM Interpretation: Performing Lab:[facility], [address] [place] [phone] Notes/Report: Sodium 133 135-145 mmol/L Potassium 6.3 3.3-5.1 mmol/L Critical value for test(s): POTS Results called to and read back by: BILLY Person calling: SULLIVV Date: 11/16/2023 Time:10:17 Chloride 101 96-108 mmol/L Carbon Dioxide 23 22-29 mmol/L Anion Gap 15 12-20 Blood Urea Nitrogen 15 9-16 mg/dL Creatinine 0.93 0.5-1.4 mg/dL Creatinine Clr Calc Pharmacy 48.5 Provided height and weight: 152.4 cm, 57.6 kg. eGFR (calculated from the MDRD study equation) and eCrCl (calculated from the Cockcroft-Gault equation) are based on different parameters and may not yield comparable results. If eCrCl result is absurd, please check patient's height/weight. Estimated Glomerular Filt Rate > 60 NOTE: For -[place]aced[place] individuals, multiply the result by 1.210. Chronic Kidney Disease: Estimated GFR < 60 mL/min/1.73m2 Severe Kidney Disease: Estimated GFR < 15 mL/min/1.73m2 Glucose Random 104 60-115 mg/dL Calcium 11.5 8.4-10.2 mg/dL Bilirubin Total 0.4 0.0-1.0 mg/dL Aspartate Amino Transferase 9 5-31 U/L Alanine Aminotransferase 10 0-31 U/L Total Protein 7.4 6.5-8.0 g/dL Albumin Level 3.9 3.5-5.0 g/dL Alkaline Phosphatase 137 39-117 U/L SLIDE REVIEW Reviewed date:12/02/2023 07:03:10 AM Interpretation: Performing Lab:[facility], [address] [place] [phone] Notes/Report: SLIDE REVIEW VERIFIED Complete Blood Count Man Dif Reviewed date:12/02/2023 07:03:10 AM Interpretation: Performing Lab:[facility], [address] [place] [phone] Notes/Report: White Blood Count 9.1 4.8-10.8 X10*3/uL Red Blood Count 3.44 4.20-5.50 X10*6/uL Hemoglobin 10.0 12.0-16.0 g/dl Hematocrit 30.8 37.0-47.0 % Mean Corpuscular Volume 89.5 80.0-98.0 fL Mean Corpuscular Hemoglobin 29.1 27.0-33.0 pg Mean Corpuscular HGB Conc 32.5 31.0-35.0 g/dl Red Cell Distribution Width 15.9 11.0-16.0 % Platelet Count 290 160-400 X10*3/uL Mean Platelet Volume 9.9 9.4-12.3 fL NRBC Pct Auto 0.0 0.0-0.2 /100WBC NRBC Abs Auto 0.000 0.0-0.012 X10*3/uL Neutrophils Percent Manual 64 45-73 % Band Neutrophils Percent 0 3-5 % Lymphocytes Percent Manual 22 20-40 % Atypical Lymphs Percent Manual 3 0-6 % Monocytes Percent Manual 9 2-11 % Basophils Percent Manual 2 0-2 % Neutrophils Absolute Manual 5.8 2.0-8.3 X10*3/uL Lymphocytes Absolute Manual 2.0 1.2-4.9 X10*3/uL Atypical Lymph Absolute Manual 0.3 Monocytes Absolute Manual 0.8 0.1-1.2 X10*3/uL Basophils Abs Manual 0.2 0.0-0.2 X10*3/uL Platelet Estimate NORMAL NORMAL Large Platelet PRESENT Platelet Morphology Comment NOTED RBC Morphology NOTED Hypochromasia 1+ (5-14) Target Cells 1+ (5-14) [place] Bodies PRESENT Comprehensive Met. Panel Reviewed date:12/02/2023 07:03:10 AM Interpretation: Performing Lab:[facility], [address] [place] [phone] Notes/Report: Sodium 138 135-145 mmol/L Potassium 4.5 3.3-5.1 mmol/L Chloride 105 96-108 mmol/L Carbon Dioxide 25 22-29 mmol/L Anion Gap 13 12-20 Blood Urea Nitrogen 19 9-16 mg/dL Creatinine 1.09 0.5-1.4 mg/dL Creatinine Clr Calc Pharmacy 41.8 Provided height and weight: 152.4 cm, 59 kg. eGFR (calculated from the MDRD study equation) and eCrCl (calculated from the Cockcroft-Gault equation) are based on different parameters and may not yield comparable results. If eCrCl result is absurd, please check patient's height/weight. Estimated Glomerular Filt Rate 51 NOTE: For -[place] individuals, multiply the result by 1.210. Chronic Kidney Disease: Estimated GFR < 60 mL/min/1.73m2 Severe Kidney Disease: Estimated GFR < 15 mL/min/1.73m2 Glucose Random 103 60-115 mg/dL Calcium 10.8 8.4-10.2 mg/dL Bilirubin Total 0.2 0.0-1.0 mg/dL Aspartate Amino Transferase 11 5-31 U/L Alanine Aminotransferase 9 0-31 U/L Total Protein 7.3 6.5-8.0 g/dL Albumin Level 3.8 3.5-5.0 g/dL Alkaline Phosphatase 126 39-117 U/L Magnesium Reviewed date:12/02/2023 07:03:10 AM Interpretation: Performing Lab:[facility], [address] [place] [phone] Notes/Report: Magnesium 1.8 1.6-2.6 mg/dL Complete Blood Count Man Dif Reviewed date:12/02/2023 07:03:10 AM Interpretation: Performing Lab:[facility], [address] [place] [phone] Notes/Report: White Blood Count 45.6 4.8-10.8 X10*3/uL Critical WBC called to and read back by DUNCAN on 11/22/23 at 1105 by MISSAEL. Red Blood Count 3.84 4.20-5.50 X10*6/uL Hemoglobin 11.2 12.0-16.0 g/dl Hematocrit 33.8 37.0-47.0 % Mean Corpuscular Volume 88.0 80.0-98.0 fL Mean Corpuscular Hemoglobin 29.2 27.0-33.0 pg Mean Corpuscular HGB Conc 33.1 31.0-35.0 g/dl Red Cell Distribution Width 16.5 11.0-16.0 % Platelet Count 147 160-400 X10*3/uL Mean Platelet Volume 11.3 9.4-12.3 fL NRBC Pct Auto 0.0 0.0-0.2 /100WBC NRBC Abs Auto 0.000 0.0-0.012 X10*3/uL Neutrophils Percent Manual 88 45-73 % Band Neutrophils Percent 3 3-5 % Lymphocytes Percent Manual 8 20-40 % Monocytes Percent Manual 1 2-11 % Neutrophils Absolute Manual 41.5 2.0-8.3 X10*3/uL Lymphocytes Absolute Manual 3.6 1.2-4.9 X10*3/uL Monocytes Absolute Manual 0.5 0.1-1.2 X10*3/uL Platelet Estimate SLIGHTLY DECREASED NORMAL Large Platelet PRESENT Platelet Morphology Comment NOTED RBC Morphology NOTED Toxic Vacuolation PRESENT [place] Cells 2+ (3-5) Pathologist Review - CBC Reviewed date:12/02/2023 07:03:10 AM Interpretation: Performing Lab:[facility], [address] [place] [phone] Notes/Report: Comprehensive Met. Panel Reviewed date:12/02/2023 07:03:10 AM Interpretation: Performing Lab:[facility], [address] [place] [phone] Notes/Report: Sodium 138 135-145 mmol/L Potassium 3.7 3.3-5.1 mmol/L Chloride 104 96-108 mmol/L Carbon Dioxide 23 22-29 mmol/L Anion Gap 15 12-20 Blood Urea Nitrogen 25 9-16 mg/dL Creatinine 0.90 0.5-1.4 mg/dL Creatinine Clr Calc Pharmacy 50.7 Provided height and weight: 152.4 cm, 59 kg. eGFR (calculated from the MDRD study equation) and eCrCl (calculated from the Cockcroft-Gault equation) are based on different parameters and may not yield comparable results. If eCrCl result is absurd, please check patient's height/weight. Estimated Glomerular Filt Rate > 60 NOTE: For -[place] individuals, multiply the result by 1.210. Chronic Kidney Disease: Estimated GFR < 60 mL/min/1.73m2 Severe Kidney Disease: Estimated GFR < 15 mL/min/1.73m2 Glucose Random 89 60-115 mg/dL Calcium 11.0 8.4-10.2 mg/dL Bilirubin Total 0.4 0.0-1.0 mg/dL Aspartate Amino Transferase 12 5-31 U/L Alanine Aminotransferase 14 0-31 U/L Total Protein 7.5 6.5-8.0 g/dL Albumin Level 4.0 3.5-5.0 g/dL Alkaline Phosphatase 167 39-117 U/L Magnesium Reviewed date:12/02/2023 07:03:10 AM Interpretation: Performing Lab:[facility], [address] [place] [phone] Notes/Report: Magnesium 1.9 1.6-2.6 mg/dL Complete Blood Count Auto Di ff Reviewed date:12/02/2023 07:03:10 AM Interpretation: Performing Lab:[facility], [address] [place] [phone] Notes/Report: White Blood Count 48.9 4.8-10.8 X10*3/uL Critical WBC called to and read back by DUNCAN on 11/26/23 at 1014 by MISSAEL. Red Blood Count 3.41 4.20-5.50 X10*6/uL Hemoglobin 9.9 12.0-16.0 g/dl Hematocrit 30.5 37.0-47.0 % Mean Corpuscular Volume 89.4 80.0-98.0 fL Mean Corpuscular Hemoglobin 29.0 27.0-33.0 pg Mean Corpuscular HGB Conc 32.5 31.0-35.0 g/dl Red Cell Distribution Width 16.5 11.0-16.0 % Platelet Count 295 160-400 X10*3/uL Mean Platelet Volume 11.0 9.4-12.3 fL Neutrophils Percent Auto 74.0 45-73 % Imm Gran Pct Auto 2.9 0.0-0.4 % Lymphocytes Percent Auto 11.5 20-40 % Monocytes Percent Auto 9.8 2-11 % Eosinophils Percent Auto 0.9 0-4 % Basophils Percent Auto 0.9 0-2 % NRBC Pct Auto 0.3 0.0-0.2 /100WBC Neutrophils Absolute Auto 36.2 2.0-8.3 x10*3/uL Imm Gran Abs Auto 1.44 0.00-0.03 X10*3/uL Lymphocytes Absolute Auto 5.6 1.2-4.9 X10*3/uL Monocytes Absolute Auto 4.8 0.1-1.2 X10*3/uL Eosinophils Absolute Auto 0.4 0.0-0.4 X10*3/uL Basophils Absolute Auto 0.4 0.0-0.2 X10*3/uL NRBC Abs Auto 0.170 0.0-0.012 X10*3/uL CO RRECTED REPORT Complete Blood Count Man Dif Reviewed date:12/02/2023 07:03:10 AM Interpretation: Performing Lab:[facility], [address] [place] [phone] Notes/Report: White Blood Count 48.9 4.8-10.8 X10*3/uL Critical WBC called to and read back by TUNORA on 11/26/23 at 1014 by MISSAEL. Red Blood Count 3.41 4.20-5.50 X10*6/uL Hemoglobin 9.9 12.0-16.0 g/dl Hematocrit 30.5 37.0-47.0 % Mean Corpuscular Volume 89.4 80.0-98.0 fL Mean Corpuscular Hemoglobin 29.0 27.0-33.0 pg Mean Corpuscular HGB Conc 32.5 31.0-35.0 g/dl Red Cell Distribution Width 16.5 11.0-16.0 % Platelet Count 295 160-400 X10*3/uL Mean Platelet Volume 11.0 9.4-12.3 fL NRBC Pct Auto 0.3 0.0-0.2 /100WBC NRBC Abs Auto 0.170 0.0-0.012 X10*3/uL Neutrophils Percent Manual 72 45-73 % Band Neutrophils Percent 3 3-5 % Lymphocytes Percent Manual 11 20-40 % Monocytes Percent Manual 10 2-11 % Eosinophils Percent Manual 2 0-4 % Basophils Percent Manual 1 0-2 % Metamyelocytes Percent 1 Neutrophils Absolute Manual 36.7 2.0-8.3 X10*3/uL Lymphocytes Absolute Manual 5.4 1.2-4.9 X10*3/uL Monocytes Absolute Manual 4.9 0.1-1.2 X10*3/uL Eosinophils Absolute Manual 1.0 0.0-0.4 X10*3/uL Basophils Abs Manual 0.5 0.0-0.2 X10*3/uL Metamyelocytes Absolute 0.5 Nucleated Red Blood Cells 1 0-0 /100WBC Platelet Estimate NORMAL NORMAL Large Platelet PRESENT Platelet Morphology Comment NOTED RBC Morphology NOTED Polychromasia 1+ (0-2) [place] Cells 1+ (0-2) Comprehensive Met. Panel Reviewed date:12/02/2023 07:03:10 AM Interpretation: Performing Lab:[facility], [address] [place] [phone] Notes/Report: Sodium 140 135-145 mmol/L Potassium 5.0 3.3-5.1 mmol/L Chloride 105 96-108 mmol/L Carbon Dioxide 26 22-29 mmol/L Anion Gap 14 12-20 Blood Urea Nitrogen 16 9-16 mg/dL Creatinine 0.92 0.5-1.4 mg/dL Creatinine [facility] 49.6 Provided height and weight: 152.4 cm, 59 kg. eGFR (calculated from the MDRD study equation) and eCrCl (calculated from the Cockcroft-Gault equation) are based on different parameters and may not yield comparable results. If eCrCl result is absurd, please check patient's height/weight. Estimated Glomerular Filt Rate > 60 NOTE: For -[place] individuals, multiply the result by 1.210. Chronic Kidney Disease: Estimated GFR < 60 mL/min/1.73m2 Severe Kidney Disease: Estimated GFR < 15 mL/min/1.73m2 Glucose Random 97 60-115 mg/dL Calcium 10.8 8.4-10.2 mg/dL Bilirubin Total 0.1 0.0-1.0 mg/dL Aspartate Amino Transferase 16 5-31 U/L Alanine Aminotransferase 10 0-31 U/L Total Protein 6.9 6.5-8.0 g/dL Albumin Level 3.8 3.5-5.0 g/dL Alkaline Phosphatase 392 39-117 U/L Complete Blood Count Man Dif Reviewed date:12/02/2023 07:03:10 AM Interpretation: Performing Lab:[facility], [address] [place] [phone] Notes/Report: White Blood Count 29.1 4.8-10.8 X10*3/uL Red Blood Count 3.27 4.20-5.50 X10*6/uL Hemoglobin 9.4 12.0-16.0 g/dl Hematocrit 28.8 37.0-47.0 % Mean Corpuscular Volume 88.1 80.0-98.0 fL Mean Corpuscular Hemoglobin 28.7 27.0-33.0 pg Mean Corpuscular HGB Conc 32.6 31.0-35.0 g/dl Red Cell Distribution Width 16.6 11.0-16.0 % Platelet Count 383 160-400 X10*3/uL Mean Platelet Volume 9.6 9.4-12.3 fL NRBC Pct Auto 0.3 0.0-0.2 /100WBC NRBC Abs Auto 0.090 0.0-0.012 X10*3/uL Neutrophils Percent Manual 67 45-73 % Band Neutrophils Percent 17 3-5 % Lymphocytes Percent Manual 10 20-40 % Atypical Lymphs Percent Manual 1 0-6 % Monocytes Percent Manual 3 2-11 % Eosinophils Percent Manual 1 0-4 % Metamyelocytes Percent 1 Neutrophils Absolute Manual 24.4 2.0-8.3 X10*3/uL Lymphocytes Absolute Manual 2.9 1.2-4.9 X10*3/uL Atypical Lymph Absolute Manual 0.3 Monocytes Absolute Manual 0.9 0.1-1.2 X10*3/uL Eosinophils Absolute Manual 0.3 0.0-0.4 X10*3/uL Metamyelocytes Absolute 0.3 Nucleated Red Blood Cells 1 0-0 /100WBC Platelet Estimate NORMAL NORMAL Large Platelet PRESENT Platelet Morphology Comment NOTED RBC Morphology NOTED Polychromasia 1+ (0-2) Target Cells 1+ (5-14) Ovalocytes 1+ (5-14) Moses Cells 1+ (0-2) Acanthocytes 2+ (3-5) Comprehensive Met. Panel Reviewed date:12/02/2023 07:03:10 AM Interpretation: Performing Lab:[facility], [address] [place] [phone] Notes/Report: Sodium 140 135-145 mmol/L Potassium 4.6 3.3-5.1 mmol/L Chloride 107 96-108 mmol/L Carbon Dioxide 24 22-29 mmol/L Anion Gap 14 12-20 Blood Urea Nitrogen 16 9-16 mg/dL Creatinine 0.77 0.5-1.4 mg/dL Creatinine Clr Calc Pharmacy 59.2 Provided height and weight: 152.4 cm, 59 kg. eGFR (calculated from the MDRD study equation) and eCrCl (calculated from the Cockcroft-Gault equation) are based on different parameters and may not yield comparable results. If eCrCl result is absurd, please check patient's height/weight. Estimated Glomerular Filt Rate > 60 NOTE: For -Macedonian individuals, multiply the result by 1.210. Chronic Kidney Disease: Estimated GFR < 60 mL/min/1.73m2 Severe Kidney Disease: Estimated GFR < 15 mL/min/1.73m2 Glucose Random 77 60-115 mg/dL Calcium 10.3 8.4-10.2 mg/dL Bilirubin Total 0.1 0.0-1.0 mg/dL Aspartate Amino Transferase 14 5-31 U/L Alanine Aminotransferase 9 0-31 U/L Total Protein 7.2 6.5-8.0 g/dL Albumin Level 3.7 3.5-5.0 g/dL Alkaline Phosphatase 216 39-117 U/L Magnesium Reviewed date:12/02/2023 07:03:10 AM Interpretation: Performing Lab:[facility], [address] [place] [phone] Notes/Report: Magnesium 2.1 1.6-2.6 mg/dL Complete Blood Count Man Dif Reviewed date:12/08/2023 07:28:52 PM Interpretation: Performing Lab:[facility], [address] [place] [phone] Notes/Report: White Blood Count 16.9 4.8-10.8 X10*3/uL Red Blood Count 3.48 4.20-5.50 X10*6/uL Hemoglobin 10.3 12.0-16.0 g/dl Hematocrit 30.6 37.0-47.0 % Mean Corpuscular Volume 87.9 80.0-98.0 fL Mean Corpuscular Hemoglobin 29.6 27.0-33.0 pg Mean Corpuscular HGB Conc 33.7 31.0-35.0 g/dl Red Cell Distribution Width 15.9 11.0-16.0 % Platelet Count 204 160-400 X10*3/uL Mean Platelet Volume 9.2 9.4-12.3 fL NRBC Pct Auto 0.0 0.0-0.2 /100WBC NRBC Abs Auto 0.000 0.0-0.012 X10*3/uL Neutrophils Percent Manual 73 45-73 % Band Neutrophils Percent 6 3-5 % Lymphocytes Percent Manual 19 20-40 % Monocytes Percent Manual 1 2-11 % Eosinophils Percent Manual 1 0-4 % Neutrophils Absolute Manual 13.4 2.0-8.3 X10*3/uL Lymphocytes Absolute Manual 3.2 1.2-4.9 X10*3/uL Monocytes Absolute Manual 0.2 0.1-1.2 X10*3/uL Eosinophils Absolute Manual 0.2 0.0-0.4 X10*3/uL Platelet Estimate NORMAL NORMAL Platelet Morphology Comment NORMAL RBC Morphology NOTED Hypochromasia 1+ (5-14) Target Cells 1+ (5-14) Compa [place] Bodies PRESENT Moses Cells 2+ (3-5) Schistocytes 1+ (0-2) Comprehensive Met. Panel Reviewed date:12/08/2023 07:28:52 PM Interpretation: Performing Lab:[facility], [address] [place] [phone] Notes/Report: Sodium 140 135-145 mmol/L Potassium 4.6 3.3-5.1 mmol/L Chloride 107 96-108 mmol/L Carbon Dioxide 25 22-29 mmol/L Anion Gap 13 12-20 Blood Urea Nitrogen 18 9-16 mg/dL Creatinine 0.90 0.5-1.4 mg/dL Creatinine Clr Calc Pharmacy 50.7 Provided height and weight: 152.4 cm, 59 kg. eGFR (calculated from the MDRD study equation) and eCrCl (calculated from the Cockcroft-Gault equation) are based on different parameters and may not yield comparable results. If eCrCl result is absurd, please check patient's height/weight. Estimated Glomerular Filt Rate > 60 NOTE: For -Macedonian individuals, multiply the result by 1.210. Chronic Kidney Disease: Estimated GFR < 60 mL/min/1.73m2 Severe Kidney Disease: Estimated GFR < 15 mL/min/1.73m2 Glucose Random 127 60-115 mg/dL Calcium 11.1 8.4-10.2 mg/dL Bilirubin Total 0.2 0.0-1.0 mg/dL Aspartate Amino Transferase 11 5-31 U/L Alanine Aminotransferase 15 0-31 U/L Total Protein 7.7 6.5-8.0 g/dL Albumin Level 4.0 3.5-5.0 g/dL Alkaline Phosphatase 161 39-117 U/L Magnesium Reviewed date:12/08/2023 07:28:52 PM Interpretation: Performing Lab:[facility], [address] [place] [phone] Notes/Report: Magnesium 2.2 1.6-2.6 mg/dL Complete Blood Count Auto Di ff Reviewed date:12/08/2023 07:28:52 PM Interpretation: Performing Lab:[facility], [address] [place] [phone] Notes/Report: White Blood Count 8.3 4.8-10.8 X10*3/uL Red Blood Count 3.36 4.20-5.50 X10*6/uL Hemoglobin 9.9 12.0-16.0 g/dl Hematocrit 30.0 37.0-47.0 % Mean Corpuscular Volume 89.3 80.0-98.0 fL Mean Corpuscular Hemoglobin 29.5 27.0-33.0 pg Mean Corpuscular HGB Conc 33.0 31.0-35.0 g/dl Red Cell Distribution Width 15.5 11.0-16.0 % Platelet Count 114 160-400 X10*3/uL Confirmed by smear. Confirmed by smear. Mean Platelet Volume 11.1 9.4-12.3 fL Neutrophils Percent Auto 56.1 45-73 % Imm Gran Pct Auto 0.5 0.0-0.4 % Lymphocytes Percent Auto 28.5 20-40 % Monocytes Percent Auto 11.8 2-11 % Eosinophils Percent Auto 1.4 0-4 % Basophils Percent Auto 1.7 0-2 % NRBC Pct Auto 0.0 0.0-0.2 /100WBC Neutrophils Absolute Auto 4.7 2.0-8.3 x10*3/uL Imm Gran Abs Auto 0.04 0.00-0.03 X10*3/uL Lymphocytes Absolute Auto 2.4 1.2-4.9 X10*3/uL Monocytes Absolute Auto 1.0 0.1-1.2 X10*3/uL Eosinophils Absolute Auto 0.1 0.0-0.4 X10*3/uL Basophils Absolute Auto 0.1 0.0-0.2 X10*3/uL NRBC Abs Auto 0.000 0.0-0.012 X10*3/uL White Blood Count 8.3 4.8-10.8 X10*3/uL Red Blood Count 3.36 4.20-5.50 X10*6/uL Hemoglobin 9.9 12.0-16.0 g/dl Hematocrit 30.0 37.0-47.0 % Mean Corpuscular Volume 89.3 80.0-98.0 fL Mean Corpuscular Hemoglobin 29.5 27.0-33.0 pg Mean Corpuscular HGB Conc 33.0 31.0-35.0 g/dl Red Cell Distribution Width 15.5 11.0-16.0 % Platelet Count 114 160-400 X10*3/uL Confirmed by smear. Confirmed by smear. Mean Platelet Volume 11.1 9.4-12.3 fL Neutrophils Percent Auto 56.1 45-73 % Imm Gran Pct Auto 0.5 0.0-0.4 % Lymphocytes Percent Auto 28.5 20-40 % Monocytes Percent Auto 11.8 2-11 % Eosinophils Percent Auto 1.4 0-4 % Basophils Percent Auto 1.7 0-2 % NRBC Pct Auto 0.0 0.0-0.2 /100WBC Neutrophils Absolute Auto 4.7 2.0-8.3 x10*3/uL Imm Gran Abs Auto 0.04 0.00-0.03 X10*3/uL Lymphocytes Absolute Auto 2.4 1.2-4.9 X10*3/uL Monocytes Absolute Auto 1.0 0.1-1.2 X10*3/uL Eosinophils Absolute Auto 0.1 0.0-0.4 X10*3/uL Basophils Absolute Auto 0.1 0.0-0.2 X10*3/uL NRBC Abs Auto 0.000 0.0-0.012 X10*3/uL CO RRECTED REPORT CO RRECTED REPORT Comprehensive Met. Panel Reviewed date:12/08/2023 07:28:52 PM Interpretation: Performing Lab:[facility], [address] [place] [phone] Notes/Report: Sodium 141 135-145 mmol/L Potassium 4.4 3.3-5.1 mmol/L Chloride 106 96-108 mmol/L Carbon Dioxide 26 22-29 mmol/L Anion Gap 13 12-20 Blood Urea Nitrogen 19 9-16 mg/dL Creatinine 0.88 0.5-1.4 mg/dL Creatinine Clr Calc Pharmacy 51.9 Provided height and weight: 152.4 cm, 59 kg. eGFR (calculated from the MDRD study equation) and eCrCl (calculated from the Cockcroft-Gault equation) are based on different parameters and may not yield comparable results. If eCrCl result is absurd, please check patient's height/weight. Estimated Glomerular Filt Rate > 60 NOTE: For -[place]aced[place] individuals, multiply the result by 1.210. Chronic Kidney Disease: Estimated GFR < 60 mL/min/1.73m2 Severe Kidney Disease: Estimated GFR < 15 mL/min/1.73m2 Glucose Random 107 60-115 mg/dL Calcium 11.3 8.4-10.2 mg/dL Bilirubin Total 0.2 0.0-1.0 mg/dL Aspartate Amino Transferase 13 5-31 U/L Alanine Aminotransferase 15 0-31 U/L Total Protein 7.8 6.5-8.0 g/dL Albumin Level 3.8 3.5-5.0 g/dL Alkaline Phosphatase 153 39-117 U/L SLIDE REVIEW Reviewed date:12/08/2023 07:28:52 PM Interpretation: Performing Lab:[facility], [address] [place] [phone] Notes/Report: SLIDE REVIEW VERIFIED Complete Blood Count Man Dif Reviewed date:12/13/2023 07:55:12 PM Interpretation: Performing Lab:[facility], [address] [place] [phone] Notes/Report: White Blood Count 9.2 4.8-10.8 X10*3/uL Red Blood Count 3.30 4.20-5.50 X10*6/uL Hemoglobin 9.3 12.0-16.0 g/dl Hematocrit 30.4 37.0-47.0 % Mean Corpuscular Volume 92.1 80.0-98.0 fL Mean Corpuscular Hemoglobin 28.2 27.0-33.0 pg Mean Corpuscular HGB Conc 30.6 31.0-35.0 g/dl Red Cell Distribution Width 16.2 11.0-16.0 % Platelet Count 189 160-400 X10*3/uL Mean Platelet Volume 12.5 9.4-12.3 fL NRBC Pct Auto 0.0 0.0-0.2 /100WBC NRBC Abs Auto 0.000 0.0-0.012 X10*3/uL Neutrophils Percent Manual 59 45-73 % Band Neutrophils Percent 0 3-5 % Lymphocytes Percent Manual 26 20-40 % Monocytes Percent Manual 12 2-11 % Eosinophils Percent Manual 2 0-4 % Basophils Percent Manual 1 0-2 % Neutrophils Absolute Manual 5.4 2.0-8.3 X10*3/uL Lymphocytes Absolute Manual 2.4 1.2-4.9 X10*3/uL Monocytes Absolute Manual 1.1 0.1-1.2 X10*3/uL Eosinophils Absolute Manual 0.2 0.0-0.4 X10*3/uL Basophils Abs Manual 0.1 0.0-0.2 X10*3/uL Platelet Estimate NORMAL NORMAL Large Platelet PRESENT Platelet Morphology Comment NOTED RBC Morphology NOTED Hypochromasia 1+ (5-14) Moses Cells 1+ (0-2) Schistocytes 1+ (0-2) Comprehensive Met. Panel Reviewed date:12/13/2023 07:55:12 PM Interpretation: Performing Lab:[facility], [address] [place] [phone] Notes/Report: Sodium 140 135-145 mmol/L Potassium 5.7 3.3-5.1 mmol/L Chloride 110 96-108 mmol/L Carbon Dioxide 23 22-29 mmol/L Anion Gap 13 12-20 Blood Urea Nitrogen 20 9-16 mg/dL Creatinine 1.24 0.5-1.4 mg/dL Creatinine Clr Calc Pharmacy 37.4 Provided height and weight: 152.4 cm, 61.2 kg. eGFR (calculated from the MDRD study equation) and eCrCl (calculated from the Cockcroft-Gault equation) are based on different parameters and may not yield comparable results. If eCrCl result is absurd, please check patient's height/weight. Estimated Glomerular Filt Rate 44 NOTE: For -Macedonian individuals, multiply the result by 1.210. Chronic Kidney Disease: Estimated GFR < 60 mL/min/1.73m2 Severe Kidney Disease: Estimated GFR < 15 mL/min/1.73m2 Glucose Random 117 60-115 mg/dL Calcium 11.0 8.4-10.2 mg/dL Bilirubin Total 0.2 0.0-1.0 mg/dL Aspartate Amino Transferase 17 5-31 U/L Alanine Aminotransferase 16 0-31 U/L Total Protein 7.1 6.5-8.0 g/dL Albumin Level 3.8 3.5-5.0 g/dL Alkaline Phosphatase 137 39-117 U/L Magnesium Reviewed date:12/13/2023 07:55:12 PM Interpretation: Performing Lab:[facility], [address] [place] [phone] Notes/Report: Magnesium 2.2 1.6-2.6 mg/dL Potassium, Serum Reviewed date:12/13/2023 07:55:12 PM Interpretation: Performing Lab:[facility], [address] [place] [phone] Notes/Report: Potassium, Serum 3.9 3.3-5.1 mmol/L Test was verified by repeat analysis. Complete Blood Count Man Dif Reviewed date:01/29/2024 05:26:15 AM Interpretation: Performing Lab:[facility], [address] [place] [phone] Notes/Report: White Blood Count 22.5 4.8-10.8 X10*3/uL Red Blood Count 3.25 4.20-5.50 X10*6/uL Hemoglobin 9.5 12.0-16.0 g/dl Hematocrit 28.7 37.0-47.0 % Mean Corpuscular Volume 88.3 80.0-98.0 fL Mean Corpuscular Hemoglobin 29.2 27.0-33.0 pg Mean Corpuscular HGB Conc 33.1 31.0-35.0 g/dl Red Cell Distribution Width 16.3 11.0-16.0 % Platelet Count 754 160-400 X10*3/uL Mean Platelet Volume 9.2 9.4-12.3 fL NRBC Pct Auto 0.1 0.0-0.2 /100WBC NRBC Abs Auto 0.020 0.0-0.012 X10*3/uL Neutrophils Percent Manual 89 45-73 % Band Neutrophils Percent 0 3-5 % Lymphocytes Percent Manual 5 20-40 % Monocytes Percent Manual 5 2-11 % Eosinophils Percent Manual 1 0-4 % Neutrophils Absolute Manual 20.0 2.0-8.3 X10*3/uL Lymphocytes Absolute Manual 1.1 1.2-4.9 X10*3/uL Monocytes Absolute Manual 1.1 0.1-1.2 X10*3/uL Eosinophils Absolute Manual 0.2 0.0-0.4 X10*3/uL Platelet Estimate NORMAL NORMAL Large Platelet PRESENT Platelet Morphology Comment NOTED RBC Morphology NORMAL Hypochromasia 1+ (5-14) Comprehensive Met. Panel Reviewed date:01/29/2024 05:26:15 AM Interpretation: Performing Lab:[address] [phone] Notes/Report: Sodium 141 135-145 mmol/L Potassium 4.2 3.3-5.1 mmol/L Chloride 105 96-108 mmol/L Carbon Dioxide 26 22-29 mmol/L Anion Gap 14 12-20 Blood Urea Nitrogen 19 9-16 mg/dL Creatinine 0.94 0.5-1.4 mg/dL Creatinine Clr Calc Pharmacy 49.4 Provided height and weight: 152.4 cm, 61.2 kg. eGFR (calculated from the MDRD study equation) and eCrCl (calculated from the Cockcroft-Gault equation) are based on different parameters and may not yield comparable results. If eCrCl result is absurd, please check patient's height/weight. Estimated Glomerular Filt Rate 60 NOTE: For -[place]aced[place] individuals, multiply the result by 1.210. Chronic Kidney Disease: Estimated GFR < 60 mL/min/1.73m2 Severe Kidney Disease: Estimated GFR < 15 mL/min/1.73m2 Glucose Random 100 60-115 mg/dL Calcium 11.0 8.4-10.2 mg/dL Bilirubin Total 0.3 0.0-1.0 mg/dL Aspartate Amino Transferase 16 5-31 U/L Alanine Aminotransferase 17 0-31 U/L Total Protein 7.7 6.5-8.0 g/dL Albumin Level 4.1 3.5-5.0 g/dL Alkaline Phosphatase 125 39-117 U/L Magnesium Reviewed date:01/29/2024 05:26:15 AM Interpretation: Performing Lab:[address] [phone] Notes/Report: Magnesium 2.1 1.6-2.6 mg/dL Complete Blood Count Auto Di ff Reviewed date:01/29/2024 05:26:15 AM Interpretation: Performing Lab:[facility], [address] [place] [phone] Notes/Report: White Blood Count 9.8 4.8-10.8 X10*3/uL Red Blood Count 3.41 4.20-5.50 X10*6/uL Hemoglobin 9.9 12.0-16.0 g/dl Hematocrit 31.1 37.0-47.0 % Mean Corpuscular Volume 91.2 80.0-98.0 fL Mean Corpuscular Hemoglobin 29.0 27.0-33.0 pg Mean Corpuscular HGB Conc 31.8 31.0-35.0 g/dl Red Cell Distribution Width 16.8 11.0-16.0 % Platelet Count 475 160-400 X10*3/uL Mean Platelet Volume 8.7 9.4-12.3 fL Neutrophils Percent Auto 57.2 45-73 % Imm Gran Pct Auto 0.3 0.0-0.4 % Lymphocytes Percent Auto 25.8 20-40 % Monocytes Percent Auto 13.5 2-11 % Eosinophils Percent Auto 1.9 0-4 % Basophils Percent Auto 1.3 0-2 % NRBC Pct Auto 0.0 0.0-0.2 /100WBC Neutrophils Absolute Auto 5.6 2.0-8.3 x10*3/uL Imm Gran Abs Auto 0.03 0.00-0.03 X10*3/uL Lymphocytes Absolute Auto 2.5 1.2-4.9 X10*3/uL Monocytes Absolute Auto 1.3 0.1-1.2 X10*3/uL Eosinophils Absolute Auto 0.2 0.0-0.4 X10*3/uL Basophils Absolute Auto 0.1 0.0-0.2 X10*3/uL NRBC Abs Auto 0.000 0.0-0.012 X10*3/uL Comprehensive Met. Panel Reviewed date:01/29/2024 05:26:15 AM Interpretation: Performing Lab:[address] [phone] Notes/Report: Sodium 137 135-145 mmol/L Potassium 5.7 3.3-5.1 mmol/L Chloride 109 96-108 mmol/L Carbon Dioxide 23 22-29 mmol/L Anion Gap 11 12-20 Blood Urea Nitrogen 13 9-16 mg/dL Creatinine 1.02 0.5-1.4 mg/dL Creatinine Clr Calc Pharmacy 45.5 Provided height and weight: 152.4 cm, 61.2 kg. eGFR (calculated from the MDRD study equation) and eCrCl (calculated from the Cockcroft-Gault equation) are based on different parameters and may not yield comparable results. If eCrCl result is absurd, please check patient's height/weight. Estimated Glomerular Filt Rate 55 NOTE: For -Macedonian individuals, multiply the result by 1.210. Chronic Kidney Disease: Estimated GFR < 60 mL/min/1.73m2 Severe Kidney Disease: Estimated GFR < 15 mL/min/1.73m2 Glucose Random 112 60-115 mg/dL Calcium 10.6 8.4-10.2 mg/dL Bilirubin Total 0.2 0.0-1.0 mg/dL Aspartate Amino Transferase 15 5-31 U/L Alanine Aminotransferase 15 0-31 U/L Total Protein 7.2 6.5-8.0 g/dL Albumin Level 4.0 3.5-5.0 g/dL Alkaline Phosphatase 121 39-117 U/L Magnesium Reviewed date:01/29/2024 05:26:15 AM Interpretation: Performing Lab:[facility], [address] [place] [phone] Notes/Report: Magnesium 2.1 1.6-2.6 mg/dL Complete Blood Count Timmy Hoffman Reviewed date:01/29/2024 05:26:15 AM Interpretation: Performing Lab:[facility], [address] [place] [phone] Notes/Report: White Blood Count 8.9 4.8-10.8 X10*3/uL Red Blood Count 3.75 4.20-5.50 X10*6/uL Hemoglobin 11.0 12.0-16.0 g/dl Hematocrit 34.9 37.0-47.0 % Mean Corpuscular Volume 93.1 80.0-98.0 fL Mean Corpuscular Hemoglobin 29.3 27.0-33.0 pg Mean Corpuscular HGB Conc 31.5 31.0-35.0 g/dl Red Cell Distribution Width 16.6 11.0-16.0 % Platelet Count 186 160-400 X10*3/uL Mean Platelet Volume 12.0 9.4-12.3 fL NRBC Pct Auto 0.0 0.0-0.2 /100WBC NRBC Abs Auto 0.000 0.0-0.012 X10*3/uL Neutrophils Percent Manual 66 45-73 % Band Neutrophils Percent 2 3-5 % Lymphocytes Percent Manual 20 20-40 % Monocytes Percent Manual 10 2-11 % Eosinophils Percent Manual 1 0-4 % Basophils Percent Manual 1 0-2 % Neutrophils Absolute Manual 6.1 2.0-8.3 X10*3/uL Lymphocytes Absolute Manual 1.8 1.2-4.9 X10*3/uL Monocytes Absolute Manual 0.9 0.1-1.2 X10*3/uL Eosinophils Absolute Manual 0.1 0.0-0.4 X10*3/uL Basophils Abs Manual 0.1 0.0-0.2 X10*3/uL Platelet Estimate NORMAL NORMAL Platelet Morphology Comment NORMAL RBC Morphology NORMAL Hypochromasia 1+ (5-14) Comprehensive Met. Panel Reviewed date:01/29/2024 05:26:15 AM Interpretation: Performing Lab:[facility], [address] [place] [phone] Notes/Report: Sodium 142 135-145 mmol/L Potassium 5.3 3.3-5.1 mmol/L Chloride 111 96-108 mmol/L Carbon Dioxide 24 22-29 mmol/L Anion Gap 12 12-20 Blood Urea Nitrogen 16 9-16 mg/dL Creatinine 1.02 0.5-1.4 mg/dL Creatinine Clr Calc Pharmacy 45.5 Provided height and weight: 152.4 cm, 61.2 kg. eGFR (calculated from the MDRD study equation) and eCrCl (calculated from the Cockcroft-Gault equation) are based on different parameters and may not yield comparable results. If eCrCl result is absurd, please check patient's height/weight. Estimated Glomerular Filt Rate 55 NOTE: For -Macedonian individuals, multiply the result by 1.210. Chronic Kidney Disease: Estimated GFR < 60 mL/min/1.73m2 Severe Kidney Disease: Estimated GFR < 15 mL/min/1.73m2 Glucose Random 87 60-115 mg/dL Calcium 11.1 8.4-10.2 mg/dL Bilirubin Total 0.3 0.0-1.0 mg/dL Aspartate Amino Transferase 21 5-31 U/L Alanine Aminotransferase 20 0-31 U/L Total Protein 7.8 6.5-8.0 g/dL Albumin Level 4.2 3.5-5.0 g/dL Alkaline Phosphatase 116 39-117 U/L Complete Blood Count no Diff Reviewed date:01/29/2024 05:26:15 AM Interpretation: Performing Lab:[facility], [address] [place] [phone] Notes/Report: White Blood Count 7.7 4.8-10.8 X10*3/uL Red Blood Count 3.64 4.20-5.50 X10*6/uL Hemoglobin 10.5 12.0-16.0 g/dl Hematocrit 32.6 37.0-47.0 % Mean Corpuscular Volume 89.6 80.0-98.0 fL Mean Corpuscular Hemoglobin 28.8 27.0-33.0 pg Mean Corpuscular HGB Conc 32.2 31.0-35.0 g/dl Red Cell Distribution Width 15.1 11.0-16.0 % Platelet Count 205 160-400 X10*3/uL Mean Platelet Volume 11.5 9.4-12.3 fL NRBC Pct Auto 0.0 0.0-0.2 /100WBC NRBC Abs Auto 0.000 0.0-0.012 X10*3/uL Comprehensive Met. Panel Reviewed date:01/29/2024 05:26:15 AM Interpretation: Performing Lab:[facility], [address] [place] [phone] Notes/Report: Sodium 138 135-145 mmol/L Potassium 4.1 3.3-5.1 mmol/L Chloride 107 96-108 mmol/L Carbon Dioxide 22 22-29 mmol/L Anion Gap 13 12-20 Blood Urea Nitrogen 21 9-16 mg/dL Creatinine 0.92 0.5-1.4 mg/dL Creatinine Clr Calc Pharmacy 50.1 Provided height and weight: 152.4 cm, 60.2 kg. eGFR (calculated from the MDRD study equation) and eCrCl (calculated from the Cockcroft-Gault equation) are based on different parameters and may not yield comparable results. If eCrCl result is absurd, please check patient's height/weight. Estimated Glomerular Filt Rate > 60 NOTE: For -Macedonian individuals, multiply the result by 1.210. Chronic Kidney Disease: Estimated GFR < 60 mL/min/1.73m2 Severe Kidney Disease: Estimated GFR < 15 mL/min/1.73m2 Glucose Random 97 60-115 mg/dL Calcium 10.1 8.4-10.2 mg/dL Bilirubin Total 0.2 0.0-1.0 mg/dL Aspartate Amino Transferase 20 5-31 U/L Alanine Aminotransferase 15 0-31 U/L Total Protein 7.3 6.5-8.0 g/dL Albumin Level 4.0 3.5-5.0 g/dL Alkaline Phosphatase 111 39-117 U/L Carcinoembryonic Antigen Reviewed date:01/29/2024 05:26:15 AM Interpretation: Performing Lab:[facility], [address] [place] [phone] Notes/Report: Carcinoembryonic Antigen 3.10 CEA Reference Range: 93.4% Non-Smokers = 0.0-3.0 ng/mL 95.6% Smokers = 0.0-5.0 ng/mL CEA Methodology: Vazquez Alinity i Chemiluminescent Microparticle Immunoassay (CMIA) CEA testing can have significant value in monitoring of patients with diagnosed malignancies in whom changing concentrations of CEA are observed. Values obtained with different assay methods cannot be used interchangeably. MM tomosynthesis screening B I Reviewed date:03/08/2024 06:43:28 AM Interpretation: Performing Lab: Notes/Report: [address] [place] [address] Mammography Report Signed Patient: Lily Jacques MR#: [id number] [birth year] : 1960 Acct:[id number] Age/Sex: 63 / F ADM Date: 01/29/24 Loc: [facility]MAMMO Attending Dr: Horace Lima MD Ordering Physician: Horace Lima MD Results: 2Benign Findings Date of Service: 01/29/24 Follow Up: 1 Year From Orig ina Mammogram Procedure(s): MM tomosynthesis screening BI Accession Number(s): [id number] cc: Horace Lima MD EXAMINATION: MM SCREENING DIGITAL BREAST TOMOSYNTHESIS, BILATERAL CLINICAL INFORMATION: Screening. Asymptomatic. COMPARISON: Mammography: This study is compared with prior exams dating back to 2018. TECHNIQUE: Digital breast tomosynthesis is performed in both the craniocaudal and mediolateral oblique views along with computer-aided detection (CAD). Synthesized 2D images are generated from the tomosynthesis. FINDINGS: There are scattered areas of fibroglandular density (ACR BI-RADS breast composition Category b). There are no significant masses, abnormal calcifications, or other abnormalities. There is a central venous access port within the superiormost aspect of the right breast. There is a tissue marker present in the left breast from prior benign percutaneous biopsy. MM/MM tomosynthesis screening BI IMPRESSION: No mammographic evidence of malignancy. ASSESSMENT: BI-RADS BI-RADS 2 - Benign Findings RECOMMENDATION: Routine annual mammography screening. 1 year F/U This examination should not preclude the clinical evaluation of a suspicious palpable abnormality. This patient's information was entered into a reminder system with a target due date for their next mammogram. Dictated By: Alejandra Wade MD Signed By: <Electronically signed by Alejandra Wade MD in [place]> 02/25/24 0350 DD/ 1230 TD/TT: Parenting Skills Instructor: Chris [facility] [address] [place] [address] Mammography Report Signed Patient: Arnoldo Jacques MR#: [id number] 99 : 1960 Acct:[id number] Age/Sex: 63 / F ADM Date: 01/29/24 Loc: [facility] Attending Dr: Horace Lima MD Ordering Physician: Horace Lima MD Results: 2Benign Findings Date of Service: 01/29/24 Follow Up: 1 Year From Orig inal Mammogram Procedure(s): MM tomosynthesis screening BI Accession Number(s): [id number] cc: Horace Lima MD EXAMINATION: MM SCREENING DIGITAL BREAST TOMOSYNTHESIS, BILATERAL CLINICAL INFORMATION: Screening. Asymptomatic. COMPARISON: Mammography: This st udy is compared with prior exams dating back to 2018. TECHNIQUE: Digital breast tomosynthesis is performed in both the craniocaudal and mediolateral oblique views along with computer-aided detection (CAD). Synthesized 2D image s are generated from the tomosynthesis. FINDINGS: There are scattered areas of fibroglandular density (ACR BI-RADS breast composition Category b). There are no signifi cant masses, abnormal calcifications, or other abnormalities. There is a central venous access port within the superiormost aspect of the right breast. There is a tissue ma rker present in the left breast from prior benign percutaneous biopsy. M M/MM tomosynthesis screening BI IMPRESSION: No mammographic evid ence of malignancy. ASSESSMENT: BI-RADS BI-RADS 2 - Benign Findings RECOMMENDATION: Routine annual mammography screening. 1 year F/U This examination celio uld not preclude the clinical evaluation of a suspicious palpable abnormality. This patient's information was entered into a reminder system with a target due date for their next mammogram. Dictated By: Alejandra Wade MD Signed By: <Electronically signed by Alejandra Wade MD in [place]> 02/25/24 0350 DD/ 1230 TD/TT: Parenting Skills Instructor: MAMMOGRAM DIGITAL BILATERAL SCREEN Reviewed date:03/13/2024 02:42:48 PM Interpretation:undefined Performing Lab: Notes/Report: undefined Complete Blood Count Auto Di ff Reviewed date:03/08/2024 06:43:28 AM Interpretation: Performing Lab:[facility], [address] [place] [id number] Notes/Report: White Blood Count 6.4 4.8-10.8 X10*3/uL Red Blood Count 4.10 4.20-5.50 X10*6/uL Hemoglobin 11.7 12.0-16.0 g/dl Hematocrit 36.4 37.0-47.0 % Mean Corpuscular Volume 88.8 80.0-98.0 fL Mean Corpuscular Hemoglobin 28.5 27.0-33.0 pg Mean Corpuscular HGB Conc 32.1 31.0-35.0 g/dl Red Cell Distribution Width 14.1 11.0-16.0 % Platelet Count 400 160-400 X10*3/uL Mean Platelet Volume 9.1 9.4-12.3 fL Neutrophils Percent Auto 35.4 45-73 % Imm Gran Pct Auto 0.2 0.0-0.4 % Lymphocytes Percent Auto 48.7 20-40 % Monocytes Percent Auto 12.4 2-11 % Eosinophils Percent Auto 1.9 0-4 % Basophils Percent Auto 1.4 0-2 % NRBC Pct Auto 0.0 0.0-0.2 /100WBC Neutrophils Absolute Auto 2.3 2.0-8.3 x10*3/uL Imm Gran Abs Auto 0.01 0.00-0.03 X10*3/uL Lymphocytes Absolute Auto 3.1 1.2-4.9 X10*3/uL Monocytes Absolute Auto 0.8 0.1-1.2 X10*3/uL Eosinophils Absolute Auto 0.1 0.0-0.4 X10*3/uL Basophils Absolute Auto 0.1 0.0-0.2 X10*3/uL NRBC Abs Auto 0.000 0.0-0.012 X10*3/uL White Blood Count 6.4 4.8-10.8 X10*3/uL Red Blood Count 4.10 4.20-5.50 X10*6/uL Hemoglobin 11.7 12.0-16.0 g/dl Hematocrit 36.4 37.0-47.0 % Mean Corpuscular Volume 88.8 80.0-98.0 fL Mean Corpuscular Hemoglobin 28.5 27.0-33.0 pg Mean Corpuscular HGB Conc 32.1 31.0-35.0 g/dl Red Cell Distribution Width 14.1 11.0-16.0 % Platelet Count 400 160-400 X10*3/uL Mean Platelet Volume 9.1 9.4-12.3 fL Neutrophils Percent Auto 35.4 45-73 % Imm Gran Pct Auto 0.2 0.0-0.4 % Lymphocytes Percent Auto 48.7 20-40 % Monocytes Percent Auto 12.4 2-11 % Eosinophils Percent Auto 1.9 0-4 % Basophils Percent Auto 1.4 0-2 % NRBC Pct Auto 0.0 0.0-0.2 /100WBC Neutrophils Absolute Auto 2.3 2.0-8.3 x10*3/uL Imm Gran Abs Auto 0.01 0.00-0.03 X10*3/uL Lymphocytes Absolute Auto 3.1 1.2-4.9 X10*3/uL Monocytes Absolute Auto 0.8 0.1-1.2 X10*3/uL Eosinophils Absolute Auto 0.1 0.0-0.4 X10*3/uL Basophils Absolute Auto 0.1 0.0-0.2 X10*3/uL NRBC Abs Auto 0.000 0.0-0.012 X10*3/uL CO RRECTED REPORT CO RRECTED REPORT Comprehensive Met. Panel Reviewed date:03/08/2024 06:43:28 AM Interpretation: Performing Lab:[facility], [address] [place] [phone] Notes/Report: Sodium 137 135-145 mmol/L Potassium 5.9 3.3-5.1 mmol/L Chloride 108 96-108 mmol/L Carbon Dioxide 23 22-29 mmol/L Anion Gap 12 12-20 Blood Urea Nitrogen 23 9-16 mg/dL Creatinine 1.10 0.5-1.4 mg/dL Creatinine Clr Calc Pharmacy 41.9 Provided height and weight: 152.4 cm, 60.2 kg. eGFR (calculated from the MDRD study equation) and eCrCl (calculated from the Cockcroft-Gault equation) are based on different parameters and may not yield comparable results. If eCrCl result is absurd, please check patient's height/weight. Estimated Glomerular Filt Rate 50 NOTE: For -[place] individuals, multiply the result by 1.210. Chronic Kidney Disease: Estimated GFR < 60 mL/min/1.73m2 Severe Kidney Disease: Estimated GFR < 15 mL/min/1.73m2 Glucose Random 101 60-115 mg/dL Calcium 10.7 8.4-10.2 mg/dL Bilirubin Total 0.2 0.0-1.0 mg/dL Aspartate Amino Transferase 22 5-31 U/L Alanine Aminotransferase 17 0-31 U/L Total Protein 7.6 6.5-8.0 g/dL Albumin Level 4.2 3.5-5.0 g/dL Alkaline Phosphatase 103 39-117 U/L SLIDE REVIEW Reviewed date:03/08/2024 06:43:28 AM Interpretation: Performing Lab:[facility], [address] [place] [phone] Notes/Report: SLIDE REVIEW VERIFIED Complete Blood Count Auto Di ff Reviewed date:06/29/2024 06:35:42 AM Interpretation: Performing Lab:[facility], [address] [place] [phone] Notes/Report: White Blood Count 7.8 4.8-10.8 X10*3/uL Red Blood Count 4.33 4.20-5.50 X10*6/uL Hemoglobin 12.6 12.0-16.0 g/dl Hematocrit 38.4 37.0-47.0 % Mean Corpuscular Volume 88.7 80.0-98.0 fL Mean Corpuscular Hemoglobin 29.1 27.0-33.0 pg Mean Corpuscular HGB Conc 32.8 31.0-35.0 g/dl Red Cell Distribution Width 15.6 11.0-16.0 % Platelet Count 431 160-400 X10*3/uL Mean Platelet Volume 9.4 9.4-12.3 fL Neutrophils Percent Auto 44.3 45-73 % Imm Gran Pct Auto 0.1 0.0-0.4 % Lymphocytes Percent Auto 42.7 20-40 % Monocytes Percent Auto 10.4 2-11 % Eosinophils Percent Auto 1.3 0-4 % Basophils Percent Auto 1.2 0-2 % NRBC Pct Auto 0.0 0.0-0.2 /100WBC Neutrophils Absolute Auto 3.5 2.0-8.3 x10*3/uL Imm Gran Abs Auto 0.01 0.00-0.03 X10*3/uL Lymphocytes Absolute Auto 3.3 1.2-4.9 X10*3/uL Monocytes Absolute Auto 0.8 0.1-1.2 X10*3/uL Eosinophils Absolute Auto 0.1 0.0-0.4 X10*3/uL Basophils Absolute Auto 0.1 0.0-0.2 X10*3/uL NRBC Abs Auto 0.000 0.0-0.012 X10*3/uL Comprehensive [place]. Panel Fa st Reviewed date:06/29/2024 06:35:42 AM Interpretation: Performing Lab:[facility], [address] [place] [phone] Notes/Report: Sodium 141 135-145 mmol/L Potassium 5.2 3.3-5.1 mmol/L Chloride 108 96-108 mmol/L Carbon Dioxide 27 22-29 mmol/L Anion Gap 11 12-20 Blood Urea Nitrogen 16 9-16 mg/dL Creatinine 1.11 0.5-1.4 mg/dL Estimated Glomerular Filt Rate 49 NOTE: For -[place] individuals, multiply the result by 1.210. Chronic Kidney Disease: Estimated GFR < 60 mL/min/1.73m2 Severe Kidney Disease: Estimated GFR < 15 mL/min/1.73m2 Glucose Fasting 102 60-99 mg/dL A fasting glucose from 100-125 mg/dl is considered impaired (pre-diabetes). Calcium 11.8 8.4-10.2 mg/dL Bilirubin Total 0.3 0.0-1.0 mg/dL Aspartate Amino Transferase 22 5-31 U/L Alanine Aminotransferase 17 0-31 U/L Total Protein 7.4 6.5-8.0 g/dL Albumin Level 4.0 3.5-5.0 g/dL Alkaline Phosphatase 123 39-117 U/L Lipid Panel Reviewed date:06/29/2024 06:35:42 AM Interpretation: Performing Lab:[facility], [address] [place] [phone] Notes/Report: Triglycerides 96 <150 mg/dL Desirable Triglyceride: less than 150 mg/dL Borderline High Triglyceride 150-199 mg/dL High Triglyceride: 200-499 mg/dL Very High Triglyceride: greater than or equal to 5OO mg/dL Cholesterol 197 <200 mg/dL Desirable Cholesterol: less than 200 mg/dL Borderline High Cholesterol: 200-239 mg/dL High Cholesterol: greater than 239 mg/dL LDL Cholesterol Calculated 125 <100 mg/dL Desirable LDL: less than 100 mg/dL Near Optimal/Above Optimal LDL: 110-129 mg/dL Borderline High LDL: 130-159 mg/dL High LDL: 160-189 mg/dL Very High LDL: greater than or equal to 190 mg/dL HDL Cholesterol 53 >40 mg/dL Desirable HDL: greater than 40 mg/dL Note: This HDL assay may give artificially low results in patients with liver disease. Free T4 (Free Thyroxine) Reviewed date:07/29/2024 08:41:34 AM Interpretation: Performing Lab:[facility], [address] [place] [phone] Notes/Report: Free T4 (Free Thyroxine) 1.05 0.71-1.85 ng/dL Thyroid Stimulating Hormone Reviewed date:07/29/2024 08:41:34 AM Interpretation: Performing Lab:[facility], [address] [place] [phone] Notes/Report: Thyroid Stimulating Hormone 1.58 0.32-4.0 uIU/mL TSH 3rd Generation ([facility]) Reason For Referral Reason Consult and Treat Untreated Hyperparathyroidism CA= 11.8 Diagnosis 1 Hyperparathyroidism (E21.3) Referral Organization Horace Lima III, MD Referring Provider First Name Horace Referring Provider Last Name Janie Referring Provider Speciality Internal M edicine Referred Provider [facility] Referred Provider Specialty Endocrinolog y General Notes Tara Vasquez 07/07/2024 04:31:34 PM > referral faxed with progress note Referral Priority Routine Referral Appointment Date 07/28/2024 Medications Medication SIG (Take, Route, Frequency, Duration) Notes Start Date End Date Status fluvoxaMINE Maleate 100 MG TAKE 1 TABLET BY MOUTH TWICE DAILY AT BEDTIME Active Amphetamine-Dextroamphetam ine 20 MG 1 tablet Orally Twice a day 01/11/2021 Active ProAir HFA 108 (90 Base) MCG/ACT 2 puff as needed Inhalation every 4 hrs Active Pantoprazole Sodium 20 MG TAKE ONE TABLE T BY MOUTH EVERY DAY Active Multi Vitamin Active B12 Active Docusate Sodium Acti ve Anagrelide HCl 1 MG 1 capsule Orally onc e a day 07/15/2021 Active Simvastatin 20 MG TAKE ONE TABLET BY M OUTH EVERY EVENING Active Vitamin B-12 1000 MCG 1 tablet Orally On ce a day 04/02/2024 Active Anagrelide HCl 1 MG 1 capsule Orally Twi ce a day for 90 days 07/16/2024 07/11/2025 Active Immunizations Vaccine Route Administration Date Status Comme nts Influenza IM Intramuscular 07/18/2013 Administered Influenza Unknown 07/01/2014 Administered Influenza IM Intramuscular 05/25/2015 Administered Pneumococcal IM Intramuscular 05/25/2015 Administered Tetanus and Diphtheria Toxoids Adsorbed IM Intramuscular 11/05/2015 Administered PCV13 Unknown 06/20/2016 [...] Administered COMIRNATY Pfizer-BioNTech Unknown 05/28/2023 Administer ed Social History Tobacco Use: Social History Observation [...] Answer Notes Did you have a drink contain ing alcohol in the past year? Yes How often did you have a dri nk containing alcohol in the past year? Monthly or less (1 point) How many drinks did you have on a typical day when you were drinking in the past year? 1 or 2 drinks (0 point) How often did you have 6 or more drinks on one occasion in the past year? Never (0 point) Points 1 Interpretation Negative Problems Problem Type SNOMED Code ICD Code Onset Dates Problem Status W/U Status Risk Notes Problem 7823676 Former smoker (Z87.891) Active confirmed Her abstinence from tobacco continues. Problem 57656068 Hyperlipidemia (E78.5) Active confirmed Her lipids have been stable. Comprehensive blood work will be done. Problem 107742705 Asthma (J45.909) Active confirmed She denies any recent episodes of asthma. No wheezing was heard today. She is compliant with her medication. Problem 311740581 Overweight (E66.3) Active confirmed She has become slightly overweight with her treatment. We discussed diet and nutrition today. We made a plan to lose weight gradually. 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 Problem 95122449 Allergy to sulfa drugs (Z88.2) Active confirmed She has developed a typical drug allergy rash. Weak after taking Bactrim. Her allergy portion of the medical record has been updated. Problem 83801184 Hypercalcemia (E83.52) Active confirmed Her calcium level is 10.7. No change in her regimen as needed.This value will be carefully observed. Problem 423086791 Breast calcification, left (R92.1) Active confirmed No abnormalities were palpated today. Problem 56287517 Postmenopause (Z78.0) Active confirmed She is no longer having periods and will have a bone density at appropriate intervals. Problem 087078006 Attention deficit hyperactivity disorder (ADHD), unspecified ADHD type (F90.9) Active confirmed She was continued on her current medication. No change was made. She has been conducting the activities of daily life and in normal fashion. Problem 69034649 Bilateral hearing loss (H91.93) Active confirmed Her hearing loss is quite advanced and she benefit significantly from hearing aids. There was no difficulty conversing today. The recent episode of otitis has completely resolved. Problem 597907246 Major depression (F32.9) Active confirmed Her depression is well-controlle d and she is living her life without significant impairment. Problem Hyperparathyroidis m (70225083) Hyperparathyroid ism (E21.3) Active confirmed The current ccalcium level is 9.7. No change inn her regimen was made. 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 She remains in remission at this time. Vital Signs Heart Rate 80 /min 07/02/2024 Temperature 97.7 degrees Fahrenheit 07/02/2024 Blood pressure diastolic 81 mm Hg 07/02/2024 Height 60 in 07/02/2024 Blood pressure systolic 136 mm Hg 07/02/2024 Weight 128 lbs 07/02/2024 BMI 25 kg/m2 07/02/2024 Encounters Encounter Location Date Provider Diagnosis Horace Lima III, MD [address] [place] [address] [place] [id number] 09/13/2023 Horace Lima Attention deficit hyperactivity disorder (ADHD), unspecified ADHD type F90.9 ; 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 ; Bilateral hearing loss H91.93 ; Major depression F32.9 and Hyperparathyroidism E21.3 Horace Lima III, MD [address] [place] [address] [place] [id number] 09/27/2023 Horace Lima 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 ; Major depression F32.9 ; Bilateral hearing loss H91.93 ; Asthma J45.909 ; Attention deficit hyperactivity disorder (ADHD), unspecified ADHD type F90.9 and Hyperlipidemia E78.5 Horace Lima III, MD [address] [place] [address] [place] [id number] 10/30/2023 Horace Lima Attention deficit hyperactivity disorder (ADHD), unspecified ADHD type F90.9 ; 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 ; 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 ; Hypercalcemia E83.52 ; Hyperparathyroidism E21.3 and Former smoker Z87.891 Horace Lima III, MD [address] [place] [address] [place] [id number] 11/09/2023 Horace Lima Attention deficit hyperactivity disorder (ADHD), unspecified ADHD type F90.9 ; Bilateral hearing loss H91.93 ; Major depression F32.9 ; Hyperlipidemia E78.5 ; Asthma J45.909 ; Hyperparathyroidism E21.3 ; 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 ; Hypercalcemia E83.52 ; 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 ; Overweight E66.3 and Former smoker Z87.891 Horace Lima III, MD [address] [place] [address] [place] [id number] 11/14/2023 Horace Lima Attention deficit hyperactivity disorder (ADHD), unspecified ADHD type F90.9 ; Mild anemia D64.9 ; Thrombopenia D69.6 ; Bilateral hearing loss H91.93 ; Major depression F32.9 ; Hyperparathyroidism E21.3 ; Asthma J45.909 ; Hyperlipidemia E78.5 ; Former smoker Z87.891 ; Overweight E66.3 and 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 Horace Lima III, MD [address] [place] [address] [place] [id number] 12/12/2023 Horace Lima Attention deficit hyperactivity disorder (ADHD), unspecified ADHD type F90.9 ; Screening breast examination Z12.39 ; Major depression F32.9 ; Bilateral hearing loss H91.93 ; Hyperparathyroidism E21.3 ; Hyperlipidemia E78.5 ; Asthma J45.909 ; Hypercalcemia E83.52 ; 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 ; Former smoker Z87.891 ; Overweight E66.3 and 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 Horace Lima III, MD [address] [place] [address] [place] [id number] 01/29/2024 Horace Lima Attention deficit hyperactivity disorder (ADHD), unspecified ADHD type F90.9 ; Bilateral hearing loss H91.93 ; Major depression F32.9 ; Hyperparathyroidism E21.3 ; Asthma J45.909 ; Hyperlipidemia E78.5 ; 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 ; Former smoker Z87.891 and Overweight E66.3 Horace Lima III, MD [address] [place] [address] [place] [address] 04/02/2024 Horace Lima Attention deficit hyperactivity disorder (ADHD), unspecified ADHD type F90.9 ; Hyperlipidemia E78.5 ; Asthma J45.909 ; 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 ; Bilateral hearing loss H91.93 ; Major depression F32.9 ; Hyperparathyroidism E21.3 ; Former smoker Z87.891 ; Hypercalcemia E83.52 ; Overweight E66.3 and 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 Horace Lima III, MD [address] [place] [address] [place] [id number] 07/02/2024 Horace Lima Attention deficit hyperactivity disorder (ADHD), unspecified ADHD type F90.9 ; 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 ; Bilateral hearing loss H91.93 ; Major depression F32.9 ; Hyperlipidemia E78.5 ; Asthma J45.909 ; Hyperparathyroidism E21.3 ; Overweight E66.3 ; Former smoker Z87.891 and Vitamin B 12 deficiency E53.8 Horace Lima III, MD [address] [place] [address] [place] [id number] 07/02/2024 Horace Lima III, MD [address] [place] [address] [address] [id number] 07/16/2024 Horace Lima Assessments Encounter Date Diagnosis (ICD Code) Assessment Notes T reatment Notes Treatment Clinical Notes 09/13/2023 Attention deficit hyperactivity disorder (ADHD), unspecified ADHD type (ICD-10 - F90.9) She was continued on her current medication. No change was made. She has been conducting the activities of daily life and in normal fashion. 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 Tumor markers are Positive for PDL 1. She seems healthy well and stable.The PET CT scan will finally stage her. Candidate for adjuvant chemotherapy. 09/27/2023 Major depression (IC D-10 - F32.9) Her depression is well-controlled and she is living her life without significant impairment. 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 Tumor markers are Positive for PDL 1. She seems healthy well and stable .The PET CT scan Heart negative for metastatic disease. She has been referred to medical oncology for adjuvant chemotherapy. 10/30/2023 Attention deficit hyperactivity disorder (ADHD), unspecified ADHD type (ICD-10 - F90.9) She was continued on her current medication. No change was made. She has been conducting the activities of daily life and in normal fashion. 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 Tumor markers are Positive for PDL 1. She seems healthy well and stable .The PET CT scan Heart negative for metastatic disease. She has had 2 cycles of chemotherapy today. She is tolerating it well. 11/09/2023 Attention deficit hyperactivity disorder (ADHD), unspecified ADHD type (ICD-10 - F90.9) She was continued on her current medication. No change was made. She has been conducting the activities of daily life and in normal fashion. 11/09/2023 Bilateral hearing lo ss (ICD-10 - H91.93) Her hearing loss is quite advanced and she benefit significantly from hearing aids. There was no difficulty conversing today. The recent episode of otitis has completely resolved. 11/14/2023 Attention deficit hyperactivity disorder (ADHD), unspecified ADHD type (ICD-10 - F90.9) She was continued on her current medication. No change was made. She has been conducting the activities of daily life and in normal fashion. 11/14/2023 Mild anemia (ICD-10 - D64.9) The hematocrit is 32% and normochromic normocytic. This is likely from her chemotherapy. No treatment is necessary. 12/12/2023 Attention deficit hyperactivity disorder (ADHD), unspecified ADHD type (ICD-10 - F90.9) She was continued on her current medication. No change was made. She has been conducting the activities of daily life and in normal fashion. 12/12/2023 Screening breast examination (ICD-10 - Z12.39) She has been scheduled for her annual mammogram next month. 01/29/2024 Attention deficit hyperactivity disorder (ADHD), unspecified ADHD type (ICD-10 - F90.9) She was continued on her current medication. No change was made. She has been conducting the activities of daily life and in normal fashion. 01/29/2024 Bilateral hearing lo ss (ICD-10 - H91.93) Her hearing loss is quite advanced and she benefit significantly from hearing aids. There was no difficulty conversing today. The recent episode of otitis has completely resolved. 04/02/2024 Hyperlipidemia (ICD- 10 - E78.5) Her lipids have been stable. Comprehensive blood work will be done. 04/02/2024 Attention deficit hyperactivity disorder (ADHD), unspecified ADHD type (ICD-10 - F90.9) She was continued on her current medication. No change was made. She has been conducting the activities of daily life and in normal fashion. 07/02/2024 Attention deficit hyperactivity disorder (ADHD), unspecified ADHD type (ICD-10 - F90.9) She was continued on her current medication. No change was made. She has been conducting the activities of daily life and in normal fashion. 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 She remains in remission at this time. 09/13/2023 Bilateral hearing lo ss (ICD-10 - H91.93) Her hearing loss is quite advanced and she benefit significantly from hearing aids. There was no difficulty conversing today. The recent episode of otitis has completely resolved. 09/27/2023 Bilateral hearing lo ss (ICD-10 - H91.93) Her hearing loss is quite advanced and she benefit significantly from hearing aids. There was no difficulty conversing today. The recent episode of otitis has completely resolved. 10/30/2023 Essential thrombocyt osis (ICD-10 - D47.3) Her platelets are currently 711,000. They will rise and fall with the chemotherapy. Anagrelide is being managed by oncology at this time. 11/09/2023 Major depression (IC D-10 - F32.9) Her depression is well-controlled and she is living her life without significant impairment. 11/14/2023 Thrombopenia (ICD-10 - D69.6) Her platelet count is slightly low from the chemotherapy. She will avoid aspirin. No treatment is necessary at this time. 12/12/2023 Major depression (IC D-10 - F32.9) Her depression is well-controlled and she is living her life without significant impairment. 01/29/2024 Major depression (IC D-10 - F32.9) Her depression is well-controlled and she is living her life without significant impairment. 04/02/2024 Asthma (ICD-10 - J45.909) She denies any recent episodes of asthma. No wheezing was heard today. She is compliant with her medication. 07/02/2024 Bilateral hearing lo ss (ICD-10 - H91.93) Her hearing loss is quite advanced and she benefit significantly from hearing aids. There was no difficulty conversing today. The recent episode of otitis has completely resolved. 09/13/2023 Major depression (IC D-10 - F32.9) Her depression is well-controlled and she is living her life without significant impairment. 09/27/2023 Asthma (ICD-10 - J45.909) Her lungs were clear today without wheezes. 10/30/2023 Hypercalcemia (ICD-1 0 - E83.52) Her calcium which was recently 10 point now is now 9.7 with the PTH of 14. This problem appears to have resolved. 11/09/2023 Hyperlipidemia (ICD- 10 - E78.5) Her lipids are controlled and no changes were needed. 11/14/2023 Bilateral hearing lo ss (ICD-10 - H91.93) Her hearing loss is quite advanced and she benefit significantly from hearing aids. There was no difficulty conversing today. The recent episode of otitis has completely resolved. 12/12/2023 Bilateral hearing lo ss (ICD-10 - H91.93) Her hearing loss is quite advanced and she benefit significantly from hearing aids. There was no difficulty conversing today. The recent episode of otitis has completely resolved. 01/29/2024 Hyperparathyroidism (ICD-10 - E21.3) The current ccalcium level is 9.7. No change inn her regimen was made. 04/02/2024 Essential thrombocyt osis (ICD-10 - D47.3) Her platelets are currently stable and no change in her regimen. 07/02/2024 Major depression (IC D-10 - F32.9) Her depression is well-controlled and she is living her life without significant impairment. 09/13/2023 Hyperparathyroidism (ICD-10 - E21.3) The current ccalcium level is 9.7. No change inn her regimen was made. 09/27/2023 Attention deficit hyperactivity disorder (ADHD), unspecified ADHD type (ICD-10 - F90.9) She was continued on her current medication. No change was made. She has been conducting the activities of daily life and in normal fashion. 10/30/2023 Hyperparathyroidism (ICD-10 - E21.3) The current ccalcium level is 9.7. No change inn her regimen was made. 11/09/2023 Asthma (ICD-10 - J45.909) Her lungs were clear today without wheezes. 11/14/2023 Major depression (IC D-10 - F32.9) Her depression is well-controlled and she is living her life without significant impairment. 12/12/2023 Hyperparathyroidism (ICD-10 - E21.3) The current ccalcium level is 9.7. No change inn her regimen was made. 01/29/2024 Asthma (ICD-10 - J45.909) Her lungs were clear today without wheezes. 04/02/2024 Bilateral hearing lo ss (ICD-10 - H91.93) Her hearing loss is quite advanced and she benefit significantly from hearing aids. There was no difficulty conversing today. The recent episode of otitis has completely resolved. 07/02/2024 Hyperlipidemia (ICD- 10 - E78.5) Her lipids have been stable. Comprehensive blood work will be done. 09/27/2023 Hyperlipidemia (ICD- 10 - E78.5) Her lipids are controlled and no changes were needed. 10/30/2023 Former smoker (ICD-1 0 - Z87.891) Her abstinence from tobacco continues. 11/09/2023 Hyperparathyroidism (ICD-10 - E21.3) The current ccalcium level is 9.7. No change inn her regimen was made. 11/14/2023 Hyperparathyroidism (ICD-10 - E21.3) The current ccalcium level is 9.7. No change inn her regimen was made. 12/12/2023 Hyperlipidemia (ICD- 10 - E78.5) Her lipids are controlled and no changes were needed. 01/29/2024 Hyperlipidemia (ICD- 10 - E78.5) Her lipids are controlled and no changes were needed. 04/02/2024 Major depression (IC D-10 - F32.9) Her depression is well-controlled and she is living her life without significant impairment. 07/02/2024 Asthma (ICD-10 - J45.909) She denies any recent episodes of asthma. No wheezing was heard today. She is compliant with her medication. 11/09/2023 Essential thrombocyt osis (ICD-10 - D47.3) Her platelets are currently 711,000. They will rise and fall with the chemotherapy. Anagrelide is being managed by oncology at this time. 11/14/2023 Asthma (ICD-10 - J45.909) Her lungs were clear today without wheezes. 12/12/2023 Asthma (ICD-10 - J45.909) Her lungs were clear today without wheezes. 01/29/2024 Essential thrombocyt osis (ICD-10 - D47.3) Her platelets are currently 711,000. They will rise and fall with the chemotherapy. Anagrelide is being managed by oncology at this time. 04/02/2024 Hyperparathyroidism (ICD-10 - E21.3) The current ccalcium level is 9.7. No change inn her regimen was made. 07/02/2024 Hyperparathyroidism (ICD-10 - E21.3) The current ccalcium level is 9.7. No change inn her regimen was made. 11/09/2023 Hypercalcemia (ICD-1 0 - E83.52) Her calcium which was recently 10 point now is now 9.7 with the PTH of 14. This problem appears to have resolved. 11/14/2023 Hyperlipidemia (ICD- 10 - E78.5) Her lipids are controlled and no changes were needed. 12/12/2023 Hypercalcemia (ICD-1 0 - E83.52) Her calcium which was recently 10 point now is now 9.7 with the PTH of 14. This problem appears to have resolved. 01/29/2024 Former smoker (ICD-1 0 - Z87.891) Her abstinence from tobacco continues. 04/02/2024 Former smoker (ICD-1 0 - Z87.891) Her abstinence from tobacco continues. 07/02/2024 Overweight (ICD-10 - E66.3) She has become slightly overweight with her treatment. We discussed diet and nutrition today. We made a plan to lose weight gradually. 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 Tumor markers are Positive for PDL 1. She seems healthy well and stable .The PET CT scan Heart negative for metastatic disease. She has had 2 cycles of chemotherapy today. She is tolerating it well. She will begin the third cycle of a total of 4 in 9 days. 11/14/2023 Former smoker (ICD-1 0 - Z87.891) Her abstinence from tobacco continues. 12/12/2023 Essential thrombocyt osis (ICD-10 - D47.3) Her platelets are currently 711,000. They will rise and fall with the chemotherapy. Anagrelide is being managed by oncology at this time. 01/29/2024 Overweight (ICD-10 - E66.3) She has become slightly overweight with her treatment. We discussed diet and nutrition today. We made a plan to lose weight gradually. 04/02/2024 Hypercalcemia (ICD-1 0 - E83.52) Her calcium level is 10.7. No change in her regimen as needed.This value will be carefully observed. 07/02/2024 Former smoker (ICD-1 0 - Z87.891) Her abstinence from tobacco continues. 11/09/2023 Overweight (ICD-10 - E66.3) She has become slightly overweight with her treatment. We discussed diet and nutrition today. We made a plan to lose weight gradually. 11/14/2023 Overweight (ICD-10 - E66.3) She has become slightly overweight with her treatment. We discussed diet and nutrition today. We made a plan to lose weight gradually. 12/12/2023 Former smoker (ICD-1 0 - Z87.891) Her abstinence from tobacco continues. 04/02/2024 Overweight (ICD-10 - E66.3) She has become slightly overweight with her treatment. We discussed diet and nutrition today. We made a plan to lose weight gradually. 07/02/2024 Vitamin B 12 deficie ncy (ICD-10 - E53.8) 11/09/2023 Former smoker (ICD-1 0 - Z87.891) Her abstinence from tobacco continues. 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 12/12/2023 Overweight (ICD-10 - E66.3) She has become slightly overweight with her treatment. We discussed diet and nutrition today. We made a plan to lose weight gradually. 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 She remains in remission at this time. 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 Surveillance will continue. Plan Of Treatment Pending Test Test Name Order Date PROFILE, FASTING (COMPREHENSIVE METABOLI C) 04/02/2024 PROFILE, FASTING (COMPREHENSIVE METABOLI C) 05/31/2022 PROFILE, FASTING (COMPREHENSIVE METABOLI C) 01/16/2022 PROFILE, FASTING (COMPREHENSIVE METABOLI C) 10/29/2017 PROFILE, FASTING (COMPREHENSIVE METABOLI C) 04/27/2023 PROFILE, FASTING (COMPREHENSIVE METABOLI C) 09/27/2018 PROFILE, FASTING (COMPREHENSIVE METABOLI C) 07/25/2017 PROFILE, FASTING (COMPREHENSIVE METABOLI C) 07/05/2021 PROFILE, FASTING (COMPREHENSIVE METABOLI C) 01/23/2023 PROFILE, FASTING (COMPREHENSIVE METABOLI C) 11/09/2022 PROFILE, FASTING (COMPREHENSIVE METABOLI C) 02/18/2018 PROFILE, FASTING (COMPREHENSIVE METABOLI C) 10/08/2019 PROFILE, RANDOM (COMPREHENSIVE METABOLIC ) 08/20/2017 PROFILE, RANDOM (COMPREHENSIVE METABOLIC ) 07/15/2021 PROFILE, RANDOM (COMPREHENSIVE METABOLIC ) 07/02/2024 PROFILE, RANDOM (COMPREHENSIVE METABOLIC ) 08/31/2022 CALCIUM 08/31/2022 LIPID PANEL 11/09/2022 LIPID PANEL 02/18/2018 LIPID PANEL 10/08/2019 LIPID PANEL 04/02/2024 LIPID PANEL 05/31/2022 LIPID PANEL 01/16/2022 LIPID PANEL 10/29/2017 LIPID PANEL 04/27/2023 LIPID PANEL 09/27/2018 LIPID PANEL 07/25/2017 LIPID PANEL 07/05/2021 LIPID PANEL 08/20/2017 LIPID PANEL 01/23/2023 FREE T4 (FT4) 07/25/2017 TSH (THYROID STIMULATING HORMONE) 2016 CBC w DIFF 07/25/2017 CBC w DIFF 11/09/2022 CBC w DIFF 02/18/2018 CBC w DIFF 08/31/2022 CBC w DIFF 10/08/2019 CBC w DIFF 04/02/2024 CBC w DIFF 05/31/2022 CBC w DIFF 01/16/2022 CBC w DIFF 10/29/2017 CBC w DIFF 04/27/2023 CBC w DIFF 09/27/2018 CBC w DIFF 07/15/2021 CBC w DIFF 07/05/2021 CBC w DIFF 08/20/2017 CBC w DIFF 04/17/2022 CBC w DIFF 01/23/2023 SED RATE (ESR) 07/05/2021 SED RATE (ESR) 07/25/2017 HEPATITIS C ANTIBODY 08/20/2017 VITAMIN D 25-OH TOTAL 07/05/2021 VITAMIN D 25-OH TOTAL 08/31/2022 VITAMIN D 25-OH TOTAL 05/31/2022 VITAMIN D 25-OH TOTAL 01/16/2022 PARATHYROID HORMONE INTACT 01/23/2023 PARATHYROID HORMONE INTACT 11/09/2022 PARATHYROID HORMONE INTACT 07/05/2021 PARATHYROID HORMONE INTACT 09/20/2022 PARATHYROID HORMONE INTACT 04/27/2023 CBC WITH AUTO DIFF 07/02/2024 Vitamin B12 07/02/2024 PTHI 07/15/2021 Parathyroid Hormone Intact 07/02/2024 Next Appt Details Provider Name:Horace Dorseyrne, 09/16/2024 10:45:00 AM, [address] [place] [address] [address], [facility] [place], [address], Provider Name:Horace Lima, 01/29/2025 10:00:00 AM, [address] [place] [address] [address], [place], [address], Insurance Providers Payer Name Payer Address Payer Phone Subscriber Number Group Number Insured Name Patient Relationship to Insured Coverage Start Date Coverage End Date MEDICARE NGS [address] [place] [address] [id number] Lily Jacques Self - patient is the insured MEDICAID [address] [place], [place] [phone] [id number] Lily Jacques Self - patient is the insured Medical (General) History Medical History History ICD Code ADHD, combined type ear infections left breast calcifications colonoscopy December 2012 tobacco dependence hyperlipidemia menopause age 42 alcohol abuse overweight Thrombocytosis Hearing loss Stage Ib [id number] adenocarcinoma RLL, pdl +, 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 Surgical History Surgery Date(Month/Year) right mastoidectomy 1985 left myringotomy 1985 T&A, adenoids tubal age 18 biopsy left breast fibroadenoma 05/13/14 right eye cataract 10/2020 left eye cataract 10/2020 Core needle biopsy right lower lobe supe rior segment mass 07/2023 No history Hospitalization History Reason Date(Month/Year) No history
--- OUTSIDE RECORDS SUMMARY | 2024-09-09 08:25 | XMS_ITS | Patient Health Record ---
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 Name Role Phone Arnoldo Rivera MD Primary Care Provider Unavaila Dakota Sibley Jr Unavailable REASON FOR REFERRAL No Information MEDICATIONS Medication SIG (Take, Route, Frequency, Duration) Notes Start Date End Date Status Simvastatin 20mg 09/03/2024 09/03/2024 A ctive Colyte with Flavor Packs 227.1 GM as directed Orally According to instructions for 1 day(s) 09/26/2012 09/03/2024 Active SOCIAL HISTORY Sex Assigned At : Social History Observation Description Sex Assigned At Unknown PROBLEMS Problem Type ICD Code Onset Dates Problem Status W/U Status Risk SNOMED Code Notes Problem Colon cancer screening (V76.51) Active confirmed Colon cancer screening ([id number]) PLAN OF TREATMENT Future Test Test Name Order Date COLONOSCOPY 09/26/2012 Insurance Providers Payer Name Payer Address Payer Phone Subscriber Number Group Number Insured Name Patient Relationship to Insured Coverage Start Date Coverage End Date MEDICARE OF [place] [address] [place] [id number] [phone] UMAIR BARNARD Self - patient is the insured MEDICAID OF [facility] [address] [place] [address] [phone] [id number] UMAIR BARNARD Self - patient is the insured MEDICAL (GENERAL) HISTORY Medical History History ICD Code Denies SC,DM,CVA,Lung disease,renal dise ase elevated cholesterol Surgical History Surgery Date(Month/Year) tubal mastoidectomy tympanostomy tubes
[2024-09-09 09:56] LABS: MANUAL DIFF FLAG NO
[2024-09-09 10:03] LABS: Basophils Absolute Auto 0.1 X10*3/uL (0.0-0.2); Basophils Percent Auto 1.2 % (0-2); Eosinophils Absolute Auto 0.1 X10*3/uL (0.0-0.4); Eosinophils Percent Auto 0.9 % (0-4); Hematocrit 41.3 % (37.0-47.0); Hemoglobin 13.6 g/dl (12.0-16.0); Imm Gran Abs Auto 0.02 X10*3/uL (0.00-0.03); Imm Gran Pct Auto 0.4 % (0.0-0.4); Lymphocytes Percent Auto 34.4 % (20-40); Mean Corpuscular HGB Conc 32.9 g/dl (31.0-35.0); Mean Corpuscular Hemoglobin 28.8 pg (27.0-33.0); Mean Corpuscular Volume 87.5 fL (80.0-98.0); Mean Platelet Volume 9.8 fL (9.4-12.3); Monocytes Percent Auto 17.2 % (2-11); NRBC Pct Auto 0.4 /100WBC (0.0-0.2); Neutrophils Absolute Auto 2.6 x10*3/uL (2.0-8.3); Neutrophils Percent Auto 45.9 % (45-73); Platelet Count 399 X10*3/uL (160-400); Red Blood Count 4.72 X10*6/uL (4.20-5.50); White Blood Count 5.7 X10*3/uL (4.8-10.8)
[2024-09-09 10:46] LABS: Parathyroid Hormone Intact 180.5 pg/mL (8.7-77.1)
[2024-09-09 10:47] LABS: Alanine Aminotransferase 22 U/L (0-31); Alkaline Phosphatase 141 U/L (39-117); Anion Gap 13 (12-20); Aspartate Amino Transferase 25 U/L (5-31); Bilirubin Total 0.3 mg/dL (0.0-1.0); Blood Urea Nitrogen 16 mg/dL (9-16); Calcium 10.8 mg/dL (8.4-10.2); Carbon Dioxide 24 mmol/L (22-29); Chloride 105 mmol/L (96-108); Estimated Glomerular Filt Rate > 60; Glucose Random 104 mg/dL (60-115); Potassium 4.7 mmol/L (3.3-5.1); Sodium 137 mmol/L (135-145); Total Protein 8.1 g/dL (6.5-8.0)
[2024-09-09 10:56] LABS: Vitamin B12 1210 pg/mL (200-900)
== END 2024-09-09 08:15 | disposition home or self-care (01) ==
LOC: HO.HMGCLDS 08:14
PROVIDERS: PCP Internal Medicine Medical Oncology; Visit Provider Internal Medicine Medical Oncology
DX: E78.5 Hyperlipidemia, unspecified (principal); E21.3 Hyperparathyroidism, unspecified; E66.3 Overweight; E53.8 Deficiency of other specified B group vitamins
CPT/HCPCS: 36415; 80053; 82607; 83970; 85025

== ENCOUNTER 2024-09-23 11:18 | Outpatient (REF) | payer MEDICARE, MEDICAID, SELFPAY ==
--- NOTE | ~2024-09-23 | CT_ITS ---
CLINICAL HISTORY: Surveillance for lung cancer CT chest with contrast Comparison: CT/SR - CT CHEST W IV CON - 03/19/24 10:23 EDT Findings: Patient has undergone prior right lower lobectomy. Emphysematous changes throughout the lungs. Interval development of areas of ground-glass density within the anterior aspect of the right upper lobe and within the posterior aspect of the right upper lobe. Spiculated pulmonary nodule has developed within the posterior aspect of the right upper lobe since prior study measuring 10 x 6 mm in size. This is best appreciated on axial image 49 of series 4. Subtle areas of peripheral nodularity are seen within the right upper lobe as well measuring up to 4 mm in size. Likely scarring or atelectasis within the anterior aspect of the lingula. No concerning pulmonary nodules or infiltrates within the left lung. No pleural effusion or pneumothorax. Right-sided Port-A-Cath is in place with tip at the cavoatrial junction. No pathologically enlarged mediastinal, hilar, or axillary lymph nodes. Calcification of the coronary arteries and thoracic aorta. No free fluid or free air within the upper abdomen. Low-attenuation throughout the liver is indicative of fatty infiltration. No destructive bony lesions. IMPRESSION: Interval development of areas of ground-glass density within the right lung as well as a spiculated pulmonary nodule within the right upper lobe. Although this may simply be related to acute infectious or inflammatory process, possibility of progression of the patient's malignancy should be considered. Short interval follow up chest CT in 6-8 weeks versus PET-CT at this time is suggested for further evaluation. This document has been electronically signed by: Trung Carrillo MD on 09/24/2024 06:53:23
[2024-09-23] MEDS: iohexoL 350 MG/ML 100 ML INFUS..BTL IV (12:39)
--- OUTSIDE RECORDS SUMMARY | 2024-09-23 13:03 | XMS_ITS | Patient Health Record ---
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 Name Role Phone Arnoldo Rivera MD Primary [...] screening (V76.51) Active confirmed Colon cancer screening ([id number]) PLAN OF TREATMENT Future Test Test Name Order Date COLONOSCOPY 09/26/2012 Insurance Providers Payer Name Payer Address Payer Phone Subscriber Number Group Number Insured Name Patient Relationship to Insured Coverage Start Date Coverage End Date MEDICARE OF [place] [address] [place] [id number] UMAIR BARNARD Self - patient is the insured [facility] [address] [place] [address] [phone] [id number] UMAIR BARNARD Self - patient is the insured MEDICAL (GENERAL) HISTORY Medical History History ICD Code Denies LA,DM,CVA,Lung disease,renal dise ase elevated cholesterol Surgical History Surgery Date(Month/Year) tubal mastoidectomy tympanostomy tubes
== END 2024-09-23 11:19 | disposition home or self-care (01) ==
LOC: HO.CT 11:18
PROVIDERS: PCP Internal Medicine Medical Oncology; Visit Provider Internal Medicine
DX: C34.90 Malignant neoplasm of unspecified part of unspecified bronchus or lung (principal)
CPT/HCPCS: 71260; Q9967

== ENCOUNTER → 2024-09-23 11:20 | Outpatient (BNV) | payer MEDICARE, MEDICAID, SELFPAY | PROVIDERS: PCP Internal Medicine Medical Oncology; Visit Provider Radiology Diagnostic Radiology | DX: R91.1 Solitary pulmonary nodule (principal) | CPT/HCPCS: 71260 ==

== ENCOUNTER → 2024-10-27 07:42 | Outpatient (REF) | payer MEDICARE, MEDICAID, SELFPAY ==
--- NOTE | ~2024-10-27 | NM_ITS ---
EXAMINATION: NM PARATHYROID SCAN CLINICAL INFORMATION: Hyperparathyroidism COMPARISON: Correlation is made with a chest CT dated 09/23/2024. TECHNIQUE: A double radionuclide study of the thyroid bed region and upper chest in multiple projections was performed 4 hours after the oral administration of 1 millicuries I-123 sodium iodide and immediately following the intravenous administration of 30 mCi Tc-99m sestamibi. Repeat imaging was performed 2 hours later. The iodide images were electronically subtracted from the sestamibi images using different weighting factors. FINDINGS: There is homogeneous uptake of radioiodine throughout both thyroid lobes. The thyroid gland appears to be normal in size and shape. There are no focal areas of increased or diminished uptake. Technetium 99m sestamibi images demonstrate homogeneous thyroid activity. There are no focal areas of increased or decreased Technetium 99m sestamibi activity. Computer-generated digital subtraction images reveal no evidence of excess sestamibi activity. NM/NM parathyroid IMPRESSION: No evidence of excess sestamibi activity to suggest a parathyroid adenoma or hyperplasia. There is homogeneous uptake of radioiodine in the thyroid gland which is also normal in size and shape. Electronically signed by: Horace Zimmerman MD 10/28/2024 07:09 AM [facility]
--- OUTSIDE RECORDS SUMMARY | 2024-10-27 07:56 | XMS_ITS ---
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 Name Role Phone Horace Lima Primary Care Provider [phone] Allergies Allergen (clinical drug ingredient) Drug/Non Drug Allergy documented on EMR Reaction Allergy Type Onset Date Status Substance with sulfonamide structure and antibacterial mechanism of action (substance) Sulfa Antibiotics Unknown Drug Allergy Active trazodone Trazodone HCl Unknown Drug Allergy Act naheed REASON FOR VISIT Non-small cell carcinoma of the lung, Acute bronchitis, ADHD, Hyperlipidemia, Bilateral hearing loss, Hyperparathyroidism, Asthma, Essential thrombocytosis Medications Medication SIG (Take, Route, Frequency, Duration) Notes Start Date End Date Status Ventolin HFA 108 (90 Base) MCG/ACT 1 puff every 4 hours Inhalation every 4 hrs for 30 days 09/16/2024 Active Anagrelide HCl 1 MG 1 capsule Orally Twi ce a day 07/16/2024 Active Simvastatin 20 MG TAKE ONE TABLET BY M OUTH EVERY EVENING Active Multi Vitamin Active Vitamin B-12 1000 MCG 1 tablet Orally On ce a day 04/02/2024 Active Amphetamine-Dextroamphetami ne 20 MG 1 tablet Orally Twice a day 01/11/2021 Active Docusate Sodium Acti ve B12 Active fluvoxaMINE Maleate 100 MG TAKE 1 TABLET BY MOUTH TWICE DAILY AT BEDTIME Active Anagrelide HCl 1 MG 1 capsule Orally onc e a day 07/15/2021 Active Pantoprazole Sodium 20 MG TAKE ONE TABLE T BY MOUTH EVERY DAY Active ProAir HFA 108 (90 Base) MCG/ACT 2 puff every 4 hours Inhalation every 4 hrs for 30 days Active predniSONE 5 MG Oral Acti ve Zithromax Z-Logan 250 MG as directed Orally Active Social History Sex Assigned At : Social History Observation Description Sex Assigned At Female Alcohol Screen Question Answer Notes Did you [...] Problem Status W/U Status Risk Notes Problem 16147696 Tobacco dependence (F17.200) Active confirmed I have counseled her about smoking cessation at length today. I have made her aware of the smoking cessation program at [facility]. She is smoking only 5 cigarettes a day now. 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 Surveillance will continue. Vital Signs Temperature 97.8 degrees Fahrenheit 09/16/19 25 Blood pressure systolic 132 mm Hg 09/16/19 25 Blood pressure diastolic 78 mm Hg 025 Heart Rate 82 /min 09/16/2024 Height 60 in 09/16/2024 Weight 127 lbs 09/16/2024 BMI 24.8 kg/m2 09/16/2024 Oximetry 95.0 % 09/16/2024 Encounters Encounter Location Date Provider Diagnosis Horace Lima III, MD [address] [place] [address] [place] [address] 09/16/2024 Horace Lima Attention deficit hyperactivity disorder (ADHD), unspecified ADHD type F90.9 ; 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 ; Hyperlipidemia E78.5 ; Hyperparathyroidism E21.3 ; Vitamin B 12 deficiency E53.8 ; Bilateral hearing loss H91.93 ; Asthma J45.909 ; Major depression F32.9 ; Tobacco dependence F17.200 and 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 Assessments Encounter Date Diagnosis (ICD Code) Assessment Notes T reatment Notes Treatment Clinical Notes 09/16/2024 Attention deficit hyperactivity disorder (ADHD), unspecified ADHD type (ICD-10 - F90.9) She was continued on her current medication. No change was made. She has been conducting the activities of daily life and in normal fashion. 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 Surveillance will continue. 09/16/2024 Hyperlipidemia (ICD- 10 - E78.5) Her lipids are stable and currently in their target range. No change in her regimen was made today. 09/16/2024 Hyperparathyroidism (ICD-10 - E21.3) Her calcium is 10.8. She remains under the care of endocrinology for hyperparathyroidis m. Her medical oncologist says ordered a scan of her thyroid. This is pending in October 2024. 09/16/2024 Vitamin B 12 deficie ncy (ICD-10 - E53.8) Her vitamin B12 level is normal. No change in her regimen was necessary today. 09/16/2024 Bilateral hearing lo ss (ICD-10 - H91.93) Her hearing loss is quite advanced and she benefit significantly from hearing aids. There was no difficulty conversing today. The recent episode of otitis has completely resolved. 09/16/2024 Asthma (ICD-10 - J45.909) She denies any recent episodes of asthma. No wheezing was heard today. She is compliant with her medication. 09/16/2024 Major depression (IC D-10 - F32.9) Her depression is well-controlled and she is living her life without significant impairment. 09/16/2024 Tobacco dependence (ICD-10 - F17.200) I have counseled her about smoking cessation at length today. I have made her aware of the smoking cessation program at [facility]. She is smoking only 5 cigarettes a day now. 09/16/2024 Essential thrombocyt osis (ICD-10 - D47.3) Her platelets are currently stable and no change in her regimen. Plan Of Treatment Medication Medication Name Sig Start Date Stop Date Notes Ventolin HFA 108 (90 Base) MCG/ACT 1 puff every 4 hours Inhalation every 4 hrs for 30 days 09/16/2024 Anagrelide HCl 1 MG 1 capsule Orally Twice a day 4 Simvastatin 20 MG TAKE ONE TABLET BY M OUTH EVERY EVENING Multi Vitamin Vitamin B-12 1000 MCG 1 tablet Orally Once a day 4 Amphetamine-Dextroamphetamin e 20 MG 1 tablet Orally Twice a day 01/11/2021 Docusate Sodium B12 fluvoxaMINE Maleate 100 MG TAKE 1 TABLET BY MOUTH TWICE DAILY AT BEDTIME Anagrelide HCl 1 MG 1 capsule Orally once a day 07/15/2021 Pantoprazole Sodium 20 MG TAKE ONE TABLE T BY MOUTH EVERY DAY ProAir HFA 108 (90 Base) MCG/ACT 2 puff every 4 hours Inhalation every 4 hrs for 30 days predniSONE 5 MG Oral Zithromax Z-Logan 250 MG as directed Orally Pending Test Test Name Order Date PROFILE, FASTING (COMPREHENSIVE METABOLI C) 09/16/2024 CBC WITH AUTO DIFF 09/16/2024 Lipid Panel 09/16/2024 Vitamin B12 09/16/2024 Next Appt Details Follow Up: 3 Months, 3 month s, Reason: OV, Follow-up on breathing issues and overall health Provider Name:Horace Lima, 12/16/2024 11:15:00 AM, [address] [place] [address] [address], [place] [place], [address], Provider Name:Horace Lima, 01/29/2025 10:00:00 AM, [address] [place] [address] [address], [place], [address], Progress Notes * Mello BARNARDeDOB: (64 yo F)Acc No.[id number]:09/16/2024 Progress Notes Patient:Lily BELLA Provider:?Horace Lima MD :1960???Age:64 Y???Sex:Female D ate:09/16/2024 Address:[address] [place] [address] [place], [id number] Subjective: * Chief Complaints: * ???Non-small cell carcinoma of the lungAcute bronchitisADHDHyperlipidemiaBilateral hearing lossHyperparathyroidismAsthmaEssential thrombocytosis * HPI: ???COVID-19 Screening:? stopped smoking in august. ?Questions?Have you had any new onset fever, chills, cough, congestion, sore throat, shortness of breath, muscle aches??No ???:?The patient, a 64-year-old female, presented with difficulty in breathing that started in the middle of the night on a . She described the symptom as a feeling of wheezing and not being able to get her breath. She also reported a feeling of phlegm and a scratchy sensation in her throat. The patient had been taking Azithromycin and had started Prednisone for her breathing issues. She also mentioned having a parathyroid scan scheduled for the beginning of October. The patient had been done with her chemotherapy for a year. She also reported having smoked a few times around [place] after a year of not smoking. She remains under the care of medical oncology at [facility].? She sees endocrinology as well for hyperparathyroidism.? She feels healthy and well today with no new complaints.? She recently saw her medical oncologist and was placed on an antibiotic and prednisone for an acute bronchitis.? She is beginning to improve.? Her oxygen saturation today was 98%. * ROS:?General/Constitutional:?pain?only normal aches and pains.?Chills?denies.?Fatigue?admits.?Fever?denies.?ENT:?Decreased hearing?in both ears.?Respiratory:?Cough?worse at night.?Cardiovascular:?Chest pain with exertion?denies.?Dyspnea on exertion?denies.?Shortness of breath?with exertion.?Gastrointestinal:?Constipation?occasional.?Decreased appetite?denies.?Diarrhea?denies.?Heartburn?denies.?Nausea?denies.?Rectal bleeding?denies.?Vomiting?denies.?Hematology:?bruising?denies.?petechiae?denies.?Swollen glands?none have been noted.?Genitourinary:?Frequent urination?at night.?Musculoskeletal:?Muscle aches?denies.?Painful joints?denies.?Sciatica?denies.?Weakness?denies.?Skin:?Itching?denies.?Rash?denies.?Skin lesion(s)?denies.?Neurologic:?Difficulty speaking?denies.?Dizziness?denies.?Headache?denies.?Low back pain?denies.?Psychiatric:?Depressed mood?which is mild.? * Medical History:? * Surgical History:?right mast oidectomy 1986left myringotomy 1986T&A, adenoids tubal age 18 biopsy left breast fibroadenoma 05/13/14right eye cataract eft eye cataract 1Core needle biopsy right lower lobe superior segment mass 07/2023No history * Hospitalization/Major Diagno stic Procedure:?No history * Family History:?Father: unkn own.?Mother: 52 yrs, Lupus/lung cancer, diagnosed with Cancer.?Children: .?Son(s): 22 yrs.?Daughter(s): 29 yrs.?Siblings: alive.?Paternal Grand Mother: diagnosed with DM.?1 brother(s) [...] disorder, or addictions. * Social History:?Tobacco Use:?Tobacco Use/Smoking?.?Drugs/Alcohol:?Drugs?Have you used drugs other than those for medical reasons in the past 12 months??No ?Alcohol Screen?Did you have a drink containing alcohol in the past year??Yes ?How often did you have a drink containing alcohol in the past year??Monthly or less (1 point) ?How many drinks did you have on a typical day when you were drinking in the past year??1 or 2 drinks (0 point) ?How often did you have 6 or more drinks on one occasion in the past year??Never (0 point) ?Points?1 ?Interpretation?Negative ???She was born in [place] and 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 She moved here 2 years ago. She is . She had two children. A daughter at 29 in auto accident. Her son had a fatal drug overdose aged 22. She is not working and is not disabled. She stopped smoking in 2022 Smoking: Patient admitted to smoking a few times around [place] after a year of not smoking. * Medications:?TakingZithromax Z-Logan 250 MG Tablet as directed Orally Simvastatin 20 MG Tablet TAKE ONE TABLET [...] Tablet 1 tablet Orally Once a day predniSONE 5 MG Tablet Oral Medication List reviewed and reconciled with the patientTaking Zithromax Z-Logan 250 MG Tablet as directed Orally Taking Simvastatin 20 MG Tablet TAKE ONE TABLET [...] Tablet 1 tablet Orally Once a day Taking predniSONE 5 MG Tablet Oral Medication List reviewed and reconciled with the patient * Allergies:?Trazodone HClSulf a Antibioticsno[Allergies Verified] Objective: * Vitals:?Ht: 60, Wt:127, BMI: 24.8, BP:132/78, HR:82, Temp:97.8, Oxygen sat %:95.0, Wt-k.61. * ???Past Orders: Lab:Complete Blood Count Aut o Diff * Collection Date 09/09/2024 06/23/2024 03/07/2024 Collection Time 08:21 AM 09:56 AM 10:14 AM Order Date 09/09/2024 06/23/2024 03/07/2024 White Blood Count 5.7 (Ref Range: 4.8-10.8 X10*3/uL) 7.8 (Ref Range: 4.8-10.8 X10*3/uL) 6.4 (Ref Range: 4.8-10.8 X10*3/uL) Red Blood Count 4.72 (Ref Range: 4.20-5.50 X10*6/uL) 4.33 (Ref Range: 4.20-5.50 X10*6/uL) 4.10?L (Ref Range: 4.20-5.50 X10*6/uL) Hemoglobin 13.6 (Ref Range: 12.0-16.0 g/dl) 12.6 (Ref Range: 12.0-16.0 g/dl) 11.7?L (Ref Range: 12.0-16.0 g/dl) Hematocrit 41.3 (Ref Range: 37.0-47.0 %) 38.4 (Ref Range: 37.0-47.0 %) 36.4?L (Ref Range: 37.0-47.0 %) Mean Corpuscular Volume 87.5 (Ref Range: 80.0-98.0 fL) 88.7 (Ref Range: 80.0-98.0 fL) 88.8 (Ref Range: 80.0-98.0 fL) Mean Corpuscular Hemoglobin 28.8 (Ref Range: 27.0-33.0 pg) 29.1 (Ref Range: 27.0-33.0 pg) 28.5 (Ref Range: 27.0-33.0 pg) Mean Corpuscular HGB Conc 32.9 (Ref Range: 31.0-35.0 g/dl) 32.8 (Ref Range: 31.0-35.0 g/dl) 32.1 (Ref Range: 31.0-35.0 g/dl) Red Cell Distribution Width 15.0 (Ref Range: 11.0-16.0 %) 15.6 (Ref Range: 11.0-16.0 %) 14.1 (Ref Range: 11.0-16.0 %) Platelet Count 399 (Ref Range: 160-400 X10*3/uL) 431?H (Ref Range: 160-400 X10*3/uL) 400 (Ref Range: 160-400 X10*3/uL) Mean Platelet Volume 9.8 (Ref Range: 9.4-12.3 fL) 9.4 (Ref Range: 9.4-12.3 fL) 9.1?L (Ref Range: 9.4-12.3 fL) Neutrophils Percent Auto 45.9 (Ref Range: 45-73 %) 44.3?L (Ref Range: 45-73 %) 35.4?L (Ref Range: 45-73 %) Imm Gran Pct Auto 0.4 (Ref Range: 0.0-0.4 %) 0.1 (Ref Range: 0.0-0.4 %) 0.2 (Ref Range: 0.0-0.4 %) Lymphocytes Percent Auto 34.4 (Ref Range: 20-40 %) 42.7?H (Ref Range: 20-40 %) 48.7?H (Ref Range: 20-40 %) Monocytes Percent Auto 17.2?H (Ref Range: 2-11 %) 10.4 (Ref Range: 2-11 %) 12.4?H (Ref Range: 2-11 %) Eosinophils Percent Auto 0.9 (Ref Range: 0-4 %) 1.3 (Ref Range: 0-4 %) 1.9 (Ref Range: 0-4 %) Basophils Percent Auto 1.2 (Ref Range: 0-2 %) 1.2 (Ref Range: 0-2 %) 1.4 (Ref Range: 0-2 %) NRBC Pct Auto 0.4?H (Ref Range: 0.0-0.2 /100WBC) 0.0 (Ref Range: 0.0-0.2 /100WBC) 0.0 (Ref Range: 0.0-0.2 /100WBC) Neutrophils Absolute Auto 2.6 (Ref Range: 2.0-8.3 x10*3/uL) 3.5 (Ref Range: 2.0-8.3 x10*3/uL) 2.3 (Ref Range: 2.0-8.3 x10*3/uL) Imm Gran Abs Auto 0.02 (Ref Range: 0.00-0.03 X10*3/uL) 0.01 (Ref Range: 0.00-0.03 X10*3/uL) 0.01 (Ref Range: 0.00-0.03 X10*3/uL) Lymphocytes Absolute Auto 2.0 (Ref Range: 1.2-4.9 X10*3/uL) 3.3 (Ref Range: 1.2-4.9 X10*3/uL) 3.1 (Ref Range: 1.2-4.9 X10*3/uL) Monocytes Absolute Auto 1.0 (Ref Range: 0.1-1.2 X10*3/uL) 0.8 (Ref Range: 0.1-1.2 X10*3/uL) 0.8 (Ref Range: 0.1-1.2 X10*3/uL) Eosinophils Absolute Auto 0.1 (Ref Range: 0.0-0.4 X10*3/uL) 0.1 (Ref Range: 0.0-0.4 X10*3/uL) 0.1 (Ref Range: 0.0-0.4 X10*3/uL) Basophils Absolute Auto 0.1 (Ref Range: 0.0-0.2 X10*3/uL) 0.1 (Ref Range: 0.0-0.2 X10*3/uL) 0.1 (Ref Range: 0.0-0.2 X10*3/uL) NRBC Abs Auto 0.020?H (Ref Range: 0.0-0.012 X10*3/uL) 0.000 (Ref Range: 0.0-0.012 X10*3/uL) 0.000 (Ref Range: 0.0-0.012 X10*3/uL) * Lab:Comprehensive Met. Panel * Collection Date 09/09/2024 03/07/2024 01/15/2024 Collection Time 08:31 AM 10:14 AM 01:50 PM Order Date 09/09/2024 03/07/2024 01/15/2024 Sodium 137 (Ref Range: 135-145 mmol/L) 137 (Ref Range: 135-145 mmol/L) 138 (Ref Range: 135-145 mmol/L) Bilirubin Total 0.3 (Ref Range: 0.0-1.0 mg/dL) 0.2 (Ref Range: 0.0-1.0 mg/dL) 0.2 (Ref Range: 0.0-1.0 mg/dL) Aspartate Amino Transferase 25 (Ref Range: 5-31 U/L) 22 (Ref Range: 5-31 U/L) 20 (Ref Range: 5-31 U/L) Alanine Aminotransferase 22 (Ref Range: 0-31 U/L) 17 (Ref Range: 0-31 U/L) 15 (Ref Range: 0-31 U/L) Total Protein 8.1?H (Ref Range: 6.5-8.0 g/dL) 7.6 (Ref Range: 6.5-8.0 g/dL) 7.3 (Ref Range: 6.5-8.0 g/dL) Albumin Level 4.0 (Ref Range: 3.5-5.0 g/dL) 4.2 (Ref Range: 3.5-5.0 g/dL) 4.0 (Ref Range: 3.5-5.0 g/dL) Alkaline Phosphatase 141?H (Ref Range: 39-117 U/L) 103 (Ref Range: 39-117 U/L) 111 (Ref Range: 39-117 U/L) Potassium 4.7 (Ref Range: 3.3-5.1 mmol/L) 5.9?H (Ref Range: 3.3-5.1 mmol/L) 4.1 (Ref Range: 3.3-5.1 mmol/L) Chloride 105 (Ref Range: 96-108 mmol/L) 108 (Ref Range: 96-108 mmol/L) 107 (Ref Range: 96-108 mmol/L) Carbon Dioxide 24 (Ref Range: 22-29 mmol/L) 23 (Ref Range: 22-29 mmol/L) 22 (Ref Range: 22-29 mmol/L) Anion Gap 13 (Ref Range: 12-20) 12 (Ref Range: 12-20) 13 (Ref Range: 12-20) Blood Urea Nitrogen 16 (Ref Range: 9-16 mg/dL) 23?H (Ref Range: 9-16 mg/dL) 21?H (Ref Range: 9-16 mg/dL) Creatinine 0.89 (Ref Range: 0.5-1.4 mg/dL) 1.10 (Ref Range: 0.5-1.4 mg/dL) 0.92 (Ref Range: 0.5-1.4 mg/dL) Estimated Glomerular Filt Rate > 60 50 > 60 Glucose Random 104 (Ref Range: 60-115 mg/dL) 101 (Ref Range: 60-115 mg/dL) 97 (Ref Range: 60-115 mg/dL) Calcium 10.8?H (Ref Range: 8.4-10.2 mg/dL) 10.7?H (Ref Range: 8.4-10.2 mg/dL) 10.1 (Ref Range: 8.4-10.2 mg/dL) Creatinine Clr Calc Pharmacy NR 41.9 50.1 ???Lab:Vitamin B12 (Order Date - 09/09/2024) (Collection Date & Time - 09/09/2024 08:21 AM)?ValueReference Range?Vitamin D115531H174-840 - pg/mL ???Lab:Parathyroid Hormone Intact (Order Date - 09/09/2024) (Collection Date & Time - 09/09/2024 08:21 AM)?ValueReference Range?Parathyroid Hormone Qgkmal439.5H8.7-77.1 - pg/mL ???Lab:Free T4 (Free Thyroxine) (Order Date - 07/28/2024) (Collection Date & Time - 07/28/2024 01:52 PM)?ValueReference Range?Free T4 (Free Thyroxine)1.050.71-1.85 - ng/dL ???Lab:Thyroid Stimulating Hormone (Order Date - 07/28/2024) (Collection Date & Time - 07/28/2024 01:52 PM)?ValueReference Range?Thyroid Stimulating Hormone1.580.32-4.0 - uIU/mL * Lab:Comprehensive [place]. Holdene l Fast * Collection Date 06/23/2024 07/24/2023 04/20/2023 [...] no acute distress, calm and relaxed, woman.?HEAD:?atraumatic, normocephalic.?EYES:?eomi, perrla, anicteric, conjugate.?EARS:?Bilateral hearing aids, bilateral hearing loss, bilateral surgical changes in the canals.?NOSE:?septum intact.?ORAL CAVITY:?normal, unremarkable.?NECK/THYROID:?no jugular venous distention, no carotid bruit, thyroid not palpable.?LYMPH NODES:?no enlarged lymph nodes,spleen normal.?SKIN:?no suspicious lesions, anicteric.?HEART:?no clicks, gallops, murmurs, or rubs, regular rhythm, S1, S2 normal, no s3, or vascular bruits.?LUNGS:?, good air movement, no wheezes, rales, rhonchi, diminished breath sounds throughout.?BREASTS:??no masses palpable bilaterally.?ABDOMEN:?bowel sounds normal, no ascites, no organomegaly, no mass.?RECTAL EXAM:?not examined.?MUSCULOSKELETAL:?extremities unremarkable, no clubbing, cyanosis or edema.?PERIPHERAL PULSES:?normal.?NEUROLOGIC:?alert and oriented, cranial nerves 2-12 grossly intact, deep tendon reflexes 2+ symmetrical, motor strength normal upper and lower extremities, sensory exam intact.?PSYCH:?alert, oriented, speech clear, mood depressed, cooperative with exam, cognitive function intact, Hearing loss.? : ???Lungs:Wheezes heard, no pneumonia detected; Breasts: Cancer-free. ??? Assessment: * Assessment: 1.?Bronchogenic cancer of le ft lung - C34.92 (Primary)???Notes :She has completed her chemotherapy and appears to be free of disease this time. Surveillance will continue.???2.?Attention deficit hyperactivity disorder (ADHD), unspecified ADHD type - F90.9???Notes :She was continued on her current medication. No change was made. She has been conducting the activities of daily life and in normal fashion.???3.?Hyperlipidemia - E78.5???Notes :Her lipids are stable and currently in their target range.? No change in her regimen was made today.???4.?Hyperparathyroidism - E21.3???Notes :Her calcium is 10.8.? She remains under the care of endocrinology for hyperparathyroidism.? Her medical oncologist says ordered a scan of her thyroid.? This is pending in October 2024.???5.?Vitamin B 12 deficiency - E53.8???Notes :Her vitamin B12 level is normal.? No change in her regimen was necessary today.???6.?Bilateral hearing loss - H91.93???Notes :Her hearing loss is quite advanced and she benefit significantly from hearing aids. There was no difficulty conversing today. The recent episode of otitis has completely resolved.???7.?Asthma - J45.909???Notes :She denies any recent episodes of asthma. No wheezing was heard today. She is compliant with her medication.???8.?Major depression - F32.9???Notes :Her depression is well-controlled and she is living her life without significant impairment.???9.?Tobacco dependence - F17.200???Notes :I have counseled her about smoking cessation at length today. I have made her aware of the smoking cessation program at [facility]. She is smoking only 5 cigarettes a day now.???10.?Essential thrombocytosis - D47.3???Notes :Her platelets are currently stable and no change in her regimen.??? Plan: * Treatment: 2.?Hyperlipidemia?LAB: PROFILE, FASTING (COMPREHENSIVE METABOLIC) ?LAB: CBC WITH AUTO DIFF ?LAB: Lipid Panel ?LAB: Vitamin B12 3.?Hyperparathyroidism?LAB: PROFILE, FASTING (COMPREHENSIVE METABOLIC) ?LAB: CBC WITH AUTO DIFF ?LAB: Lipid Panel ?LAB: Vitamin B12 4.?Vitamin B 12 deficiency?LAB: PROFILE, FASTING (COMPREHENSIVE METABOLIC) ?LAB: CBC WITH AUTO DIFF ?LAB: Lipid Panel ?LAB: Vitamin B12 5.?Others? Continue Anagrelide HCl Capsule, 1 MG, 1 capsule, Orally, Twice a day;?Continue Simvastatin Tablet, 20 MG, TAKE ONE TABLET BY MOUTH EVERY EVENING;?Continue Pantoprazole Sodium Tablet Delayed Release, 20 MG, TAKE ONE TABLET BY MOUTH EVERY DAY.?? * Procedure Codes:?58706 MEASU RE BLOOD OXYGEN LEVEL * Preventive Medicine:? ??Counseling:?Smoking/Tobacco Use?Patient counseled on the dangers of tobacco use and urged to quit.?09/16/2024 ?Patient Lifestyle Goals?Patient wants to quit ?Treatment Goals?Set a quit date, Cut down by 1 cigarette a week ?Barriers?Social smoker, Stress ?Self-Management Plan?Make a plan to cut down number of cigarettes over time and set a date to work towards quitting * Follow Up:?3 Months, 3 month s (Reason: OV, Follow-up on breathing issues and overall health) * Images: * Sign off status: Completed true * Provider:?Horace Lima MD Date:?09/03 Generated for Reymundoi sol/Kirby/eTransmitting on:?10/27/2024 07:55 AM EST History and Physical Notes * HPI (History of Present Illness) Category Sub-Category Detail Notes COVID-19 Screening Questions Have you had any new onset fever, chills, cough, congestion, sore throat, shortness of breath, muscle aches?: No Examination Category Sub-Category Detail Notes General Examination GENERAL APPEARANCE: pleasant , well nourished, well developed, in no acute distress, calm and relaxed, woman HEAD: atraumatic, normocep halic EYES: eomi, perrla, anicte parris, conjugate EARS: Bilateral hearing ai ds, bilateral hearing loss, bilateral surgical changes in the canals NOSE: septum intact NECK/THYROID: no jugular venous di stention, no carotid bruit, thyroid not palpable HEART: no clicks, gallops, murmurs, or rubs, regular rhythm, S1, S2 normal, no s3, or vascular bruits LUNGS: , good air movement, no wheezes, rales, rhonchi, diminished breath sounds throughout ABDOMEN: bowel sounds normal, no ascites, no organomegaly, no mass NEUROLOGIC: alert and oriented, cranial nerves 2-12 grossly intact, deep tendon reflexes 2+ symmetrical, motor strength normal upper and lower extremities, sensory exam intact SKIN: no suspicious lesion s, anicteric PERIPHERAL PULSES: normal BREASTS: no masses palpable b ilaterally MUSCULOSKELETAL: extremities unremark able, no clubbing, cyanosis or edema LYMPH NODES: no enlarged lymph no kathy,spleen normal RECTAL EXAM: not examined PSYCH: alert, oriented, spe ech clear, mood depressed, cooperative with exam, cognitive function intact, Hearing loss ORAL CAVITY: normal, unremarkable
--- OUTSIDE RECORDS SUMMARY | 2024-10-27 07:56 | XMS_ITS ---
Author Organization Horace Lima III, MD Address [address] [place] [address] [place] [address] Care Team Providers Care Mysql Developer Name Role Phone Horace Lima Primary Care Provider REASON FOR VISIT RE:Refills Social History Sex Assigned At : Social History Observation Description Sex Assigned At Female Encounters Encounter Location Date Provider Diagnosis Horace Lima III, MD [address] [place] [address] [place] [address] 10/13/2024 Horace Lima Plan Of Treatment Next Appt Details Provider Name:Horace Lima, 12/16/2024 11:15:00 AM, [address] [place] [address] [address] [place], [address], Provider Name:Horace Lima, 01/29/2025 10:00:00 AM, [address] [place] [address] [address] [place], [address], Progress Notes * Mello BRANARDeDOB: (64 yo F)Acc No.[id number]:10/13/2024 Patient:?Lily BARNARD :1960???Age:64 Y???Sex:Female Address:[address] [place], [address] * true * Date:? Generated for Printi ng/Faxing/eTransmitting on:?10/27/2024 07:56 AM EST
--- OUTSIDE RECORDS SUMMARY | 2024-10-27 07:56 | XMS_ITS | Patient Health Record ---
Author Organization [facility] Address [address] [place] [address] Care Team Providers Care Manager Integration Name Role Phone Arnoldo Rivera MD Primary [...] screening (V76.51) Active confirmed Colon cancer screening ([id number]) PLAN OF TREATMENT Future Test Test Name Order Date COLONOSCOPY 09/26/2012 Insurance Providers Payer Name Payer Address Payer Phone Subscriber Number Group Number Insured Name Patient Relationship to Insured Coverage Start Date Coverage End Date MEDICARE OF [place] [address] JONN COOPER [id number] UMAIR BARNARD Self - patient is the insured MEDICAID [facility] [address] [place] [address] [phone] [id number] UMAIR BARNARD Self - patient is the insured MEDICAL (GENERAL) HISTORY Medical History History ICD Code Denies SD,DM,CVA,Lung disease,renal dise ase elevated cholesterol Surgical History Surgery Date(Month/Year) tubal mastoidectomy tympanostomy tubes
--- OUTSIDE RECORDS SUMMARY | 2024-10-27 07:56 | XMS_ITS ---
Author Organization Horace Lima III, MD Address [address] [place] [address] Care Team Providers Care Equity Sales Assistant Name Role Phone Horace Lima Primary Care Provider [phone] REASON FOR VISIT Refills Medications Medication SIG (Take, Route, Frequency, Duration) Notes Start Date End Date Status Vitamin B-12 1000 MCG 1 tablet Orally On ce a day for 90 days 10/13/2024 10/08/2025 Active Pantoprazole Sodium 20 MG TAKE ONE TABLE T BY MOUTH EVERY DAY Orally Once a day for 90 days Active Simvastatin 20 MG TAKE ONE TABLET BY M OUTH EVERY EVENING Orally Once a day for 90 days Active Social History Sex Assigned At : Social History Observation Description Sex Assigned At Female Encounters Encounter Location Date Provider Diagnosis Horace Lima III, MD [address] [place] [address] [place] [address] 10/10/2024 Horace Lima Plan Of Treatment Medication Medication Name Sig Start Date Stop Date Notes Vitamin B-12 1000 MCG 1 tablet Orally On ce a day for 90 days 10/13/2024 10/08/2025 Pantoprazole Sodium 20 MG TAKE ONE TABLE T BY MOUTH EVERY DAY Orally Once a day for 90 days Simvastatin 20 MG TAKE ONE TABLET BY M OUTH EVERY EVENING Orally Once a day for 90 days Next Appt Details Provider Name:Horace Lima, 12/16/2024 11:15:00 AM, [address] [place] [address] [address] [place], [address], Provider Name:Horace Lima, 01/29/2025 10:00:00 AM, [address] [place] [address] [address], [place], [address], Progress Notes * Emilee BARNARDOB: (64 yo F)Acc No.[id number]:10/10/2024 Patient:?Lily BARNARD :1960???Age:64 Y???Sex:Female Address:[address] [place] [address], [address] * Refills? Refill Simvastatin Tablet, 20 MG, Orally, 90, TAKE ONE TABLET BY MOUTH EVERY EVENING, Once a day, 90 days, Refills=3 Refill Pantoprazole Sodium Tablet Delayed Release, 20 MG, Orally, 90, TAKE ONE TABLET BY MOUTH EVERY DAY, Once a day, 90 days, Refills=3 Start Vitamin B-12 Tablet, 1000 MCG, Orally, 90 Tablet, 1 tablet, Once a day, 90 days, Refills=3 * true * Date:? Generated for Felice horton/Kirby/Sergiosmitting on:?10/27/2024 07:56 AM EST
--- OUTSIDE RECORDS SUMMARY | 2024-10-27 07:56 | XMS_ITS | Data Portability ---
Author Organization ID - [facility] Address [address] [address] Care Team Providers Care Staff Climate Scientist Name Role Phone JORGENSENROBBY DUNN Primary Care Provider Assessment Encounter Date Assessment Date Assessment LastModified by Organization Details LastModified Time 03/21/2024 03/21/2024 Impacted cerumen was debrided from the left ear today. Perforation is stable. Right mastoid cavity is clean and dry. She will follow up in six months for an ear cleaning. [email or web address] Not available 03/21/2024 14:12:16 Plan of Treatment Reminders Order Date Submit Date Provider Last Modified By Organization Details Last Modified Time Details Appointments Establish ed 15 2024 11:15A M ELISEO MARQUIS MD Not available Not available Not available Lab None recorded. Referral None recorded. Procedures None recorded. Surgeries None recorded. Imaging None recorded. Medication Orders None recorded. Patient TargetsNo targets recorded. Patient InstructionsNo instructions recorded. Reason for Referral None Reported. Results Created Date Observation Date Name Description Value Unit Range Abnormal Flag Note LastModifiedBy Organization Detail LastModifiedTime 04/23/2003/09/2022 imagi ng/di agnos tic resul t No observ ation record ed. [email or web address] Not Available 20:00:48 04/23/2003/09/2022 imagi ng/di agnos tic resul t No observ ation record ed. [email or web address] Not Available 20:00:49 04/23/20 24 03/09/2022 audio gram No observ ation record ed. [email or web address] Not Available 20:01:05 Result Notes None recorded. Problems Name Problem SNOMED Code Status Onset Date Resolution Date Notes Provider Name and Address Organization Details Recorded Time Postmasto idectomy complicat ion 61389097 Active 2014 Other disorders following mastoidec hieu, right ear; Note: Date Diagnosed : 5 11:48 AM (H95.191) Not Available [facility] 4 02:54:08 Mixed conductiv e and sensorine ural hearing loss, bilateral 392688253 Active 2014 Mixed conductiv e and sensorine ural hearing loss, bilateral ; Note: Date Diagnosed : 5 11:48 AM (H90.6) Not Available [facility] 4 02:54:06 Impacted cerumen of bilateral ears 66275127707 48867 Active 2016 Impacted cerumen, bilateral ; Note: Date Diagnosed : 03/27/2017 9:11 AM (H61.23) Not Available [facility] 4 02:54:07 Bilateral disorder of Eustachia n tubes 05902475675 04846 Active 2014 Other specified disorders of Eustachia n tube, bilateral ; Note: Date Diagnosed : 5 11:48 AM (H69.83) Not Available [facility] 4 02:54:06 Candidal otitis externa 73630818 Active 2017 Candidal otitis externa; Note: Date Diagnosed : 08/06/2018 11:51 AM (B37.84) Not Available [facility] 4 02:54:05 Otorrhea of left ear 07455913164 97339 Active 2018 Otorrhea, left ear; Note: Date Diagnosed : 03/20/2019 2:35 PM (H92.12) Not Available [facility] 4 02:54:05 Impacted cerumen in left ear 89181712849 31993 Active 2014 Impacted cerumen, left ear; Note: Date Diagnosed : 5 11:48 AM (H61.22) Not Available [facility] 4 02:54:08 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 93496927649 32065 Active 2014 Total perforati ons of tympanic membrane, bilateral ; Note: Date Diagnosed : 5 11:48 AM (H72.823) Not Available [facility] 4 02:54:07 Chronic pharyngit is 045819 Active 2016 Chronic sore throat; Note: Date Diagnosed : 08/07/2017 1:07 PM (J31.2) Not Available [facility] 4 02:54:06 Problem Notes None recorded. Procedures Surgical History None recorded. Imaging Results Imaging Date Name Status LastModified by [facility] Details LastModified Time 03/09/2022 imaging/diagno stic result completed [email or web address] Information not available 04/23/2024 20:00:48 03/09/2022 imaging/diagno stic result completed [email or web address] Information not available 04/23/2024 20:00:49 03/09/2022 audiogram completed [email or web address] Information not available 04/23/2024 20:01:05 Procedure Notes None recorded. Medical Equipment None Reported. Allergies No known drug allergies Medications Name Sig Start Date Stop Date Status Note LastModified by Organization Details LastModified Time amoxicill in 500 mg capsule TAKE ONE CAPSULE BY MOUTH EVERY 12 HOURS 09/25 completed Not Available Not Available Not Available loratadin e 10 mg disintegr ating tablet 01/02 completed Medicati on ID: [id number] R darshan: () Brand Name: enoc dunn Send Method: E-Prescr ibed Sub s Allowed: subs OK Medic ationGen ericName : loratashayne ne Not Available Not Available Not Available gabapenti n 600 mg tablet TAKE ONE TABLET BY MOUTH EVERY EVENING AT BEDTIME 09/25 completed Not Available Not Available Not Available azithromy rohan 250 mg tablet TAKE 2 TABLETS ON FIRST DAY THEN 1 TABLET DAILY FOR 4 DAYS 09/25 completed Not Available Not Available Not Available Lotrisone 1 %-0.05 % topical cream 1 a small amount to affected area 09/25 completed Medicati on ID: [id number] D uration Value: 14 Prescri bed By Name: Aleida Czarick, PA-C Bra nd Name: Lotrison e Send Method: E-Prescr ibed Sub s Allowed: subs OK Medic ationGen ericName : Lotrison e Not Available Not Available Not Available hydrocodo ne 5 mg-acetam inophen 325 mg tablet TAKE ONE TABLET BY MOUTH EVERY 8 HOURS NEEDED FOR MODERATE BREAKTHR OUGH PAIN 09/25 completed Not Available Not Available Not Available dextroamp hetamine- amphetami ne 10 mg tablet TAKE 2 TABLETS BY MOUTH TWICE DAILY 09/25 completed Not Available Not Available Not Available prednison e 5 mg tablet TAKE 4 TABLETS BY MOUTH ON DAY ONE., DECREASE BY ONE TABLET EACH DAY 3, 2, 1) 09/25 completed Not Available Not Available Not Available cyanocoba tesha (vit B-12) 1,000 mcg tablet TAKE ONE TABLET BY MOUTH EVERY DAY active Not Available Not Available No t Available valacyclo vir 500 mg tablet 09/25 completed Medicati on ID: [id number] B rand Name: valacycl ovir Sen d Method: E-Prescr ibed Sub s Allowed: subs OK Speci al Instruct ion: TAKE ONE TABLET BY MOUTH THREE TIMES A DAY Medi cationGe nericNam e: valacycl ovir Not Available Not Available Not Available Ciloxan 0.3 % eye drops 09/25 completed Medicati on ID: [id number] D uration Value: 7 Prescri bed By Name: Eliseo clements MD Brand Name: Ciloxan Send Method: E-Prescr ibed Sub s Allowed: subs OK Speci al Instruct ion: Instill 4 drops twice a day into the affected ear Medi cationGe nericNam e: Ciloxan Not Available Not Available Not Available ciproflox acin 500 mg tablet 09/25 completed Medicati on ID: [id number] D uration Value: 10 Brand Name: ciproflo xacin HCl Send Method: E-Prescr ibed Sub s Allowed: subs OK Speci al Instruct ion: TAKE ONE TABLET BY MOUTH EVERY 12 HOURS FOR 10 DAYS Med icationG enericNa me: ciproflo xacin HCl Not Available Not Available Not Available simvastat in 40 mg tablet 01/02 completed Medicati on ID: [id number] D uration Value: 30 Reason: () Brand Name: simvasta tin Send Method: E-Prescr ibed Sub s Allowed: subs OK Speci al Instruct ion: TAKE 1 TABLET BY MOUTH EVERY DAY IN THE EVENING Medicati onGeneri cName: simvasta tin Not Available Not Available Not Available ondansetr on 8 mg disintegr ating tablet DISSOLVE ONE TABLET BY MOUTH EVERY 8 HOURS NEEDED FOR NAUSEA AND VOMITING 09/25 completed Not Available Not Available Not Available pantopraz ole 20 mg tablet,de layed release TAKE ONE TABLET BY MOUTH EVERY DAY active Not Available Not Available No t Available prednisol one acetate 1 % eye drops,jesi pension PLACE 1 DROP IN LASERED EYE 3 TIMES DAILY FOR 5 DAYS FOLLOWIN G LASER DIRECTED 09/25 completed Not Available Not Available Not Available fluvoxami ne 100 mg tablet TAKE 1 TABLET BY MOUTH TWICE DAILY active Not Available Not Available No t Available simvastat in 20 mg tablet TAKE ONE TABLET BY MOUTH EVERY DAY IN THE EVENING active Not Available Not Available No t Available trazodone 150 mg tablet 01/02 completed Medicati on ID: [id number] Jovanny sexton: () Brand Name: trazodon e Send Method: E-Prescr ibed Sub s Allowed: subs OK Medic ationGen ericName : trazodon e Not Available Not Available Not Available tobramyci n 0.3 % eye drops 09/25 completed Medicati on ID: [id number] D uration Value: 10 Brand Name: tobramyc in Send Method: E-Prescr ibed Sub s Allowed: subs OK Medic ationGen ericName : tobramyc in Not Available Not Available Not Available anagrelid e 1 mg capsule TAKE ONE CAPSULE BY MOUTH TWICE A DAY active Not Available Not Available No t Available dexametha sone 4 mg tablet TAKE ONE TABLET BY MOUTH TWICE A DAY FOR 2 DAYS AFTER CHEMOTHE RAPY 09/25 completed Not Available Not Available Not Available dextroamp hetamine- amphetami ne 20 mg tablet TAKE 1 TABLET BY MOUTH TWICE DAILY active Not Available Not Available No t Available sertralin e 25 mg tablet 01/02 completed Medicati on ID: [id number] Jovanny sexton: () Brand Name: sertrali ne Send Method: E-Prescr ibed Sub s Allowed: subs OK Medic ationGen ericName : sertrali ne Not Available Not Available Not Available folic acid 1 mg tablet TAKE ONE TABLET BY MOUTH EVERY DAY 09/25 completed Not Available Not Available Not Available monteluka st 10 mg tablet Take 1 tablet 01/02 completed Medicati on ID: [id number] R darshan: () Brand Name: monteluk ast Send Method: E-Prescr ibed Sub s Allowed: subs OK Speci al Instruct ion: Take 1 tablet by mouth every day in the evening Medicati onGeneri cName: monteluk ast Not Available Not Available Not Available gabapenti n 100 mg capsule 09/25 completed Medicati on ID: [id number] B rand Name: gabapent in Send Method: E-Prescr ibed Sub s Allowed: subs OK Speci al Instruct ion: TAKE ONE CAPSULE BY MOUTH THREE TIMES A DAY Medi cationGe nericNam e: gabapent in Not Available Not Available Not Available amoxicill in 875 mg-potass ium clavulana te 125 mg tablet 04/22 completed Medicati on ID: [id number] D uration Value: 10 Reason: () Brand Name: amoxicil brett-pot clavulan ate Send Method: E-Prescr ibed Sub s Allowed: subs OK Medic ationGen ericName : amoxicil brett-pot clavulan ate Not Available Not Available Not Available Ventolin HFA 90 mcg/actua tion aerosol inhaler INHALE 1 PUFF EVERY 4 HOURS active Not Available Not Available No t Available tobramyci n 0.3 %-dexamet hasone 0.1 % eye drops,jesi pension INSTILL 1 DROP IN EACH EYE TWO TIMES A DAY FOR 1 WEEK, THEN ONCE A DAY FOR 1 WEEK 09/25 completed Not Available Not Available Not Available Amphetami ne Salt Combo 04/22 completed Medicati on ID: [id number] D uration Value: 30 Reason: () Brand Name: Amphetam ine Salt Combo Se nd Method: E-Prescr ibed Sub s Allowed: subs OK Medic ationGen ericName : Amphetam ine Salt Combo Not Available Not Available Not Available Vyvanse 70 mg capsule 01/02 completed Medicati on ID: [id number] R darshan: () Brand Name: Vyvanse Send Method: E-Prescr ibed Sub s Allowed: subs OK Medic ationGen ericName : Vyvanse Not Available Not Available Not Available Odefsey 200 mg-25 mg-25 mg tablet 01/02 completed Medicati on ID: [id number] R darshan: () Brand Name: Odefsey Send Method: E-Prescr ibed Sub s Allowed: subs OK Medic ationGen ericName : Odefsey Not Available Not Available Not Available Trintelli x 10 mg tablet 01/02 completed Medicati on ID: [id number] R darshan: () Brand Name: Trintell ix Send Method: E-Prescr ibed Sub s Allowed: subs OK Medic ationGen ericName : Trintell ix Not Available Not Available Not Available Tab-A-Vit e 400 mcg tablet 01/02 completed Medicati on ID: [id number] R darshan: () Brand Name: Tab-A-Vi te Send Method: E-Prescr ibed Sub s Allowed: subs OK Medic ationGen ericName : Tab-A-Vi te Not Available Not Available Not Available BinaxNOW COVID-19 Ag Self Test kit TEST DIRECTED TODAY 09/25 completed Not Available Not Available Not Available Vitals Date Recorded Body height Body mass index (BMI) Body weight Provider Name and Address Organization Details Last Updated DateTime 03/21/2024 152.4 cm 25.8 kg/m2 37687.19 g Kelsey Mar [facility] 03/21/2024 13:38:48 Date Recorded Body height Body mass index (BMI) Body weight Provider Name and Address Organization Details Last Updated DateTime 09/25/2024 152.4 cm 24.8 kg/m2 20432.23 g Adalgisa Lewis [facility] 09/25/2024 10:31:33 Social History None recorded. Functional Status None recorded. Mental Status None recorded. Family History Nothing Reported. Medical History No medical history recorded. Gynecological HistoryNo gynecological history recorded. Obstetrics History GPAL:G 0 P 0 0 0 0 Past Encounters Encounter ID Performer Location Encounter Start Date Encounter Closed Date Diagnosis/Indication Diagnosis SNOMED-CT Code Diagnosis ICD10 Code Diagnosis Note [id number] ALEIDA CZARICK, PA-C [facility] on [address] [place] [address], [place] [id number] 03/21/2024 13:30:46 03/21/2024 16:11:22 Impacted cerumen in left ear 7725270148 296090 H61.22 Postmastoi dectomy complication 83308444 H95.191 [id number] ELISEO MARQUIS MD [facility] on [address] [place] [address], [place] [id number] 09/25/2024 10:26:33 09/25/2024 10:47:21 Total perforation of bilateral tympanic membranes 7435478148 132784 H72.823 Cerumen removed and tolerated well. Perforatio ns are clean and dry. No infection. Follow up 9 months. Health Concerns Section Related Observation LastModified by Organization Detai ls LastModified Time None Recorded Concern Status LastModified by Organization Details LastModified Time None Recorded Advance Directives Directive None Recorded Payers Encounter Date Sequence Insurance Name Policy Number Policy Martinez Covered Member ID Martinez Member ID Guarantor Name 03/21/2024 1 MEDICARE B-ID: [employer] Lily Tokio [id number] Lily Tokio 03/21/2024 2 MEDICAID-ID: [employer] Lily J Tokio [id number] Lily Tokio 09/25/2024 1 MEDICARE B-ID: [employer] Lily Georgie [id number] Lily Georgie 09/25/2024 2 MED[place] Lily J Georgie [id number] Lily Georgie Notes Date Note Type Note Provider Name and Address Organization Details Recorded Time 03/21/2024 text/html 63 year old samm rangel presents today for ear cleaning.History of a right canal wall down mastoidectomy and left tympanic membrane perforation. She has hearing aids from [employer].No specific concerns today. She recently completed chemotherapy for lung cancer. She also underwent a lobectomy. ALEIDA DE LEON PA-C [address] [place] [address], [phone], [facility] - [facility] 03/21/2024 14:12:44 09/25/2024 text/html Recent CT chest for shortness of breath. Going to recheck in 6 weeks. No ear infections.PV: 63 year old female presents today for ear cleaning.History of a right canal wall down mastoidectomy and left tympanic membrane perforation. She has hearing aids from [employer].No specific concerns today. She recently completed chemotherapy for lung cancer. She also underwent a lobectomy. ELISEO MARQUIS MD [address] [place] [address], [place], [address], [facility] - [facility] 10/01/2024 09:43:48 OBGyn Episode No OBEpisode recorded.
== END ==
LOC: HO.NUCMED 07:42
PROVIDERS: PCP Internal Medicine Medical Oncology; Visit Provider Student in an Organized Health Care Education/Training Program
DX: E21.3 Hyperparathyroidism, unspecified (principal)
CPT/HCPCS: 78070; A9500; A9516

== ENCOUNTER → 2024-10-27 07:45 | Outpatient (BNV) | payer MEDICARE, MEDICAID, SELFPAY | PROVIDERS: PCP Internal Medicine Medical Oncology; Visit Provider Radiology Diagnostic Radiology | DX: E21.3 Hyperparathyroidism, unspecified (principal) | CPT/HCPCS: 78070 ==

== ENCOUNTER 2024-11-07 09:58 | Outpatient (AMB) | payer MEDICARE, MEDICAID, SELFPAY ==
--- NOTE | 2024-11-07 10:00 | MHC.OFFVIS ---
Vital Signs 11/07/24 10:04 Height 5 ft 1.3 in Weight 131 lb 6.328 oz BMI 24.6 BP 142/62 H Blood Pressure Location Rt brachial Position Sitting Pulse 108 H Pulse Source Pulse Oximeter Pulse Oximetry (%) 100 Oxygen Delivery Method Room Air Intake Visit Reasons: Hyperparathyroidism, unspecified Intake Note: Patient present today for Hyperparathyroidism, unspecified. Allergies Sulfa (Sulfonamide Antibiotics) Allergy (Severe, Verified 11/07/24 10:02) Rash trazodone [TRAZODONE] Allergy (Severe, Verified 11/07/24 10:02) FELT LIKE ELEPHANT SITTING ON MY CHEST , NIGHTMARES HPI Comments Details: 64-year-old female here today for initial evaluation of hypercalcemia/ hyperparathyroidism. Chart review shows patient has had an elevated calcium level at least dating back since 2019. Total calcium has been in the range of 10.4-11.8, with most recent labs from 06/23/2024 with total calcium of 11.8, albumin of 4, GFR of 49, with creatinine of 1.11. Previously in March 2024 kidney function was showing creatinine of 0.88 with GFR greater than 60. She thinks she saw endocrinology in [place] maybe some 5 years ago. something about my glands in the neck PTH noted to be elevated on repeated labs done in 2020 and 2022, last PTH done in 04/22/2023 was elevated at 108. Vitamin-D level also done in 2022 noted to be in the 20s. DEXA scan done 01/20/2023, showed osteopenia of the hip with T-score of-1.2 at the total femur and-1.8 at the left femoral neck, forearm bone density normal with T-score of-0.4, L1-L4 (excluding L2 and L3 due to degenerative changes), normal bone density with T-score of 0.0. Patient also notably has a history of right non-small cell lung cancer diagnosed in 08/22/2023. She underwent chemotherapy in the adjuvant setting. She is currently following with the Oncology, Dr. Junior No kidney stones No fractures Limited activit since lung surgery in 2022 but before that she says she was quite active No milk. Milk shake once in a week , cheese every day , no yogurt, green leafy vegetables everyday No vitamin D supplements One a day multivitamin one daily which has about 200 mg of calcium No family history of calcium problems or kidney stones Reports polyuria , nocturia, no abd pain , no muscle aches but hands hurt No memory issues or brain fog Interval history 10/27/2024: Parathyroid nuclear scan did not identify any adenoma Labs 09/09/2024 showed calcium of 10.8, albumin of 4, PTH of 180.5. Kidney function has normalized with GFR greater than 60 and most recent creatinine in September 2024 was 0.89. Physical exam General: sitting comfortably in no acute distress HEENT: normocephalic/atraumatic,moist oral mucosa Neck: supple, symmetrical, no thyromegaly , no dorsocervical or supraclavicular fat pads Cardiac: normal heart sounds Pulm: normal breath sounds B/L, no added breath sounds Abd: not distended, no tenderness Extremities: no edema, no signs of myxedema Neuro: AAO x3, Speech: normal, no facial droop, moving all 4 extremities Laboratory Tests 09/20/18 01/21/19 04/07/19 08:25 06:40 12:00 Creatinine Estim Creat Clear Calc Estimated GFR Calcium 10.6 H 10.5 H Magnesium Albumin 4.0 25-OH Vitamin D Total PTH Intact 03/24/20 01/03/21 07/06/21 09:50 12:49 10:40 Creatinine Estim Creat Clear Calc Estimated GFR Calcium 11.1 H Magnesium 2.1 Albumin 4.4 4.3 25-OH Vitamin D Total 15.4 28.8 22.2 PTH Intact 83 H 08/02/21 04/10/22 08/23/22 06:50 06:55 08:23 Creatinine Estim Creat Clear Calc Estimated GFR Calcium 11.8 H D Magnesium Albumin 4.0 3.9 25-OH Vitamin D Total 23.9 31.9 PTH Intact 91 H 09/13/22 11/01/22 04/20/23 07:25 10:45 06:30 Creatinine Estim Creat Clear Calc Estimated GFR Calcium 10.5 H Magnesium Albumin 4.1 3.9 25-OH Vitamin D Total 27.6 24.7 PTH Intact 140 H 108 H 10/03/23 10/08/23 10/15/23 14:36 09:11 10:14 Creatinine Estim Creat Clear Calc Estimated GFR Calcium Magnesium 2.3 Albumin 4.1 3.7 3.9 25-OH Vitamin D Total PTH Intact 10/23/23 10/29/23 10/31/23 08:43 09:25 10:31 Creatinine Estim Creat Clear Calc Estimated GFR Calcium 11.4 H Magnesium 2.2 2.0 Albumin 3.9 4.0 25-OH Vitamin D Total PTH Intact 11/02/23 11/05/23 11/09/23 09:06 10:01 09:48 Creatinine Estim Creat Clear Calc Estimated GFR Calcium 10.8 H 10.6 H Magnesium Albumin 3.8 3.7 25-OH Vitamin D Total PTH Intact 11/12/23 11/16/23 11/16/23 10:47 09:52 12:37 Creatinine Estim Creat Clear Calc Estimated GFR Calcium 11.4 H D 11.5 H 11.4 H Magnesium Albumin 4.0 3.9 25-OH Vitamin D Total PTH Intact 11/19/23 11/22/23 11/26/23 08:57 10:20 10:02 Creatinine Estim Creat Clear Calc Estimated GFR Calcium 10.8 H 11.0 H 10.8 H Magnesium 1.8 1.9 Albumin 3.8 4.0 3.8 25-OH Vitamin D Total PTH Intact 11/29/23 12/03/23 12/07/23 08:58 10:18 10:40 Creatinine Estim Creat Clear Calc Estimated GFR Calcium 10.3 H 11.1 H D 11.3 H Magnesium 2.1 2.2 Albumin 3.7 4.0 3.8 25-OH Vitamin D Total PTH Intact 12/10/23 12/14/23 12/20/23 09:00 09:04 09:27 Creatinine Estim Creat Clear Calc Estimated GFR Calcium 11.0 H 11.0 H 10.6 H Magnesium 2.2 2.1 2.1 Albumin 3.8 4.1 4.0 25-OH Vitamin D Total PTH Intact 12/27/23 01/15/24 03/07/24 09:41 13:50 10:14 Creatinine 0.92 1.10 Estim Creat Clear Calc 50.1 41.9 Estimated GFR > 60 50 Calcium 11.1 H 10.1 D 10.7 H Magnesium Albumin 4.2 4.0 4.2 25-OH Vitamin D Total PTH Intact 03/19/24 06/23/24 10:51 09:56 Creatinine 0.88 1.11 Estim Creat Clear Calc Estimated GFR > 60 49 Calcium 10.4 H 11.8 H D Magnesium Albumin 4.0 4.0 25-OH Vitamin D Total PTH Intact Laboratory Tests 07/28/24 09/09/24 09/09/24 13:52 08:21 08:31 Sodium 137 Potassium 4.7 Creatinine 0.89 Estimated GFR > 60 Calcium 10.8 H D Albumin 4.0 TSH 1.58 Free T4 1.05 PTH Intact 180.5 H BONE DENSITOMETRY 01/16/23 CLINICAL INDICATION: Asymptomatic menopausal state. COMPARISON: Baseline BD dated 08/30/2012, left hip; 01/16/2023, spine and left forearm radius 33%. TECHNIQUE: Using a SepSensor DXA System (software version: 13.1) manufactured by [facility], dual-energy x-ray absorptiometry was performed of the lumbar spine, left hip and left forearm radius 33%. The images are of good technical quality. Summary results are attached. FINDINGS: AP SPINE L1-L4 (excluding L2 and L3): The data of L1-L4 has been changed to exclude the L2 and L3 vertebral bodies because degenerative changes at these levels may cause overestimation of the lumbar spine density. Current: BMD 1.168 g/cm2, Z-score 1.7, T-score 0.0, normal, 3.8% decrease from baseline (<5% change is not significant). Baseline: BMD 1.214 g/cm2. LEFT FEMUR, NECK: Current: BMD 0.788 g/cm2, Z-score -0.3, T-score -1.8, osteopenia. Baseline: BMD 0.922 g/cm2. LEFT FEMUR, TOTAL: Current: BMD 0.853 g/cm2, Z-score 0.0, T-score -1.2, osteopenia, 13.6% decrease from baseline (<5% change is not significant). Baseline: BMD 0.987 g/cm2. LEFT FOREARM RADIUS 33%: BMD 0.839 g/cm2, Z-score 0.8, T-score -0.4, normal. Baseline: Not previously measured. IDENTIFIED RISK FACTORS: Early menopause, secondary osteoporosis, hyperparathyroidism, low calcium intake, tobacco use (current smoker). HISTORY OF FRACTURE: None listed. MEDICATIONS: Vitamin D. MM/XR DEXA appendicular skeleton IMPRESSION: 1. DIAGNOSIS: Osteopenia based on the lowest T-score value of -1.8 in the femoral neck applying World Health Organization criteria. 2. 10-YEAR FRACTURE RISK PREDICTION, FRAX: Major osteoporotic fracture (clinical spine, forearm, hip or shoulder) 10.1%. Hip fracture 2.1%. EXAMINATION: NM PARATHYROID SCAN 10/27/24 CLINICAL INFORMATION: Hyperparathyroidism COMPARISON: Correlation is made with a chest CT dated 09/23/2024. TECHNIQUE: A double radionuclide study of the thyroid bed region and upper chest in multiple projections was performed 4 hours after the oral administration of 1 millicuries I-123 sodium iodide and immediately following the intravenous administration of 30 mCi Tc-99m sestamibi. Repeat imaging was performed 2 hours later. The iodide images were electronically subtracted from the sestamibi images using different weighting factors. FINDINGS: There is homogeneous uptake of radioiodine throughout both thyroid lobes. The thyroid gland appears to be normal in size and shape. There are no focal areas of increased or diminished uptake. Technetium 99m sestamibi images demonstrate homogeneous thyroid activity. There are no focal areas of increased or decreased Technetium 99m sestamibi activity. Computer-generated digital subtraction images reveal no evidence of excess sestamibi activity. NM/NM parathyroid IMPRESSION: No evidence of excess sestamibi activity to suggest a parathyroid adenoma or hyperplasia. There is homogeneous uptake of radioiodine in the thyroid gland which is also normal in size and shape. Electronically signed by: Horace Zimmerman MD 10/28/2024 07:09 AM [facility] Medical History Nasal deformity Hx of nausea Chronic bronchitis Hx of ectopic Nicotine dependence, cigarettes, uncomplicated Hyperparathyroidism Hyperlipidemia Postmenopausal Tubular adenoma of colon (~2018) Osteopenia (~2022) History of drug overdose Hearing loss, bilateral PTSD (post-traumatic stress disorder) Major depressive disorder, recurrent severe without psychotic features ADHD Surgical History Hx of adenoidectomy History of cataract surgery History of ear surgery History of tonsillectomy History of endoscopy History of colonoscopy Family History Mother Lupus (systemic lupus erythematosus) Lung cancer Social History Household Members: None and Other Housing: Apartment Are you a primary gericare aide teacher to a significant other at home: No Do you presently have visiting nurse or other home services: No Alcohol intake: current Alcohol intake frequency: holidays/special occasions only Alcohol type: beer Comment: COUNTS CORRECT Patient Tobacco Use Status: Former Tobacco user Tobacco use type: Cigarette Cigarette Packs Per Day: 0.1 Cigarettes Per Day: 2.0 Years Smoked: 48 yrs e-Cigarette/Vaping Use: Never Used Second Hand Smoke Exposure: No service: No Current occupational status: retired and disabled Physical Exam Vital Signs: Last Vital Signs Pulse 108 H 11/07/24 10:04 BP 142/62 H 11/07/24 10:04 Pulse Ox 100 11/07/24 10:04 Oxygen Delivery Method Room Air 11/07/24 10:04 BMI result Body Mass Index 24.6 Assessment & Plan Assessment & Plan (1) Hyperparathyroidism: Code(s): E21.3 - Hyperparathyroidism, unspecified Category: Medical Plan: 64-year-old female with past medical history significant for right non-small cell lung cancer diagnosed 08/22/2023, who is coming in today for initial evaluation of hypercalcemia/hyperparathyroidism. Chart review shows patient has had an elevated calcium level at least dating back since 2019. Actually do not see any normal calcium levels in the chart. Total calcium has been in the range of 10.4-11.8, with most recent labs from 06/23/2024 with total calcium of 11.8, albumin of 4, GFR of 49, with creatinine of 1.11. Previously in March 2024 kidney function was showing creatinine of 0.88 with GFR greater than 60.PTH noted to be elevated on repeated labs done in 2020 and 2022, . Vitamin-D level also done in 2022 noted to be in the 20s. She is not currently on any vitamin-D or calcium supplements. She does take a multivitamin daily. No history of kidney stones or fractures. Bone density showed osteopenia in 2022. Not meeting treatment criteria for osteopenia per FRAX score. Most likely the differential is primary hyperparathyroidism. However given I do not see any prior normal calcium levels in the chart, could also have FHH. I had ordered a 24 hour urine calcium level, patient f has not done that yet, she says she would start the collection and then some point during the collection urinate and forget to collect. I told her it is important for me to obtain this information order to make further decisions. I will check her 24 hour urine calcium levels. 10/27/2024: Parathyroid nuclear scan did not identify any adenoma Labs 09/09/2024 showed calcium of 10.8, albumin of 4, PTH of 180.5. Kidney function has normalized with GFR greater than 60 and most recent creatinine in September 2024 was 0.89. Her calcium level in September has also improved and since kidney function also normalized, at this point the missing piece of information is 24 hour urine calcium levels. I discussed with her that if she has hypercalciuria where she meets criteria for surgery, then we would have to consider surgical options. Otherwise she is not really meeting criteria for surgery right now. She does have history of jlo-umsyc-ylos lung cancer, however unlikely hypercalcemia of malignancy as PTH levels in the past has noted to be elevated for her +degree of hypercalcemia is not severe. At this point she is also due for repeat bone density scan in January, and we will include the forearm given history of hyperparathyroidism to see if she has had worsening bone loss. Plan: -do 24 hour urine calcium, creatinine as well as blood work -to bone density scan including the forearm -follow up in 12 weeks to discuss results Plan See above Orders: Orders XR DEXA appendicular skeleton Today E21.3 - Hyperparathyroidism, unspecified Patient Instructions: Do bone density scan, someone will call you to schedule this Do 24 hr urine collection and same day as you give urine in do blood work 24 hr urine collection instructions You have been asked to collect your urine for 24 hours to assess for calcium excretion. You must choose a 24 hour period of time when you will be home. The morning of the first day, DISCARD the FIRST morning void and then note the time. You will collect every single void from then on for 24 hours. For example, if you wake up at 6am and urinate, flush down that void. You will then collect every drop of urine all day and all night through 6am the following day. You will urinate one last time at 6am for the collection. The jug of urine must be kept in the refrigerator until you bring it to the lab.You have been asked to collect your urine for 24 hours to assess for calcium excretion. You must choose a 24 hour period of time when you will be home. The morning of the first day, DISCARD the FIRST morning void and then note the time. You will collect every single void from then on for 24 hours. For example, if you wake up at 6am and urinate, flush down that void. You will then collect every drop of urine all day and all night through 6am the following day. You will urinate one last time at 6am for the collection. The jug of urine must be kept in the refrigerator until you bring it to the lab. Coding Level of Care Code Est Pt Level 3 (13524) Diagnoses Hyperparathyroidism E21.3
[2024-11-07 10:04] VITALS: BP 142/62; PULSE 108; O2SAT 100; BMI 24.6
--- OUTSIDE RECORDS SUMMARY | 2024-11-07 11:09 | XMS_ITS ---
Author Organization Horace Lima III, MD Address [address] [place] [address] [address] [place] [id number] Care Team Providers Care Pharmacy Sales Representative Name Role Phone Horace Lima Primary Care [...] Problem Status W/U Status Risk Notes Problem 33848720 Tobacco dependence (F17.200) Active confirmed I have counseled her about smoking cessation at length today. I have made her aware of the smoking cessation program at [facility]. She is smoking only 5 cigarettes a day now. 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 She is smoking only 5 cigarettes a [...] health Provider Name:Horace Lima, 12/16/2024 11:15:00 AM, [address] [place] [address] [address], [facility] [place], [address], Provider Name:Horace Lima, 01/29/2025 10:00:00 AM, [address] [place] [address] [address], [place], [address], Progress Notes * Mello BARNARDeDOB: (64 yo F)Acc No.[id number]:09/16/2024 Progress Notes Patient:Lily BELLA Provider:?Horace Lima MD :1960???Age:64 Y???Sex:Female D ate:09/16/2024 Address:[address] [place] [address] [place], [id number] Subjective: * Chief Complaints: * ???Non-small cell [...] reported having smoked a few times around [place] after a year of not smoking. She remains under the care of medical oncology at [facility].? 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 She moved here 2 years ago. She is . She had two children. A daughter at 29 in auto accident. Her son had a fatal drug overdose aged 22. She is not working and is not disabled. She stopped smoking in 2022 Smoking: Patient admitted to smoking a few times around [place] after a year of not smoking. * [...] & Time - 09/09/2024 08:21 AM)?ValueReference Range?Vitamin [id number] - pg/mL ???Lab:Parathyroid Hormone Intact (Order Date - 09/09/2024) (Collection Date & Time - 09/09/2024 08:21 AM)?ValueReference Range?Parathyroid Hormone Xemwir008.5H8.7-77.1 - pg/mL ???Lab:Free T4 (Free Thyroxine) (Order Date - 07/28/2024) (Collection Date & Time - 07/28/2024 01:52 PM)?ValueReference Range?Free T4 (Free Thyroxine)1.050.71-1.85 - ng/dL ???Lab:Thyroid Stimulating Hormone (Order Date - 07/28/2024) (Collection Date & Time - 07/28/2024 01:52 PM)?ValueReference Range?Thyroid Stimulating Hormone1.580.32-4.0 - uIU/mL * Lab:[facility] [place]. [facility]ene [facility] Fast * Collection Date 06/23/2024 [...] aware of the smoking cessation program at [facility]. She is smoking only 5 cigarettes a [...] TABLET BY MOUTH EVERY DAY.?? * Procedure Codes:?35062 MEASU RE BLOOD OXYGEN LEVEL * Preventive [...] Lima MD Date:?09/03 Generated for Reymundoi sol/Kirby/eTransmitting on:?11/07/2024 11:09 AM EST History and Physical Notes * [...]
--- OUTSIDE RECORDS SUMMARY | 2024-11-07 11:10 | XMS_ITS ---
Author Organization Horace Lima III, MD Address [address] [place] [address] [place] [address] Care Team Providers Care Enrichment Teacher Name Role Phone Horace Lima Primary Care Provider REASON FOR VISIT RE:Refills Social History Sex Assigned At : Social History Observation Description Sex Assigned At Female Encounters Encounter Location Date Provider Diagnosis Horace Lima III, MD [address] [place] [address] [place] [address] 10/13/2024 Horace Lima Plan Of Treatment Next Appt Details Provider Name:Horace Lima, 12/16/2024 11:15:00 AM, [address] [place] [address] [address] [place], [address], Provider Name:Horace Lima, 01/29/2025 10:00:00 AM, [address] [place] [address] [address] [place], [address], Progress Notes * Mello BARNARDeDOB: (64 yo F)Acc No.[id number]:10/13/2024 Patient:?Lily BARNARD :1960???Age:64 Y???Sex:Female Address:[address] [place], [address] * true * Date:? Generated for Printi ng/Faxing/eTransmitting on:?11/07/2024 11:10 AM EST
--- OUTSIDE RECORDS SUMMARY | 2024-11-07 11:10 | XMS_ITS | Patient Health Record ---
Author Organization [facility] Address [address] [place] [address] Care Team Providers Care Flare Man Name Role Phone Arnoldo Rivera MD Primary Care Provider Unavaila Dakota Sibley Jr Unavailable Reason For Referral No Information Medications Medication SIG (Take, Route, Frequency, Duration) Notes Start Date End Date Status Simvastatin 20mg 09/03/2024 09/03/2024 A ctive Colyte with Flavor Packs 227.1 GM as directed Orally According to instructions for 1 day(s) 09/26/2012 09/03/2024 Active Problems Problem Type SNOMED Code ICD Code Onset Dates Problem Status W/U Status Risk Notes Problem Colon cancer screening (237945661) Colon cancer screening (V76.51) Active confirmed Plan Of Treatment Future Test Test Name Order Date COLONOSCOPY 09/26/2012 Insurance Providers Payer Name Payer Address Payer Phone Subscriber Number Group Number Insured Name Patient Relationship to Insured Coverage Start Date Coverage End Date MEDICARE OF [place] [address] [place] [id number] [phone] UMAIR BARNARD Self - patient is the insured MED[place]ID [id number] [address] [place] [address] [id number] UMAIR BARNARD Self - patient is the insured Medical (General) History Medical History History ICD Code Denies [place],DM,CVA,Lung disease,renal dise ase elevated cholesterol Surgical History Surgery Date(Month/Year) tubal mastoidectomy tympanostomy tubes
--- OUTSIDE RECORDS SUMMARY | 2024-11-07 11:10 | XMS_ITS | Data Portability ---
Author Organization [place] - [facility], Allergy Address [address] [address] Care Team Providers Care Grinder Set Up Operator Thread Name Role Phone JORGENSENROBBY DUNN Primary Care [...] Abnormal Flag Note LastModifiedBy Organization Detail LastModifiedTime 04/23/20 24 03/09/2022 imagi ng/di agnos tic resul t No [...] Details Recorded Time Postmasto idectomy complicat ion 96899898 Active 2014 Other disorders following mastoidec hieu, right ear; Note: Date Diagnosed : 5 11:48 AM (H95.191) Not Available [facility] 4 02:54:08 Mixed conductiv e and sensorine ural hearing loss, bilateral 234105022 Active 2014 Mixed conductiv e and sensorine ural hearing loss, bilateral ; Note: Date Diagnosed : 5 11:48 AM (H90.6) Not Available [facility] 4 02:54:06 Impacted cerumen of bilateral ears 71987637992 41263 Active 2016 Impacted cerumen, bilateral ; Note: Date Diagnosed : 03/27/2017 9:11 AM (H61.23) Not Available [facility] 4 02:54:07 Bilateral disorder of Eustachia n tubes 89542112667 73604 Active 2014 Other specified disorders of Eustachia n tube, bilateral ; Note: Date Diagnosed : 5 11:48 AM (H69.83) Not Available [facility] 4 02:54:06 Candidal otitis externa 82657116 Active 2017 Candidal otitis externa; Note: Date Diagnosed : 08/06/2018 11:51 AM (B37.84) Not Available [facility] 4 02:54:05 Otorrhea of left ear 64095859107 88925 Active 2018 Otorrhea, left ear; Note: Date Diagnosed : 03/20/2019 2:35 PM (H92.12) Not Available [facility] 4 02:54:05 Impacted cerumen in left ear 19931783411 67014 Active 2014 Impacted cerumen, left ear; Note: Date Diagnosed : 5 11:48 AM (H61.22) Not Available [facility] 4 02:54:08 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 81599716546 83818 Active 2014 Total perforati ons of tympanic membrane, bilateral ; Note: Date Diagnosed : 5 11:48 AM (H72.823) Not Available [facility] 4 02:54:07 Chronic pharyngit is 446928 Active 2016 Chronic sore throat; Note: Date Diagnosed : 08/07/2017 1:07 PM (J31.2) Not Available [facility] 4 02:54:06 Problem Notes None recorded. Procedures Surgical History None recorded. Imaging Results Imaging Date Name Status LastModified by [facility] Details LastModified Time 03/09/2022 imaging/diagno stic result completed [email or web address] Information not available 04/23/2024 20:00:48 03/09/2022 imaging/diagno stic result completed bsPlug [email or web address] Information not available 04/23/2024 20:00:49 03/09/2022 audiogram completed bsPlug [email or web address] Information not available 04/23/2024 20:01:05 Procedure Notes [...] ating tablet 01/02 completed Medicati on ID: [id number] R darshan: () Brand Name: enoc dunn [...] affected area 09/25 completed Medicati on ID: [id number] D uration Value: 14 Prescri bed By [...] mg tablet 09/25 completed Medicati on ID: [id number] B rand Name: valacycl ovir Sen d Method: E-Prescr ibed Sub s Allowed: subs OK Speci al Instruct ion: TAKE ONE TABLET BY MOUTH THREE TIMES A DAY Medi cationGe nericNam e: valacycl ovir Not Available Not Available Not Available Ciloxan 0.3 % eye drops 09/25 completed Medicati on ID: [id number] D uration Value: 7 Prescri bed By Name: Eliseo clements MD Brand Name: Ciloxan Send Method: E-Prescr ibed Sub s Allowed: subs OK Speci al Instruct ion: Instill 4 drops twice a day into the affected ear Medi cationGe nericNam e: Ciloxan Not Available Not Available Not Available ciproflox acin 500 mg tablet 09/25 completed Medicati on ID: [id number] D uration Value: 10 Brand Name: ciproflo xacin HCl Send Method: E-Prescr ibed Sub s Allowed: subs OK Speci al Instruct ion: TAKE ONE TABLET BY MOUTH EVERY 12 HOURS FOR 10 DAYS Med icationG enericNa me: ciproflo xacin HCl Not Available Not Available Not Available simvastat in 40 mg tablet 01/02 completed Medicati on ID: [id number] D uration Value: 30 Reason: () Brand [...] mg tablet 01/02 completed Medicati on ID: [id number] Jovanny sexton: () Brand Name: trazodon e Send Method: E-Prescr ibed Sub s Allowed: subs OK Medic ationGen ericName : trazodon e Not Available Not Available Not Available tobramyci n 0.3 % eye drops 09/25 completed Medicati on ID: [id number] D uration Value: 10 Brand Name: tobramyc [...] mg tablet 01/02 completed Medicati on ID: [id number] Jovanny sexton: () Brand Name: sertrali ne Send Method: E-Prescr ibed Sub s Allowed: subs OK Medic ationGen ericName : sertrali ne Not Available Not Available Not Available folic acid 1 mg tablet TAKE ONE TABLET BY MOUTH EVERY DAY 09/25 completed Not Available Not Available Not Available monteluka st 10 mg tablet Take 1 tablet 01/02 completed Medicati on ID: [id number] R darshan: () Brand Name: monteluk ast Send Method: E-Prescr ibed Sub s Allowed: subs OK Speci al Instruct ion: Take 1 tablet by mouth every day in the evening Medicati onGeneri cName: monteluk ast Not Available Not Available Not Available gabapenti n 100 mg capsule 09/25 completed Medicati on ID: [id number] B rand Name: gabapent in Send Method: E-Prescr ibed Sub s Allowed: subs OK Speci al Instruct ion: TAKE ONE CAPSULE BY MOUTH THREE TIMES A DAY Medi cationGe nericNam e: gabapent in Not Available Not Available Not Available amoxicill in 875 mg-potass ium clavulana te 125 mg tablet 04/22 completed Medicati on ID: [id number] D uration Value: 10 Reason: () Brand [...] Salt Combo 04/22 completed Medicati on ID: [id number] D uration Value: 30 Reason: () Brand Name: Amphetam ine Salt Combo Se nd Method: E-Prescr ibed Sub s Allowed: subs OK Medic ationGen ericName : Amphetam ine Salt Combo Not Available Not Available Not Available Vyvanse 70 mg capsule 01/02 completed Medicati on ID: [id number] R darshan: () Brand Name: Vyvanse Send Method: E-Prescr ibed Sub s Allowed: subs OK Medic ationGen ericName : Vyvanse Not Available Not Available Not Available Odefsey 200 mg-25 mg-25 mg tablet 01/02 completed Medicati on ID: [id number] R darshan: () Brand Name: Odefsey Send Method: E-Prescr ibed Sub s Allowed: subs OK Medic ationGen ericName : Odefsey Not Available Not Available Not Available Trintelli x 10 mg tablet 01/02 completed Medicati on ID: [id number] R darshan: () Brand Name: Trintell ix Send Method: E-Prescr ibed Sub s Allowed: subs OK Medic ationGen ericName : Trintell ix Not Available Not Available Not Available Tab-A-Vit e 400 mcg tablet 01/02 completed Medicati on ID: [id number] R darshan: () Brand Name: Tab-A-Vi te [...] Updated DateTime 03/21/2024 152.4 cm 25.8 kg/m2 20946.19 g Kelsey Mar [facility] 03/21/2024 13:38:48 Date Recorded Body height Body mass index (BMI) Body weight Provider Name and Address Organization Details Last Updated DateTime 09/25/2024 152.4 cm 24.8 kg/m2 71114.23 g Adalgisa Lewis [facility] 09/25/2024 10:31:33 Social History None recorded. [...] Note [id number] ALEIDA CZARICK, PA-C [facility] on [address] [place] [address], [place] [address] 03/21/2024 13:30:46 03/21/2024 16:11:22 Impacted cerumen in left ear [id number] 797366 H61.22 Postmastoi dectomy complication 61204179 H95.191 [id number] ELISEO MARQUIS MD [facility] on [address] [place] [address], [place] [address] 09/25/2024 10:26:33 09/25/2024 10:47:21 Total perforation of bilateral tympanic membranes 9432545488 309891 H72.823 Cerumen removed and tolerated well. Perforatio [...] Member ID Guarantor Name 03/21/2024 1 [place] [employer] Lily Georgie [id number] Lily Elbe 03/21/2024 2 [place] Lily J Georgie [id number] Lily Elbe 09/25/2024 1 [place] [employer] Lily Elbe [id number] Lily Elbe 09/25/2024 2 [place] Lily J Georgie [id number] Lily Elbe Notes Date Note Type Note Provider Name and Address Organization Details Recorded Time 03/21/2024 text/html 63 year old samm rangel presents today for ear cleaning.History of a right canal wall down mastoidectomy and left tympanic membrane perforation. She has hearing aids from [employer].No specific concerns today. She recently completed chemotherapy for lung cancer. She also underwent a lobectomy. ALEIDA DE LEON PA-C [address] [place] [address], [address], [facility] - [facility] 03/21/2024 14:12:44 09/25/2024 text/html Recent CT chest for shortness of breath. Going to recheck in 6 weeks. No ear infections.PV: 63 year old female presents today for ear cleaning.History of a right canal wall down mastoidectomy and left tympanic membrane perforation. She has hearing aids from [employer].No specific concerns today. She recently completed chemotherapy for lung cancer. She also underwent a lobectomy. ELISEO MARQUIS MD [address] [place] [address], [place], [address], [facility] - [facility] 10/01/2024 09:43:48 OBGyn Episode No OBEpisode recorded.
--- OUTSIDE RECORDS SUMMARY | 2024-11-07 11:10 | XMS_ITS ---
Author Organization Horace Lima III, MD Address [address] [place] [address] Care Team Providers Care Batt Packer Name Role Phone Horace Lima Primary Care Provider [phone] REASON FOR VISIT Refills Medications Medication SIG [...] Date Provider Diagnosis Horace Lima III, MD [address] [place] [address] [place] [address] 10/10/2024 Horace Lima Plan Of Treatment Medication [...] Details Provider Name:Horace Lima, 12/16/2024 11:15:00 AM, [address] [place] [address] [place], [address], Provider Name:Horace Lima, 01/29/2025 10:00:00 AM, [address] [place] [address] [place]Z, [place], [address], Progress Notes * Emilee BARNARDOB: (64 yo F)Acc No.[id number]:10/10/2024 Patient:?Lily BARNARD :1960???Age:64 Y???Sex:Female Address:[address] [place] [address], [address] * Refills? Refill Simvastatin Tablet, 20 MG, [...] true * Date:? Generated for Felice horton/Kirby/Sergiosmitting on:?11/07/2024 11:09 AM EST
== END 2024-11-07 10:24 | disposition home or self-care (01) ==
PROVIDERS: PCP Internal Medicine Medical Oncology; Visit Provider Student in an Organized Health Care Education/Training Program
DX: E21.3 Hyperparathyroidism, unspecified (principal)
CPT/HCPCS: 99213

== ENCOUNTER → 2024-11-07 09:58 | Outpatient (BNVA) | payer MEDICARE, MEDICAID, SELFPAY | PROVIDERS: PCP Internal Medicine Medical Oncology; Visit Provider Student in an Organized Health Care Education/Training Program | DX: E21.3 Hyperparathyroidism, unspecified (principal) | CPT/HCPCS: 99212 ==

== ENCOUNTER 2025-01-19 08:06 | Outpatient (REF) | payer MEDICARE, MEDICAID, SELFPAY ==
--- OUTSIDE RECORDS SUMMARY | 2025-01-19 08:09 | XMS_ITS | Data Portability ---
Author Organization [place] - [facility], Allergy Address [address] [address] Care Team Providers Care Drug Abuse Technician Name Role Phone JORGENSENROBBY DUNN Primary Care Provider [phone] Assessment Encounter Date Assessment Date Assessment LastModified [...] Details Recorded Time Postmasto idectomy complicat ion 20076659 Active 2014 Other disorders following mastoidec hieu, right ear; Note: Date Diagnosed : 5 11:48 AM (H95.191) Not Available [facility] 4 02:54:08 Mixed conductiv e and sensorine ural hearing loss, bilateral 028760854 Active 2014 Mixed conductiv e and sensorine ural hearing loss, bilateral ; Note: Date Diagnosed : 5 11:48 AM (H90.6) Not Available [facility] 4 02:54:06 Impacted cerumen of bilateral ears 23534680202 03065 Active 2016 Impacted cerumen, bilateral ; Note: Date Diagnosed : 03/27/2017 9:11 AM (H61.23) Not Available [facility] 4 02:54:07 Bilateral disorder of Eustachia n tubes 65593240613 54440 Active 2014 Other specified disorders of Eustachia n tube, bilateral ; Note: Date Diagnosed : 5 11:48 AM (H69.83) Not Available [facility] 4 02:54:06 Candidal otitis externa 95543987 Active 2017 Candidal otitis externa; Note: Date Diagnosed : 08/06/2018 11:51 AM (B37.84) Not Available [facility] 4 02:54:05 Otorrhea of left ear 03691576342 57333 Active 2018 Otorrhea, left ear; Note: Date Diagnosed : 03/20/2019 2:35 PM (H92.12) Not Available [facility] 4 02:54:05 Impacted cerumen in left ear 62366576182 98759 Active 2014 Impacted cerumen, left ear; Note: Date Diagnosed : 5 11:48 AM (H61.22) Not Available [facility] 4 02:54:08 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 39151586806 01924 Active 2014 Total perforati ons of tympanic membrane, bilateral ; Note: Date Diagnosed : 5 11:48 AM (H72.823) Not Available [facility] 4 02:54:07 Chronic pharyngit is 059258 Active 2016 Chronic sore throat; Note: Date Diagnosed : 08/07/2017 1:07 PM (J31.2) Not Available [facility] 4 02:54:06 Problem Notes None recorded. Procedures Surgical History None recorded. Imaging Results Imaging Date Name Status LastModified by [facility] Details LastModified Time 03/09/2022 imaging/diagno stic result completed [email or web address] Information not available 04/23/2024 20:00:48 03/09/2022 imaging/diagno stic result completed [email or web address] Information not available 04/23/2024 20:00:49 03/09/2022 audiogram completed [email or web address] Information not available 04/23/2024 20:01:05 Procedure Notes [...] ating tablet 01/02 completed Medicati on ID: [id number] R darshan: () Brand Name: enoc dunn [...] affected area 09/25 completed Medicati on ID: [id number] D uration Value: 14 Prescri bed By [...] mg tablet 09/25 completed Medicati on ID: [id number] B rand Name: valacycl ovir Sen d Method: E-Prescr ibed Sub s Allowed: subs OK Speci al Instruct ion: TAKE ONE TABLET BY MOUTH THREE TIMES A DAY Medi cationGe nericNam e: valacycl ovir Not Available Not Available Not Available Ciloxan 0.3 % eye drops 09/25 completed Medicati on ID: [id number] D uration Value: 7 Prescri bed By Name: Eliseo clements MD Brand Name: Ciloxan Send Method: E-Prescr ibed Sub s Allowed: subs OK Speci al Instruct ion: Instill 4 drops twice a day into the affected ear Medi cationGe nericNam e: Ciloxan Not Available Not Available Not Available ciproflox acin 500 mg tablet 09/25 completed Medicati on ID: [id number] D uration Value: 10 Brand Name: ciproflo xacin HCl Send Method: E-Prescr ibed Sub s Allowed: subs OK Speci al Instruct ion: TAKE ONE TABLET BY MOUTH EVERY 12 HOURS FOR 10 DAYS Med icationG enericNa me: ciproflo xacin HCl Not Available Not Available Not Available simvastat in 40 mg tablet 01/02 completed Medicati on ID: [id number] D uration Value: 30 Reason: () Brand [...] mg tablet 01/02 completed Medicati on ID: [id number] Jovanny sexton: () Brand Name: trazodon e Send Method: E-Prescr ibed Sub s Allowed: subs OK Medic ationGen ericName : trazodon e Not Available Not Available Not Available tobramyci n 0.3 % eye drops 09/25 completed Medicati on ID: [id number] D uration Value: 10 Brand Name: tobramyc [...] mg tablet 01/02 completed Medicati on ID: [id number] Jovanny sexton: () Brand Name: sertrali ne Send Method: E-Prescr ibed Sub s Allowed: subs OK Medic ationGen ericName : sertrali ne Not Available Not Available Not Available folic acid 1 mg tablet TAKE ONE TABLET BY MOUTH EVERY DAY 09/25 completed Not Available Not Available Not Available monteluka st 10 mg tablet Take 1 tablet 01/02 completed Medicati on ID: [id number] R darshan: () Brand Name: monteluk ast Send Method: E-Prescr ibed Sub s Allowed: subs OK Speci al Instruct ion: Take 1 tablet by mouth every day in the evening Medicati onGeneri cName: monteluk ast Not Available Not Available Not Available gabapenti n 100 mg capsule 09/25 completed Medicati on ID: [id number] B rand Name: gabapent in Send Method: E-Prescr ibed Sub s Allowed: subs OK Speci al Instruct ion: TAKE ONE CAPSULE BY MOUTH THREE TIMES A DAY Medi cationGe nericNam e: gabapent in Not Available Not Available Not Available amoxicill in 875 mg-potass ium clavulana te 125 mg tablet 04/22 completed Medicati on ID: [id number] D uration Value: 10 Reason: () Brand [...] Salt Combo 04/22 completed Medicati on ID: [id number] D uration Value: 30 Reason: () Brand Name: Amphetam ine Salt Combo Se nd Method: E-Prescr ibed Sub s Allowed: subs OK Medic ationGen ericName : Amphetam ine Salt Combo Not Available Not Available Not Available Vyvanse 70 mg capsule 01/02 completed Medicati on ID: [id number] R darshan: () Brand Name: Vyvanse Send Method: E-Prescr ibed Sub s Allowed: subs OK Medic ationGen ericName : Vyvanse Not Available Not Available Not Available Odefsey 200 mg-25 mg-25 mg tablet 01/02 completed Medicati on ID: [id number] R darshan: () Brand Name: Odefsey Send Method: E-Prescr ibed Sub s Allowed: subs OK Medic ationGen ericName : Odefsey Not Available Not Available Not Available Trintelli x 10 mg tablet 01/02 completed Medicati on ID: [id number] R darshan: () Brand Name: Trintell ix Send Method: E-Prescr ibed Sub s Allowed: subs OK Medic ationGen ericName : Trintell ix Not Available Not Available Not Available Tab-A-Vit e 400 mcg tablet 01/02 completed Medicati on ID: [id number] R darshan: () Brand Name: Tab-A-Vi te [...] Updated DateTime 03/21/2024 152.4 cm 25.8 kg/m2 50480.19 g Kelsey Mar [facility] 03/21/2024 13:38:48 Date Recorded Body height Body mass index (BMI) Body weight Provider Name and Address Organization Details Last Updated DateTime 09/25/2024 152.4 cm 24.8 kg/m2 59002.23 g Adalgisa Lewis [facility] 09/25/2024 10:31:33 Social History None recorded. [...] Note 8710 ALEIDA CZARICK, PA-C [facility] on [address] [place] [address] [place] [address] 03/21/2024 13:30:46 03/21/2024 16:11:22 Impacted cerumen in left ear 3788505229 885084 H61.22 Postmastoi dectomy complication 65630369 H95.191 [id number] ELISEO MARQUIS MD [facility] on [address] [place] [address] [place] [address] 09/25/2024 10:26:33 09/25/2024 10:47:21 Total perforation of bilateral tympanic membranes 0067278508 227146 H72.823 Cerumen removed and tolerated well. Perforatio ns are clean and dry. No infection. Follow up 9 months. Health Concerns Section Related Observation LastModified by Organization Detai ls LastModified Time None Recorded Concern Status LastModified by Organization Details LastModified Time None Recorded Advance Directives Directive None Recorded Payers Insurance Date Sequence Insurance Name Policy Number Policy Martinez Covered Member ID Martinez Member ID Guarantor Name 09/25/2024 1 [place]ICARE [place]: [employer] acquired by [employer] Lily Carmel [id number] Lily Carmel 09/25/2024 2 [place] [facility] Lily J Carmel [id number] Lily Jacques Notes Date Note Type Note Provider Name and Address Organization Details Recorded Time 03/21/2024 text/html 63 year old samm rangel presents today for ear cleaning.History of a right canal wall down mastoidectomy and left tympanic membrane perforation. She has hearing aids from [employer].No specific concerns today. She recently completed chemotherapy for lung cancer. She also underwent a lobectomy. Aleida hanley [place] - [facility] 03/21/2024 14:12:44 09/25/2024 text/html Recent CT chest for shortness of breath. Going to recheck in 6 weeks. No ear infections.PV: 63 year old female presents today for ear cleaning.History of a right canal wall down mastoidectomy and left tympanic membrane perforation. She has hearing aids from [employer].No specific concerns today. She recently completed chemotherapy for lung cancer. She also underwent a lobectomy. ELISEO MARQUIS MD [address] [place] [address], [place], [address], [facility] - [facility] 10/01/2024 09:43:48 OBGyn Episode No OBEpisode recorded.
--- OUTSIDE RECORDS SUMMARY | 2025-01-19 08:10 | XMS_ITS ---
Author Organization Horace Lima III, MD Address [address] [place] [address] [address] [place] [id number] Care Team Providers Care Line O Scribe Operator Name Role Phone Horace Lima Primary Care Provider Allergies Allergen (clinical drug ingredient) Drug/Non Drug Allergy documented on EMR Reaction Allergy Type Onset Date Status Substance with sulfonamide structure and antibacterial mechanism of action (substance) Sulfa Antibiotics Unknown Drug Allergy Active trazodone Trazodone HCl Unknown Drug Allergy Act naheed REASON FOR VISIT Follow up Medications Medication SIG (Take, Route, Frequency, Duration) Notes Start Date End Date Status Ventolin HFA 108 (90 Base) MCG/ACT 1 puff every 4 hours Inhalation every 4 hrs 09/16/2024 Active Docusate Sodium Acti ve fluvoxaMINE Maleate 100 MG TAKE 1 TABLET BY MOUTH TWICE DAILY AT BEDTIME Active Multi Vitamin Active Amphetamine-Dextroamphetami ne 20 MG 1 tablet Orally Twice a day 01/11/2021 Active Pantoprazole Sodium 20 MG TAKE ONE TABLE T BY MOUTH EVERY DAY Orally Once a day Active Simvastatin 20 MG TAKE ONE TABLET BY M OUTH EVERY EVENING Orally Once a day Active ProAir HFA 108 (90 Base) MCG/ACT 2 puff every 4 hours Inhalation every 4 hrs Active Anagrelide HCl 1 MG 1 capsule Orally Twi ce a day 07/16/2024 Active Vitamin B-12 1000 MCG 1 tablet Orally On ce a day 10/13/2024 Active Social History Sex Assigned At : Social History Observation Description Sex Assigned At Female Encounters Encounter Location Date Provider Diagnosis Horace Lima III, MD [address] [place] [address] [address] [facility] [place] [address] 12/16/2024 Horace Lima Attention deficit hyperactivity disorder (ADHD), unspecified ADHD type F90.9 Assessments Encounter Date Diagnosis (ICD Code) Assessment Notes Treat ment Notes Treatment Clinical Notes 12/16/2024 Attention deficit hyperactivity disorder (ADHD), unspecified ADHD type (ICD-10 - F90.9) She was continued on her current medication. No change was made. She has been conducting the activities of daily life and in normal fashion. Plan Of Treatment Medication Medication Name Sig Start Date Stop Date Notes Ventolin HFA 108 (90 Base) MCG/ACT 1 puff every 4 hours Inhalation every 4 hrs 09/16/2024 Docusate Sodium fluvoxaMINE Maleate 100 MG TAKE 1 TABLET BY MOUTH TWICE DAILY AT BEDTIME Multi Vitamin Amphetamine-Dextroamphetamin e 20 MG 1 tablet Orally Twice a day 01/11/2021 Pantoprazole Sodium 20 MG TAKE ONE TABLE T BY MOUTH EVERY DAY Orally Once a day Simvastatin 20 MG TAKE ONE TABLET BY M OUTH EVERY EVENING Orally Once a day ProAir HFA 108 (90 Base) MCG/ACT 2 puff every 4 hours Inhalation every 4 hrs Anagrelide HCl 1 MG 1 capsule Orally Twice a day 4 Vitamin B-12 1000 MCG 1 tablet Orally Once a day 5 Next Appt Details Provider Name:Horace Lima, 01/29/2025 10:00:00 AM, [address] [place] [address] [address], [place], [address], Progress Notes * Mello BARNARDeDOB: [birth year] (64 yo F)Acc No.[id number]:12/16/2024 Progress Notes Patient:?Lily BARNARD Provider:?Horace Lima MD :1960???Age:64 Y???Sex:Female D ate:12/16/2024 Address:[address] [place], [place] [id number] Subjective: * Chief Complaints: * ???1. Follow up. * HPI: ???COVID-19 Screening:?Questions?Have you had any new onset fever, chills, cough, congestion, sore throat, shortness of breath, muscle aches??No * ROS:?General/Constitutional:?pain?only normal aches and pains.?Chills?denies.?Fatigue?admits.?Fever?denies.?ENT:?Decreased hearing?denies.?Respiratory:?Cough?denies.?Cardiovascular:?Chest pain with exertion?denies.?Dyspnea on exertion?denies.?Shortness of breath?denies.?Gastrointestinal:?Constipation?denies.?Decreased appetite?denies.?Diarrhea?denies.?Heartburn?denies.?Nausea?denies.?Rectal bleeding?denies.?Vomiting?denies.?Hematology:?bruising?denies.?petechiae?denies.?Swollen glands?none have been noted.?Genitourinary:?Frequent urination?denies.?Musculoskeletal:?Muscle aches?denies.?Painful joints?denies.?Sciatica?denies.?Weakness?denies.?Skin:?Itching?denies.?Rash?denies.?Skin lesion(s)?denies.?Neurologic:?Difficulty speaking?denies.?Dizziness?denies.?Headache?denies.?Low back pain?denies.?Psychiatric:?Depressed mood?denies.? * Medical History:?ADHD, combi morro type, Ear infections, Left breast calcifications, colonoscopy December 2012 , Tobacco dependence, Hyperlipidemia, Menopause age 42, Alcohol abuse, Overweight, Thrombocytosis, Hearing loss, Stage Ib [id number] adenocarcinoma RLL, pdl+, resected 08/25, The patient has a history of lung cancer and completed chemotherapy in November or December., Chemotherapy: Completed a year ago; Parathyroid scan: Scheduled for the beginning of October. * Surgical History:?right mast oidectomy 1985, left myringotomy 1985, T&A, adenoids , tubal age 18 , biopsy left breast fibroadenoma 05/13/14, right eye cataract 10/2020, left eye cataract 10/2020, Core needle biopsy right lower lobe superior segment mass 07/2023, No history . * Hospitalization/Major Diagno stic Procedure:?No history . * Family History:?Father: unkn own.?Mother: 52 yrs, [...] substance use disorder, or addictions. 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 She moved here 2 years ago. She is . She had two children. A daughter at 29 in auto accident. Her son had a fatal drug overdose aged 22. She is not working and is not disabled. She stopped smoking in 2022 Smoking: Patient admitted to smoking a few times around [place] after a year of not smoking. * Medications:?Taking Anagreli de HCl 1 MG Capsule 1 capsule Orally Twice a day , Taking ProAir HFA 108 (90 Base) MCG/ACT Aerosol Solution 2 puff every 4 hours Inhalation every 4 hrs , Taking Amphetamine-Dextroamphetamine 20 MG Tablet 1 tablet Orally Twice a day , Taking fluvoxaMINE Maleate 100 MG Tablet TAKE 1 TABLET BY MOUTH TWICE DAILY AT BEDTIME , Taking Docusate Sodium , Taking Multi Vitamin , Taking Ventolin HFA 108 (90 Base) MCG/ACT Aerosol Solution 1 puff every 4 hours Inhalation every 4 hrs , Taking Simvastatin 20 MG Tablet TAKE ONE TABLET BY MOUTH EVERY EVENING Orally Once a day , Taking Pantoprazole Sodium 20 MG Tablet Delayed Release TAKE ONE TABLET BY MOUTH EVERY DAY Orally Once a day , Taking Vitamin B-12 1000 MCG Tablet 1 tablet Orally Once a day , stop date 10/08/2025, Discontinued Anagrelide HCl 1 MG Capsule 1 capsule Orally once a day , Discontinued B12 , Discontinued Vitamin B-12 1000 MCG Tablet 1 tablet Orally Once a day , Discontinued Zithromax Z-Logan 250 MG Tablet as directed Orally , Discontinued predniSONE 5 MG Tablet Oral , Medication List reviewed and reconciled with the patient * Allergies:?Trazodone HCl, Capone lfa Antibiotics. Objective: * Vitals:? * Examination: ???General Examination: ?GENERAL APPEARANCE:?pleasant, well nourished, well developed, in no acute distress, calm and relaxed.?HEAD:?atraumatic, normocephalic.?EYES:?eomi, perrla, anicteric, conjugate.?EARS:?normal.?NOSE:?septum intact.?ORAL CAVITY:?normal, unremarkable.?NECK/THYROID:?no jugular venous distention, no carotid bruit, thyroid normal.?LYMPH NODES:?no enlarged lymph nodes,spleen normal.?SKIN:?no suspicious lesions, anicteric.?HEART:?no clicks, gallops, murmurs, or rubs, regular rhythm, S1, S2 normal, no s3, or vascular bruits.?LUNGS:?clear to auscultation .?BREASTS:??no masses palpable bilaterally.?ABDOMEN:?bowel sounds normal, no ascites, no organomegaly, no mass.?RECTAL EXAM:?not examined.?MUSCULOSKELETAL:?extremities unremarkable, no clubbing, cyanosis or edema.?PERIPHERAL PULSES:?normal.?NEUROLOGIC:?alert and oriented, cranial nerves 2-12 grossly intact, deep tendon reflexes 2+ symmetrical, motor strength normal upper and lower extremities, sensory exam intact.?PSYCH:?alert, oriented.? Assessment: * Assessment: 1.?Attention deficit hyperac tivity disorder (ADHD), unspecified ADHD type - F90.9???Notes :She was continued on her current medication. No change was made. She has been conducting the activities of daily life and in normal fashion.??? Plan: * Treatment: 2.?Others? Continue Simvastatin Tablet, 20 MG, TAKE ONE TABLET BY MOUTH EVERY EVENING, Orally, Once a day;?Continue Pantoprazole Sodium Tablet Delayed Release, 20 MG, TAKE ONE TABLET BY MOUTH EVERY DAY, Orally, Once a day;?Continue Vitamin B-12 Tablet, 1000 MCG, 1 tablet, Orally, Once a day;?Continue Anagrelide HCl Capsule, 1 MG, 1 capsule, Orally, Twice a day.?? * Images: * The named appointment provid er may or may not be the originator of this progress note, and it is not deemed complete until electronically signed by the appointment provider. Sign off status: Pending * Provider:?Horace Lima MD Date:?12/02 Generated for Felice horton/Kirby/Sergiosmitting on:?01/19/2025 08:09 AM EDT History and Physical Notes * HPI (History of Present Illness) Category Sub-Category Detail Notes COVID-19 Screening Questions Have you had any new onset fever, chills, cough, congestion, sore throat, shortness of breath, muscle aches?: No Examination Category Sub-Category Detail Notes General Examination GENERAL APPEARANCE: pleasant , well nourished, well developed, in no acute distress, calm and relaxed HEAD: atraumatic, normocep halic EYES: eomi, perrla, anicte parris, conjugate EARS: normal NOSE: septum intact NECK/THYROID: no jugular venous [...]
--- OUTSIDE RECORDS SUMMARY | 2025-01-19 08:10 | XMS_ITS ---
Author Organization Horace Lima III, MD Address [address] [place] [address] [place] [address] Care Team Providers Care Fluid Dynamicist Name Role Phone Horace Lima Primary Care Provider [phone] REASON FOR VISIT RE:Refills Social History Sex Assigned At : Social History Observation Description Sex Assigned At Female Encounters Encounter Location Date Provider Diagnosis Horace Lima III, MD [address] [place] [address] [place] [id number] 10/13/2024 Horace Lima Plan Of Treatment Next Appt Details Provider Name:Horace Lima, 01/29/2025 10:00:00 AM, [address] [place] [address] [address] [place], [address], Progress Notes * Mello BARNARDeDOB: (64 yo F)Acc No.[id number]:10/13/2024 Patient:?Lily BARNARD :1960???Age:64 Y???Sex:Female Address:[address] [place], [address] * true * Date:? Generated for Printi ng/Faspg/eTransmitting on:?01/19/2025 08:10 AM EDT
--- OUTSIDE RECORDS SUMMARY | 2025-01-19 08:10 | XMS_ITS | Patient Health Record ---
Author Organization Horace Lima III, MD Address [address] [place] [address] DR RANDOLPH Eden LOLA PEREZ [phone] Care Team Providers Care Butter Liquefier Name Role Phone Horace Lima Primary Care [...] 0.2 - 1.3 BLD Negative Negative - MM tomosynthesis screening B I Reviewed date:03/08/2024 06:43:28 AM Interpretation: Performing Lab: Notes/Report: [facility] [address] [place] [address] Mammography Report Signed Patient: Lily Jacques MR#: [id number] 99 : 1960 Acct:[id number] Age/Sex: 63 / F ADM Date: 01/29/24 Loc: HO.MAMMO Attending Dr: Horace Lima MD Ordering Physician: Horace Lima MD Results: 2Benign Findings Date of Service: 01/29/24 Follow Up: 1 Year From Orig inal Mammogram Procedure(s): MM tomosynthesis screening BI Accession Number(s): [id number] cc: Horace Lima MD EXAMINATION: MM SCREENING [...] in OV> 02/25/24 0350 DD/ 1230 TD/TT: Telecommunications Sales Representative: [facility] [address] [place] [address] Mammography Report Signed Patient: Arnoldo Jacques MR#: [id number] 99 : 1960 Acct:[id number] Age/Sex: 63 / F ADM Date: 01/29/24 Loc: RICKEY Attending Dr: Horace Lima MD Ordering Physician: Horace Lima MD Results: 2Benign Findings Date of Service: Follow Up: 1 Year From Orig inal Mammogram Procedure(s): MM tomosynthesis screening BI Accession Number(s): [id number] cc: Horace Lima MD EXAMINATION: MM SCREENING [...] or other abnormalities. There is a central v enous access port within the superiormost aspect of the right breast. There is a tissue ma rker present in the left breast from prior benign percutaneous biopsy. M M/MM tomosynthesis screening BI IMPRESSION: No mammographic evid ence of malignancy. ASSESSMENT: BI-RADS BI-RADS 2 - Benign Findings RECOMMENDATION: Routine annual mammo graphy screening. 1 year F/U This examination cleio uld not preclude the clinical evaluation of a suspicious palpable abnormality. This patient's infor mation was entered into a reminder system with a target due date for their next mammogram. Dictated By: Alejandra Wade MD Signed By: <Lizz dobbins signed by Alejandra Wade MD in OV> 02/25/24 0350 DD/ 1230 TD/TT: Telecommunications Sales Representative: MAMMOGRAM DIGITAL BILATERAL SCREEN Reviewed date:03/13/2024 02:42:48 PM Interpretation:undefined Performing Lab: Notes/Report: undefined Complete Blood Count Auto Di ff Reviewed date:03/08/2024 06:43:28 AM Interpretation: Performing Lab:[facility], [address] [place] [phone] Notes/Report: White Blood Count 6.4 4.8-10.8 X10*3/uL [...] 0.0 0.0-0.2 /100WBC Neutrophils Absolute Auto 2.3 2.0-8. 3 x10*3/uL Imm Gran Abs Auto 0.01 0.00-0.03 X10*3/uL Lymphocytes Absolute Auto 3.1 1.2-4. 9 X10*3/uL Monocytes Absolute Auto 0.8 0.1-1.2 X10*3/uL Eosinophils Absolute Auto 0.1 0.0-0. 4 X10*3/uL Basophils Absolute Auto 0.1 0.0-0.2 X10*3/uL [...] 0.0 0.0-0.2 /100WBC Neutrophils Absolute Auto 2.3 2.0-8. 3 x10*3/uL Imm Gran Abs Auto 0.01 0.00-0.03 X10*3/uL Lymphocytes Absolute Auto 3.1 1.2-4. 9 X10*3/uL Monocytes Absolute Auto 0.8 0.1-1.2 X10*3/uL Eosinophils Absolute Auto 0.1 0.0-0. 4 X10*3/uL Basophils Absolute Auto 0.1 0.0-0.2 X10*3/uL NRBC Abs Auto 0.000 0.0-0.012 X10*3/uL BHARTI ECTED REPORT BHARTI ECTED REPORT Comprehensive Met. Panel Reviewed date:03/08/2024 06:43:28 AM Interpretation: Performing Lab:[facility], [address] [place] [phone] Notes/Report: Sodium 137 135-145 mmol/L Potassium 5.9 [...] Estimated Glomerular Filt Rate 50 NOTE: For -Ethiopian individuals, multiply the result by 1.210. Chronic [...] REVIEW Reviewed date:03/08/2024 06:43:28 AM Interpretation: Performing Lab:[facility], [address] [place] [phone] Notes/Report: SLIDE REVIEW VERIFIED Complete Blood Count Auto Di ff Reviewed date:06/29/2024 06:35:42 AM Interpretation: Performing Lab:[facility], [address] [place] [phone] Notes/Report: White Blood Count 7.8 4.8-10.8 X10*3/uL [...] 0.0 0.0-0.2 /100WBC Neutrophils Absolute Auto 3.5 2.0-8. 3 x10*3/uL Imm Gran Abs Auto 0.01 0.00-0.03 X10*3/uL Lymphocytes Absolute Auto 3.3 1.2-4. 9 X10*3/uL Monocytes Absolute Auto 0.8 0.1-1.2 X10*3/uL Eosinophils Absolute Auto 0.1 0.0-0. 4 X10*3/uL Basophils Absolute Auto 0.1 0.0-0.2 X10*3/uL NRBC Abs Auto 0.000 0.0-0.012 X10*3/uL Comprehensive [place]. Panel Fa st Reviewed date:06/29/2024 06:35:42 AM Interpretation: Performing Lab:[facility], [address] [place] [phone] Notes/Report: Sodium 141 135-145 mmol/L Potassium 5.2 3.3-5.1 mmol/L Chloride 108 96-108 mmol/L Carbon Dioxide 27 22-29 mmol/L Anion Gap 11 12-20 Blood Urea Nitrogen 16 9-16 mg/dL Creatinine 1.11 0.5-1.4 mg/dL Estimated Glomerular Filt Rate 49 NOTE: For -Ethiopian individuals, multiply the result by 1.210. Chronic [...] Panel Reviewed date:06/29/2024 06:35:42 AM Interpretation: Performing Lab:[facility], [address] [place] [phone] Notes/Report: Triglycerides 96 <150 mg/dL Desirable Triglyceride: [...] Thyroxine) Reviewed date:07/29/2024 08:41:34 AM Interpretation: Performing Lab:[facility], [address] [place] [phone] Notes/Report: Free T4 (Free Thyroxine) 1.05 0.71-1.85 ng/dL Thyroid Stimulating Hormone Reviewed date:07/29/2024 08:41:34 AM Interpretation: Performing Lab:[facility], [address] [place] [phone] Notes/Report: Thyroid Stimulating Hormone 1.58 0.32-4.0 uIU/mL TSH 3rd Generation ([facility]) Complete Blood Count Auto Di ff Reviewed date:09/09/2024 04:42:49 PM Interpretation: Performing Lab:[facility], [address] [place] [phone] Notes/Report: White Blood Count 5.7 4.8-10.8 X10*3/uL Red Blood Count 4.72 4.20-5.50 X10*6/uL Hemoglobin 13.6 12.0-16.0 g/dl Hematocrit 41.3 37.0-47.0 % Mean Corpuscular Volume 87.5 80.0-98.0 fL Mean Corpuscular Hemoglobin 28.8 27.0-33.0 pg Mean Corpuscular HGB Conc 32.9 31.0-35.0 g/dl Red Cell Distribution Width 15.0 11.0-16.0 % Platelet Count 399 160-400 X10*3/uL Mean Platelet Volume 9.8 9.4-12.3 fL Neutrophils Percent Auto 45.9 45-73 % Imm Gran Pct Auto 0.4 0.0-0.4 % Lymphocytes Percent Auto 34.4 20-40 % Monocytes Percent Auto 17.2 2-11 % Eosinophils Percent Auto 0.9 0-4 % Basophils Percent Auto 1.2 0-2 % NRBC Pct Auto 0.4 0.0-0.2 /100WBC Neutrophils Absolute Auto 2.6 2.0-8. 3 x10*3/uL Imm Gran Abs Auto 0.02 0.00-0.03 X10*3/uL Lymphocytes Absolute Auto 2.0 1.2-4. 9 X10*3/uL Monocytes Absolute Auto 1.0 0.1-1.2 X10*3/uL Eosinophils Absolute Auto 0.1 0.0-0. 4 X10*3/uL Basophils Absolute Auto 0.1 0.0-0.2 X10*3/uL NRBC Abs Auto 0.020 0.0-0.012 X10*3/uL Comprehensive Met. Panel Reviewed date:09/09/2024 04:42:49 PM Interpretation: Performing Lab:[address] [phone] Notes/Report: Sodium 137 135-145 mmol/L Potassium 4.7 3.3-5.1 mmol/L Slight Hemolysis.Interpre t result with caution. Chloride 105 96-108 mmol/L Carbon Dioxide 24 22-29 mmol/L Anion Gap 13 12-20 Blood Urea Nitrogen 16 9-16 mg/dL Creatinine 0.89 0.5-1.4 mg/dL Estimated Glomerular Filt Rate > 60 Chronic Kidney Disease: Estimated GFR < 60 mL/min/1.73m2 Severe Kidney Disease: Estimated GFR < 15 mL/min/1.73m2 Glucose Random 104 60-115 mg/dL Calcium 10.8 8.4-10.2 mg/dL Bilirubin Total 0.3 0.0-1.0 mg/dL Aspartate Amino Transferase 25 5-31 U/L Slight Hemolysis.Interpre t result with caution. Alanine Aminotransferase 22 0-31 U/L Total Protein 8.1 6.5-8.0 g/dL Albumin Level 4.0 3.5-5.0 g/dL Alkaline Phosphatase 141 39-117 U/L Vitamin B12 Reviewed date:09/09/2024 04:42:49 PM Interpretation: Performing Lab:[address] [phone] Notes/Report: Vitamin B12 1210 200-900 pg/mL NORMAL 200-900 PG/ML INDETERMINATE 160-199 PG/ML DEFICIENT < 160 PG/ML Parathyroid Hormone Intact Reviewed date:09/09/2024 04:42:49 PM Interpretation: Performing Lab:[facility], [address] [place] [phone] Notes/Report: Parathyroid Hormone Intact 180.5 8.7-77.1 pg/mL CT chest w con Reviewed date:10/10/2024 09:28:28 AM Interpretation: Performing Lab: Notes/Report: [address] [address] [address] Scan Report Signed Patient: Lily Jacques MR#: [id number] 99 : 1960 Acct:[id number] Age/Sex: 64 / F ADM Date: 09/23/24 Loc: HO.CT Attending Dr: Jordana Junior MD Ordering Physician: Jordana Junior MD Date of Service: 09/23/24 Procedure(s): CT chest w IV con Accession Number(s): [id number] cc: Horace Lima MD; Jordana Junior MD Report Number: [id number]: Total DLP = 74.00 mGy-cm CLINICAL HISTORY: Surveillance for lung cancer CT chest with contrast Comparison: CT/SR - CT CHEST W IV CON - 03/19/24 10:23 EDT Findings: Patient has undergone prior right lower lobectomy. Emphysematous changes throughout the lungs. Interval development of areas of ground-glass density within the anterior aspect of the right upper lobe and within the posterior aspect of the right upper lobe. Spiculated pulmonary nodule has developed within the posterior aspect of the right upper lobe since prior study measuring 10 x 6 mm in size. This is best appreciated on axial image 49 of series 4. Subtle areas of peripheral nodularity are seen within the right upper lobe as well measuring up to 4 mm in size. Likely scarring or atelectasis within the anterior aspect of the lingula. No concerning pulmonary nodules or infiltrates within the left lung. No pleural effusion or pneumothorax. Right-sided Port-A-Cath is in place with tip at the cavoatrial junction. No pathologically enlarged mediastinal, hilar, or axillary lymph nodes. Calcification of the coronary arteries and thoracic aorta. No free fluid or free air within the upper abdomen. Low-attenuation throughout the liver is indicative of fatty infiltration. No destructive bony lesions. IMPRESSION: Interval development of areas of ground-glass density within the right lung as well as a spiculated pulmonary nodule within the right upper lobe. Although this may simply be related to acute infectious or inflammatory process, possibility of progression of the patient's malignancy should be considered. Short interval follow up chest CT in 6-8 weeks versus PET-CT at this time is suggested for further evaluation. This document has been electronically signed by: Trung Carrillo MD on 09/24/2024 06:53:23 Dictated By: Trung Carrillo MD Signed By: <Electronically signed by Trung Carrillo MD in OV> 09/24/2454 DD/ 2 TD/TT: 09/24/24652 Telecommunications Sales Representative: [place] [address] CT Scan Report Signed Patient: Arnoldo Jacques MR#: [id number] 99 : 1960 Acct:[id number] Age/Sex: 64 / F ADM Date: 09/23/24 Loc: HO.CT Attending Dr: Jordana Junior MD Ordering Physician: Jordana Junior MD Date of Service: 09/23/24 Procedure(s): CT janeen st w IV con Accession Number(s): [id number] cc: Horace Lima MD; Jordana Junior MD Report Number: [id number]: Total DLP = 74.00 mGy-cm CLINICAL HISTORY: Surveillance for lung cancer CT chest with contrast Comparison: CT/SR - CT CHEST W IV CON - 03/19/24 10:23 EDT Findings: Patient has undergon e prior right lower lobectomy. Emphysematous change s throughout the lungs. Interval development of areas of ground-glass density within the anterior aspect of the right upper lobe and within the posterior aspect of the right upper lobe. Spiculated pulmonary nodule has developed within the posterior aspect of the right upper lobe since prior study measuring 10 x 6 mm in size. This i s best appreciated on axial image 49 of series 4. Subtle areas of paige pheral nodularity are seen within the right upper lobe as well measuring up to 4 mm in size. Likely scarring or atelectasis within the anterior aspect of the lingula. No concerning pulmon oriana nodules or infiltrates within the left lung. No pleural effusion or pneumothorax. Right-sided Port-A-C ath is in place with tip at the cavoatrial junction. No pathologically en larged mediastinal, hilar, or axillary lymph nodes. Calcification of the coronary arteries and thoracic aorta. No free fluid or kong e air within the upper abdomen. Low-attenuation thro ughout the liver is indicative of fatty infiltration. No destructive bony lesions. IMPRESSION: Interval development of areas of ground-glass density within the right lung as well as a spiculated pulmonary nodule within the right upper lobe. Although this may si mply be related to acute infectious or inflammatory process, possibility of progression of the patient's malignancy should be considered. Short in terval follow up chest CT in 6-8 weeks versus PET-CT at this time is sugg ested for further evaluation. This document has be en electronically signed by: Trung Carrillo MD on 09/24/2024 06:53:23 Dictated By: Trung Carrillo MD Signed By: <Lizz dobbins signed by Trung Carrillo MD in OV> 09/24/24 0654 DD/ 0653 TD/TT: 09/24/24 0653 Telecommunications Sales Representative: NM parathyroid Reviewed date:12/13/2024 04:57:07 AM Interpretation: Performing Lab: Notes/Report: [address] [address] Nuclear Medicine Report Signed Patient: Lily Jacques MR#: [id number] 99 : 1960 Acct:[id number] Age/Sex: 64 / F ADM Date: 10/27/24 Loc: WANDA Attending Dr: Mariama Ventura MD Ordering Physician: Mariama Ventura MD Date of Service: 10/27/24 Procedure(s): NM parathyroid Accession Number(s): [id number] cc: Horace Lima MD; Mariama Ventura MD EXAMINATION: NM PARATHYROID SCAN CLINICAL INFORMATION: Hyperparathyroidism COMPARISON: Correlation is made with a chest CT dated 09/23/2024. TECHNIQUE: A double radionuclide study of the thyroid bed region and upper chest in multiple projections was performed 4 hours after the oral administration of 1 millicuries I-123 sodium iodide and immediately following the intravenous administration of 30 mCi Tc-99m sestamibi. Repeat imaging was performed 2 hours later. The iodide images were electronically subtracted from the sestamibi images using different weighting factors. FINDINGS: There is homogeneous uptake of radioiodine throughout both thyroid lobes. The thyroid gland appears to be normal in size and shape. There are no focal areas of increased or diminished uptake. Technetium 99m sestamibi images demonstrate homogeneous thyroid activity. There are no focal areas of increased or decreased Technetium 99m sestamibi activity. Computer-generated digital subtraction images reveal no evidence of excess sestamibi activity. NM/NM parathyroid IMPRESSION: No evidence of excess sestamibi activity to suggest a parathyroid adenoma or hyperplasia. There is homogeneous uptake of radioiodine in the thyroid gland which is also normal in size and shape. Electronically signed by: Horace Zimmerman MD 10/28/2024 07:09 AM EST Dictated By: Horace Zimmerman MD Signed By: <Electronically signed by Horace Zimmerman MD in OV> 10/28/24 0709 DD/ 0805 TD/TT: 10/27/24 1505 Telecommunications Sales Representative: [place] [address] Nuclear Medicine Report Signed Patient: Arnoldo Jacques MR#: [id number] 99 : 1960 Acct:[id number] Age/Sex: 64 / F ADM Date: 10/27/24 Loc: WANDA Attending Dr: Mariama Ventura MD Ordering Physician: Mariama Ventura MD Date of Service: 10/27/24 Procedure(s): NM parathyroid Accession Number(s): [id number] cc: Horace Lima MD; Mariama Venutra MD EXAMINATION: NM PARATHYROID SCAN CLINICAL INFORMATION : Hyperparathyroidism COMPARISON: Correlat ion is made with a chest CT dated 09/23/2024. TECHNIQUE: A double radionuclid e study of the thyroid bed region and upper chest in multiple projecti ons was performed 4 hours after the oral administration of 1 millicuries I-123 sodium iodide and immediately following the intrav enous administration of 30 mCi Tc-99m sestamibi. Repeat imaging was performed 2 hours later. The iodide images were electronically subtr acted from the sestamibi images using different weighting factors. FINDINGS: There is homogeneous uptake of radioiodine throughout both thyroid lobes. The thyroid g land appears to be normal in size and shape. There are no focal areas o f increased or diminished uptake. Technetium 99m sesta mibi images demonstrate homogeneous thyroid activity. There are no focal areas of increased or decreased Technetium 99m sestamibi activity. Computer-generated d igital subtraction images reveal no evidence of excess sestamibi activity. N M/NM parathyroid IMPRESSION: No evidence of exces s sestamibi activity to suggest a parathyroid adenoma or hyperplas ia. There is homogeneous uptake of radioiodine in the thyroid gland wh ich is also normal in size and shape. Electronically macie d by: Horace Zimmerman MD 10/28/2024 07:09 AM EST Dictated By: Horace Zimmerman MD Signed By: <Lizz ically signed by Horace Zimmerman MD in OV> 10/28/24 0709 DD/ 0805 TD/TT: 10/27/24 1505 Telecommunications Sales Representative: Complete Blood Count Auto Di ff Reviewed date:12/22/2024 04:33:52 PM Interpretation: Performing Lab:[facility], [address] [place] [phone] Notes/Report: White Blood Count 9.6 4.8-10.8 X10*3/uL Red Blood Count 4.64 4.20-5.50 X10*6/uL Hemoglobin 13.6 12.0-16.0 g/dl Hematocrit 40.4 37.0-47.0 % Mean Corpuscular Volume 87.1 80.0-98.0 fL Mean Corpuscular Hemoglobin 29.3 27.0-33.0 pg Mean Corpuscular HGB Conc 33.7 31.0-35.0 g/dl Red Cell Distribution Width 15.4 11.0-16.0 % Platelet Count 450 160-400 X10*3/uL Mean Platelet Volume 8.9 9.4-12.3 fL Neutrophils Percent Auto 54.6 45-73 % Imm Gran Pct Auto 0.1 0.0-0.4 % Lymphocytes Percent Auto 32.3 20-40 % Monocytes Percent Auto 11.2 2-11 % Eosinophils Percent Auto 0.9 0-4 % Basophils Percent Auto 0.9 0-2 % NRBC Pct Auto 0.2 0.0-0.2 /100WBC Neutrophils Absolute Auto 5.2 2.0-8. 3 x10*3/uL Imm Gran Abs Auto 0.01 0.00-0.03 X10*3/uL Lymphocytes Absolute Auto 3.1 1.2-4. 9 X10*3/uL Monocytes Absolute Auto 1.1 0.1-1.2 X10*3/uL Eosinophils Absolute Auto 0.1 0.0-0. 4 X10*3/uL Basophils Absolute Auto 0.1 0.0-0.2 X10*3/uL NRBC Abs Auto 0.020 0.0-0.012 X10*3/uL Comprehensive Met. Panel Reviewed date:12/22/2024 04:33:52 PM Interpretation: Performing Lab:[facility], [address] [place] [phone] Notes/Report: Sodium 140 135-145 mmol/L Potassium 3.7 3.3-5.1 mmol/L Chloride 108 96-108 mmol/L Carbon Dioxide 25 22-29 mmol/L Anion Gap 11 12-20 Blood Urea Nitrogen 18 9-16 mg/dL Creatinine 0.82 0.5-1.4 mg/dL Creatinine Clr Calc Pharmacy 54.9 Provided height and weight: 152.4 cm, 59 kg. eGFR (calculated from the MDRD study equation) and eCrCl (calculated from the Cockcroft-Gault equation) are based on different parameters and may not yield comparable results. If eCrCl result is absurd, please check patient's height/weight. Estimated Glomerular Filt Rate > 60 Chronic Kidney Disease: Estimated GFR < 60 mL/min/1.73m2 Severe Kidney Disease: Estimated GFR < 15 mL/min/1.73m2 Glucose Random 112 60-115 mg/dL Calcium 10.2 8.4-10.2 mg/dL Bilirubin Total 0.3 0.0-1.0 mg/dL Aspartate Amino Transferase 20 5-31 U/L Alanine Aminotransferase 24 0-31 U/L Total Protein 7.4 6.5-8.0 g/dL Albumin Level 3.9 3.5-5.0 g/dL Alkaline Phosphatase 115 39-117 U/L Carcinoembryonic Antigen Reviewed date:12/22/2024 04:33:52 PM Interpretation: Performing Lab:[facility], [address] [place] [phone] Notes/Report: Carcinoembryonic Antigen 4.30 CEA Reference Range: 93.4% Non-Smokers = 0.0-3.0 ng/mL 95.6% Smokers = 0.0-5.0 ng/mL CEA Methodology: [employer] Alinity i Chemiluminescent Microparticle Immunoassay (CMIA) CEA testing can have significant value in monitoring of patients with diagnosed malignancies in whom changing concentrations of CEA are observed. Values obtained with different assay methods cannot be used interchangeably. Reason For Referral Reason Consult and Treat Untreated Hyperparathyroidism CA= 11.8 Diagnosis 1 Hyperparathyroidism (E21.3) Referral Organization Horace Lima III, MD Referring Provider First Name Horace Referring Provider Last Name Jaine Referring Provider Speciality Internal M edicine Referred Provider [facility] Referred Provider Specialty Endocrinolog y General Notes Tara Vasquez 07/07/2024 04:31:34 PM > referral faxed with progress note Referral Priority Routine Referral Appointment Date 07/28/2024 Medications Medication SIG (Take, Route, Frequency, Duration) Notes Start Date End Date Status Docusate Sodium Acti ve fluvoxaMINE Maleate 100 MG TAKE 1 TABLET BY MOUTH TWICE DAILY AT BEDTIME Active Pantoprazole Sodium 20 MG TAKE ONE TABLE T BY MOUTH EVERY DAY Orally Once a day Active Simvastatin 20 MG TAKE ONE TABLET BY M OUTH EVERY EVENING Orally Once a day Active Multi Vitamin Active Amphetamine-Dextroamphetami ne 20 MG 1 tablet Orally Twice a day 01/11/2021 Active ProAir HFA 108 (90 Base) MCG/ACT 2 puff every 4 hours Inhalation every 4 hrs Active Anagrelide HCl 1 MG 1 capsule Orally Twi ce a day 07/16/2024 Active Ventolin HFA 108 (90 Base) MCG/ACT 1 puff every 4 hours Inhalation every 4 hrs 09/16/2024 Active Vitamin B-12 1000 MCG 1 tablet Orally On 10/13/2024 Active Immunizations Vaccine Route Administration Date Status [...] Pfizer-BioNTech Unknown 05/28/2023 Administer ed Social History Sex Assigned At : Social [...] Problem Status W/U Status Risk Notes Problem 8704248 Former smoker (Z87.891) Active confirmed Her abstinence from tobacco continues. Problem 80170116 Hyperlipidemia (E78.5) Active confirmed Her lipids are stable and currently in their target range. No change in her regimen was made today. Problem 379854001 Asthma (J45.909) Active confirmed She denies any recent episodes of asthma. No wheezing was heard today. She is compliant with her medication. Problem 369909321 Overweight (E66.3) Active confirmed She has become slightly overweight with her treatment. We discussed diet and nutrition today. We made a plan to lose weight gradually. 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 Problem 24755332 Allergy to sulfa drugs (Z88.2) Active confirmed She has developed a typical drug allergy rash. Weak after taking Bactrim. Her allergy portion of the medical record has been updated. Problem 76202851 Hypercalcemia (E83.52) Active confirmed Her calcium level is 10.7. No change in her regimen as needed.This value will be carefully observed. Problem 783608698 Breast calcifica tion, left (R92.1) Active confirmed No abnormalities were palpated today. Problem 84075447 Postmenopause (Z78.0) Active confirmed She is no longer having periods and will have a bone density at appropriate intervals. Problem 576119986 Attention defici t hyperactivity disorder (ADHD), unspecified ADHD type (F90.9) Active confirmed She was continued on her current medication. No change was made. She has been conducting the activities of daily life and in normal fashion. Problem 91730517 Bilateral hearin g loss (H91.93) Active confirmed Her hearing loss is quite advanced and she benefit significantly from hearing aids. There was no difficulty conversing today. The recent episode of otitis has completely resolved. Problem 40910147 Tobacco dependen ce (F17.200) Active confirmed I have counseled her about smoking cessation at length today. I have made her aware of the smoking cessation program at [facility]. She is smoking only 5 cigarettes a day now. Problem 842109697 Major depression (F32.9) Active confirmed Her depression is well-controlle d and she is living her life without significant impairment. Problem Hyperparathyroid ism (E21.3) Active confirmed Her calcium is 10.8. She remains under the care of endocrinology for hyperparathyro idism. Her medical oncologist says ordered a scan of her thyroid. This is pending in October 2024. 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 Surveillance will continue. 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 She remains in remission at this time. Vital Signs Heart Rate 82 /min 09/16/2024 Temperature 97.8 degrees Fahrenheit 09/16/2024 Oximetry 95.0 % 09/16/2024 Blood pressure diastolic 78 mm Hg 09/16/2024 Height 60 in 09/16/2024 Blood pressure systolic 132 mm Hg 09/16/2024 Weight 127 lbs 09/16/2024 BMI 24.8 kg/m2 09/16/2024 Encounters Encounter Location Date Provider Diagnosis Horace Lima III, MD [address] [place] [address] [place] [address] 01/29/2024 Horace Lima Attention deficit hyperactivity disorder (ADHD), unspecified ADHD type F90.9 ; Bilateral hearing loss H91.93 ; Major depression F32.9 ; Hyperparathyroidism E21.3 ; Asthma J45.909 ; Hyperlipidemia E78.5 ; 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 ; Former smoker Z87.891 and Overweight E66.3 Horace Lima III, MD [address] [place] [address] [place] [address] 04/02/2024 Horace Lima Attention deficit hyperactivity disorder (ADHD), unspecified ADHD type F90.9 ; Hyperlipidemia E78.5 ; Asthma J45.909 ; 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 ; Bilateral hearing loss H91.93 ; Major depression F32.9 ; Hyperparathyroidism E21.3 ; Former smoker Z87.891 ; Hypercalcemia E83.52 ; Overweight E66.3 and 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9 ; 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 ; Hyperlipidemia E78.5 ; Hyperparathyroidism E21.3 ; Vitamin B 12 deficiency E53.8 ; Bilateral hearing loss H91.93 ; Asthma J45.909 ; Major depression F32.9 ; Tobacco dependence F17.200 and 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 09/16/2024 Attention deficit hyperactivity disorder (ADHD), unspecified ADHD type (ICD-10 - F90.9) She was continued on her current medication. No change was made. She has been conducting the activities of daily life and in normal fashion. 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 Surveillance will continue. 01/29/2024 Major depression (IC D-10 - F32.9) [...] episode of otitis has completely resolved. 09/16/2024 Hyperlipidemia (ICD- 10 - E78.5) Her lipids are stable and currently in their target range. No change in her regimen was made today. 01/29/2024 Hyperparathyroidism (ICD-10 - E21.3) The current ccalcium level is 9.7. No change inn her regimen was made. 04/02/2024 Essential thrombocyt osis (ICD-10 - D47.3) Her platelets are currently stable and no change in her regimen. 07/02/2024 Major depression (IC D-10 - F32.9) Her depression is well-controlled and she is living her life without significant impairment. 09/16/2024 Hyperparathyroidism (ICD-10 - E21.3) Her calcium is 10.8. She remains under the care of endocrinology for hyperparathyroidis m. Her medical oncologist says ordered a scan of her thyroid. This is pending in October 2024. 01/29/2024 Asthma (ICD-10 - J45.909) Her lungs [...] stable. Comprehensive blood work will be done. 09/16/2024 Vitamin B 12 deficie ncy (ICD-10 - E53.8) Her vitamin B12 level is normal. No change in her regimen was necessary today. 01/29/2024 Hyperlipidemia (ICD- 10 - E78.5) Her lipids are controlled and no changes were needed. 04/02/2024 Major depression (IC D-10 - F32.9) Her depression is well-controlled and she is living her life without significant impairment. 07/02/2024 Asthma (ICD-10 - J45.909) She denies any recent episodes of asthma. No wheezing was heard today. She is compliant with her medication. 09/16/2024 Bilateral hearing lo ss (ICD-10 - H91.93) Her hearing loss is quite advanced and she benefit significantly from hearing aids. There was no difficulty conversing today. The recent episode of otitis has completely resolved. 01/29/2024 Essential thrombocyt osis (ICD-10 - D47.3) [...] No change inn her regimen was made. 09/16/2024 Asthma (ICD-10 - J45.909) She denies any recent episodes of asthma. No wheezing was heard today. She is compliant with her medication. 01/29/2024 Former smoker (ICD-1 0 - Z87.891) Her abstinence from tobacco continues. 04/02/2024 Former smoker (ICD-1 0 - Z87.891) Her abstinence from tobacco continues. 07/02/2024 Overweight (ICD-10 - E66.3) She has become slightly overweight with her treatment. We discussed diet and nutrition today. We made a plan to lose weight gradually. 09/16/2024 Major depression (IC D-10 - F32.9) Her depression is well-controlled and she is living her life without significant impairment. 01/29/2024 Overweight (ICD-10 - E66.3) She has become slightly overweight with her treatment. We discussed diet and nutrition today. We made a plan to lose weight gradually. 04/02/2024 Hypercalcemia (ICD-1 0 - E83.52) Her calcium level is 10.7. No change in her regimen as needed.This value will be carefully observed. 07/02/2024 Former smoker (ICD-1 0 - Z87.891) Her abstinence from tobacco continues. 09/16/2024 Tobacco dependence (ICD-10 - F17.200) I have counseled her about smoking cessation at length today. I have made her aware of the smoking cessation program at [facility]. She is smoking only 5 cigarettes a day now. 04/02/2024 Overweight (ICD-10 - E66.3) She has become slightly overweight with her treatment. We discussed diet and nutrition today. We made a plan to lose weight gradually. 07/02/2024 Vitamin B 12 deficie ncy (ICD-10 - E53.8) 09/16/2024 Essential thrombocyt osis (ICD-10 - D47.3) Her platelets are currently stable and no change in her regimen. 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 She remains in remission at this time. Plan Of Treatment Pending Test Test Name Order Date PROFILE, FASTING (COMPREHENSIVE METABOLI C) 05/31/2022 PROFILE, FASTING (COMPREHENSIVE METABOLI C) 01/16/2022 PROFILE, FASTING (COMPREHENSIVE METABOLI C) 10/29/2017 PROFILE, FASTING (COMPREHENSIVE METABOLI C) 04/27/2023 PROFILE, FASTING (COMPREHENSIVE METABOLI C) 09/27/2018 PROFILE, FASTING (COMPREHENSIVE METABOLI C) 07/25/2017 PROFILE, FASTING (COMPREHENSIVE METABOLI C) 07/05/2021 PROFILE, FASTING (COMPREHENSIVE METABOLI C) 01/23/2023 PROFILE, FASTING (COMPREHENSIVE METABOLI C) 09/16/2024 PROFILE, FASTING (COMPREHENSIVE METABOLI C) 02/18/2018 PROFILE, FASTING (COMPREHENSIVE METABOLI C) 11/09/2022 PROFILE, FASTING (COMPREHENSIVE METABOLI C) 10/08/2019 PROFILE, FASTING (COMPREHENSIVE METABOLI C) 04/02/2024 PROFILE, RANDOM (COMPREHENSIVE METABOLIC ) 08/20/2017 PROFILE, RANDOM (COMPREHENSIVE METABOLIC ) 07/15/2021 PROFILE, RANDOM (COMPREHENSIVE METABOLIC ) 08/31/2022 CALCIUM 08/31/2022 LIPID PANEL 10/08/2019 LIPID PANEL 04/02/2024 LIPID PANEL 05/31/2022 LIPID PANEL 01/16/2022 LIPID PANEL 10/29/2017 LIPID PANEL 04/27/2023 LIPID PANEL 09/27/2018 LIPID PANEL 07/25/2017 LIPID PANEL 07/05/2021 LIPID PANEL 08/20/2017 LIPID PANEL 01/23/2023 LIPID PANEL 02/18/2018 LIPID PANEL 11/09/2022 FREE T4 (FT4) 07/25/2017 TSH (THYROID STIMULATING HORMONE) 2016 CBC w DIFF 07/25/2017 CBC w DIFF 02/18/2018 CBC w DIFF 11/09/2022 CBC w DIFF 08/31/2022 CBC w DIFF 10/08/2019 CBC w DIFF 04/02/2024 CBC w DIFF 05/31/2022 CBC w DIFF 01/16/2022 CBC w DIFF 10/29/2017 CBC w DIFF 04/27/2023 CBC w DIFF 09/27/2018 CBC w DIFF 07/15/2021 CBC w DIFF 07/05/2021 CBC w DIFF 08/20/2017 CBC w DIFF 04/17/2022 CBC w DIFF 01/23/2023 SED RATE (ESR) 07/25/2017 SED RATE (ESR) 07/05/2021 HEPATITIS C ANTIBODY 08/20/2017 VITAMIN D 25-OH TOTAL 07/05/2021 VITAMIN D 25-OH TOTAL 08/31/2022 VITAMIN D 25-OH TOTAL 05/31/2022 VITAMIN D 25-OH TOTAL 01/16/2022 PARATHYROID HORMONE INTACT 01/23/2023 PARATHYROID HORMONE INTACT 11/09/2022 PARATHYROID HORMONE INTACT 07/05/2021 PARATHYROID HORMONE INTACT 09/20/2022 PARATHYROID HORMONE INTACT 04/27/2023 CBC WITH AUTO DIFF 09/16/2024 Lipid Panel 09/16/2024 Vitamin B12 09/16/2024 PTHI 07/15/2021 Next Appt Details Provider Name:Horace Lima, 01/29/2025 10:00:00 AM, [address] [place] [address] [address], [place], [address], Insurance Providers Payer Name Payer Address Payer Phone Subscriber Number Group Number Insured Name Patient Relationship to Insured Coverage Start Date Coverage End Date MEDICARE NGS [address] [place] [address] [id number] Lily Jacques Self - patient is the insured [place] [address] [facility] [place] [id number] Lily Jacques Self - patient is the insured Medical (General) History Medical History History ICD Code ADHD, combined type ear infections left breast calcifications colonoscopy December 2012 tobacco dependence hyperlipidemia menopause age 42 alcohol abuse overweight Thrombocytosis Hearing loss Stage Ib [id number] adenocarcinoma RLL, pdl +, 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 Chemotherapy: Completed a ye ar ago; Parathyroid scan: Scheduled for the beginning of October Surgical History Surgery Date(Month/Year) No history Core needle biopsy right lower lobe supe rior segment mass 07/2023 left eye cataract 10/2020 right eye cataract 10/2020 biopsy left breast fibroadenoma 05/13/14 tubal age 18 T&A, adenoids left myringotomy 1985 right mastoidectomy 1985 Hospitalization History Reason Date(Month/Year) No history
--- OUTSIDE RECORDS SUMMARY | 2025-01-19 08:10 | XMS_ITS | Patient Health Record ---
Author Organization [facility] Address [address] [place] [address] Care Team Providers Care Raise Miner Name Role Phone Arnoldo Rivera MD Primary [...] Status Risk Notes Problem Colon cancer screening (V76.51) Active confirmed Plan Of Treatment Future Test Test Name Order Date COLONOSCOPY 09/26/2012 Insurance Providers Payer Name Payer Address Payer Phone Subscriber Number Group Number Insured Name Patient Relationship to Insured Coverage Start Date Coverage End Date MEDICARE OF [place] [address] JONN COOPER [id number] [phone] MARTIN BARNARDE Self - patient is the insured MEDICAID OF [facility] [address] [place] [phone] [id number] UMAIR BARNARD Self - patient is the insured Medical (General) History Medical History History ICD Code Denies GA,DM,CVA,Lung disease,renal dise ase elevated cholesterol Surgical History Surgery Date(Month/Year) tubal mastoidectomy tympanostomy tubes
--- OUTSIDE RECORDS SUMMARY | 2025-01-19 08:10 | XMS_ITS ---
Author Organization Horace Lima III, MD Address [address] [place] [address] Care Team Providers Care Follow Up Clerk Name Role Phone Horace Lima Primary Care Provider [phone] REASON FOR VISIT Refills Medications Medication SIG [...] Date Provider Diagnosis Horace Lima III, MD [address] [place] [address] [place] [address] 10/10/2024 Horace Lima Plan Of Treatment Medication [...] days Next Appt Details Provider Name:Horace Lima, 01/29/2025 10:00:00 AM, [address] [place] [address] [address] [place], [address], Progress Notes * Mello BARNARDeDOB: (64 yo F)Acc No.[id number]:10/10/2024 Patient:Lily BELLA :1960???Age:64 Y???Sex:Female Address:[address] [place] [address], [address] * Refills? Refill Simvastatin Tablet, 20 MG, [...] * true * Date:? Generated for Felice horton/Kirby/Himaitting on:?01/19/2025 08:09 AM EDT
[2025-01-19 10:14] LABS: MANUAL DIFF FLAG NO
[2025-01-19 10:31] LABS: Basophils Absolute Auto 0.1 X10*3/uL (0.0-0.2); Basophils Percent Auto 1.3 % (0-2); Eosinophils Absolute Auto 0.1 X10*3/uL (0.0-0.4); Eosinophils Percent Auto 1.4 % (0-4); Hematocrit 41.8 % (37.0-47.0); Hemoglobin 13.4 g/dl (12.0-16.0); Imm Gran Abs Auto 0.03 X10*3/uL (0.00-0.03); Imm Gran Pct Auto 0.4 % (0.0-0.4); Lymphocytes Absolute Auto 2.3 X10*3/uL (1.2-4.9); Lymphocytes Percent Auto 31.8 % (20-40); Mean Corpuscular HGB Conc 32.1 g/dl (31.0-35.0); Mean Corpuscular Hemoglobin 28.7 pg (27.0-33.0); Mean Corpuscular Volume 89.5 fL (80.0-98.0); Mean Platelet Volume 10.1 fL (9.4-12.3); Monocytes Absolute Auto 0.9 X10*3/uL (0.1-1.2); Monocytes Percent Auto 13.2 % (2-11); NRBC Pct Auto 0.3 /100WBC (0.0-0.2); Neutrophils Absolute Auto 3.7 x10*3/uL (2.0-8.3); Neutrophils Percent Auto 51.9 % (45-73); Platelet Count 388 X10*3/uL (160-400); Red Blood Count 4.67 X10*6/uL (4.20-5.50); Red Cell Distribution Width 15.3 % (11.0-16.0); White Blood Count 7.1 X10*3/uL (4.8-10.8)
[2025-01-19 11:13] LABS: Alanine Aminotransferase 20 U/L (0-31); Alkaline Phosphatase 120 U/L (39-117); Anion Gap 10 (12-20); Aspartate Amino Transferase 24 U/L (5-31); Bilirubin Total 0.2 mg/dL (0.0-1.0); Blood Urea Nitrogen 23 mg/dL (9-16); Calcium 10.5 mg/dL (8.4-10.2); Carbon Dioxide 24 mmol/L (22-29); Chloride 110 mmol/L (96-108); Cholesterol 208 mg/dL (<200); Estimated Glomerular Filt Rate 56; Glucose Fasting 100 mg/dL (60-99); HDL Cholesterol 58 mg/dL (>40); LDL Cholesterol Calculated 137 mg/dL (<100); Potassium 4.3 mmol/L (3.3-5.1); Sodium 140 mmol/L (135-145); Total Protein 7.5 g/dL (6.5-8.0); Triglycerides 65 mg/dL (<150)
[2025-01-19 11:29] LABS: Vitamin B12 732 pg/mL (200-900)
== END 2025-01-19 08:07 | disposition home or self-care (01) ==
LOC: HO.HMGCLDS 08:06
PROVIDERS: PCP Internal Medicine Medical Oncology; Visit Provider Internal Medicine Medical Oncology
DX: E78.5 Hyperlipidemia, unspecified (principal); E21.3 Hyperparathyroidism, unspecified; E53.8 Deficiency of other specified B group vitamins
CPT/HCPCS: 36415; 80053; 80061; 82607; 85025

== ENCOUNTER 2025-02-03 08:00 | Outpatient (REF) | payer MEDICARE, MEDICAID, SELFPAY ==
--- OUTSIDE RECORDS SUMMARY | 2025-02-03 08:04 | XMS_ITS | Data Portability ---
Author Organization [place] [facility], [facility] Address [address] [address] Care Team Providers Care Terrazzo Worker Helper Name Role Phone JORGENSENROBBY CACERES Primary Care Provider [phone] Assessment Encounter Date Assessment Date Assessment LastModified [...] Details Recorded Time Postmasto idectomy complicat ion 35537513 Active 2014 Other disorders following mastoidec hieu, right ear; Note: Date Diagnosed : 5 11:48 AM (H95.191) Not Available [facility] 4 02:54:08 Mixed conductiv e and sensorine ural hearing loss, bilateral 162315430 Active 2014 Mixed conductiv e and sensorine ural hearing loss, bilateral ; Note: Date Diagnosed : 5 11:48 AM (H90.6) Not Available [facility] 4 02:54:06 Impacted cerumen of bilateral ears 39065367768 81832 Active 2016 Impacted cerumen, bilateral ; Note: Date Diagnosed : 03/27/2017 9:11 AM (H61.23) Not Available [facility] 4 02:54:07 Bilateral disorder of Eustachia n tubes 38601877450 48262 Active 2014 Other specified disorders of Eustachia n tube, bilateral ; Note: Date Diagnosed : 5 11:48 AM (H69.83) Not Available [facility] 4 02:54:06 Candidal otitis externa 34931707 Active 2017 Candidal otitis externa; Note: Date Diagnosed : 08/06/2018 11:51 AM (B37.84) Not Available [facility] 4 02:54:05 Otorrhea of left ear 62248580300 42433 Active 2018 Otorrhea, left ear; Note: Date Diagnosed : 03/20/2019 2:35 PM (H92.12) Not Available [facility] 4 02:54:05 Impacted cerumen in left ear 73400278798 11873 Active 2014 Impacted cerumen, left ear; Note: Date Diagnosed : 5 11:48 AM (H61.22) Not Available [facility] 4 02:54:08 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 83058768948 25464 Active 2014 Total perforati ons of tympanic membrane, bilateral ; Note: Date Diagnosed : 5 11:48 AM (H72.823) Not Available [facility] 4 02:54:07 Chronic pharyngit is 207666 Active 2016 Chronic sore throat; Note: Date Diagnosed : 08/07/2017 1:07 PM (J31.2) Not Available [facility] 4 02:54:06 Problem Notes None recorded. Medical Equipment None Reported. Allergies No known drug allergies Medications Name Sig Start Date Stop Date Status Note LastModified by Organization Details LastModified Time amoxicill in 500 mg capsule TAKE ONE CAPSULE BY MOUTH EVERY 12 HOURS 09/25 completed Not Available Not Available Not Available loratadin e 10 mg disintegr ating tablet 01/02 completed Medicati on ID: [id number] R darshan: () Brand Name: loratadi ne Send Method: E-Prescr ibed Sub s Allowed: subs OK Medic ationGen ericName : loratadi ne Not Available Not Available Not Available [...] affected area 09/25 completed Medicati on ID: [id number] D uration Value: 14 Prescri bed By Name: KATHE Crum nd Name: Lotrison e Send Method: E-Prescr [...] mg tablet 09/25 completed Medicati on ID: [id number] B rand Name: valacycl ovir Sen d Method: E-Prescr ibed Sub s Allowed: subs OK Speci al Instruct ion: TAKE ONE TABLET BY MOUTH THREE TIMES A DAY Medi cationGe nericNam e: valacycl ovir Not Available Not Available Not Available Ciloxan 0.3 % eye drops 09/25 completed Medicati on ID: [id number] D uration Value: 7 Prescri bed By Name: Eliseo clements MD Brand Name: Ciloxan Send Method: E-Prescr ibed Sub s Allowed: subs OK Speci al Instruct ion: Instill 4 drops twice a day into the affected ear Medi cationGe nericNam e: Ciloxan Not Available Not Available Not Available ciproflox acin 500 mg tablet 09/25 completed Medicati on ID: [id number] D uration Value: 10 Brand Name: ciproflo xacin HCl Send Method: E-Prescr ibed Sub s Allowed: subs OK Speci al Instruct ion: TAKE ONE TABLET BY MOUTH EVERY 12 HOURS FOR 10 DAYS [facility] ciproflo xacin HCl Not Available Not Available Not Available simvastat in 40 mg tablet 01/02 completed Medicati on ID: [id number] D uration Value: 30 Reason: () Brand [...] mg tablet 01/02 completed Medicati on ID: [id number] R darshan: () Brand Name: trazodon e Send Method: E-Prescr ibed Sub s Allowed: subs OK Medic ationGen ericName : trazodon e Not Available Not Available Not Available tobramyci n 0.3 % eye drops 09/25 completed Medicati on ID: [id number] D uration Value: 10 Brand Name: tobramyc [...] mg tablet 01/02 completed Medicati on ID: [id number] R darshan: () Brand Name: sertrali ne Send Method: E-Prescr ibed Sub s Allowed: subs OK Medic ationGen ericName : sertrali ne Not Available Not Available Not Available folic acid 1 mg tablet TAKE ONE TABLET BY MOUTH EVERY DAY 09/25 completed Not Available Not Available Not Available monteluka st 10 mg tablet Take 1 tablet 01/02 completed Medicati on ID: [id number] R darshan: () Brand Name: monteluk ast Send Method: E-Prescr ibed Sub s Allowed: subs OK Speci al Instruct ion: Take 1 tablet by mouth every day in the evening Medicati onGeneri cName: monteluk ast Not Available Not Available Not Available gabapenti n 100 mg capsule 09/25 completed Medicati on ID: [id number] B rand Name: gabapent in Send Method: E-Prescr ibed Sub s Allowed: subs OK Speci al Instruct ion: TAKE ONE CAPSULE BY MOUTH THREE TIMES A DAY Medi cationGe nericNam e: gabapent in Not Available Not Available Not Available amoxicill in 875 mg-potass ium clavulana te 125 mg tablet 04/22 completed Medicati on ID: [id number] D uration Value: 10 Reason: () Brand [...] Salt Combo 04/22 completed Medicati on ID: [id number] D uration Value: 30 Reason: () Brand Name: Amphetam ine Salt Combo Se nd Method: E-Prescr ibed Sub s Allowed: subs OK Medic ationGen ericName : Amphetam ine Salt Combo Not Available Not Available Not Available Vyvanse 70 mg capsule 01/02 completed Medicati on ID: [id number] R darshan: () Brand Name: Vyvanse Send Method: E-Prescr ibed Sub s Allowed: subs OK Medic ationGen ericName : Vyvanse Not Available Not Available Not Available Odefsey 200 mg-25 mg-25 mg tablet 01/02 completed Medicati on ID: [id number] R darshan: () Brand Name: Odefsey Send Method: E-Prescr ibed Sub s Allowed: subs OK Medic ationGen ericName : Odefsey Not Available Not Available Not Available Trintelli x 10 mg tablet 01/02 completed Medicati on ID: [id number] R darshan: () Brand Name: Trintell ix Send Method: E-Prescr ibed Sub s Allowed: subs OK Medic ationGen ericName : Trintell ix Not Available Not Available Not Available Tab-A-Vit e 400 mcg tablet 01/02 completed Medicati on ID: [id number] R darshan: () Brand Name: Tab-A-Vi te [...] Updated DateTime 09/25/2024 152.4 cm 24.8 kg/m2 44963.23 g Adalgisa Lewis [facility] 09/25/2024 10:31:33 Date Recorded Body height Body mass index (BMI) Body weight Provider Name and Address Organization Details Last Updated DateTime 03/21/2024 152.4 cm 25.8 kg/m2 63461.19 g Kelsey Mar [facility] 03/21/2024 13:38:48 Social History None recorded. Functional Status None recorded. Mental Status None recorded. Family History Nothing Reported. Medical History No medical history recorded. Gynecological HistoryNo gynecological history recorded. Obstetrics History GPAL:G 0 P 0 0 0 0 Past Encounters Encounter ID Performer Location Encounter Start Date Encounter Closed Date Diagnosis/Indication Diagnosis SNOMED-CT Code Diagnosis ICD10 Code Diagnosis Note [id number] ALEIDA DE LEON PA-C [facility] on [address] [place] [address] 03/21/2024 13:30:46 03/21/2024 16:11:22 Impacted cerumen in left ear [id number] 321332 H61.22 Postmastoi dectomy complication 76119636 H95.191 [id number] ELISEO MARQUIS MD [facility] on [address] [place] [phone] 09/25/2024 10:26:33 09/25/2024 10:47:21 Total perforation of bilateral tympanic membranes 5316237065 653199 H72.823 Cerumen removed and tolerated well. Perforatio [...] ID Guarantor Name 09/25/2024 1 [place] ? Lily Jacques [id number] Lily Georgie 09/25/2024 2 [place] Lily J Georgie [id number] Lily Thatcher Notes Date Note Type Note Provider Name and Address Organization Details Recorded Time 03/21/2024 text/html 63 year old femjeanine rangel presents today for ear cleaning.History of a right canal wall down mastoidectomy and left tympanic membrane perforation. She has hearing aids from [employer].No specific concerns today. She recently completed chemotherapy for lung cancer. She also underwent a lobectomy. Aleida hanley [place] - [facility] 03/21/2024 14:12:44 09/25/2024 text/html Recent CT chest for shortness of breath. Going to recheck in 6 weeks. No ear infections.PV: 63 year old female presents today for ear cleaning.History of a right canal wall down mastoidectomy and left tympanic membrane perforation. She has hearing aids from [employer].No specific concerns today. She recently completed chemotherapy for lung cancer. She also underwent a lobectomy. ELISEO MARQUIS MD [address] [place] [address], [place], [address], [facility] - [facility] 10/01/2024 09:43:48 OBGyn Episode No OBEpisode recorded.
[2025-02-03 09:52] LABS: Albumin Level 4.2 g/dL (3.5-5.0); Calcium 10.5 mg/dL (8.4-10.2); Magnesium 2.1 mg/dL (1.6-2.6); Phosphorus 2.9 mg/dL (2.7-4.5)
[2025-02-03 10:47] LABS: Parathyroid Hormone Intact 189.7 pg/mL (8.7-77.1)
[2025-02-03 11:07] LABS: Total Volume 24 Hour Urine 1450 mL
[2025-02-03 11:46] LABS: Creatinine, 24Hr Urine 0.7 G/Day (1.0-2.0); Creatinine, mg/dL 46.27; Sodium 24 Hr Urine 104.4 mmol/Day (40-220)
[2025-02-08 18:54] LABS: VITAMIN D (1,25 OH) D3 22 pg/mL; Vit D (1,25-Dihydroxy) Total 22 pg/mL (18-72); Vitamin D (1,25 OH) D2 <8 pg/mL
[2025-02-09 12:48] LABS: Calcium, Ionized 5.9 mg/dL (4.7-5.5)
[2025-02-10 03:54] LABS: Parathyroid Hormone Related Pr 10 pg/mL (11-20)
[2025-02-12 13:34] LABS: Calcium, 24 Hr Urine 57 mg/24 h; Calcium/Creatinine Ratio 78 mg/g creat (30-275); Creatinine 24Hr Urine 0.73 g/24 h (0.50-2.15)
== END 2025-02-03 08:01 | disposition home or self-care (01) ==
LOC: HO.HMGCLDS 08:00
PROVIDERS: PCP Internal Medicine Medical Oncology; Visit Provider Student in an Organized Health Care Education/Training Program
DX: E21.3 Hyperparathyroidism, unspecified (principal)
CPT/HCPCS: 36415; 82040; 82306; 82310; 82330; 82340; 82652; 83519; 83735; 83970; 84100; 84300

== ENCOUNTER 2025-02-10 12:32 | Outpatient (AMB) | payer MEDICARE, MEDICAID, SELFPAY ==
[2025-02-10 12:34] VITALS: BP 164/78; PULSE 108; O2SAT 94; BMI 25.4
--- NOTE | 2025-02-10 12:34 | MHC.OFFVIS ---
Vital Signs 02/10/25 12:34 Height 5 ft Weight 130 lb 1.164 oz BMI 25.4 BP 164/78 H Blood Pressure Location Lt brachial Position Sitting Pulse 108 H Pulse Source Pulse Oximeter Pulse Oximetry (%) 94 Oxygen Delivery Method Room Air Intake Visit Reasons: Hyperparathyroidism Intake Note: Patient present today for Hyperparathyroidism office visit. Weatherization Director Required: No Accompanied by: Self / Same As Patient Allergies Sulfa (Sulfonamide Antibiotics) Allergy (Severe, Verified 02/10/25 12:38) Rash trazodone [TRAZODONE] Allergy (Severe, Verified 02/10/25 12:38) FELT LIKE ELEPHANT SITTING ON MY CHEST , N[place]MAR[place] Medication List - Last Reconciled 02/10/25 by Mariama Ventura MD albuterol sulfate 90 mcg/actuation 1 inh inhalation Q4-6H PRN anagrelide 1 mg PO Q12H dextroamphetamine-amphetamine 20 mg (Adderall) 20 mg PO .@0600+1100 docusate sodium 100 mg PO .DAILY@1999 fluvoxamine 100 mg PO .DAILY@1999 multivitamin 100 tabs PO DAILY pantoprazole 20 mg PO DAILY simvastatin 20 mg PO .DAILY@1999 HPI Comments Details: 64-year-old female here today for follow up of hypercalcemia/ hyperparathyroidism. HPI from initial visit Chart review shows patient has had an elevated calcium level at least dating back since 2019. Total calcium has been in the range of 10.4-11.8, with most recent labs from 06/23/2024 with total calcium of 11.8, albumin of 4, GFR of 49, with creatinine of 1.11. Previously in March 2024 kidney function was showing creatinine of 0.88 with GFR greater than 60. She thinks she saw endocrinology in [place] maybe some 5 years ago. something about my glands in the neck PTH noted to be elevated on repeated labs done in 2020 and 2022, last PTH done in 04/22/2023 was elevated at 108. Vitamin-D level also done in 2022 noted to be in the 20s. DEXA scan done 01/20/2023, showed osteopenia of the hip with T-score of-1.2 at the total femur and-1.8 at the left femoral neck, forearm bone density normal with T-score of-0.4, L1-L4 (excluding L2 and L3 due to degenerative changes), normal bone density with T-score of 0.0. Patient also notably has a history of right non-small cell lung cancer diagnosed in 08/22/2023. She underwent chemotherapy in the adjuvant setting. She is currently following with the Oncology, Dr. Junior No kidney stones No fractures Limited activit since lung surgery in 2022 but before that she says she was quite active No milk. Milk shake once in a week , cheese every day , no yogurt, green leafy vegetables everyday No vitamin D supplements One a day multivitamin one daily which has about 200 mg of calcium No family history of calcium problems or kidney stones Reports polyuria , nocturia, no abd pain , no muscle aches but hands hurt No memory issues or brain fog 10/27/2024: Parathyroid nuclear scan did not identify any adenoma Labs 09/09/2024 showed calcium of 10.8, albumin of 4, PTH of 180.5. Kidney function has normalized with GFR greater than 60 and most recent creatinine in September 2024 was 0.89. Interval history Labs from 02/03/2025 showed calcium of 10.5, albumin of 4.2, corrected calcium would be 10.3, ionized calcium elevated at 5.9, vitamin-D low at 19, PTH elevated at 189.7, PTH RP low at 10, 24 hour urine calcium levels pending from that day She did not get the bone density done, has a appointment on 02/13/2025. Physical exam General: sitting comfortably in no acute distress HEENT: normocephalic/atraumatic,moist oral mucosa Neck: supple, symmetrical, no thyromegaly , no dorsocervical or supraclavicular fat pads Cardiac: normal heart sounds Pulm: normal breath sounds B/L, no added breath sounds Abd: not distended, no tenderness Extremities: no edema, no signs of myxedema Neuro: AAO x3, Speech: normal, no facial droop, moving all 4 extremities Laboratory Tests 09/20/18 01/21/19 04/07/19 08:25 06:40 12:00 Creatinine Estim Creat Clear Calc Estimated GFR Calcium 10.6 H 10.5 H Magnesium Albumin 4.0 25-OH Vitamin D Total PTH Intact 03/24/20 01/03/21 07/06/21 09:50 12:49 10:40 Creatinine Estim Creat Clear Calc Estimated GFR Calcium 11.1 H Magnesium 2.1 Albumin 4.4 4.3 25-OH Vitamin D Total 15.4 28.8 22.2 PTH Intact 83 H 08/02/21 04/10/22 08/23/22 06:50 06:55 08:23 Creatinine Estim Creat Clear Calc Estimated GFR Calcium 11.8 H D Magnesium Albumin 4.0 3.9 25-OH Vitamin D Total 23.9 31.9 PTH Intact 91 H 09/13/22 11/01/22 04/20/23 07:25 10:45 06:30 Creatinine Estim Creat Clear Calc Estimated GFR Calcium 10.5 H Magnesium Albumin 4.1 3.9 25-OH Vitamin D Total 27.6 24.7 PTH Intact 140 H 108 H 10/03/23 10/08/23 10/15/23 14:36 09:11 10:14 Creatinine Estim Creat Clear Calc Estimated GFR Calcium Magnesium 2.3 Albumin 4.1 3.7 3.9 25-OH Vitamin D Total PTH Intact 10/23/23 10/29/23 10/31/23 08:43 09:25 10:31 Creatinine Estim Creat Clear Calc Estimated GFR Calcium 11.4 H Magnesium 2.2 2.0 Albumin 3.9 4.0 25-OH Vitamin D Total PTH Intact 11/02/23 11/05/23 11/09/23 09:06 10:01 09:48 Creatinine Estim Creat Clear Calc Estimated GFR Calcium 10.8 H 10.6 H Magnesium Albumin 3.8 3.7 25-OH Vitamin D Total PTH Intact 11/12/23 11/16/23 11/16/23 10:47 09:52 12:37 Creatinine Estim Creat Clear Calc Estimated GFR Calcium 11.4 H D 11.5 H 11.4 H Magnesium Albumin 4.0 3.9 25-OH Vitamin D Total PTH Intact 11/19/23 11/22/23 11/26/23 08:57 10:20 10:02 Creatinine Estim Creat Clear Calc Estimated GFR Calcium 10.8 H 11.0 H 10.8 H Magnesium 1.8 1.9 Albumin 3.8 4.0 3.8 25-OH Vitamin D Total PTH Intact 11/29/23 12/03/23 12/07/23 08:58 10:18 10:40 Creatinine Estim Creat Clear Calc Estimated GFR Calcium 10.3 H 11.1 H D 11.3 H Magnesium 2.1 2.2 Albumin 3.7 4.0 3.8 25-OH Vitamin D Total PTH Intact 12/10/23 12/14/23 12/20/23 09:00 09:04 09:27 Creatinine Estim Creat Clear Calc Estimated GFR Calcium 11.0 H 11.0 H 10.6 H Magnesium 2.2 2.1 2.1 Albumin 3.8 4.1 4.0 25-OH Vitamin D Total PTH Intact 12/27/23 01/15/24 03/07/24 09:41 13:50 10:14 Creatinine 0.92 1.10 Estim Creat Clear Calc 50.1 41.9 Estimated GFR > 60 50 Calcium 11.1 H 10.1 D 10.7 H Magnesium Albumin 4.2 4.0 4.2 25-OH Vitamin D Total PTH Intact 03/19/24 06/23/24 10:51 09:56 Creatinine 0.88 1.11 Estim Creat Clear Calc Estimated GFR > 60 49 Calcium 10.4 H 11.8 H D Magnesium Albumin 4.0 4.0 25-OH Vitamin D Total PTH Intact Laboratory Tests 07/28/24 09/09/24 09/09/24 13:52 08:21 08:31 Sodium 137 Potassium 4.7 Creatinine 0.89 Estimated GFR > 60 Calcium 10.8 H D Albumin 4.0 TSH 1.58 Free T4 1.05 PTH Intact 180.5 H Laboratory Tests 01/19/25 02/03/25 02/03/25 08:12 07:00 09:19 Calcium 10.5 H 10.5 H Ionized Calcium 5.9 H Phosphorus 2.9 Magnesium 2.1 Albumin 4.0 4.2 25-OH Vitamin D Total 19.0 L 1,25 Dihydroxy Vit D 22 1,25 Dihydroxy Vit D2 <8 1,25 Dihydroxy Vit D3 22 PTH Intact 189.7 H PTH Related Protein 10 L Ur Creatinine 24 Hour 0.7 L Ur Sodium 24 Hour 104.4 BONE DENSITOMETRY 01/16/23 CLINICAL INDICATION: Asymptomatic menopausal state. COMPARISON: Baseline BD dated 08/30/2012, left hip; 01/16/2023, spine and left forearm radius 33%. TECHNIQUE: Using a TrueSpan DXA System (software version: 13.1) manufactured by [employer], dual-energy x-ray absorptiometry was performed of the lumbar spine, left hip and left forearm radius 33%. The images are of good technical quality. Summary results are attached. FINDINGS: AP SPINE L1-L4 (excluding L2 and L3): The data of L1-L4 has been changed to exclude the L2 and L3 vertebral bodies because degenerative changes at these levels may cause overestimation of the lumbar spine density. Current: BMD 1.168 g/cm2, Z-score 1.7, T-score 0.0, normal, 3.8% decrease from baseline (<5% change is not significant). Baseline: BMD 1.214 g/cm2. LEFT FEMUR, NECK: Current: BMD 0.788 g/cm2, Z-score -0.3, T-score -1.8, osteopenia. Baseline: BMD 0.922 g/cm2. LEFT FEMUR, TOTAL: Current: BMD 0.853 g/cm2, Z-score 0.0, T-score -1.2, osteopenia, 13.6% decrease from baseline (<5% change is not significant). Baseline: BMD 0.987 g/cm2. LEFT FOREARM RADIUS 33%: BMD 0.839 g/cm2, Z-score 0.8, T-score -0.4, normal. Baseline: Not previously measured. IDENTIFIED RISK FACTORS: Early menopause, secondary osteoporosis, hyperparathyroidism, low calcium intake, tobacco use (current smoker). HISTORY OF FRACTURE: None listed. MEDICATIONS: Vitamin D. MM/XR DEXA appendicular skeleton IMPRESSION: 1. DIAGNOSIS: Osteopenia based on the lowest T-score value of -1.8 in the femoral neck applying World Health Organization criteria. 2. 10-YEAR FRACTURE RISK PREDICTION, FRAX: Major osteoporotic fracture (clinical spine, forearm, hip or shoulder) 10.1%. Hip fracture 2.1%. EXAMINATION: NM PARATHYROID SCAN 10/27/24 CLINICAL INFORMATION: Hyperparathyroidism COMPARISON: Correlation is made with a chest CT dated 09/23/2024. TECHNIQUE: A double radionuclide study of the thyroid bed region and upper chest in multiple projections was performed 4 hours after the oral administration of 1 millicuries I-123 sodium iodide and immediately following the intravenous administration of 30 mCi Tc-99m sestamibi. Repeat imaging was performed 2 hours later. The iodide images were electronically subtracted from the sestamibi images using different weighting factors. FINDINGS: There is homogeneous uptake of radioiodine throughout both thyroid lobes. The thyroid gland appears to be normal in size and shape. There are no focal areas of increased or diminished uptake. Technetium 99m sestamibi images demonstrate homogeneous thyroid activity. There are no focal areas of increased or decreased Technetium 99m sestamibi activity. Computer-generated digital subtraction images reveal no evidence of excess sestamibi activity. NM/NM parathyroid IMPRESSION: No evidence of excess sestamibi activity to suggest a parathyroid adenoma or hyperplasia. There is homogeneous uptake of radioiodine in the thyroid gland which is also normal in size and shape. Electronically signed by: Horace Zimmerman MD 10/28/2024 07:09 AM [facility] Medical History Nasal deformity Hx of nausea Chronic bronchitis Hx of ectopic Nicotine dependence, cigarettes, uncomplicated Hyperparathyroidism Hyperlipidemia Postmenopausal Tubular adenoma of colon (~2018) Osteopenia (~2022) History of drug overdose Hearing loss, bilateral PTSD (post-traumatic stress disorder) Major depressive disorder, recurrent severe without psychotic features ADHD Surgical History Hx of adenoidectomy History of cataract surgery History of ear surgery History of tonsillectomy History of endoscopy History of colonoscopy Family History Mother Lupus (systemic lupus erythematosus) Lung cancer Social History Household Members: None and Other Housing: Apartment Are you a primary care aid to a significant other at home: No Do you presently have visiting nurse or other home services: No Alcohol intake: current Alcohol intake frequency: holidays/special occasions only Alcohol type: beer Comment: COUNTS CORRECT Patient Tobacco Use Status: Former Tobacco user Tobacco use type: Cigarette Cigarette Packs Per Day: 0.1 Years Smoked: 48 yrs e-Cigarette/Vaping Use: Never Used Second Hand Smoke Exposure: No service: No Current occupational status: retired and disabled Assessment & Plan Assessment & Plan (1) Hyperparathyroidism: Code(s): E21.3 - Hyperparathyroidism, unspecified Category: Medical Plan: 64-year-old female with past medical history significant for right non-small cell lung cancer diagnosed 08/22/2023, who is coming in today for i follow up of hypercalcemia/hyperparathyroidism. Chart review shows patient has had an elevated calcium level at least dating back since 2019. Actually do not see any normal calcium levels in the chart. Total calcium has been in the range of 10.4-11.8, with most recent labs from 06/23/2024 with total calcium of 11.8, albumin of 4, GFR of 49, with creatinine of 1.11. Previously in March 2024 kidney function was showing creatinine of 0.88 with GFR greater than 60.PTH noted to be elevated on repeated labs done in 2020 and 2022, . Vitamin-D level also done in 2022 noted to be in the 20s. She is not currently on any vitamin-D or calcium supplements. She does take a multivitamin daily. No history of kidney stones or fractures. Bone density showed osteopenia in 2022. Not meeting treatment criteria for osteopenia per FRAX score. Most likely the differential is primary hyperparathyroidism. However given I do not see any prior normal calcium levels in the chart, could also have FHH. I had ordered a 24 hour urine calcium level, these are in process. 10/27/2024: Parathyroid nuclear scan did not identify any adenoma Labs 09/09/2024 showed calcium of 10.8, albumin of 4, PTH of 180.5. Kidney function has normalized with GFR greater than 60 and most recent creatinine in September 2024 was 0.89. Her calcium level in September has also improved and since kidney function also normalized, at this point the missing piece of information is 24 hour urine calcium levels. I discussed with her that if she has hypercalciuria where she meets criteria for surgery, then we would have to consider surgical options. Otherwise she is not really meeting criteria for surgery right now. She does have history of [id number] lung cancer, however unlikely hypercalcemia of malignancy as PTH levels in the past has noted to be elevated for her +degree of hypercalcemia is not severe. At this point she is also due for repeat bone density scan in January, and we will include the forearm given history of hyperparathyroidism to see if she has had worsening bone loss. Labs from 02/03/2025 showed calcium of 10.5, albumin of 4.2, corrected calcium would be 10.3, ionized calcium elevated at 5.9, vitamin-D low at 19, PTH elevated at 189.7, PTH RP low at 10, 24 hour urine calcium levels pending from that day She did not get the bone density done, has a appointment on 02/13/2025. Plan: -start vitamin-D 1000 units daily, continue your multivitamin with calcium in it -follow up results of 24 hour urine calcium and creatinine levels and calculate fractional excretion of calcium -do bone density scan including the forearm -follow up in 6 weeks to discuss results Plan See above Medications: New cholecalciferol (vitamin D3) 25 mcg PO DAILY 3 months 90 caps 2RF Patient Instructions: Start vitamin D 1000 units daily Get bone density scan Follow up with me in 6 weeks Coding Level of Care Code Est Pt Level 3 (45351) Diagnoses Hyperparathyroidism E21.3
--- OUTSIDE RECORDS SUMMARY | 2025-02-10 14:44 | XMS_ITS | Data Portability ---
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 Name Role Phone JORGENSENROBBY CACERES Primary Care Provider Assessment Encounter Date Assessment [...] Details Recorded Time Postmasto idectomy complicat ion 67050012 Active 2014 Other disorders following mastoidec hieu, right ear; Note: Date Diagnosed : 5 11:48 AM (H95.191) Not Available [facility] 4 02:54:08 Mixed conductiv e and sensorine ural hearing loss, bilateral 216085567 Active 2014 Mixed conductiv e and sensorine ural hearing loss, bilateral ; Note: Date Diagnosed : 5 11:48 AM (H90.6) Not Available [facility] 4 02:54:06 Impacted cerumen of bilateral ears 33573895370 83008 Active 2016 Impacted cerumen, bilateral ; Note: Date Diagnosed : 03/27/2017 9:11 AM (H61.23) Not Available [facility] 4 02:54:07 Bilateral disorder of Eustachia n tubes 94935747166 07046 Active 2014 Other specified disorders of Eustachia n tube, bilateral ; Note: Date Diagnosed : 5 11:48 AM (H69.83) Not Available [facility] 4 02:54:06 Candidal otitis externa 17729887 Active 2017 Candidal otitis externa; Note: Date Diagnosed : 08/06/2018 11:51 AM (B37.84) Not Available [facility] 4 02:54:05 Otorrhea of left ear 16538728154 26210 Active 2018 Otorrhea, left ear; Note: Date Diagnosed : 03/20/2019 2:35 PM (H92.12) Not Available [facility] 4 02:54:05 Impacted cerumen in left ear 67727508831 15346 Active 2014 Impacted cerumen, left ear; Note: Date Diagnosed : 5 11:48 AM (H61.22) Not Available [facility] 4 02:54:08 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 03514004413 94572 Active 2014 Total perforati ons of tympanic membrane, bilateral ; Note: Date Diagnosed : 5 11:48 AM (H72.823) Not Available [facility] 4 02:54:07 Chronic pharyngit is 103487 Active 2016 Chronic sore throat; Note: Date Diagnosed : 08/07/2017 1:07 PM (J31.2) Not Available [facility] 4 02:54:06 Problem Notes None recorded. Medical Equipment None Reported. Allergies No known drug allergies Medications Name Sig Start Date Stop Date Status Note LastModified by Organization Details LastModified Time amoxicill in 500 mg capsule TAKE ONE CAPSULE BY MOUTH EVERY 12 HOURS 09/25 completed Not Available Not Available Not Available loratadin e 10 mg disintegr ating tablet 01/02 completed Medicati on ID: [id number] R darshan: () Brand Name: loratadi ne [...] affected area 09/25 completed Medicati on ID: [id number] D uration Value: 14 Prescri bed By [...] mg tablet 09/25 completed Medicati on ID: [id number] B rand Name: valacycl ovir Sen d Method: E-Prescr ibed Sub s Allowed: subs OK Speci al Instruct ion: TAKE ONE TABLET BY MOUTH THREE TIMES A DAY Medi cationGe nericNam e: valacycl ovir Not Available Not Available Not Available Ciloxan 0.3 % eye drops 09/25 completed Medicati on ID: [id number] D uration Value: 7 Prescri bed By Name: Eliseo clements MD Brand Name: Ciloxan Send Method: E-Prescr ibed Sub s Allowed: subs OK Speci al Instruct ion: Instill 4 drops twice a day into the affected ear Medi cationGe nericNam e: Ciloxan Not Available Not Available Not Available ciproflox acin 500 mg tablet 09/25 completed Medicati on ID: [id number] D uration Value: 10 Brand Name: ciproflo xacin HCl Send Method: E-Prescr ibed Sub s Allowed: subs OK Speci al Instruct ion: TAKE ONE TABLET BY MOUTH EVERY 12 HOURS FOR 10 DAYS [facility]: ciproflo xacin HCl Not Available Not Available Not Available simvastat in 40 mg tablet 01/02 completed Medicati on ID: [id number] D uration Value: 30 Reason: () Brand [...] mg tablet 01/02 completed Medicati on ID: [id number] R darshan: () Brand Name: trazodon e Send Method: E-Prescr ibed Sub s Allowed: subs OK Medic ationGen ericName : trazodon e Not Available Not Available Not Available tobramyci n 0.3 % eye drops 09/25 completed Medicati on ID: [id number] D uration Value: 10 Brand Name: tobramyc [...] mg tablet 01/02 completed Medicati on ID: [id number] R darshan: () Brand Name: sertrali ne Send Method: E-Prescr ibed Sub s Allowed: subs OK Medic ationGen ericName : sertrali ne Not Available Not Available Not Available folic acid 1 mg tablet TAKE ONE TABLET BY MOUTH EVERY DAY 09/25 completed Not Available Not Available Not Available monteluka st 10 mg tablet Take 1 tablet 01/02 completed Medicati on ID: [id number] R darshan: () Brand Name: monteluk ast Send Method: E-Prescr ibed Sub s Allowed: subs OK Speci al Instruct ion: Take 1 tablet by mouth every day in the evening Medicati onGeneri cName: monteluk ast Not Available Not Available Not Available gabapenti n 100 mg capsule 09/25 completed Medicati on ID: [id number] B rand Name: gabapent in Send Method: E-Prescr ibed Sub s Allowed: subs OK Speci al Instruct ion: TAKE ONE CAPSULE BY MOUTH THREE TIMES A DAY Medi cationGe nericNam e: gabapent in Not Available Not Available Not Available amoxicill in 875 mg-potass ium clavulana te 125 mg tablet 04/22 completed Medicati on ID: [id number] D uration Value: 10 Reason: () Brand [...] Salt Combo 04/22 completed Medicati on ID: [id number] D uration Value: 30 Reason: () Brand Name: Amphetam ine Salt Combo Se nd Method: E-Prescr ibed Sub s Allowed: subs OK Medic ationGen ericName : Amphetam ine Salt Combo Not Available Not Available Not Available Vyvanse 70 mg capsule 01/02 completed Medicati on ID: [id number] R darshan: () Brand Name: Vyvanse Send Method: E-Prescr ibed Sub s Allowed: subs OK Medic ationGen ericName : Vyvanse Not Available Not Available Not Available Odefsey 200 mg-25 mg-25 mg tablet 01/02 completed Medicati on ID: [id number] R darshan: () Brand Name: Odefsey Send Method: E-Prescr ibed Sub s Allowed: subs OK Medic ationGen ericName : Odefsey Not Available Not Available Not Available Trintelli x 10 mg tablet 01/02 completed Medicati on ID: [id number] R darshan: () Brand Name: Trintell ix Send Method: E-Prescr ibed Sub s Allowed: subs OK Medic ationGen ericName : Trintell ix Not Available Not Available Not Available Tab-A-Vit e 400 mcg tablet 01/02 completed Medicati on ID: [id number] R darshan: () Brand Name: Tab-A-Vi te [...] Updated DateTime 09/25/2024 152.4 cm 24.8 kg/m2 61573.23 g Adalgisa Lewis [facility] 09/25/2024 10:31:33 Date Recorded Body height Body mass index (BMI) Body weight Provider Name and Address Organization Details Last Updated DateTime 03/21/2024 152.4 cm 25.8 kg/m2 44014.19 g Kelsey Mar [facility] 03/21/2024 13:38:48 Social History None recorded. Functional [...] [id number] ALEIDA DE LEON PA-C [facility] on [address] [place] [id number] 03/21/2024 13:30:46 03/21/2024 16:11:22 Impacted cerumen in left ear [id number] 017315 H61.22 Postmastoi dectomy complication [id number] H95.191 [id number] ELISEO MARQUIS MD [facility] on [address] [place] [phone] [id number] 09/25/2024 10:26:33 09/25/2024 10:47:21 Total perforation of bilateral tympanic membranes [id number] 869389 H72.823 Cerumen removed and tolerated well. Perforatio [...] ID Guarantor Name 09/25/2024 1 [place]: [employer] Lily Jacques [id number] Lily Georgie 09/25/2024 2 [place] [facility] Lily J [place] [id number] Lily Georgie Notes Date Note Type Note Provider Name and Address Organization Details Recorded Time 03/21/2024 text/html 63 year old femjeanine rangel presents today for ear cleaning.History of a right canal wall down mastoidectomy and left tympanic membrane perforation. She has hearing aids from [employer].No specific concerns today. She recently completed chemotherapy for lung cancer. She also underwent a lobectomy. Aleida hanley [place] - [facility] 03/21/2024 14:12:44 09/25/2024 text/html Recent CT chest for shortness of breath. Going to recheck in 6 weeks. No ear infections.PV: 63 year old female presents today for ear cleaning.History of a right canal wall down mastoidectomy and left tympanic membrane perforation. She has hearing aids from [employer].No specific concerns today. She recently completed chemotherapy for lung cancer. She also underwent a lobectomy. ELISEO MARQUIS MD [address] [place] [address], [place], [address], [facility] - [facility] 10/01/2024 09:43:48 OBGyn Episode No OBEpisode recorded.
== END 2025-02-10 12:56 | disposition home or self-care (01) ==
LOC: HO.ENCR 12:33
PROVIDERS: PCP Internal Medicine Medical Oncology; Visit Provider Student in an Organized Health Care Education/Training Program
DX: E21.3 Hyperparathyroidism, unspecified (principal)
CPT/HCPCS: 99213

== ENCOUNTER 2025-02-10 13:26 | Outpatient (REF) | payer MEDICARE, MEDICAID, SELFPAY ==
--- NOTE | ~2025-02-10 | CT_ITS ---
CLINICAL HISTORY: lung cancer history CT chest with contrast Comparison: 09/23/2024 Findings: The heart size is normal. The visualized thyroid and mediastinum are unremarkable. Redemonstration of smoking-related lung changes and right lower lobectomy. Spiculated right upper lobe nodule (series 3, image 44) is less conspicuous prior study measuring up to 5 mm versus 9 mm previously. Interval resolution of previously seen right lung ground-glass opacities. 2 mm peripheral subsegmental airway nodule in the posterior aspect of the right upper lobe on series 3, image 74 also likely present on prior study. Small/atrophied spleen versus splenic remnant as before. Contracted gallbladder. The bones are intact. No suspicious bony lesion seen. Right-sided Port-A-Cath with distal tip in the distal SVC. IMPRESSION: No new or progressive disease. Spiculated right upper lobe lung nodule is less conspicuous than prior study. This document has been electronically signed by: Susan Tellez MD on 02/11/2025 12:30:19
[2025-02-10] MEDS: iohexoL 350 MG/ML 100 ML INFUS..BTL IV (14:38)
== END 2025-02-10 13:27 | disposition home or self-care (01) ==
LOC: HO.CT 13:26
PROVIDERS: PCP Internal Medicine Medical Oncology; Visit Provider Internal Medicine
DX: C34.30 Malignant neoplasm of lower lobe, unspecified bronchus or lung (principal); E21.3 Hyperparathyroidism, unspecified
CPT/HCPCS: 71260; 99212; Q9967

== ENCOUNTER 2025-03-19 11:15 | Outpatient (REF) | payer MEDICARE, MEDICAID, SELFPAY ==
--- NOTE | ~2025-03-19 | MM_ITS ---
EXAMINATION: DXA BONE DENSITY EXTREMITY HISTORY: E21.3 - Hyperparathyroidism, unspecified TECHNIQUE: [employer] Dual energy absorptiometry (DEXA) of the lumbar spine, total left hip, femoral neck, and distal radius was performed. COMPARISON: Comparison is made with the prior examination dated 01/16/2023.. FINDINGS: The bone mineral density of the lumbar spine is 1.205 g/cm2, corresponding to a T-score of 0.2, and a Z-score of 2.1. This is indicative of normal bone mineral density. This represents a BMD change of -4.8% compared to the prior exam. This is statistically significant. The bone mineral density of the left total hip is 0.806 g/cm2, corresponding to a T-score of -1.6, and a Z-score of -0.2. This is indicative of osteopenia. This represents a BMD change of -5.5% compared to the prior exam. This is statistically significant. The bone mineral density of the left femoral neck is 0.752 g/cm2, corresponding to a T-score of -2.1, and a Z-score of -0.4. This is indicative of osteopenia. This represents a BMD change of -4.6% compared to the prior exam. The bone mineral density of the distal radius is 0.794 g/cm2, corresponding to a T-score of -0.9, and a Z-score of 0.5. This is indicative of normal bone mineral density. This represents a BMD change of -5.4% compared to the prior exam. This is not statistically significant. FRACTURE RISK: The FRAX index suggests a ten year probability of major osteoporotic fracture of 11.9%, and of hip fracture 3.2%. MM/XR DEXA appendicular skeleton IMPRESSION: Based on bone mineral density, and according to World Health Organization (WHO) criteria, the diagnosis is consistent with osteopenia. Statistically, 68% of repeat scans fall within 1 SD (+/- 0.010 g/cm2 for AP spine L1-L4) and 1 SD (+/- 0.012 g/cm2 for femur total) FRAX is a trademark of the [employer], a World Health Organization (WHO) Collaborating Center. Electronically signed by: Horace Zimmerman MD 03/19/2025 12:26 PM EDT RP
--- OUTSIDE RECORDS SUMMARY | 2025-03-19 12:05 | XMS_ITS | Patient Health Record ---
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 Name Role Phone Nicole (RETIRED) Arnoldo RAYA Primary Care Provide r Dakota Lagunas Jr Unavailable [phone] Reason For Referral No Information Medications Medication [...] OF [place] [address] [place] [id number] UMAIR BARNARD Self - patient is the insured [facility] [address] [place] [phone] [id number] UMAIR BARNARD Self - patient is the insured Medical (General) History Medical History History ICD Code Denies OH,DM,CVA,Lung disease,renal dise ase elevated cholesterol Surgical History Surgery Date(Month/Year) tubal mastoidectomy tympanostomy tubes
--- OUTSIDE RECORDS SUMMARY | 2025-03-19 12:05 | XMS_ITS | Patient Health Record ---
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 Name Role Phone Horace Lima Primary Care Provider Allergies Allergen (clinical drug ingredient) Drug/Non Drug Allergy documented on EMR Reaction Allergy Type Onset Date Status Substance with sulfonamide structure and antibacterial mechanism of action (substance) Sulfa Antibiotics Unknown Drug Allergy Active No Known Food Allergy Unknown Drug Allergy Active trazodone Trazodone HCl Unknown Drug Allergy Act naheed Results Component Value Reference Range Notes URINE DIP STICK Reviewed date:01/29/2025 10:18:22 AM Interpretation: Performing Lab: Notes/Report: SG 1.005 1.005 - 1.025 pH 6.0 5.0 - 9.0 SHAREE Negative Negative - NIT Negative Negative - PRO Negative Negative - Trace GLU Negative Negative - KET Negative Negative - UBG 0.2 0.1 - 1.8 BOBY Negative 0.2 - 1.3 BLD Negative Negative - Complete Blood Count Auto Di ff Reviewed date:06/29/2024 06:35:42 AM Interpretation: Performing Lab:[facility], [address] [place] [phone] Notes/Report: White Blood Count 7.8 4.8-10.8 X10*3/uL [...] NRBC Abs Auto 0.000 0.0-0.012 X10*3/uL Comprehensive Dexter. Panel Fa st Reviewed date:06/29/2024 06:35:42 AM Interpretation: Performing Lab:[facility], [address] [place] [phone] Notes/Report: Sodium 141 135-145 mmol/L Potassium 5.2 3.3-5.1 mmol/L Chloride 108 96-108 mmol/L Carbon Dioxide 27 22-29 mmol/L Anion Gap 11 12-20 Blood Urea Nitrogen 16 9-16 mg/dL Creatinine 1.11 0.5-1.4 mg/dL Estimated Glomerular Filt Rate 49 NOTE: For -Algerian individuals, multiply the result by 1.210. Chronic [...] Panel Reviewed date:06/29/2024 06:35:42 AM Interpretation: Performing Lab:[address] [address] Notes/Report: Triglycerides 96 <150 mg/dL Desirable Triglyceride: [...] Thyroxine) Reviewed date:07/29/2024 08:41:34 AM Interpretation: Performing Lab:[address] [address] Notes/Report: Free T4 (Free Thyroxine) 1.05 0.71-1.85 ng/dL Thyroid Stimulating Hormone Reviewed date:07/29/2024 08:41:34 AM Interpretation: Performing Lab:[address] [address] Notes/Report: Thyroid Stimulating Hormone 1.58 0.32-4.0 uIU/mL TSH 3rd Generation ([facility]) Complete Blood Count Auto Di ff Reviewed date:09/09/2024 04:42:49 PM Interpretation: Performing Lab:[facility], [address] [place] [phone] Notes/Report: White Blood Count 5.7 4.8-10.8 X10*3/uL [...] Panel Reviewed date:09/09/2024 04:42:49 PM Interpretation: Performing Lab:[facility], [address] [place] [address] Notes/Report: Sodium 137 135-145 mmol/L Potassium 4.7 3.3-5.1 mmol/L Slight Hemolysis.Interpret result with caution. Chloride 105 96-108 mmol/L [...] Aspartate Amino Transferase 25 5-31 U/L Slight Hemolysis.Interpret result with caution. Alanine Aminotransferase 22 0-31 U/L Total Protein 8.1 6.5-8.0 g/dL Albumin Level 4.0 3.5-5.0 g/dL Alkaline Phosphatase 141 39-117 U/L Vitamin B12 Reviewed date:09/09/2024 04:42:49 PM Interpretation: Performing Lab:[facility], [address] [place] [phone] Notes/Report: Vitamin B12 1210 200-900 pg/mL NORMAL 200-900 PG/ML INDETERMINATE 160-199 PG/ML DEFICIENT < 160 PG/ML Parathyroid Hormone Intact Reviewed date:09/09/2024 04:42:49 PM Interpretation: Performing Lab:[facility], [address] [place] [phone] Notes/Report: Parathyroid Hormone Intact 180.5 8.7-77.1 pg/mL CT chest w con Reviewed date:10/10/2024 09:28:28 AM Interpretation: Performing Lab: Notes/Report: [address] [address] [address] Scan Report Signed Patient: Lily Jacques MR#: [id number] 99 : 1960 Acct:[id number] Age/Sex: 64 / F ADM Date: 09/23/24 Loc: HO.CT Attending Dr: Jordana Junior MD Ordering Physician: Jordana Junior MD Date of Service: 09/23/24 Procedure(s): CT chest w IV con Accession Number(s): [id number] cc: Horace Lima MD; Jordana Junior MD Report Number: [id number]: Total DLP = 74.00 mGy-cm CLINICAL HISTORY: [...] 09/24/24 0654 DD/ 0653 TD/TT: 09/24/24 0653 Executive Meeting Manager: [address] [address] [address] Scan Report Signed Patient: Arnoldo Jacques MR#: [id number] 99 : 1960 Acct:[id number] Age/Sex: 64 / F ADM Date: 09/23/24 Loc: .CT Attending Dr: Jordana Junior MD Ordering Physician: Jordana Junior MD Date of Service: 09/23/24 Procedure(s): CT janeen st w IV con Accession Number(s): [id number] cc: Horace Lima MD; Jordana Junior MD [...] e air within the upper abdomen. Low-attenuation throughout [...] versus PET-CT at this time is sugg estealva for further evaluation. This document has be en electronically signed by: Trung Carrillo MD on 09/24/2024 06:53:23 Dictated By: Trung Carrillo MD Signed By: <Electronically signed by Trung Carrillo MD in OV> 09/24/24 0654 DD/ TD/TT: 09/24/24652 Executive Meeting Manager: NM parathyroid Reviewed date:12/13/2024 04:57:07 AM Interpretation: Performing Lab: Notes/Report: [address] [address] Nuclear Medicine Report Signed Patient: Lily Jacques MR#: [id number] 99 : 1960 Acct:[id number] Age/Sex: 64 / F ADM Date: 10/27/24 Loc: [facility] Attending Dr: Mariama Ventura MD Ordering Physician: Mariama Ventura MD Date of Service: 10/27/24 Procedure(s): NM parathyroid Accession Number(s): [id number] cc: Horace Lima MD; Mariama Ventura MD [...] by: Horace Zimmerman MD 10/28/2024 07:09 AM [facility] Dictated By: Horace Zimmerman MD Signed By: <Electronically signed by Horace Zimmeramn MD in OV> 10/28/24 0709 DD/ 0805 TD/TT: 10/27/24 1506 Executive Meeting Manager: [address] [address] Nuclear Medicine Report Signed Patient: Arnoldo Jacques MR#: [id number] 99 : 1960 Acct:[id number] Age/Sex: 64 / F ADM Date: 10/27/24 Loc: [facility] Attending Dr: Mariama Ventura MD Ordering Physician: Mariama Ventura MD Date of Service: 10/27/24 Procedure(s): NM parathyroid Accession Number(s): [id number] cc: Horace Lima MD; Mariama Ventura MD EXAMINATION: NM PARATHYROID SCAN CLINICAL INFORMATION [...] MD 10/28/2024 07:09 AM EST Dictated By: Hroace Zimmerman MD Signed By: <Electronically signed by Horace Zimmerman MD in OV> 10/28/24 0709 DD/ 0805 TD/TT: 10/27/24 8598 Executive Meeting Manager: Complete Blood Count Auto Di ff Reviewed date:12/22/2024 04:33:52 PM Interpretation: Performing Lab:[facility], [address] [place] [phone] Notes/Report: White Blood Count 9.6 4.8-10.8 X10*3/uL [...] Panel Reviewed date:12/22/2024 04:33:52 PM Interpretation: Performing Lab:[facility], [address] [place] [phone] Notes/Report: Sodium 140 135-145 mmol/L Potassium 3.7 [...] Antigen Reviewed date:12/22/2024 04:33:52 PM Interpretation: Performing Lab:[address] [address] Notes/Report: Carcinoembryonic Antigen 4.30 CEA Reference Range: 93.4% Non-Smokers = 0.0-3.0 ng/mL 95.6% Smokers = 0.0-5.0 ng/mL CEA Methodology: [employer] Chemiluminescent Microparticle Immunoassay (CMIA) CEA testing can have significant value in monitoring of patients with diagnosed malignancies in whom changing concentrations of CEA are observed. Values obtained with different assay methods cannot be used interchangeably. Complete Blood Count Auto Di ff Reviewed date:01/19/2025 01:17:09 PM Interpretation: Performing Lab:[address] [address] Notes/Report: White Blood Count 7.1 4.8-10.8 X10*3/uL Red Blood Count 4.67 4.20-5.50 X10*6/uL Hemoglobin 13.4 12.0-16.0 g/dl Hematocrit 41.8 37.0-47.0 % Mean Corpuscular Volume 89.5 80.0-98.0 fL Mean Corpuscular Hemoglobin 28.7 27.0-33.0 pg Mean Corpuscular HGB Conc 32.1 31.0-35.0 g/dl Red Cell Distribution Width 15.3 11.0-16.0 % Platelet Count 388 160-400 X10*3/uL Mean Platelet Volume 10.1 9.4-12.3 fL Neutrophils Percent Auto 51.9 45-73 % Imm Gran Pct Auto 0.4 0.0-0.4 % Lymphocytes Percent Auto 31.8 20-40 % Monocytes Percent Auto 13.2 2-11 % Eosinophils Percent Auto 1.4 0-4 % Basophils Percent Auto 1.3 0-2 % NRBC Pct Auto 0.3 0.0-0.2 /100WBC Neutrophils Absolute Auto 3.7 2.0-8. 3 x10*3/uL Imm Gran Abs Auto 0.03 0.00-0.03 X10*3/uL Lymphocytes Absolute Auto 2.3 1.2-4. 9 X10*3/uL Monocytes Absolute Auto 0.9 0.1-1.2 X10*3/uL Eosinophils Absolute Auto 0.1 0.0-0. 4 X10*3/uL Basophils Absolute Auto 0.1 0.0-0.2 X10*3/uL NRBC Abs Auto 0.020 0.0-0.012 X10*3/uL Comprehensive Dexter. Panel Fa st Reviewed date:01/19/2025 01:17:09 PM Interpretation: Performing Lab:[facility], [address] [place] [phone] Notes/Report: Sodium 140 135-145 mmol/L Potassium 4.3 3.3-5.1 mmol/L Chloride 110 96-108 mmol/L Carbon Dioxide 24 22-29 mmol/L Anion Gap 10 12-20 Blood Urea Nitrogen 23 9-16 mg/dL Creatinine 0.99 0.5-1.4 mg/dL Estimated Glomerular Filt Rate 56 Chronic Kidney Disease: Estimated GFR < 60 mL/min/1.73m2 Severe Kidney Disease: Estimated GFR < 15 mL/min/1.73m2 Glucose Fasting 100 60-99 mg/dL A fasting glucose from 100-125 mg/dl is considered impaired (pre-diabetes). Calcium 10.5 8.4-10.2 mg/dL Bilirubin Total 0.2 0.0-1.0 mg/dL Aspartate Amino Transferase 24 5-31 U/L Alanine Aminotransferase 20 0-31 U/L Total Protein 7.5 6.5-8.0 g/dL Albumin Level 4.0 3.5-5.0 g/dL Alkaline Phosphatase 120 39-117 U/L Lipid Panel Reviewed date:01/19/2025 01:17:09 PM Interpretation: Performing Lab:[facility], [address] [place] [phone] Notes/Report: Triglycerides 65 <150 mg/dL Desirable Triglyceride: less than 150 mg/dL Borderline High Triglyceride 150-199 mg/dL High Triglyceride: 200-499 mg/dL Very High Triglyceride: greater than or equal to 5OO mg/dL Cholesterol 208 <200 mg/dL Desirable Cholesterol: less than 200 mg/dL Borderline High Cholesterol: 200-239 mg/dL High Cholesterol: greater than 239 mg/dL LDL Cholesterol Calculated 137 <100 mg/dL Desirable LDL: less than 100 mg/dL Near Optimal/Above Optimal LDL: 110-129 mg/dL Borderline High LDL: 130-159 mg/dL High LDL: 160-189 mg/dL Very High LDL: greater than or equal to 190 mg/dL HDL Cholesterol 58 >40 mg/dL Desirable HDL: greater than 40 mg/dL Note: This HDL assay may give artificially low results in patients with liver disease. Vitamin B12 Reviewed date:01/19/2025 01:17:09 PM Interpretation: Performing Lab:[facility], [address] [place] [phone] Notes/Report: Vitamin B12 732 200-900 pg/mL NORMAL 200-900 PG/ML INDETERMINATE 160-199 PG/ML DEFICIENT < 160 PG/ML Calcium Reviewed date:02/08/2025 09:41:35 AM Interpretation: Performing Lab:[facility], [address] [place] [address] Notes/Report: Calcium 10.5 8.4-10.2 mg/dL Calcium, Ionized Reviewed date:02/22/2025 05:45:59 PM Interpretation: Performing Lab:[facility], [address] [place] [phone] Notes/Report: Calcium, Ionized 5.9 4.7-5.5 mg/dL THIS TEST WAS PERFORMED AT: [facility] [address] VIOLET BOLIVAR MD Phosphorus Reviewed date:02/08/2025 09:41:35 AM Interpretation: Performing Lab:[facility], [address] [place] [phone] Notes/Report: Phosphorus 2.9 2.7-4.5 mg/dL Magnesium Reviewed date:02/08/2025 09:41:35 AM Interpretation: Performing Lab:[facility], [address] [place] [phone] Notes/Report: Magnesium 2.1 1.6-2.6 mg/dL Albumin Level Reviewed date:02/08/2025 09:41:35 AM Interpretation: Performing Lab:[facility], [address] [place] [phone] Notes/Report: Albumin Level 4.2 3.5-5.0 g/dL Vitamin D 25-OH Total Reviewed date:02/08/2025 09:41:35 AM Interpretation: Performing Lab:[address] [address] Notes/Report: Vitamin D 25-OH Total 19.0 >30 ng/mL Health Based Reference Values* < 20 ng/mL Deficient 20-30 ng/mL Insufficient > 30 ng/mL Sufficient *Lanie MCCRAY. N Engl J Med. 2007;357:266-280 There is no well-established upper level of normal vitamin D levels. Some laboratories use 50 ng/mL as an upper limit of normal. However, toxicity is patient-dependent and may occur at any level. Careful correlation with the patient's presentation is necessary and, if there is concern for vitamin D toxicity, treatment should be considered irrespective of the serum level. Care must be taken in interpreting Vitamin [...] confirmed with another method such as LC-MS/MS. Vitamin D 1,25 OH LC/MS/MS Reviewed date:02/22/2025 05:45:59 PM Interpretation: Performing Lab:[facility], [address] [place] [phone] Notes/Report: Vit D (1,25-Dihydroxy) Total 22 18-72 pg/mL VITAMIN D (1,25 OH) D3 22 Vitamin D (1,25 OH) D2 <8 Vitamin D3, 1,25(OH)2 indicates both endogenous production and supplementation. Vitamin D2, 1,25(OH)2 is an indicator of exogenous sources, such as diet or supplementation. Interpretation and therapy are based on measurement of Vitamin D,1,25(OH)2, Total. This test was developed and its analytical performance characteristics have been determined by [employer] [place], [place]. It has not been cleared or approved by the FDA. This assay has been validated pursuant to the CLIA regulations and is used for clinical purposes. THIS TEST WAS PERFORMED AT: [facility] [place] [address] [place], [place] STACEY SAINZ MD,PHD Parathyroid Hormone Related Pr Reviewed date:02/22/2025 05:45:59 PM Interpretation: Performing Lab:[facility], [address] [place] [phone] Notes/Report: Parathyroid Hormone Related Pr 10 11-20 pg/mL This is a C-terminal PTH-RP assay. PTH-RP is useful in the differential diagnosis of hypercalcemia and levels may be elevated in patients with tumor-associated hypercalcemia. Elevated results may also be observed in patients with renal disease. This test was developed and its analytical performance characteristics have been determined by [employer]. It has not been cleared or approved by the FDA. This assay has been validated pursuant to the CLIA regulations and is used for clinical purposes. THIS TEST WAS PERFORMED AT: [facility] [place] [place] [address] [place] [address] EDUARDO LUGO MD,PHD,DAMEON Calcium, 24 Hr Ur Reviewed date:02/22/2025 05:45:59 PM Interpretation: Performing Lab:[facility], [address] [place] [phone] Notes/Report: [id number] 0700 0700 Calcium, 24 Hr Urine 57 Reference Range 35-250 Low calcium diet 35-200 Calcium/Creatinine Ratio 78 30-275 mg/g creat Creatinine 24Hr Urine 0.73 0.50-2.15 g/24 h THIS TEST WAS PERFORMED AT: [facility] [address] [place] [phone] VAZQUEZ WEBER MD Sodium, 24Hr Urine Group Reviewed date:02/08/2025 09:41:36 AM Interpretation: Performing Lab:[facility], [address] [place] [phone] Notes/Report: [id number] 0700 0700 Sodium 24 Hr Urine 104.4 40-220 mmol/Day Creatinine, 24Hr Urine 0.7 1.0-2.0 G/Day Creatinine, mg/dL 46.27 Total Volume 24 Hour Urine 1450 Parathyroid Hormone Intact Reviewed date:02/08/2025 09:41:36 AM Interpretation: Performing Lab:[facility], [address] [place] [phone] Notes/Report: Parathyroid Hormone Intact 189.7 8.7-77.1 pg/mL CT chest w con Reviewed date:02/22/2025 05:45:59 PM Interpretation: Performing Lab: Notes/Report: [address] [address] [address] Scan Report Signed Patient: Lily Jacques MR#: [id number] 99 : 1960 Acct:[id number] Age/Sex: 64 / F ADM Date: 02/10/25 Loc: HO.CT Attending Dr: Jordana Junior MD Ordering Physician: Jordana Junior MD Date of Service: 02/10/25 Procedure(s): CT chest w IV con Accession Number(s): [id number] cc: Horace Lima MD; Jordana Junior MD Report Number: [id number]: Total DLP = 191.00 mGy-cm CLINICAL HISTORY: lung cancer history CT chest with contrast Comparison: 09/23/2024 Findings: The heart size is normal. The visualized thyroid and mediastinum are unremarkable. Redemonstration of smoking-related lung changes and right lower lobectomy. Spiculated right upper lobe nodule (series 3, image 44) is less conspicuous prior study measuring up to 5 mm versus 9 mm previously. Interval resolution of previously seen right lung ground-glass opacities. 2 mm peripheral subsegmental airway nodule in the posterior aspect of the right upper lobe on series 3, image 74 also likely present on prior study. Small/atrophied spleen versus splenic remnant as before. Contracted gallbladder. The bones are intact. No suspicious bony lesion seen. Right-sided Port-A-Cath with distal tip in the distal SVC. IMPRESSION: No new or progressive disease. Spiculated right upper lobe lung nodule is less conspicuous than prior study. This document has been electronically signed by: Susan Tellez MD on 02/11/2025 12:30:19 Dictated By: Susan Tellez MD Signed By: <Electronically signed by Susan Tellez MD in OV> 02/11/25 1231 DD/ 1230 TD/TT: 02/11/25 1230 Executive Meeting Manager: [place] [address] CT Scan Report Signed Patient: Arnoldo Jacques MR#: [id number] 99 : 1960 Acct:[id number] Age/Sex: 64 / F ADM Date: 02/10/25 Loc: HO.CT Attending Dr: Jordana Junior MD Ordering Physician: Jordana Junior MD Date of Service: 02/10/25 Procedure(s): CT janeen st w IV con Accession Number(s): [id number] cc: Horace Lima MD; Jordana Junior MD Report Number: [id number]: Total DLP = 191.00 mGy-cm CLINICAL HISTORY: sandra ng cancer history CT chest with contrast Comparison: 09/23/2024 Findings: The heart size is normal. The visualized thyro id and mediastinum are unremarkable. Redemonstration of smoking-related lung changes and right lower lobectomy. Spiculated right upp er lobe nodule (series 3, image 44) is less conspicuous prior st udy measuring up to 5 mm versus 9 mm previously. Interval resolution of previously seen right lung ground-glass opacities. 2 mm peripheral subsegmental airway nodule in the posterior aspect of the right upper lobe on series 3, image 74 also likely present on prior study. Small/atrophied sple en versus splenic remnant as before. Contracted gallbladder. The bones are intact . No suspicious bony lesion seen. Right-sided Port-A-C ath with distal tip in the distal SVC. IMPRESSION: No new or progressiv e disease. Spiculated right upp er lobe lung nodule is less conspicuous than prior study. This document has be en electronically signed by: Susan Tellez MD on 02/11/2025 12:30:19 Dictated By: Errol Tellez MD Signed By: <Electronically signed by Susan Tellez MD in OV> 02/11/25 1231 DD/ 1230 TD/TT: 02/11/25 1230 Executive Meeting Manager: Complete Blood Count Auto Di ff Reviewed date:03/17/2025 08:09:31 PM Interpretation: Performing Lab:[facility], [address] [place] [phone] Notes/Report: White Blood Count 7.5 4.8-10.8 X10*3/uL Red Blood Count 4.04 4.20-5.50 X10*6/uL Hemoglobin 11.8 12.0-16.0 g/dl Hematocrit 34.7 37.0-47.0 % Mean Corpuscular Volume 85.9 80.0-98.0 fL Mean Corpuscular Hemoglobin 29.2 27.0-33.0 pg Mean Corpuscular HGB Conc 34.0 31.0-35.0 g/dl Red Cell Distribution Width 15.0 11.0-16.0 % Platelet Count 388 160-400 X10*3/uL Mean Platelet Volume 9.1 9.4-12.3 fL Neutrophils Percent Auto 45.7 45-73 % Imm Gran Pct Auto 0.3 0.0-0.4 % Lymphocytes Percent Auto 41.2 20-40 % Monocytes Percent Auto 9.9 2-11 % Eosinophils Percent Auto 2.1 0-4 % Basophils Percent Auto 0.8 0-2 % NRBC Pct Auto 0.0 0.0-0.2 /100WBC Neutrophils Absolute Auto 3.4 2.0-8. 3 x10*3/uL Imm Gran Abs Auto 0.02 0.00-0.03 X10*3/uL Lymphocytes Absolute Auto 3.1 1.2-4. 9 X10*3/uL Monocytes Absolute Auto 0.7 0.1-1.2 X10*3/uL Eosinophils Absolute Auto 0.2 0.0-0. 4 X10*3/uL Basophils Absolute Auto 0.1 0.0-0.2 X10*3/uL NRBC Abs Auto 0.000 0.0-0.012 X10*3/uL White Blood Count 7.5 4.8-10.8 X10*3/uL Red Blood Count 4.04 4.20-5.50 X10*6/uL Hemoglobin 11.8 12.0-16.0 g/dl Hematocrit 34.7 37.0-47.0 % Mean Corpuscular Volume 85.9 80.0-98.0 fL Mean Corpuscular Hemoglobin 29.2 27.0-33.0 pg Mean Corpuscular HGB Conc 34.0 31.0-35.0 g/dl Red Cell Distribution Width 15.0 11.0-16.0 % Platelet Count 388 160-400 X10*3/uL Mean Platelet Volume 9.1 9.4-12.3 fL Neutrophils Percent Auto 45.7 45-73 % Imm Gran Pct Auto 0.3 0.0-0.4 % Lymphocytes Percent Auto 41.2 20-40 % Monocytes Percent Auto 9.9 2-11 % Eosinophils Percent Auto 2.1 0-4 % Basophils Percent Auto 0.8 0-2 % NRBC Pct Auto 0.0 0.0-0.2 /100WBC Neutrophils Absolute Auto 3.4 2.0-8. 3 x10*3/uL Imm Gran Abs Auto 0.02 0.00-0.03 X10*3/uL Lymphocytes Absolute Auto 3.1 1.2-4. 9 X10*3/uL Monocytes Absolute Auto 0.7 0.1-1.2 X10*3/uL Eosinophils Absolute Auto 0.2 0.0-0. 4 X10*3/uL Basophils Absolute Auto 0.1 0.0-0.2 X10*3/uL NRBC Abs Auto 0.000 0.0-0.012 X10*3/uL COR RECTED REPORT COR RECTED REPORT Comprehensive Met. Panel Reviewed date:03/17/2025 08:09:31 PM Interpretation: Performing Lab:[address] [address] Notes/Report: Sodium 138 135-145 mmol/L Potassium 4.0 3.3-5.1 mmol/L Chloride 108 96-108 mmol/L Carbon Dioxide 24 22-29 mmol/L Anion Gap 10 12-20 Blood Urea Nitrogen 17 9-16 mg/dL Creatinine 0.97 0.5-1.4 mg/dL Creatinine Clr Calc Pharmacy 46.2 Provided height and weight: 152.4 cm, 58.5 kg. eGFR (calculated from the MDRD study equation) and eCrCl (calculated from the Cockcroft-Gault equation) are based on different parameters and may not yield comparable results. If eCrCl result is absurd, please check patient's height/weight. Estimated Glomerular Filt Rate 58 Chronic Kidney Disease: Estimated GFR < 60 mL/min/1.73m2 Severe Kidney Disease: Estimated GFR < 15 mL/min/1.73m2 Glucose Random 97 60-115 mg/dL Calcium 9.7 8.4-10.2 mg/dL Bilirubin Total 0.3 0.0-1.0 mg/dL Aspartate Amino Transferase 24 5-31 U/L Alanine Aminotransferase 14 0-31 U/L Total Protein 6.7 6.5-8.0 g/dL Albumin Level 3.8 3.5-5.0 g/dL Alkaline Phosphatase 101 39-117 U/L Carcinoembryonic Antigen Reviewed date:03/17/2025 08:09:31 PM Interpretation: Performing Lab:[address] [address] Notes/Report: Carcinoembryonic Antigen 4.10 CEA Reference Range: 93.4% Non-Smokers = 0.0-3.0 ng/mL 95.6% Smokers = 0.0-5.0 ng/mL CEA Methodology: [employer] Chemiluminescent Microparticle Immunoassay (CMIA) CEA testing can have significant value in monitoring of patients with diagnosed malignancies in whom changing concentrations of CEA are observed. Values obtained with different assay methods cannot be used interchangeably. SLIDE REVIEW Reviewed date:03/17/2025 08:09:31 PM Interpretation: Performing Lab:[facility], [address] [place] [address] Notes/Report: SLIDE REVIEW VERIFIED Reason For Referral Reason Consult and Treat Untreated Hyperparathyroidism CA= 11.8 Diagnosis 1 Hyperparathyroidism (E21.3) Referral Organization Horace Lima III, MD Referring Provider First Name Horace Referring Provider Last Name Janie Referring Provider Speciality Internal M edicine Referred Provider [facility] Referred Provider Specialty Endocrinolog y General Notes Tara Vasquez 07/07/2024 04:31:34 PM > referral faxed with progress note Referral Priority Routine Referral Appointment Date 07/28/2024 Medications Medication SIG (Take, Route, Frequency, Duration) Notes Start Date End Date Status Multi Vitamin Active Ventolin HFA 108 (90 Base) MCG/ACT 1 puff every 4 hours Inhalation every 4 hrs 09/16/2024 Active Nicotine Step 1 21 MG/24HR 1 patch to sk in Transdermal Once a day 01/29/2025 Active Simvastatin 20 MG TAKE ONE TABLET BY M OUTH EVERY EVENING Orally Once a day Active Meloxicam 7.5 MG 1 tablet Orally Once a day 01/29/2025 Active Pantoprazole Sodium 20 MG TAKE ONE TABLE T BY MOUTH EVERY DAY Orally Once a day Active Ciprofloxacin HCl 0.2 % 0.25 mL into aff ected ear Otic every 12 hrs 01/29/2025 Active Vitamin B-12 1000 MCG 1 tablet Orally On ce a day 10/13/2024 Active Anagrelide HCl 1 MG 1 capsule Orally Twi ce a day 07/16/2024 Active ProAir HFA 108 (90 Base) MCG/ACT 2 puff every 4 hours Inhalation every 4 hrs Active Amphetamine-Dextroamphetami ne 20 MG 1 tablet Orally Twice a day 01/11/2021 Active fluvoxaMINE Maleate 100 MG TAKE 1 TABLET BY MOUTH TWICE DAILY AT BEDTIME Active Docusate Sodium Acti ve Immunizations Vaccine Route Administration Date Status Comme [...] Administered COMIRNATY Pfizer-BioNTech Unknown 05/28/2023 Administer ed COVID Pfizer Bivalent Unknown 05/17/2022 Administered Fluzone High-Dose (HD-IIV3) Unknown 06/10/2024 Administered Comirnaty Pfizer COVID-19 12+ Unknown 05/28/2023 Administered Comirnaty Pfizer COVID-19 12+ Unknown 06/10/2024 Administered RSV vaccine, bivalent, protein subunit RSV prefusion F Unknown 07/05/2024 Administered Social History Tobacco Use: Social History Observation Description Date Details (start date - stop date) Former Smoker NA - NA Sex Assigned At : Social History Observation Description Sex Assigned At Female Tobacco Control (Standard) Question Answer Notes Tobacco use: Former smoker How long has it been since you last smoked? Less than 1 month Additional Findings: Tobacco non-user Ex-cigaret te smoker AUDIT-C (Standard) Question Answer Notes Did you have a drink containing alcohol in the p ast year? No Points 0 Interpretation Negative Problems Problem Type SNOMED Code ICD Code Onset Dates Problem Status W/U Status Risk Notes Problem 1357743 Former smoker (Z87.891) Active confirmed Her abstinence from tobacco continues. Problem 64105880 Hyperlipidemia (E78.5) Active confirmed Her lipids are stable and currently in their target range. No change in her regimen was made today. Problem 630042206 Asthma (J45.909) Active confirmed She denies any recent episodes of asthma. No wheezing was heard today. She is compliant with her medication. Problem 189766802 Overweight (E66.3) Active confirmed She has become slightly overweight with her treatment. We discussed diet and nutrition today. We made a plan to lose weight gradually. 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 Problem 24837223 Allergy to sulfa drugs (Z88.2) Active confirmed She has developed a typical drug allergy rash. Weak after taking Bactrim. Her allergy portion of the medical record has been updated. Problem 90504573 Hypercalcemia (E83.52) Active confirmed Her calcium level is 10.7. No change in her regimen as needed.This value will be carefully observed. Problem 284609079 Breast calcification, left (R92.1) Active confirmed No abnormalities were palpated today. Problem 97197265 Postmenopause (Z78.0) Active confirmed She is no longer having periods and will have a bone density at appropriate intervals. Problem 798668357 Attention deficit hyperactivity disorder (ADHD), unspecified ADHD type (F90.9) Active confirmed She was continued on her current medication. No change was made. She has been conducting the activities of daily life and in normal fashion. Problem 86172598 Bilateral hearing loss (H91.93) Active confirmed Her hearing loss is quite advanced and she benefit significantly from hearing aids. There was no difficulty conversing today. The recent episode of otitis has completely resolved. Problem 882464888 Major depression (F32.9) Active confirmed Her depression is well-controlle d and she is living her life without significant impairment. Problem Hyperparathyroidis m (23242281) Hyperparathyroid ism (E21.3) Active confirmed Her calcium is 10.8. She remains under the care of endocrinology for hyperparathyro idism. Her medical oncologist says ordered a scan of her thyroid. This is pending in October 2024. 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 Surveillance will continue. 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 Vital Signs Heart Rate 86 /min 03/12/2025 Temperature 98.2 degrees Fahrenheit 03/12/2025 Oximetry 95.0 % 09/16/2024 Blood pressure diastolic 71 mm Hg 03/12/2025 Height 60 in 03/12/2025 Blood pressure systolic 137 mm Hg 03/12/2025 Weight 126 lbs 03/12/2025 BMI 24.61 kg/m2 03/12/2025 Encounters Encounter Location Date Provider Diagnosis Horace Lima III, MD [address] [place] [address] [place] [id number] 04/02/2024 Horace Lima Attention deficit hyperactivity disorder (ADHD), unspecified ADHD type F90.9 ; Hyperlipidemia E78.5 ; Asthma J45.909 ; 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 ; Bilateral hearing loss H91.93 ; Major depression F32.9 ; Hyperparathyroidism E21.3 ; Former smoker Z87.891 ; Hypercalcemia E83.52 ; Overweight E66.3 and 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 Horace Lima III, MD [address] [place] [address] [place] [id number] 07/02/2024 Horace Lima Attention deficit hyperactivity disorder (ADHD), unspecified ADHD type F90.9 ; 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 ; Bilateral hearing loss H91.93 ; Major depression F32.9 ; Hyperlipidemia E78.5 ; Asthma J45.909 ; Hyperparathyroidism E21.3 ; Overweight E66.3 ; Former smoker Z87.891 and Vitamin B 12 deficiency E53.8 Horace Lima III, MD [address] [place] [address] [place] [id number] 09/16/2024 Horace Lima Attention deficit hyperactivity disorder (ADHD), unspecified ADHD type F90.9 ; 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 ; Hyperlipidemia E78.5 ; Hyperparathyroidism E21.3 ; Vitamin B 12 deficiency E53.8 ; Bilateral hearing loss H91.93 ; Asthma J45.909 ; Major depression F32.9 ; Tobacco dependence F17.200 and 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 Horace Lima III, MD [address] [place] [address] [place] [id number] 01/29/2025 Horace Lima Attention deficit hyperactivity disorder (ADHD), unspecified ADHD type F90.9 ; Hyperlipidemia E78.5 ; Bilateral hearing loss H91.93 ; Major depression F32.9 ; Hyperparathyroidism E21.3 ; Asthma J45.909 ; 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 ; Tobacco dependence F17.200 ; 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 ; 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 ; Overweight (BMI 25.0-29.9) E66.3 ; Vitamin B 12 deficiency E53.8 and Former smoker Z87.891 Horace Lima III, MD [address] [place] [address] [place] [id number] 03/12/2025 Horace Lima Attention deficit hyperactivity disorder (ADHD), unspecified ADHD type F90.9 ; 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 ; Postmenopause Z78.0 ; Bilateral hearing loss H91.93 ; Major depression F32.9 ; Hyperlipidemia E78.5 ; Asthma J45.909 ; Former smoker Z87.891 ; 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 and 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 Horace Lima III, MD [address] [place] [address] [place] [id number] 07/02/2024 Horace Lima III, MD [address] [place] [address] [place] [id number] 07/16/2024 Horace Lima III, MD [address] [place] [address] [place] [id number] 01/29/2025 Horace Lima III, MD [address] [place] [address] [place] [id number] 10/10/2024 Horace Lima III, MD [address] [place] [address] [place] [id number] 10/13/2024 Horace Lima Assessments Encounter Date Diagnosis (ICD Code) Assessment Notes T reatment Notes Treatment Clinical Notes 04/02/2024 Hyperlipidemia (ICD- 10 - E78.5) Her [...] of disease this time. Surveillance will continue. 01/29/2025 Hyperlipidemia (ICD- 10 - E78.5) Her lipids are stable and currently in their target range. No change in her regimen was made today. 01/29/2025 Attention deficit hyperactivity disorder (ADHD), unspecified ADHD type (ICD-10 - F90.9) She was continued on her current medication. No change was made. She has been conducting the activities of daily life and in normal fashion. 03/12/2025 Attention deficit hyperactivity disorder (ADHD), unspecified ADHD type (ICD-10 - F90.9) She was continued on her current medication. No change was made. She has been conducting the activities of daily life and in normal fashion. 03/12/2025 Bronchogenic cancer of right lung (ICD-10 - C34.91) On the CT scan done in February 2025 a spiculated right upper lobe lesion is less prominent. 04/02/2024 Asthma (ICD-10 - J45.909) She denies [...] change in her regimen was made today. 01/29/2025 Bilateral hearing lo ss (ICD-10 - H91.93) Her hearing loss is quite advanced and she benefit significantly from hearing aids. There was no difficulty conversing today. The recent episode of otitis has completely resolved. 03/12/2025 Postmenopause (ICD-1 0 - Z78.0) She is no longer having periods and will have a bone density at appropriate intervals. 04/02/2024 Essential thrombocyt osis (ICD-10 - D47.3) [...] thyroid. This is pending in October 2024. 01/29/2025 Major depression (IC D-10 - F32.9) Her depression is well-controlled and she is living her life without significant impairment. 03/12/2025 Bilateral hearing lo ss (ICD-10 - H91.93) Her hearing loss is quite advanced and she benefit significantly from hearing aids. There was no difficulty conversing today. The recent episode of otitis has completely resolved. 04/02/2024 Bilateral hearing lo ss (ICD-10 - [...] change in her regimen was necessary today. 01/29/2025 Hyperparathyroidism (ICD-10 - E21.3) Her calcium is 10.8. She remains under the care of endocrinology for hyperparathyroidis m. Her medical oncologist says ordered a scan of her thyroid. This is pending in October 2024. 03/12/2025 Major depression (IC D-10 - F32.9) Her depression is well-controlled and she is living her life without significant impairment. 04/02/2024 Major depression (IC D-10 - F32.9) [...] recent episode of otitis has completely resolved. 01/29/2025 Asthma (ICD-10 - J45.909) She denies any recent episodes of asthma. No wheezing was heard today. She is compliant with her medication. 03/12/2025 Hyperlipidemia (ICD- 10 - E78.5) Her lipids are stable and currently in their target range. No change in her regimen was made today. 04/02/2024 Hyperparathyroidism (ICD-10 - E21.3) The current ccalcium level is 9.7. No change inn her regimen was made. 07/02/2024 Hyperparathyroidism (ICD-10 - E21.3) The current ccalcium level is 9.7. No change inn her regimen was made. 09/16/2024 Asthma (ICD-10 - J45.909) She denies any recent episodes of asthma. No wheezing was heard today. She is compliant with her medication. 01/29/2025 Essential thrombocyt osis (ICD-10 - D47.3) Her platelets are currently stable and no change in her regimen. 03/12/2025 Asthma (ICD-10 - J45.909) She denies any recent episodes of asthma. No wheezing was heard today. She is compliant with her medication. 04/02/2024 Former smoker (ICD-1 0 - Z87.891) Her abstinence from tobacco continues. 07/02/2024 Overweight (ICD-10 - E66.3) She has become slightly overweight with her treatment. We discussed diet and nutrition today. We made a plan to lose weight gradually. 09/16/2024 Major depression (IC D-10 - F32.9) Her depression is well-controlled and she is living her life without significant impairment. 01/29/2025 Tobacco dependence (ICD-10 - F17.200) I have counseled her about smoking cessation at length today. I have made her aware of the smoking cessation program at [facility]. She is smoking only 5 cigarettes a day now. 03/12/2025 Former smoker (ICD-1 0 - Z87.891) Her abstinence from tobacco continues. 04/02/2024 Hypercalcemia (ICD-1 0 - E83.52) Her calcium level is 10.7. No change in her regimen as needed.This value will be carefully observed. 07/02/2024 Former smoker (ICD-1 0 - Z87.891) Her abstinence from tobacco continues. 09/16/2024 Tobacco dependence (ICD-10 - F17.200) I have counseled her about smoking cessation at length today. I have made her aware of the smoking cessation program at [facility]. She is smoking only 5 cigarettes a day now. 01/29/2025 Bronchogenic cancer of right lung (ICD-10 - C34.91) There is no sign of relapse today or new primary. She remains in remission at this time. 03/12/2025 Bronchogenic cancer of left lung (ICD-10 - C34.92) She has completed her chemotherapy and appears to be free of disease this time. Surveillance will continue. 04/02/2024 Overweight (ICD-10 - E66.3) She has become slightly overweight with her treatment. We discussed diet and nutrition today. We made a plan to lose weight gradually. 07/02/2024 Vitamin B 12 deficie ncy (ICD-10 - E53.8) 09/16/2024 Essential thrombocyt osis (ICD-10 - D47.3) Her platelets are currently stable and no change in her regimen. 01/29/2025 Bronchogenic cancer of left lung (ICD-10 - C34.92) She has completed her chemotherapy and appears to be free of disease this time. Surveillance will continue. 03/12/2025 Essential thrombocyt osis (ICD-10 - D47.3) Her platelets are currently stable and no change in her regimen. 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 She remains in remission at this time. 01/29/2025 Overweight (BMI 25.0-29.9) (ICD-10 - E66.3) Her BMI is 24 and she is no longer overweight. 01/29/2025 Vitamin B 12 deficie ncy (ICD-10 - E53.8) Her vitamin B12 level is normal. No change in her regimen was necessary today. 01/29/2025 Former smoker (ICD-1 0 - Z87.891) Her abstinence from tobacco continues. Plan Of Treatment Pending Test Test Name Order Date PROFILE, FASTING (COMPREHENSIVE METABOLI C) 04/02/2024 PROFILE, FASTING (COMPREHENSIVE METABOLI C) 05/31/2022 PROFILE, FASTING (COMPREHENSIVE METABOLI C) 01/16/2022 PROFILE, FASTING (COMPREHENSIVE METABOLI C) 10/29/2017 PROFILE, FASTING (COMPREHENSIVE METABOLI C) 04/27/2023 PROFILE, FASTING (COMPREHENSIVE METABOLI C) 07/25/2017 PROFILE, FASTING (COMPREHENSIVE METABOLI C) 09/27/2018 PROFILE, FASTING (COMPREHENSIVE METABOLI C) 07/05/2021 PROFILE, FASTING (COMPREHENSIVE METABOLI C) 01/23/2023 PROFILE, FASTING (COMPREHENSIVE METABOLI C) 09/16/2024 PROFILE, FASTING (COMPREHENSIVE METABOLI C) 11/09/2022 PROFILE, FASTING (COMPREHENSIVE METABOLI C) 02/18/2018 PROFILE, FASTING (COMPREHENSIVE METABOLI C) 10/08/2019 PROFILE, RANDOM (COMPREHENSIVE METABOLIC ) 08/20/2017 PROFILE, RANDOM (COMPREHENSIVE METABOLIC ) 07/15/2021 PROFILE, RANDOM (COMPREHENSIVE METABOLIC ) 08/31/2022 CALCIUM 08/31/2022 LIPID PANEL 10/08/2019 LIPID PANEL 04/02/2024 LIPID PANEL 05/31/2022 LIPID PANEL 01/16/2022 LIPID PANEL 10/29/2017 LIPID PANEL 04/27/2023 LIPID PANEL 07/25/2017 LIPID PANEL 09/27/2018 LIPID PANEL 08/20/2017 LIPID PANEL 07/05/2021 LIPID PANEL 01/23/2023 LIPID PANEL 11/09/2022 LIPID PANEL 02/18/2018 FREE T4 (FT4) 07/25/2017 TSH (THYROID STIMULATING HORMONE) 2016 CBC w DIFF 07/25/2017 CBC w DIFF 11/09/2022 CBC w DIFF 02/18/2018 CBC w DIFF 08/31/2022 CBC w DIFF 10/08/2019 CBC w DIFF 04/02/2024 CBC w DIFF 05/31/2022 CBC w DIFF 01/16/2022 CBC w DIFF 10/29/2017 CBC w DIFF 04/27/2023 CBC w DIFF 09/27/2018 CBC w DIFF 07/15/2021 CBC w DIFF 08/20/2017 CBC w DIFF 07/05/2021 CBC w DIFF [...] 07/15/2021 Next Appt Details Provider Name:Horace Lima, 06/12/2025 10:30:00 AM, [address] [facility] [address] [place], [address], Provider Name:Horace Lima, 02/01/2026 10:00:00 AM, [address] [facility] [address] [place], [address], Insurance Providers Payer Name Payer Address Payer Phone Subscriber Number Group Number Insured Name Patient Relationship to Insured Coverage Start Date Coverage End Date MEDICARE NGS [address] [place] [address] [id number] Lily Jacques Self - patient is the insured MED[place] [address] [place] [id number] [phone] [id number] Lily Jacques Self - patient is the insured Medical (General) History Medical History History ICD Code ADHD, combined type ear infections left breast calcifications colonoscopy December 2012 tobacco dependence hyperlipidemia menopause age 42 alcohol abuse overweight Thrombocytosis Hearing loss Stage Ib [id number] adenocarcinoma RLL, pdl +, 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 Chemotherapy: Completed a ye ar ago; Parathyroid scan: Scheduled for the beginning of October Surgical History Surgery Date(Month/Year) Core needle biopsy right lower lobe supe rior segment mass 07/2023 left eye cataract 10/2020 right eye cataract 10/2020 biopsy left breast fibroadenoma 05/13/14 tubal age 18 T&A, adenoids left myringotomy 1985 right mastoidectomy 1985 Hospitalization History Reason Date(Month/Year) No history
--- OUTSIDE RECORDS SUMMARY | 2025-03-19 12:05 | XMS_ITS | Data Portability ---
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 [email or web address] Not Available 20:00:48 04/23/20 24 03/09/2022 imagi ng/di agnos tic resul t No observ ation record ed. [email or web address] Not Available 20:00:49 04/23/20 24 03/09/2022 audio gram No observ ation record ed. [email or web address] Not Available 20:01:05 Result Notes None recorded. Problems Name Problem SNOMED Code Status Onset Date Resolution Date Notes Provider Name and Address Organization Details Recorded Time Postmasto idectomy complicat ion 43021249 Active 2014 Other disorders following mastoidec hieu, right ear; Note: Date Diagnosed : 5 11:48 AM (H95.191) Not Available [facility] 4 02:54:08 Mixed conductiv e and sensorine ural hearing loss, bilateral 326547292 Active 2014 Mixed conductiv e and sensorine ural hearing loss, bilateral ; Note: Date Diagnosed : 5 11:48 AM (H90.6) Not Available [facility] 4 02:54:06 Bilateral disorder of Eustachia n tubes 92142545182 36133 Active 2014 Other specified disorders of Eustachia n tube, bilateral ; Note: Date Diagnosed : 5 11:48 AM (H69.83) Not Available [facility] 4 02:54:06 Impacted cerumen in left ear 31880397803 55537 Active 2014 Impacted cerumen, left ear; Note: Date Diagnosed : 5 11:48 AM (H61.22) Not Available [facility] 4 02:54:08 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 64482090015 75165 Active 2014 Total perforati ons of tympanic membrane, bilateral ; Note: Date Diagnosed : 5 11:48 AM (H72.823) Not Available [facility] 4 02:54:07 Impacted cerumen of bilateral ears 49709417388 53199 Active 2016 Impacted cerumen, bilateral ; Note: Date Diagnosed : 03/27/2017 9:11 AM (H61.23) Not Available [facility] 4 02:54:07 Chronic pharyngit is 018088 Active 2016 Chronic sore throat; Note: Date Diagnosed : 08/07/2017 1:07 PM (J31.2) Not Available [facility] 4 02:54:06 Candidal otitis externa 53880673 Active 2017 Candidal otitis externa; Note: Date Diagnosed : 08/06/2018 11:51 AM (B37.84) Not Available [facility] 4 02:54:05 Otorrhea of left ear 74231642457 98854 Active 2018 Otorrhea, left ear; Note: Date Diagnosed : 03/20/2019 2:35 PM (H92.12) Not Available [facility] 4 02:54:05 Problem Notes None recorded. Medical Equipment None Reported. Allergies No known drug allergies Medications Name Sig Start Date Stop Date Status Note LastModified by Organization Details LastModified Time amoxicill in 500 mg capsule TAKE ONE CAPSULE BY MOUTH EVERY 12 HOURS 09/25 completed Not Available Not Available Not Available loratadin e 10 mg disintegr ating tablet 01/02 completed Medicati on ID: [id number] R darshan: () Brand Name: loratashayne dunn Send Method: E-Prescr ibed Sub s [...] affected area 09/25 completed Medicati on ID: [id number] D uration Value: 14 Prescri bed By [...] mg tablet 09/25 completed Medicati on ID: [id number] B rand Name: valacycl ovir Sen d Method: E-Prescr ibed Sub s Allowed: subs OK Speci al Instruct ion: TAKE ONE TABLET BY MOUTH THREE TIMES A DAY Medi cationGe nericNam e: valacycl ovir Not Available Not Available Not Available Ciloxan 0.3 % eye drops 09/25 completed Medicati on ID: [id number] D uration Value: 7 Prescri bed By Name: Eliseo clements MD Brand Name: Ciloxan Send Method: E-Prescr ibed Sub s Allowed: subs OK Speci al Instruct ion: Instill 4 drops twice a day into the affected ear Medi cationGe nericNam e: Ciloxan Not Available Not Available Not Available ciproflox acin 500 mg tablet 09/25 completed Medicati on ID: [id number] D uration Value: 10 Brand Name: ciproflo xacin HCl Send Method: E-Prescr ibed Sub s Allowed: subs OK Speci al Instruct ion: TAKE ONE TABLET BY MOUTH EVERY 12 HOURS FOR 10 DAYS Med ication enericNa me: ciproflo xacin HCl Not Available Not Available Not Available simvastat in 40 mg tablet 01/02 completed Medicati on ID: [id number] D uration Value: 30 Reason: () Brand [...] mg tablet 01/02 completed Medicati on ID: [id number] R darshan: () Brand Name: trazodon e Send Method: E-Prescr ibed Sub s Allowed: subs OK Medic ationGen ericName : trazodon e Not Available Not Available Not Available tobramyci n 0.3 % eye drops 09/25 completed Medicati on ID: [id number] D uration Value: 10 Brand Name: tobramyc [...] mg tablet 01/02 completed Medicati on ID: [id number] R darshan: () Brand Name: sertrali ne Send Method: E-Prescr ibed Sub s Allowed: subs OK Medic ationGen ericName : sertrali ne Not Available Not Available Not Available folic acid 1 mg tablet TAKE ONE TABLET BY MOUTH EVERY DAY 09/25 completed Not Available Not Available Not Available monteluka st 10 mg tablet Take 1 tablet 01/02 completed Medicati on ID: [id number] R darshan: () Brand Name: monteluk ast Send Method: E-Prescr ibed Sub s Allowed: subs OK Speci al Instruct ion: Take 1 tablet by mouth every day in the evening Medicati onGeneri cName: monteluk ast Not Available Not Available Not Available gabapenti n 100 mg capsule 09/25 completed Medicati on ID: [id number] B rand Name: gabapent in Send Method: E-Prescr ibed Sub s Allowed: subs OK Speci al Instruct ion: TAKE ONE CAPSULE BY MOUTH THREE TIMES A DAY Medi cationGe nericNam e: gabapent in Not Available Not Available Not Available amoxicill in 875 mg-potass ium clavulana te 125 mg tablet 04/22 completed Medicati on ID: [id number] D uration Value: 10 Reason: () Brand [...] Salt Combo 04/22 completed Medicati on ID: [id number] D uration Value: 30 Reason: () Brand Name: Amphetam ine Salt Combo Se nd Method: E-Prescr ibed Sub s Allowed: subs OK Medic ationGen ericName : Amphetam ine Salt Combo Not Available Not Available Not Available Vyvanse 70 mg capsule 01/02 completed Medicati on ID: [id number] R darshan: () Brand Name: Vyvanse Send Method: E-Prescr ibed Sub s Allowed: subs OK Medic ationGen ericName : Vyvanse Not Available Not Available Not Available Odefsey 200 mg-25 mg-25 mg tablet 01/02 completed Medicati on ID: [id number] R darshan: () Brand Name: Odefsey Send Method: E-Prescr ibed Sub s Allowed: subs OK Medic ationGen ericName : Odefsey Not Available Not Available Not Available Trintelli x 10 mg tablet 01/02 completed Medicati on ID: [id number] R darshan: () Brand Name: Trintell ix Send Method: E-Prescr ibed Sub s Allowed: subs OK Medic ationGen ericName : Trintell ix Not Available Not Available Not Available Tab-A-Vit e 400 mcg tablet 01/02 completed Medicati on ID: [id number] R darshan: () Brand Name: Tab-A-Vi te [...] Updated DateTime 09/25/2024 152.4 cm 24.8 kg/m2 17038.23 g Adalgisa Lewis [facility] 09/25/2024 10:31:33 Date Recorded Body height Body mass index (BMI) Body weight Provider Name and Address Organization Details Last Updated DateTime 03/21/2024 152.4 cm 25.8 kg/m2 67295.19 g Kelsey Mar [facility] 03/21/2024 13:38:48 Social History None recorded. [...] [id number] ALEIDA DE LEON PA-C [facility] on [address] [place] [phone] 03/21/2024 13:30:46 03/21/2024 16:11:22 Impacted cerumen in left ear [id number] 331133 H61.22 Postmastoi dectomy complication 21146725 H95.191 [id number] ELISEO MARQUIS MD [facility] on [address] [place] [id number] 09/25/2024 10:26:33 09/25/2024 10:47:21 Total perforation of bilateral tympanic membranes [id number] 588793 H72.823 Cerumen removed and tolerated well. Perforatio [...] ID Guarantor Name 09/25/2024 1 [place]ICARE B-[place]: [employer] Lily Jacques [id number] Lily [employer] 09/25/2024 2 [place] [facility] Lily Donnelly Georgie [id number] Lily Mineral Notes Date Note Type Note Provider Name and Address Organization Details Recorded Time 03/21/2024 text/html 63 year old samm rangel presents today for ear cleaning.History of a right canal wall down mastoidectomy and left tympanic membrane perforation. She has hearing aids from [employer].No specific concerns today. She recently completed chemotherapy for lung cancer. She also underwent a lobectomy. Aleida hanley [place] - [facility] 03/21/2024 14:12:44 09/25/2024 text/html Recent CT chest for shortness of breath. Going to recheck in 6 weeks. No ear infections.PV: 63 year old female presents today for ear cleaning.History of a right canal wall down mastoidectomy and left tympanic membrane perforation. She has hearing aids from [employer].No specific concerns today. She recently completed chemotherapy for lung cancer. She also underwent a lobectomy. ELISEO MARQUIS MD [address] [place] [address], [place], [address], [facility] - [facility] 10/01/2024 09:43:48 OBGyn Episode No OBEpisode recorded.
== END 2025-03-19 11:16 | disposition home or self-care (01) ==
LOC: HO.MAMMO 11:15
PROVIDERS: PCP Internal Medicine Medical Oncology; Visit Provider Internal Medicine Medical Oncology
DX: E21.3 Hyperparathyroidism, unspecified (principal)
CPT/HCPCS: 77081

== ENCOUNTER → 2025-03-19 11:30 | Outpatient (BNV) | payer MEDICARE, MEDICAID, SELFPAY | PROVIDERS: PCP Internal Medicine Medical Oncology; Visit Provider Radiology Diagnostic Radiology | DX: E28.39 Other primary ovarian failure (principal) | CPT/HCPCS: 77081 ==

== ENCOUNTER 2025-03-24 10:46 | Outpatient (AMB) | payer MEDICARE, MEDICAID, SELFPAY ==
[2025-03-24 10:50] VITALS: BP 120/80; PULSE 96; O2SAT 98; BMI 25.4
--- NOTE | 2025-03-24 10:50 | A.OFFVIS_ITS ---
Vital Signs 03/24/25 10:50 Height 5 ft Weight 130 lb 1.164 oz BMI 25.4 BP 120/80 Blood Pressure Location Rt brachial Position Sitting Pulse 96 Pulse Source Pulse Oximeter Pulse Oximetry (%) 98 Oxygen Delivery Method Room Air Intake Visit Reasons: Hyperparathyroidism Intake Note: Patient present today for Hyperparathyroidism office visit. Sprayer Insecticide Required: No Accompanied by: Self / Same As Patient Allergies Sulfa (Sulfonamide Antibiotics) Allergy (Severe, Verified 03/24/25 10:53) Rash trazodone (TRAZODONE) Allergy (Severe, Verified 03/24/25 10:53) FELT LIKE ELEPHANT SITTING ON MY CHEST , NIGHTMARES HPI Comments Details: 64-year-old female here today for follow up of hypercalcemia/ hyperparathyroidism. HPI from initial visit Chart review shows patient has had an elevated calcium level at least dating back since 2019. Total calcium has been in the range of 10.4-11.8, with most recent labs from 06/23/2024 with total calcium of 11.8, albumin of 4, GFR of 49, with creatinine of 1.11. Previously in March 2024 kidney function was showing creatinine of 0.88 with GFR greater than 60. She thinks she saw endocrinology in [place] maybe some 5 years ago. something about my glands in the neck PTH noted to be elevated on repeated labs done in 2020 and 2022, last PTH done in 04/22/2023 was elevated at 108. Vitamin-D level also done in 2022 noted to be in the 20s. DEXA scan done 01/20/2023, showed osteopenia of the hip with T-score of-1.2 at the total femur and-1.8 at the left femoral neck, forearm bone density normal with T-score of-0.4, L1-L4 (excluding L2 and L3 due to degenerative changes), normal bone density with T-score of 0.0. Patient also notably has a history of right non-small cell lung cancer diagnosed in 08/22/2023. She underwent chemotherapy in the adjuvant setting. She is currently following with the Oncology, Dr. Junior No kidney stones No fractures Limited activit since lung surgery in 2022 but before that she says she was quite active No milk. Milk shake once in a week , cheese every day , no yogurt, green leafy vegetables everyday No vitamin D supplements One a day multivitamin one daily which has about 200 mg of calcium No family history of calcium problems or kidney stones Reports polyuria , nocturia, no abd pain , no muscle aches but hands hurt No memory issues or brain fog 10/27/2024: Parathyroid nuclear scan did not identify any adenoma Labs 09/09/2024 showed calcium of 10.8, albumin of 4, PTH of 180.5. Kidney function has normalized with GFR greater than 60 and most recent creatinine in September 2024 was 0.89. Labs from 02/03/2025 showed calcium of 10.5, albumin of 4.2, corrected calcium would be 10.3, ionized calcium elevated at 5.9, vitamin-D low at 19, PTH elevated at 189.7, PTH RP low at 10, 24 hour urine calcium levels pending from that day She did not get the bone density done, has a appointment on 02/13/2025. Interval history 03/17/2025: Calcium improved to 9.7 with albumin of 3.8, corrected calcium would be 9.9 02/04/2020 05:20 4 hour urine calcium of 57 with calcium creatinine ratio of 78, creatinine was on the lower side. DEXA scan 03/19/2025 showed T-score of 0.2 with a lumbar spine consistent with normal bone density with a decrease of-4.8% compared to bone density in 2022 which is statistically significant. Left total hip T-score-1.6 indicative of osteopenia with a decrease of-5.5% compared to 202. Left femoral neck T-score-2.1 also indicate of osteopenia with a decrease of-4.6% compared to 202. Distal radius T-score-0.9 indicative of normal bone density. FRAX of major osteoporotic fracture 11.9%, hip fracture FRAX score elevated at 3.2%. Taking vitamin D 1000 units daily Calcium intake: ice cream or milk shake 3-4 times a week, cheese 4-5 times a week, no yogurt, no milk otherwise One a day multivitamin one daily which has about 200 mg of calcium Physical exam General: sitting comfortably in no acute distress HEENT: normocephalic/atraumatic,moist oral mucosa Neck: supple, symmetrical, no thyromegaly , no dorsocervical or supraclavicular fat pads Cardiac: normal heart sounds Pulm: normal breath sounds B/L, no added breath sounds Abd: not distended, no tenderness Extremities: no edema, no signs of myxedema Neuro: AAO x3, Speech: normal, no facial droop, moving all 4 extremities Laboratory Tests 09/20/18 01/21/19 04/07/19 08:25 06:40 12:00 Creatinine Estim Creat Clear Calc Estimated GFR Calcium 10.6 H 10.5 H Magnesium Albumin 4.0 25-OH Vitamin D Total PTH Intact 03/24/20 01/03/21 07/06/21 09:50 12:49 10:40 Creatinine Estim Creat Clear Calc Estimated GFR Calcium 11.1 H Magnesium 2.1 Albumin 4.4 4.3 25-OH Vitamin D Total 15.4 28.8 22.2 PTH Intact 83 H 08/02/21 04/10/22 08/23/22 06:50 06:55 08:23 Creatinine Estim Creat Clear Calc Estimated GFR Calcium 11.8 H D Magnesium Albumin 4.0 3.9 25-OH Vitamin D Total 23.9 31.9 PTH Intact 91 H 09/13/22 11/01/22 04/20/23 07:25 10:45 06:30 Creatinine Estim Creat Clear Calc Estimated GFR Calcium 10.5 H Magnesium Albumin 4.1 3.9 25-OH Vitamin D Total 27.6 24.7 PTH Intact 140 H 108 H 10/03/23 10/08/23 10/15/23 14:36 09:11 10:14 Creatinine Estim Creat Clear Calc Estimated GFR Calcium Magnesium 2.3 Albumin 4.1 3.7 3.9 25-OH Vitamin D Total PTH Intact 10/23/23 10/29/23 10/31/23 08:43 09:25 10:31 Creatinine Estim Creat Clear Calc Estimated GFR Calcium 11.4 H Magnesium 2.2 2.0 Albumin 3.9 4.0 25-OH Vitamin D Total PTH Intact 11/02/23 11/05/2311/08/24 09:06 10:01 09:48 Creatinine Estim Creat Clear Calc Estimated GFR Calcium 10.8 H 10.6 H Magnesium Albumin 3.8 3.7 25-OH Vitamin D Total PTH Intact 11/12/23 11/16/23 11/16/23 10:47 09:52 12:37 Creatinine Estim Creat Clear Calc Estimated GFR Calcium 11.4 H D 11.5 H 11.4 H Magnesium Albumin 4.0 3.9 25-OH Vitamin D Total PTH Intact 11/19/23 11/22/23 11/26/23 08:57 10:20 10:02 Creatinine Estim Creat Clear Calc Estimated GFR Calcium 10.8 H 11.0 H 10.8 H Magnesium 1.8 1.9 Albumin 3.8 4.0 3.8 25-OH Vitamin D Total PTH Intact 11/29/23 12/03/23 12/07/23 08:58 10:18 10:40 Creatinine Estim Creat Clear Calc Estimated GFR Calcium 10.3 H 11.1 H D 11.3 H Magnesium 2.1 2.2 Albumin 3.7 4.0 3.8 25-OH Vitamin D Total PTH Intact 12/10/23 12/14/23 12/20/23 09:00 09:04 09:27 Creatinine Estim Creat Clear Calc Estimated GFR Calcium 11.0 H 11.0 H 10.6 H Magnesium 2.2 2.1 2.1 Albumin 3.8 4.1 4.0 25-OH Vitamin D Total PTH Intact 12/27/23 01/15/24 03/07/24 09:41 13:50 10:14 Creatinine 0.92 1.10 Estim Creat Clear Calc 50.1 41.9 Estimated GFR > 60 50 Calcium 11.1 H 10.1 D 10.7 H Magnesium Albumin 4.2 4.0 4.2 25-OH Vitamin D Total PTH Intact 03/19/24 06/23/24 10:51 09:56 Creatinine 0.88 1.11 Estim Creat Clear Calc Estimated GFR > 60 49 Calcium 10.4 H 11.8 H D Magnesium Albumin 4.0 4.0 25-OH Vitamin D Total PTH Intact Laboratory Tests 07/28/24 09/09/24 09/09/24 13:52 08:21 08:31 Sodium 137 Potassium 4.7 Creatinine 0.89 Estimated GFR > 60 Calcium 10.8 H D Albumin 4.0 TSH 1.58 Free T4 1.05 PTH Intact 180.5 H Laboratory Tests 01/19/25 02/03/25 02/03/25 08:12 07:00 09:19 Calcium 10.5 H 10.5 H Ionized Calcium 5.9 H Phosphorus 2.9 Magnesium 2.1 Albumin 4.0 4.2 25-OH Vitamin D Total 19.0 L 1,25 Dihydroxy Vit D 22 1,25 Dihydroxy Vit D2 <8 1,25 Dihydroxy Vit D3 22 PTH Intact 189.7 H PTH Related Protein 10 L Ur Creatinine 24 Hour 0.7 L Ur Sodium 24 Hour 104.4 Laboratory Tests 02/03/25 03/17/25 07:00 11:10 Calcium 9.7 D Albumin 3.8 Ur 24 Hour Volume 1450 Ur Creatinine mg/dL 46.27 Ur Creatinine 24 Hour 0.7 L Ur Calcium 24 Hr 57 Calcium/Creat 24 Hr 78 EXAMINATION: DXA BONE DENSITY EXTREMITY 03/19/25 HISTORY: E21.3 - Hyperparathyroidism, unspecified TECHNIQUE: [employer] Dual energy absorptiometry (DEXA) of the lumbar spine, total left hip, femoral neck, and distal radius was performed. COMPARISON: Comparison is made with the prior examination dated 01/16/2023.. FINDINGS: The bone mineral density of the lumbar spine is 1.205 g/cm2, corresponding to a T-score of 0.2, and a Z-score of 2.1. This is indicative of normal bone mineral density. This represents a BMD change of -4.8% compared to the prior exam. This is statistically significant. The bone mineral density of the left total hip is 0.806 g/cm2, corresponding to a T-score of -1.6, and a Z-score of -0.2. This is indicative of osteopenia. This represents a BMD change of -5.5% compared to the prior exam. This is statistically significant. The bone mineral density of the left femoral neck is 0.752 g/cm2, corresponding to a T-score of -2.1, and a Z-score of -0.4. This is indicative of osteopenia. This represents a BMD change of -4.6% compared to the prior exam. The bone mineral density of the distal radius is 0.794 g/cm2, corresponding to a T-score of -0.9, and a Z-score of 0.5. This is indicative of normal bone mineral density. This represents a BMD change of -5.4% compared to the prior exam. This is not statistically significant. FRACTURE RISK: The FRAX index suggests a ten year probability of major osteoporotic fracture of 11.9%, and of hip fracture 3.2%. MM/XR DEXA appendicular skeleton IMPRESSION: Based on bone mineral density, and according to World Health Organization (WHO) criteria, the diagnosis is consistent with osteopenia. BONE DENSITOMETRY 01/16/23 CLINICAL INDICATION: Asymptomatic menopausal state. COMPARISON: Baseline BD dated 08/30/2012, left hip; 01/16/2023, spine and left forearm radius 33%. TECHNIQUE: Using a [employer] DXA System (software version: 13.1) manufactured by [employer], dual-energy x-ray absorptiometry was performed of the lumbar spine, left hip and left forearm radius 33%. The images are of good technical quality. Summary results are attached. FINDINGS: AP SPINE L1-L4 (excluding L2 and L3): The data of L1-L4 has been changed to exclude the L2 and L3 vertebral bodies because degenerative changes at these levels may cause overestimation of the lumbar spine density. Current: BMD 1.168 g/cm2, Z-score 1.7, T-score 0.0, normal, 3.8% decrease from baseline (<5% change is not significant). Baseline: BMD 1.214 g/cm2. LEFT FEMUR, NECK: Current: BMD 0.788 g/cm2, Z-score -0.3, T-score -1.8, osteopenia. Baseline: BMD 0.922 g/cm2. LEFT FEMUR, TOTAL: Current: BMD 0.853 g/cm2, Z-score 0.0, T-score -1.2, osteopenia, 13.6% decrease from baseline (<5% change is not significant). Baseline: BMD 0.987 g/cm2. LEFT FOREARM RADIUS 33%: BMD 0.839 g/cm2, Z-score 0.8, T-score -0.4, normal. Baseline: Not previously measured. IDENTIFIED RISK FACTORS: Early menopause, secondary osteoporosis, hyperparathyroidism, low calcium intake, tobacco use (current smoker). HISTORY OF FRACTURE: None listed. MEDICATIONS: Vitamin D. MM/XR DEXA appendicular skeleton IMPRESSION: 1. DIAGNOSIS: Osteopenia based on the lowest T-score value of -1.8 in the femoral neck applying World Health Organization criteria. 2. 10-YEAR FRACTURE RISK PREDICTION, FRAX: Major osteoporotic fracture (clinical spine, forearm, hip or shoulder) 10.1%. Hip fracture 2.1%. EXAMINATION: NM PARATHYROID SCAN 10/27/24 CLINICAL INFORMATION: Hyperparathyroidism COMPARISON: Correlation is made with a chest CT dated 09/23/2024. TECHNIQUE: A double radionuclide study of the thyroid bed region and upper chest in multiple projections was performed 4 hours after the oral administration of 1 millicuries I-123 sodium iodide and immediately following the intravenous administration of 30 mCi Tc-99m sestamibi. Repeat imaging was performed 2 hours later. The iodide images were electronically subtracted from the sestamibi images using different weighting factors. FINDINGS: There is homogeneous uptake of radioiodine throughout both thyroid lobes. The thyroid gland appears to be normal in size and shape. There are no focal areas of increased or diminished uptake. Technetium 99m sestamibi images demonstrate homogeneous thyroid activity. There are no focal areas of increased or decreased [employer] 99m sestamibi activity. Computer-generated digital subtraction images reveal no evidence of excess sestamibi activity. NM/NM parathyroid IMPRESSION: No evidence of excess sestamibi activity to suggest a parathyroid adenoma or hyperplasia. There is homogeneous uptake of radioiodine in the thyroid gland which is also normal in size and shape. Electronically signed by: Horace Zimmerman MD 10/28/2024 07:09 AM [facility] Medical History (Updated 03/24/25 @ 11:44 by Mariama Ventura MD) Osteopenia with high risk of fracture Nasal deformity Hx of nausea Chronic bronchitis Hx of ectopic Nicotine dependence, cigarettes, uncomplicated Hyperparathyroidism Hyperlipidemia Postmenopausal Tubular adenoma of colon (~2018) Osteopenia (~2022) History of drug overdose Hearing loss, bilateral PTSD (post-traumatic stress disorder) Major depressive disorder, recurrent severe without psychotic features ADHD Surgical History Hx of adenoidectomy History of cataract surgery History of ear surgery History of tonsillectomy History of endoscopy History of colonoscopy Family History Mother Lupus (systemic lupus erythematosus) Lung cancer Social History Household Members: None and Other Housing: Apartment Are you a primary skin care technician to a significant other at home: No Do you presently have visiting nurse or other home services: No Alcohol intake: current Alcohol intake frequency: holidays/special occasions only Alcohol type: beer Comment: COUNTS CORRECT Patient Tobacco Use Status: Former Tobacco user Tobacco use type: Cigarette Cigarette Packs Per Day: 0.1 Years Smoked: 48 yrs e-Cigarette/Vaping Use: Never Used Second Hand Smoke Exposure: No service: No Current occupational status: retired and disabled Physical Exam Vital Signs: Last Vital Signs Pulse 96 03/24/25 10:50 BP 120/80 03/24/25 10:50 Pulse Ox 98 03/24/25 10:50 Oxygen Delivery Method Room Air 03/24/25 10:50 BMI result Body Mass Index 25.4 Assessment & Plan Assessment & Plan (1) Hyperparathyroidism: Code(s): E21.3 - Hyperparathyroidism, unspecified Category: Medical Plan: 64-year-old female with past medical history significant for right non-small cell lung cancer diagnosed 08/22/2023, who is coming in today for i follow up of hypercalcemia/hyperparathyroidism. Chart review shows patient has had an elevated calcium level at least dating back since 2019. Actually do not see any normal calcium levels in the chart. Total calcium has been in the range of 10.4-11.8, with most recent labs from 06/23/2024 with total calcium of 11.8, albumin of 4, GFR of 49, with creatinine of 1.11. Previously in March 2024 kidney function was showing creatinine of 0.88 with GFR greater than 60.PTH noted to be elevated on repeated labs done in 2020 and 2022, . Vitamin-D level also done in 2022 noted to be in the 20s. No history of kidney stones or fractures. 03/17/2025: Calcium improved to 9.7 with albumin of 3.8, corrected calcium would be 9.9 02/04/2020 05:20 4 hour urine calcium of 57 with calcium creatinine ratio of 78, creatinine was on the lower side. DEXA scan 03/19/2025 showed T-score of 0.2 with a lumbar spine consistent with normal bone density with a decrease of-4.8% compared to bone density in 202 which is statistically significant. Left total hip T-score-1.6 indicative of osteopenia with a decrease of-5.5% compared to 202. Left femoral neck T-score-2.1 also indicate of osteopenia with a decrease of-4.6% compared to 2023. Distal radius T-score-0.9 indicative of normal bone density. FRAX of major osteoporotic fracture 11.9%, hip fracture FRAX score elevated at 3.2%. Taking vitamin D 1000 units daily Calcium intake: ice cream or milk shake 3-4 times a week, cheese 4-5 times a week, no yogurt, no milk otherwise One a day multivitamin one daily which has about 200 mg of calcium Differentials include primary hyperparathyroidism. However given I do not see any prior normal calcium levels in the chart, could also have FHH. Especially with fractional excretion of calcium with labs from February 2025 was 0.007. I feel this is probably just low because of poor nutritional intake of calcium which is also likely contributing to some degree of PTH elevation along with low vitamin- D levels. 10/27/2024: Parathyroid nuclear scan did not identify any adenoma Anyway she has GFR greater than 60, age greater than 50, no hypercalciuria, but her FRAX is elevated at the hip. That will be the only surgical indication if she has primary hyperparathyroidism. Otherwise calcium levels on most recent labs have improved. At this time I have asked her to maintain good hydration. She does express that she would not be interested in surgical management most likely. Goal would be to maintain good bone health. I briefly discussed with with her regarding the option of putting her on a medication for the osteo porosis. She said that she would wait at this time in built good bone health with vitamin-D repletion and better nutritional intake of calcium. Plan: -continue vitamin-D 1000 units daily, continue your multivitamin with calcium in it = increase nutritional intake of calcium to accommodate 1000 mg daily -repeat blood work at [facility] prior to follow up visit in 3 months -next bone density would be due March 2027 -follow up in June 2025 in 3 months (2) Osteopenia with high risk of fracture: Code(s): M85.80 - Other specified disorders of bone density and structure, unspecified site Category: Medical Plan: See above Plan See above Orders: Orders Vitamin D 25-OH Total 8 Weeks E21.3 - Hyperparathyroidism, unspecified Albumin Level 8 Weeks E21.3 - Hyperparathyroidism, unspecified Calcium 8 Weeks E21.3 - Hyperparathyroidism, unspecified Phosphorus 8 Weeks E21.3 - Hyperparathyroidism, unspecified Parathyroid Hormone Intact 8 Weeks E21.3 - Hyperparathyroidism, unspecified Creatinine 8 Weeks E21.3 - Hyperparathyroidism, unspecified Calcium, Ionized 8 Weeks E21.3 - Hyperparathyroidism, unspecified Patient Instructions: continue vitamin D 1000 units daily Do blood work at [facility] in 10 weeks ( [address] [facility] or [address] [place], [place]), please make sure they fax the results to my office, papers given Increase calcium intake in diet to accomodate at least 1000 mg daily Follow up in June 2025 Coding Level of Care Code Est Pt Level 3 (09227) Diagnoses Hyperparathyroidism E21.3 Osteopenia with high risk of fracture M85.80
--- OUTSIDE RECORDS SUMMARY | 2025-03-24 12:02 | XMS_ITS | Data Portability ---
Author Organization [place] - [facility], Allergy Address [address] [address] Care Team Providers Care Ride Operator Name Role Phone ROBBY JORGENSEN Primary Care [...] Details Recorded Time Postmasto idectomy complicat ion [id number] Active 2014 Other disorders following mastoidec hieu, right ear; Note: Date Diagnosed : 5 11:48 AM (H95.191) Not Available [facility] 4 02:54:08 Mixed conductiv e and sensorine ural hearing loss, bilateral 325365269 Active 2014 Mixed conductiv e and sensorine ural hearing loss, bilateral ; Note: Date Diagnosed : 5 11:48 AM (H90.6) Not Available [facility] 4 02:54:06 Bilateral disorder of Eustachia n tubes [id number] 88960 Active 2014 Other specified disorders of Eustachia n tube, bilateral ; Note: Date Diagnosed : 5 11:48 AM (H69.83) Not Available [facility] 4 02:54:06 Impacted cerumen in left ear 41407971854 87122 Active 2014 Impacted cerumen, left ear; Note: Date Diagnosed : 5 11:48 AM (H61.22) Not Available [facility] 4 02:54:08 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 35852781394 58766 Active 2014 Total perforati ons of tympanic membrane, bilateral ; Note: Date Diagnosed : 5 11:48 AM (H72.823) Not Available [facility] 4 02:54:07 Impacted cerumen of bilateral ears 40642562178 23573 Active 2016 Impacted cerumen, bilateral ; Note: Date Diagnosed : 03/27/2017 9:11 AM (H61.23) Not Available [facility] 4 02:54:07 Chronic pharyngit is 246080 Active 2016 Chronic sore throat; Note: Date Diagnosed : 08/07/2017 1:07 PM (J31.2) Not Available [facility] 4 02:54:06 Candidal otitis externa 36281925 Active 2017 Candidal otitis externa; Note: Date Diagnosed : 08/06/2018 11:51 AM (B37.84) Not Available [facility] 4 02:54:05 Otorrhea of left ear 48039184570 44318 Active 2018 Otorrhea, left ear; Note: Date Diagnosed : 03/20/2019 2:35 PM (H92.12) Not Available [facility] 4 02:54:05 Problem Notes None recorded. Medical Equipment None Reported. Allergies No known drug allergies Medications Name Sig Start Date Stop Date Status Note LastModified by Organization Details LastModified Time amoxicill in 500 mg capsule TAKE ONE CAPSULE BY MOUTH EVERY 12 HOURS 09/25 completed Not Available Not Available Not Available loratadin e 10 mg disintegr ating tablet 01/02 completed Medicati on ID: [id number] R darshan: () Brand Name: loratashayne dunn [...] affected area 09/25 completed Medicati on ID: [id number] D uration Value: 14 Prescri bed By [...] mg tablet 09/25 completed Medicati on ID: [id number] B rand Name: valacycl ovir Sen d Method: E-Prescr ibed Sub s Allowed: subs OK Speci al Instruct ion: TAKE ONE TABLET BY MOUTH THREE TIMES A DAY Medi cationGe nericNam e: valacycl ovir Not Available Not Available Not Available Ciloxan 0.3 % eye drops 09/25 completed Medicati on ID: [id number] D uration Value: 7 Prescri bed By Name: Eliseo clements MD Brand Name: Ciloxan Send Method: E-Prescr ibed Sub s Allowed: subs OK Speci al Instruct ion: Instill 4 drops twice a day into the affected ear Medi cationGe nericNam e: Ciloxan Not Available Not Available Not Available ciproflox acin 500 mg tablet 09/25 completed Medicati on ID: [id number] D uration Value: 10 Brand Name: ciproflo xacin HCl Send Method: E-Prescr ibed Sub s Allowed: subs OK Speci al Instruct ion: TAKE ONE TABLET BY MOUTH EVERY 12 HOURS FOR 10 DAYS Med ication enericNa me: ciproflo xacin HCl Not Available Not Available Not Available simvastat in 40 mg tablet 01/02 completed Medicati on ID: [id number] D uration Value: 30 Reason: () Brand [...] mg tablet 01/02 completed Medicati on ID: [id number] R darshan: () Brand Name: trazodon e Send Method: E-Prescr ibed Sub s Allowed: subs OK Medic ationGen ericName : trazodon e Not Available Not Available Not Available tobramyci n 0.3 % eye drops 09/25 completed Medicati on ID: [id number] D uration Value: 10 Brand Name: tobramyc [...] mg tablet 01/02 completed Medicati on ID: [id number] R darshan: () Brand Name: sertrali ne Send Method: E-Prescr ibed Sub s Allowed: subs OK Medic ationGen ericName : sertrali ne Not Available Not Available Not Available folic acid 1 mg tablet TAKE ONE TABLET BY MOUTH EVERY DAY 09/25 completed Not Available Not Available Not Available monteluka st 10 mg tablet Take 1 tablet 01/02 completed Medicati on ID: [id number] R darshan: () Brand Name: monteluk ast Send Method: E-Prescr ibed Sub s Allowed: subs OK Speci al Instruct ion: Take 1 tablet by mouth every day in the evening Medicati onGeneri cName: monteluk ast Not Available Not Available Not Available gabapenti n 100 mg capsule 09/25 completed Medicati on ID: [id number] B rand Name: gabapent in Send Method: E-Prescr ibed Sub s Allowed: subs OK Speci al Instruct ion: TAKE ONE CAPSULE BY MOUTH THREE TIMES A DAY Medi cationGe nericNam e: gabapent in Not Available Not Available Not Available amoxicill in 875 mg-potass ium clavulana te 125 mg tablet 04/22 completed Medicati on ID: [id number] D uration Value: 10 Reason: () Brand [...] Salt Combo 04/22 completed Medicati on ID: [id number] D uration Value: 30 Reason: () Brand Name: Amphetam ine Salt Combo Se nd Method: E-Prescr ibed Sub s Allowed: subs OK Medic ationGen ericName : Amphetam ine Salt Combo Not Available Not Available Not Available Vyvanse 70 mg capsule 01/02 completed Medicati on ID: [id number] R darshan: () Brand Name: Vyvanse Send Method: E-Prescr ibed Sub s Allowed: subs OK Medic ationGen ericName : Vyvanse Not Available Not Available Not Available Odefsey 200 mg-25 mg-25 mg tablet 01/02 completed Medicati on ID: [id number] R darshan: () Brand Name: Odefsey Send Method: E-Prescr ibed Sub s Allowed: subs OK Medic ationGen ericName : Odefsey Not Available Not Available Not Available Trintelli x 10 mg tablet 01/02 completed Medicati on ID: [id number] R darshan: () Brand Name: Trintell ix Send Method: E-Prescr ibed Sub s Allowed: subs OK Medic ationGen ericName : Trintell ix Not Available Not Available Not Available Tab-A-Vit e 400 mcg tablet 01/02 completed Medicati on ID: [id number] R darshan: () Brand Name: Tab-A-Vi te [...] Updated DateTime 09/25/2024 152.4 cm 24.8 kg/m2 95592.23 g Adalgisa Lewis [facility] 09/25/2024 10:31:33 Date Recorded Body height Body mass index (BMI) Body weight Provider Name and Address Organization Details Last Updated DateTime 03/21/2024 152.4 cm 25.8 kg/m2 03049.19 g Kelsey Mar [facility] 03/21/2024 13:38:48 Social History None recorded. Functional [...] [id number] ALEIDA DE LEON PA-C [facility] on [address] [place] [phone] 03/21/2024 13:30:46 03/21/2024 16:11:22 Impacted cerumen in left ear [id number] 693444 H61.22 Postmastoi dectomy complication 55730449 H95.191 [id number] ELISEO MARQUIS MD [facility] on [address] [place] [phone] 09/25/2024 10:26:33 09/25/2024 10:47:21 Total perforation of bilateral tympanic membranes 0412066734 379828 H72.823 Cerumen removed and tolerated well. Perforatio [...] ID Guarantor Name 09/25/2024 1 MEDICARE B-[place]: [employer] Lily Jacques [id number] Lily Temple 09/25/2024 2 [place]: [facility] [employer] Lily Donnelly Georige [id number] Lily Temple Notes Date Note Type Note Provider Name and Address Organization Details Recorded Time 03/21/2024 text/html 63 year old samm rangel presents today for ear cleaning.History of a right canal wall down mastoidectomy and left tympanic membrane perforation. She has hearing aids from [employer].No specific concerns today. She recently completed chemotherapy for lung cancer. She also underwent a lobectomy. Aleida hanley [place] - [facility] 03/21/2024 14:12:44 09/25/2024 text/html Recent CT chest for shortness of breath. Going to recheck in 6 weeks. No ear infections.PV: 63 year old female presents today for ear cleaning.History of a right canal wall down mastoidectomy and left tympanic membrane perforation. She has hearing aids from [employer].No specific concerns today. She recently completed chemotherapy for lung cancer. She also underwent a lobectomy. ELISEO MARQUIS MD [address] [place] [address], [place], [phone], [facility] - [facility] 10/01/2024 09:43:48 OBGyn Episode No OBEpisode recorded.
--- OUTSIDE RECORDS SUMMARY | 2025-03-24 12:03 | XMS_ITS | Patient Health Record ---
Author Organization Horace Lima III, MD Address [address] [place] [address] [place] [address] Care Team Providers Care Stock Driver Name Role Phone Horace Lima Primary Care [...] ff Reviewed date:06/29/2024 06:35:42 AM Interpretation: Performing Lab:[facility], [address] [place] [phone] Notes/Report: White Blood Count 7.8 4.8-10.8 X10*3/uL [...] NRBC Abs Auto 0.000 0.0-0.012 X10*3/uL Comprehensive [place]. Panel Fa st Reviewed date:06/29/2024 06:35:42 AM Interpretation: Performing Lab:[facility], [address] [place] [phone] Notes/Report: Sodium 141 135-145 mmol/L Potassium 5.2 3.3-5.1 mmol/L Chloride 108 96-108 mmol/L Carbon Dioxide 27 22-29 mmol/L Anion Gap 11 12-20 Blood Urea Nitrogen 16 9-16 mg/dL Creatinine 1.11 0.5-1.4 mg/dL Estimated Glomerular Filt Rate 49 NOTE: For -Scottish individuals, multiply the result by 1.210. Chronic [...] Panel Reviewed date:06/29/2024 06:35:42 AM Interpretation: Performing Lab:[address] [address] Notes/Report: Triglycerides 96 <150 mg/dL Desirable Triglyceride: [...] Thyroxine) Reviewed date:07/29/2024 08:41:34 AM Interpretation: Performing Lab:[address] [address] Notes/Report: Free T4 (Free Thyroxine) 1.05 0.71-1.85 ng/dL Thyroid Stimulating Hormone Reviewed date:07/29/2024 08:41:34 AM Interpretation: Performing Lab:[address] [address] Notes/Report: Thyroid Stimulating Hormone 1.58 0.32-4.0 uIU/mL TSH 3rd Generation ([facility]) Complete Blood Count Auto Di ff Reviewed date:09/09/2024 04:42:49 PM Interpretation: Performing Lab:[facility], [address] [place] [phone] Notes/Report: White Blood Count 5.7 4.8-10.8 X10*3/uL [...] Panel Reviewed date:09/09/2024 04:42:49 PM Interpretation: Performing Lab:[facility], [address] [place] [phone] Notes/Report: Sodium 137 135-145 mmol/L Potassium 4.7 [...] B12 Reviewed date:09/09/2024 04:42:49 PM Interpretation: Performing Lab:[facility], [address] [place] [phone] Notes/Report: Vitamin B12 1210 200-900 pg/mL NORMAL 200-900 PG/ML INDETERMINATE 160-199 PG/ML DEFICIENT < 160 PG/ML Parathyroid Hormone Intact Reviewed date:09/09/2024 04:42:49 PM Interpretation: Performing Lab:[facility], [address] [place] [phone] Notes/Report: Parathyroid Hormone Intact 180.5 8.7-77.1 pg/mL CT chest w con Reviewed date:10/10/2024 09:28:28 AM Interpretation: Performing Lab: Notes/Report: [address] [address] [address] Scan Report Signed Patient: Lily Jacques MR#: [id number] 99 : 1960 Acct:[id number] Age/Sex: 64 / F ADM Date: 09/23/24 Loc: HO.CT Attending Dr: Jordana Junior MD Ordering Physician: Jordana Junior MD Date of Service: 09/23/24 Procedure(s): CT chest w IV con Accession Number(s): [id number] cc: Horace Lima MD; Jordana Junior MD Report Number: [id number]: Total DLP = 74.00 mGy-cm CLINICAL HISTORY: [...] 09/24/24 0654 DD/ 0653 TD/TT: 09/24/24 0653 [employer]: [address] [address] [address] Scan Report Signed Patient: Arnoldo Jacques MR#: [id number] 99 : 1960 Acct:[id number] Age/Sex: 64 / F ADM Date: 09/23/24 Loc: .CT Attending Dr: Jordana Junior MD Ordering Physician: Jordana Junior MD Date of Service: 09/23/24 Procedure(s): CT janeen st w IV con Accession Number(s): [id number] cc: Horace Lima MD; Jordana Junior MD [...] in OV> 09/24/24 0654 DD/ TD/TT: 09/24/24652 [employer]: NM parathyroid Reviewed date:12/13/2024 04:57:07 AM Interpretation: Performing Lab: Notes/Report: [address] [address] Nuclear Medicine Report Signed Patient: Lily Jacques MR#: [id number] 99 : 1960 Acct:[id number] Age/Sex: 64 / F ADM Date: 10/27/24 Loc: WANDA Attending Dr: Mariama Ventura MD Ordering Physician: Mariama Ventura MD Date of Service: 10/27/24 Procedure(s): NM parathyroid Accession Number(s): [id number] cc: Horace Lima MD; Mariama Ventura MD [...] by: Horace Zimmerman MD 10/28/2024 07:09 AM [facility] Dictated By: Horace Zimmerman MD Signed By: <Electronically signed by Horace Zimmerman MD in OV> 10/28/24 0709 DD/ 0805 TD/TT: 10/27/24 1503 [employer]: [address] [address] Nuclear Medicine Report Signed Patient: Arnoldo Jacques MR#: [id number] 99 : 1960 Acct:[id number] Age/Sex: 64 / F ADM Date: 10/27/24 Loc: WANDA Attending Dr: Mariama Ventura MD Ordering Physician: Mariama Ventura MD Date of Service: 10/27/24 Procedure(s): NM parathyroid Accession Number(s): [id number] cc: Horace Lima MD; Mariama Ventura MD [...] OV> 10/28/24 0709 DD/ 0805 TD/TT: 10/27/24 6215 [employer]: Complete Blood Count Auto Di ff Reviewed date:12/22/2024 04:33:52 PM Interpretation: Performing Lab:[facility], [address] [place] [phone] Notes/Report: White Blood Count 9.6 4.8-10.8 X10*3/uL [...] Panel Reviewed date:12/22/2024 04:33:52 PM Interpretation: Performing Lab:[facility], [address] [place] [phone] Notes/Report: Sodium 140 135-145 mmol/L Potassium 3.7 [...] Antigen Reviewed date:12/22/2024 04:33:52 PM Interpretation: Performing Lab:[address] [address] Notes/Report: Carcinoembryonic Antigen 4.30 CEA Reference Range: [...] ff Reviewed date:01/19/2025 01:17:09 PM Interpretation: Performing Lab:[address] [address] Notes/Report: White Blood Count 7.1 4.8-10.8 X10*3/uL [...] NRBC Abs Auto 0.020 0.0-0.012 X10*3/uL Comprehensive [place]. Panel Fa st Reviewed date:01/19/2025 01:17:09 PM Interpretation: Performing Lab:[facility], [address] [place] [phone] Notes/Report: Sodium 140 135-145 mmol/L Potassium 4.3 [...] Panel Reviewed date:01/19/2025 01:17:09 PM Interpretation: Performing Lab:[facility], [address] [place] [phone] Notes/Report: Triglycerides 65 <150 mg/dL Desirable Triglyceride: [...] B12 Reviewed date:01/19/2025 01:17:09 PM Interpretation: Performing Lab:[facility], [address] [place] [phone] Notes/Report: Vitamin B12 732 200-900 pg/mL NORMAL 200-900 PG/ML INDETERMINATE 160-199 PG/ML DEFICIENT < 160 PG/ML Calcium Reviewed date:02/08/2025 09:41:35 AM Interpretation: Performing Lab:[facility], [address] [place] [phone] Notes/Report: Calcium 10.5 8.4-10.2 mg/dL Calcium, Ionized Reviewed date:02/22/2025 05:45:59 PM Interpretation: Performing Lab:[facility], [address] [place] [phone] Notes/Report: Calcium, Ionized 5.9 4.7-5.5 mg/dL THIS TEST WAS PERFORMED AT: [facility] [address] VIOLET BOLIVAR MD Phosphorus Reviewed date:02/08/2025 09:41:35 AM Interpretation: Performing Lab:[facility], [address] [place] [phone] Notes/Report: Phosphorus 2.9 2.7-4.5 mg/dL Magnesium Reviewed date:02/08/2025 09:41:35 AM Interpretation: Performing Lab:[facility], [address] [place] [phone] Notes/Report: Magnesium 2.1 1.6-2.6 mg/dL Albumin Level Reviewed date:02/08/2025 09:41:35 AM Interpretation: Performing Lab:[facility], [address] [place] [phone] Notes/Report: Albumin Level 4.2 3.5-5.0 g/dL Vitamin D 25-OH Total Reviewed date:02/08/2025 09:41:35 AM Interpretation: Performing Lab:[address] [address] Notes/Report: Vitamin D 25-OH Total 19.0 >30 [...] LC/MS/MS Reviewed date:02/22/2025 05:45:59 PM Interpretation: Performing Lab:[facility], [address] [place] [phone] Notes/Report: Vit D (1,25-Dihydroxy) Total 22 18-72 [...] analytical performance characteristics have been determined by [employer] [place], [place]. It has not been cleared or approved by the FDA. This assay has been validated pursuant to the CLIA regulations and is used for clinical purposes. THIS TEST WAS PERFORMED AT: [facility] [place] [address] [place], [place] STAECY SAINZ MD,PHD Parathyroid Hormone Related Pr Reviewed date:02/22/2025 05:45:59 PM Interpretation: Performing Lab:[facility], [address] [place] [phone] Notes/Report: Parathyroid Hormone Related Pr 10 11-20 pg/mL This is a C-terminal PTH-RP assay. PTH-RP is useful in the differential diagnosis of hypercalcemia and levels may be elevated in patients with tumor-associated hypercalcemia. Elevated results may also be observed in patients with renal disease. This test was developed and its analytical performance characteristics have been determined by [employer]. It has not been cleared or approved by the FDA. This assay has been validated pursuant to the CLIA regulations and is used for clinical purposes. THIS TEST WAS PERFORMED AT: [facility] [place] [address] [place] [address] EDUARDO LUGO MD,PHD,DAMEON Calcium, 24 Hr Ur Reviewed date:02/22/2025 05:45:59 PM Interpretation: Performing Lab:[facility], [address] [place] [phone] Notes/Report: [id number] 0700 0700 Calcium, 24 Hr Urine 57 Reference Range 35-250 Low calcium diet 35-200 Calcium/Creatinine Ratio 78 30-275 mg/g creat Creatinine 24Hr Urine 0.73 0.50-2.15 g/24 h THIS TEST WAS PERFORMED AT: [employer] [address] [place] [phone] VAZQUEZ WEBER MD Sodium, 24Hr Urine Group Reviewed date:02/08/2025 09:41:36 AM Interpretation: Performing Lab:[facility], [address] [place] [phone] Notes/Report: 1450 [id number] 0700 0700 Sodium 24 Hr Urine 104.4 40-220 mmol/Day Creatinine, 24Hr Urine 0.7 1.0-2.0 G/Day Creatinine, mg/dL 46.27 Total Volume 24 Hour Urine 1450 Parathyroid Hormone Intact Reviewed date:02/08/2025 09:41:36 AM Interpretation: Performing Lab:[facility], [address] [place] [phone] Notes/Report: Parathyroid Hormone Intact 189.7 8.7-77.1 pg/mL CT chest w con Reviewed date:02/22/2025 05:45:59 PM Interpretation: Performing Lab: Notes/Report: [address] [address] [address] Scan Report Signed Patient: Lily Jacques MR#: [id number] 99 : 1960 Acct:[id number] Age/Sex: 64 / F ADM Date: 02/10/25 Loc: HO.CT Attending Dr: Jordana Junior MD Ordering Physician: Jordana Junior MD Date of Service: 02/10/25 Procedure(s): CT chest w IV con Accession Number(s): [id number] cc: Horace Lima MD; Jordana Junior MD Report Number: [id number]: Total DLP = 191.00 mGy-cm CLINICAL HISTORY: [...] 02/11/25 1231 DD/ 1230 TD/TT: 02/11/25 1230 [employer]: [place] [address] [address] Scan Report Signed Patient: Arnoldo Jacques MR#: [id number] 99 : 1960 Acct:[id number] Age/Sex: 64 / F ADM Date: 02/10/25 Loc: HO.CT Attending Dr: Jordana Junior MD Ordering Physician: Jordana Junior MD Date of Service: 02/10/25 Procedure(s): CT janeen st w IV con Accession Number(s): [id number] cc: Horace Lima MD; Jordana Junior MD [...] 02/11/25 1231 DD/ 1230 TD/TT: 02/11/25 1230 [employer]: Complete Blood Count Auto Di ff Reviewed date:03/17/2025 08:09:31 PM Interpretation: Performing Lab:[facility], [address] [place] [phone] Notes/Report: White Blood Count 7.5 4.8-10.8 X10*3/uL [...] Panel Reviewed date:03/17/2025 08:09:31 PM Interpretation: Performing Lab:[address] [address] Notes/Report: Sodium 138 135-145 mmol/L Potassium 4.0 [...] Antigen Reviewed date:03/17/2025 08:09:31 PM Interpretation: Performing Lab:[address] [address] Notes/Report: Carcinoembryonic Antigen 4.10 CEA Reference Range: [...] REVIEW Reviewed date:03/17/2025 08:09:31 PM Interpretation: Performing Lab:[facility], [address] [place] [address] Notes/Report: SLIDE REVIEW VERIFIED XR DEXA appendicular skeleto n Reviewed date:03/20/2025 12:00:33 PM Interpretation: Performing Lab: Notes/Report: [facility] [address] [place] [address] Mammography Report Signed Patient: Lily Jacques MR#: [id number] 99 : 1960 Acct:[id number] Age/Sex: 64 / F ADM Date: 03/19/25 Loc: HO.MAMMO Attending Dr: Horace Lima MD Ordering Physician: Mariama Ventura MD Results: Date of Service: 03/19/25 Follow Up: Procedure(s): XR DEXA appendicular skeleton Accession Number(s): [id number] cc: Horace Lima MD; Mariama Ventura MD EXAMINATION: DXA BONE DENSITY EXTREMITY HISTORY: E21.3 - Hyperparathyroidism, unspecified TECHNIQUE: [employer] Dual energy absorptiometry (DEXA) of the lumbar spine, total left hip, femoral neck, and distal radius was performed. COMPARISON: Comparison is made with the prior examination dated 01/16/2023.. FINDINGS: The bone mineral density of the lumbar spine is 1.205 g/cm2, corresponding to a T-score of 0.2, and a Z-score of 2.1. This is indicative of normal bone mineral density. This represents a BMD change of -4.8% compared to the prior exam. This is statistically significant. The bone mineral density of the left total hip is 0.806 g/cm2, corresponding to a T-score of -1.6, and a Z-score of -0.2. This is indicative of osteopenia. This represents a BMD change of -5.5% compared to the prior exam. This is statistically significant. The bone mineral density of the left femoral neck is 0.752 g/cm2, corresponding to a T-score of -2.1, and a Z-score of -0.4. This is indicative of osteopenia. This represents a BMD change of -4.6% compared to the prior exam. The bone mineral density of the distal radius is 0.794 g/cm2, corresponding to a T-score of -0.9, and a Z-score of 0.5. This is indicative of normal bone mineral density. This represents a BMD change of -5.4% compared to the prior exam. This is not statistically significant. FRACTURE RISK: The FRAX index suggests a ten year probability of major osteoporotic fracture of 11.9%, and of hip fracture 3.2%. MM/XR DEXA appendicular skeleton IMPRESSION: Based on bone mineral density, and according to World Health Organization (WHO) criteria, the diagnosis is consistent with osteopenia. Statistically, 68% of repeat scans fall within 1 SD (+/- 0.010 g/cm2 for AP spine L1-L4) and 1 SD (+/- 0.012 g/cm2 for femur total) FRAX is a trademark of the [employer]'s [employer] for Metabolic Bone Disease, a World Health Organization (WHO) Collaborating Center. Electronically signed by: Horace Zimmerman MD 03/19/2025 12:26 PM EDT Dictated By: Horace Zimmerman MD Signed By: <Electronically signed by Horace Zimmerman MD in OV> 03/19/25 1226 DD/ 1125 TD/TT: 03/19/25 1150 [employer]: [facility] [address] [place], [place] [id number] Mammography Report Signed Patient: Arnoldo Jacques MR#: [id number] 99 : 1960 Acct:[id number] Age/Sex: 64 / F ADM Date: 03/19/25 Loc: HO.MAMMO Attending Dr: Horace Lima MD Ordering Physician: Mariama Ventura MD Results: Date of Service: Follow Up: Procedure(s): XR DEX A appendicular skeleton Accession Number(s): [id number] cc: Horace Lmia MD; Mariama Ventura MD EXAMINATION: DXA BON E DENSITY EXTREMITY HISTORY: E21.3 - Hyperparathyroidism, unspecified TECHNIQUE: [employer] Dual energy absorptiometry (DEXA) of the lumbar spine, total left hip, femoral neck, and distal radius was performed. COMPARISON: Comparis on is made with the prior examination dated 01/16/2023.. FINDINGS: The bone mineral den sity of the lumbar spine is 1.205 g/cm2, corresponding to a T-score of 0.2, and a Z-score of 2.1. This is indicative of normal bone mineral density. This represents a BM D change of -4.8% compared to the prior exam. This is statistically significant. The bone mineral den sity of the left total hip is 0.806 g/cm2, corresponding to a T-score of -1.6, and a Z-score of -0.2. This is indicative of osteopenia. This represents a BM D change of -5.5% compared to the prior exam. This is statistically significant. The bone mineral den sity of the left femoral neck is 0.752 g/cm2, corresponding to a T-score of -2.1, and a Z-score of -0.4. This is indicative of osteopenia. This represents a BM D change of -4.6% compared to the prior exam. The bone mineral den sity of the distal radius is 0.794 g/cm2, corresponding to a T-score of -0.9, and a Z-score of 0.5. This is indicative of normal bone mineral density. This represents a BM D change of -5.4% compared to the prior exam. This is not statistically significant. FRACTURE RISK: The FRAX index sugge sts a ten year probability of major osteoporotic fracture of 11.9%, a nd of hip fracture 3.2%. M M/XR DEXA appendicular skeleton IMPRESSION: Based on bone minera l density, and according to World Health Organization (WHO) criteria, the diagnosis is consistent with osteopenia. Statistically, 68% o f repeat scans fall within 1 SD (+/- 0.010 g/cm2 for AP spine L1-L4) and 1 SD (+/- 0.012 g/cm2 for femur total) FRAX is a trademark of the [employer]'s Prospect for Metabolic Bone Disease, a World Health Organization (WHO) Collaborating Center. Electronically macie d by: Horace Zimmerman MD 03/19/2025 12:26 PM EDT RP Dictated By: Horace Zimmerman MD Signed By: <Electronically signed by Horace Zimmerman MD in OV> 03/19/25 1226 DD/ 1125 TD/TT: 03/19/25 1150 [employer]: Reason For Referral Reason Consult and Treat Untreated Hyperparathyroidism CA= 11.8 Diagnosis 1 Hyperparathyroidism (E21.3) Referral Organization Horace Lima III, MD Referring Provider First Name Horace Referring Provider Last Name Janie Referring Provider Speciality Internal M edicine Referred Provider [facility] Referred Provider Specialty Endocrinolog y General Notes D, Tara 07/07/2024 04:31:34 PM > referral faxed with [...] Problem Status W/U Status Risk Notes Problem 2419284 Former smoker (Z87.891) Active confirmed Her abstinence from tobacco continues. Problem 13294558 Hyperlipidemia (E78.5) Active confirmed Her lipids are stable and currently in their target range. No change in her regimen was made today. Problem 410366889 Asthma (J45.909) Active confirmed She denies any recent episodes of asthma. No wheezing was heard today. She is compliant with her medication. Problem 431742723 Overweight (E66.3) Active confirmed She has become slightly overweight with her treatment. We discussed diet and nutrition today. We made a plan to lose weight gradually. Problem 747744840 Essential thrombocytosis (D47.3) Active confirmed Her platelets are currently stable and no change in her regimen. Problem 62189768 Allergy to sulfa drugs (Z88.2) Active confirmed She has developed a typical drug allergy rash. Weak after taking Bactrim. Her allergy portion of the medical record has been updated. Problem 61411310 Hypercalcemia (E83.52) Active confirmed Her calcium level is 10.7. No change in her regimen as needed.This value will be carefully observed. Problem 010881920 Breast calcifica tion, left (R92.1) Active confirmed No abnormalities were palpated today. Problem 38648123 Postmenopause (Z78.0) Active confirmed She is no longer having periods and will have a bone density at appropriate intervals. Problem 057982636 Attention defici t hyperactivity disorder (ADHD), unspecified ADHD type (F90.9) Active confirmed She was continued on her current medication. No change was made. She has been conducting the activities of daily life and in normal fashion. Problem 26073797 Bilateral hearin g loss (H91.93) Active confirmed Her hearing loss is quite advanced and she benefit significantly from hearing aids. There was no difficulty conversing today. The recent episode of otitis has completely resolved. Problem 484145368 Major depression (F32.9) Active confirmed Her depression is well-controlle d and she is living her life without significant impairment. Problem Hyperparathyroid ism (E21.3) Active confirmed Her calcium is 10.8. She remains under the care of endocrinology for hyperparathyro idism. Her medical oncologist says ordered a scan of her thyroid. This is pending in October 2024. 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 Surveillance will continue. 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 On [...] Date Provider Diagnosis Horace Lima III, MD [address] [place] [address] [place] [address] 04/02/2024 Horace Lima Attention deficit hyperactivity disorder (ADHD), unspecified ADHD type F90.9 ; Hyperlipidemia E78.5 ; Asthma J45.909 ; 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 ; Bilateral hearing loss H91.93 ; Major depression F32.9 ; Hyperparathyroidism E21.3 ; Former smoker Z87.891 ; Hypercalcemia E83.52 ; Overweight E66.3 and 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 Horace Lima III, MD [address] [place] [address] [place] [phone] 07/02/2024 Horace Lima Attention deficit hyperactivity disorder (ADHD), unspecified ADHD type F90.9 ; 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 ; Bilateral hearing loss H91.93 ; Major depression F32.9 ; Hyperlipidemia E78.5 ; Asthma J45.909 ; Hyperparathyroidism E21.3 ; Overweight E66.3 ; Former smoker Z87.891 and Vitamin B 12 deficiency E53.8 Horace Lima III, MD [address] [place] [address] [place] [address] 09/16/2024 Horace Lima Attention deficit hyperactivity disorder (ADHD), unspecified ADHD type F90.9 ; 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 ; Hyperlipidemia E78.5 ; Hyperparathyroidism E21.3 ; Vitamin B 12 deficiency E53.8 ; Bilateral hearing loss H91.93 ; Asthma J45.909 ; Major depression F32.9 ; Tobacco dependence F17.200 and 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 Horace Lima III, MD [address] [place] [address] [place] [address] 01/29/2025 Horace Lima Attention deficit hyperactivity disorder [...] Former smoker Z87.891 Horace Lima III, MD [address] [place] [address] [place] [address] 03/12/2025 Horace Lima Attention deficit hyperactivity disorder (ADHD), unspecified ADHD type F90.9 ; 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 ; Postmenopause Z78.0 ; Bilateral hearing loss H91.93 ; Major depression F32.9 ; Hyperlipidemia E78.5 ; Asthma J45.909 ; Former smoker Z87.891 ; 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 and 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 Horace Lima III, MD [address] [place] [address] [place] [address] 07/02/2024 Horace Lima III, MD [address] [place] [address] [place] [address] 07/16/2024 Horace Lima III, MD [address] [place] [address] [place] [address] 01/29/2025 Horace Lima III, MD [address] [place] [address] [place] [address] 10/10/2024 Horace Lima III, MD [address] [place] [address] [place] [address] 10/13/2024 Horace Lima Assessments Encounter Date Diagnosis [...] to lose weight gradually. 09/16/2024 Major depression ( D-10 - F32.9) Her depression is well-controlled and she is living her life without significant impairment. 01/29/2025 Tobacco dependence (ICD-10 - F17.200) I have counseled her about smoking cessation at length today. I have made her aware of the smoking cessation program at [facility]. She is smoking only 5 cigarettes [...] aware of the smoking cessation program at [facility]. She is smoking only 5 cigarettes [...] PTHI 07/15/2021 Next Appt Details Provider Name:Horace Lima 06/12/2025 10:30:00 AM, [address] [facility] [address], [place], [phone], Provider Name:Horace Lima, 02/01/2026 10:00:00 AM, [address] [facility] [address], [place], [phone], Insurance Providers Payer Name Payer Address Payer Phone Subscriber Number Group Number Insured Name Patient Relationship to Insured Coverage Start Date Coverage End Date MEDICARE NGS [address] [place] [address] [id number] Lily Jacques Self - patient is the insured [place] [address] [place] [id number] Lily Jacques Self - patient is the insured Medical (General) History Medical History History ICD Code ADHD, combined type ear infections left breast calcifications colonoscopy December 2012 tobacco dependence hyperlipidemia menopause age 42 alcohol abuse overweight Thrombocytosis Hearing loss Stage Ib [id number] adenocarcinoma RLL, pdl +, 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
--- OUTSIDE RECORDS SUMMARY | 2025-03-24 12:03 | XMS_ITS | Patient Health Record ---
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
== END 2025-03-24 11:40 | disposition home or self-care (01) ==
LOC: HO.ENCR 10:47
PROVIDERS: PCP Internal Medicine Medical Oncology; Visit Provider Student in an Organized Health Care Education/Training Program
DX: E21.3 Hyperparathyroidism, unspecified (principal); M85.80 Other specified disorders of bone density and structure, unspecified site
CPT/HCPCS: 99213

== ENCOUNTER → 2025-03-24 10:46 | Outpatient (BNVA) | payer MEDICARE, MEDICAID, SELFPAY | PROVIDERS: PCP Internal Medicine Medical Oncology; Visit Provider Student in an Organized Health Care Education/Training Program | DX: E21.3 Hyperparathyroidism, unspecified (principal) | CPT/HCPCS: 99212 ==

== ENCOUNTER 2025-07-07 10:46 | Outpatient (REF) | payer MEDICARE, MEDICAID, SELFPAY ==
--- OUTSIDE RECORDS SUMMARY | 2025-07-07 13:03 | XMS_ITS | Data Portability ---
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 Role Phone ROBBY JORGENSEN Primary [...] Modified Time Details Appointments Establish ed 15 2025 11:15A Grace MARQUIS MD Not available Not available Not [...] Details Recorded Time Postmasto idectomy complicat ion 47981365 Active 2014 Other disorders following mastoidec hieu, right ear; Note: Date Diagnosed : 5 11:48 AM (H95.191) Not Available [facility] 4 02:54:08 Mixed conductiv e and sensorine ural hearing loss, bilateral 505924594 Active 2014 Mixed conductiv e and sensorine ural hearing loss, bilateral ; Note: Date Diagnosed : 5 11:48 AM (H90.6) Not Available [facility] 4 02:54:06 Bilateral disorder of Eustachia n tubes 97667285029 57749 Active 2014 Other specified disorders of Eustachia n tube, bilateral ; Note: Date Diagnosed : 5 11:48 AM (H69.83) Not Available [facility] 4 02:54:06 Impacted cerumen in left ear 90884763628 74010 Active 2014 Impacted cerumen, left ear; Note: Date Diagnosed : 5 11:48 AM (H61.22) Not Available [facility] 4 02:54:08 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 02068231391 45144 Active 2014 Total perforati ons of tympanic membrane, bilateral ; Note: Date Diagnosed : 5 11:48 AM (H72.823) ELISEO MARQUIS MD [address] [place] [address], [place], [address] , [place] [facility] 5 14:00:23 Impacted cerumen of bilateral ears 15941444677 80036 Active 2016 Impacted cerumen, bilateral ; Note: Date Diagnosed : 03/27/2017 9:11 AM (H61.23) ELISEO MARQUIS MD [address] [place] [address], [place], [address] , [place] [facility] 5 14:00:09 Chronic pharyngit is 270367 Active 2016 Chronic sore throat; Note: Date Diagnosed : 08/07/2017 1:07 PM (J31.2) Not Available [facility] 4 02:54:06 Candidal otitis externa 77710584 Active 2017 Candidal otitis externa; Note: Date Diagnosed : 08/06/2018 11:51 AM (B37.84) Not Available [facility] 4 02:54:05 Otorrhea of left ear 02301746421 45893 Active 2018 Otorrhea, left ear; Note: Date Diagnosed : 03/20/2019 2:35 PM (H92.12) Not Available [facility] 4 02:54:05 Problem Notes None recorded. Medical Equipment None Reported. Allergies No known drug allergies Medications Name Sig Start Date Stop Date Status Note LastModified by Organization Details LastModified Time amoxicill in 500 mg capsule TAKE ONE CAPSULE BY MOUTH EVERY 12 HOURS 09/25 completed Not Available Not Available Not Available loratadin e 10 mg disintegr ating tablet 01/02 completed Medicati on ID: [id number] R darshan: () Brand Name: loratadi ne Send Method: E-Prescr ibed Sub s Allowed: subs OK Medic ationGen ericName : loratadi ne Not Available Not Available Not Available gabapenti n 600 mg tablet TAKE ONE TABLET BY MOUTH EVERY EVENING AT BEDTIME 09/25 completed Not Available Not Available Not Available azithromy rohan 250 mg tablet TAKE 2 TABLETS ON FIRST DAY , THEN 1 TABLET DAILY FOR 4 DAYS 05/25 completed Not Available Not Available Not Available Lotrisone 1 %-0.05 % topical cream 1 a small amount to affected area 09/25 completed Medicati on ID: [id number] D uration Value: 14 Prescri bed By [...] ONE TABLET EACH DAY 3, 2, 1) 05/28 completed Not Available Not Available Not Available cyanocoba tesha (vit B-12) 1,000 mcg tablet TAKE ONE TABLET BY MOUTH EVERY DAY 05/28 completed Not Available Not Available Not Available valacyclo vir 500 mg tablet 09/25 completed Medicati on ID: [id number] B rand Name: valacycl ovir Sen d Method: E-Prescr ibed Sub s Allowed: subs STEFANIA Gannon al Instruct ion: TAKE ONE TABLET BY MOUTH THREE TIMES A DAY Medi cationGe nericNam e: valacycl ovir Not Available Not Available Not Available ciproflox acin 500 mg tablet 09/25 completed Medicati on ID: [id number] D uration Value: 10 Brand Name: ciproflo xacin HCl Send Method: E-Prescr ibed Sub s Allowed: subs STEFANIA Gannon al Instruct ion: TAKE ONE TABLET BY MOUTH EVERY 12 HOURS FOR 10 DAYS Med icationG enericBrissa me: ciproflo xacin HCl Not Available Not Available Not Available simvastat in 40 mg tablet 01/02 completed Medicati on ID: [id number] D uration Value: 30 Reason: () Brand Name: simvasta tin Send Method: E-Prescr ibed Sub s Allowed: subs STEFANIA Gannon al Instruct ion: TAKE 1 TABLET BY [...] Not Available Not Available No t Available meloxicam 7.5 mg tablet TAKE ONE TABLET BY MOUTH EVERY DAY active Not Available Not Available No t Available prednisol one acetate 1 % eye drops,jesi pension PLACE 1 DROP IN LASERED EYE 3 TIMES DAILY FOR 5 DAYS FOLLOWIN G LASER DIRECTED 09/25 completed Not Available Not Available Not Available ciproflox acin 0.3 % eye drops PLACE 4 TO 5 DROPS INTO THE AFFECTED EAR EVERY 12 HOURS FOR 7 DAYS 05/28 completed Not Available Not Available Not Available fluvoxami ne 100 mg tablet TAKE ONE TABLET BY MOUTH TWICE A DAY active Not Available Not Available No t Available simvastat in 20 mg tablet TAKE ONE TABLET BY MOUTH EVERY EVENING active Not Available Not Available No t Available trazodone 150 mg tablet 01/02 completed Medicati on ID: [id number] R darshan: () Brand Name: trazodon e Send Method: E-Prescr ibed Sub s Allowed: subs OK Medic ationGen ericName : trazodon e Not Available Not Available Not Available tobramyci n 0.3 % eye drops 09/25 completed Medicati on ID: [id number] D uration Value: 10 Brand Name: tobramyc [...] Not Available Not Available No t Available nicotine 21 mg/24 hr daily transderm al patch APPLY ONE PATCH TO THE SKIN EVERY DAY active Not Available Not Available No t Available sertralin e 25 mg tablet 01/02 completed Medicati on ID: [id number] R darshan: () Brand Name: sertrali ne Send Method: E-Prescr ibed Sub s Allowed: subs OK Medic ationGen ericName : sertrali ne Not Available Not Available Not Available folic acid 1 mg tablet TAKE ONE TABLET BY MOUTH EVERY DAY 09/25 completed Not Available Not Available Not Available monteluka st 10 mg tablet Take 1 tablet 01/02 completed Medicati on ID: [id number] R darshan: () Brand Name: monteluk ast Send Method: E-Prescr ibed Sub s Allowed: subs OK Speci al Instruct ion: Take 1 tablet by mouth every day in the evening Medicati onGeneri cName: monteluk ast Not Available Not Available Not Available gabapenti n 100 mg capsule 09/25 completed Medicati on ID: [id number] B rand Name: gabapent in Send Method: E-Prescr ibed Sub s Allowed: subs OK Speci al Instruct ion: TAKE ONE CAPSULE BY MOUTH THREE TIMES A DAY Medi cationGe nericNam e: gabapent in Not Available Not Available Not Available amoxicill in 875 mg-potass ium clavulana te 125 mg tablet 04/22 completed Medicati on ID: [id number] D uration Value: 10 Reason: () Brand [...] completed Not Available Not Available Not Available Vitamin D3 25 mcg (1,000 unit) tablet TAKE 1 TABLET BY MOUTH DAILY 05/28 completed Not Available Not Available Not Available Amphetami ne Salt Combo 04/22 completed Medicati on ID: [id number] D uration Value: 30 Reason: () Brand Name: Amphetam ine Salt Combo Se nd Method: E-Prescr ibed Sub s Allowed: subs OK Medic ationGen ericName : Amphetam ine Salt Combo Not Available Not Available Not Available Vyvanse 70 mg capsule 01/02 completed Medicati on ID: [id number] R darshan: () Brand Name: Vyvanse Send Method: E-Prescr ibed Sub s Allowed: subs OK Medic ationGen ericName : Vyvanse Not Available Not Available Not Available Odefsey 200 mg-25 mg-25 mg tablet 01/02 completed Medicati on ID: [id number] R darshan: () Brand Name: Odefsey Send Method: E-Prescr ibed Sub s Allowed: subs OK Medic ationGen ericName : Odefsey Not Available Not Available Not Available Trintelli x 10 mg tablet 01/02 completed Medicati on ID: [id number] R darshan: () Brand Name: Trintell ix Send Method: E-Prescr ibed Sub s Allowed: subs OK Medic ationGen ericName : Trintell ix Not Available Not Available Not Available Tab-A-Vit e 400 mcg tablet 01/02 completed Medicati on ID: [id number] R darshan: () Brand Name: Tab-A-Vi te [...] Updated DateTime 09/25/2024 152.4 cm 24.8 kg/m2 49485.23 leni Lewis [facility] 09/25/2024 10:31:33 Date Recorded Body height Body mass index (BMI) Body weight Provider Name and Address Organization Details Last Updated DateTime 03/21/2024 152.4 cm 25.8 kg/m2 32793.19 leni Mar [facility] 03/21/2024 13:38:48 Date Recorded Body height Body mass index (BMI) Body weight Provider Name and Address Organization Details Last Updated DateTime 05/28/2025 152.4 cm 25 kg/m2 25629.82 leni Lewis [facility] 05/28/2025 13:52:13 Social History None recorded. Functional Status None recorded. Mental Status None recorded. Family History Nothing Reported. Medical History No medical history recorded. Gynecological HistoryNo gynecological history recorded. Obstetrics History GPAL:G 0 P 0 0 0 0 Past Encounters Encounter ID Performer Location Encounter Start Date Encounter Closed Date Diagnosis/Indication Diagnosis SNOMED-CT Code Diagnosis ICD10 Code Diagnosis IMO Codes Diagnosis Note [id number] ALEIDA DE LEON PA-C [facility] on [address] [place] [address] 03/21/2024 13:30:46 03/21/2024 16:11:22 Impacted cerumen in left ear [id number] 779423 H61.22 Postmastoi dectomy complication 87405565 H95.191 [id number] ELISEO MARQUIS MD [facility] on [address] [place] [id number] 09/25/2024 10:26:33 09/25/2024 10:47:21 Total perforation of bilateral tympanic membranes 6683306957 121867 H72.823 Cerumen removed and tolerated well. Perforatio ns are clean and dry. No infection. Follow up 9 months. [id number] ELISEO MARQUIS MD [facility] on [address] [place] [address], [place] [address] 05/28/2025 13:48:42 05/28/2025 14:02:30 Total perforation of bilateral tympanic membranes 1353674092 317859 H72.823 Partial cerumen removed and tolerated well. Perforatio ns are clean and dry. No infection. Follow up 9 months. Health Concerns Section Related Observation LastModified by Organization Detai ls LastModified Time None Recorded Concern Status LastModified by Organization Details LastModified Time None Recorded Advance Directives Directive None Recorded Payers Insurance Date Sequence Insurance Name Policy Number Policy Martinez Covered Member ID Martinez Member ID Guarantor Name 05/26/2025 1 MEDICARE B-[place]: [facility] Lily Jacques [id number] Lily Jacques 05/25/2025 2 [place] [facility] Lily Jacques [id number] Lily Jacques Notes Date Note Type Note Provider Name and Address Organization Details Recorded Time 03/21/2024 text/html ROS as noted in the HPI 63 year old female presents today for ear cleaning.History of a right canal wall down mastoidectomy and left tympanic membrane perforation. She has hearing aids from [employer].No specific concerns today. She recently completed chemotherapy for lung cancer. She also underwent a lobectomy. Aleida hanley [place] - [facility] 03/21/2024 14:12:44 09/25/2024 text/html ROS as noted in the HPI Recent CT chest for shortness of breath. Going to recheck in 6 weeks. No ear infections.PV: 63 year old female presents today for ear cleaning.History of a right canal wall down mastoidectomy and left tympanic membrane perforation. She has hearing aids from [employer].No specific concerns today. She recently completed chemotherapy for lung cancer. She also underwent a lobectomy. ELISEO MARQUIS MD [address] [place] [address], [phone], [facility] 10/01/2024 09:43:48 05/28/2025 text/html ROS as noted in the HPI One ear infection since last visit , ear was red, on eye drops. Lungs no issues.PV: 63 year old female presents today for ear cleaning.History of a right canal wall down mastoidectomy and left tympanic membrane perforation. She has hearing aids from [employer].No specific concerns today. She recently completed chemotherapy for lung cancer. She also underwent a lobectomy. ELISEO MARQUIS MD [address] [place] [address],[address], [phone], [facility] 05/28/2025 14:01:00 OBGyn Episode No OBEpisode recorded.
== END 2025-07-07 10:47 | disposition home or self-care (01) ==
LOC: HO.HAP 10:46
PROVIDERS: Visit Provider Internal Medicine Medical Oncology
DX: Z46.1 Encounter for fitting and adjustment of hearing aid (principal); H90.6 Mixed conductive and sensorineural hearing loss, bilateral
CPT/HCPCS: V5266